=== PATIENT | male | born 1965 | race Caucasian/White ===

== ENCOUNTER 2020-12-28 08:13 | Observation (INO) | payer BC ==
--- OUTSIDE RECORDS SUMMARY | 2020-12-28 08:16 | XMS REPORT | Continuity of Care Document ---
:1965 Author Organization [facility] Address [address] [place] [address] Care Team Providers Name Role Phone Patricia Jackson MD Attending Clinician Doctor Unassigned, Name Attending Clinician Unavailable Luiz RN, P Attending Clinician Unavailable Pob1, Care Clinic Attending Clinician Unavailable Problems This patient has no known problems. Allergies, Adverse Reactions, Alerts This patient has no known allergies or adverse reactions. Medications This patient has no known medications. Procedures This patient has no known procedures. Encounters Start End Encounter Admission Attending Care Care Encounter Source Date/Time Date/Time Type Type Clinicians Facility Department ID 2020-08-18 2020-08-18 [facility] [id number] 16:47:19 23:59:00 Encounter Stephan Wagner [id number] [place] [id number] [place] [id number] 2020-08-18 2020-08-18 Orders Doctor HOUGH [id number] 00:00:00 00:00:00 Only UnassignedINDIRA [id number] [place] [id number] 2019-11-22 2019-11-22 Telephone GIANLUCA Dee [id number] 00:00:00 00:00:00 Korin JACOBSON [id number] 2019-11-20 2019-11-20 Urgent Pob1, Acute [facility] [id number] 12:17:24 13:41:18 [place] [id number] [place] [id number] [id number] [place] [address] 2019-09-10 2019-09-10 Outpatient [facility] [id number] 08:08:00 08:08:00 [facility] 2015-09-10 2015-09-10 Outpatient [facility] [id number] [facility] 11:26:13 23:59:59 Balwinder ritter Surgical Surgical [facility] Results This patient has no known results.
[2020-12-28 08:48] LABS: Absolute Lymphocytes (CBC) 1.8 K/uL (0.7-4.9); Basophils % 1.2 % (0-1.3); Hematocrit 43.1 % (39.6-49.0); Lymphocytes % 41.4 % (15.3-44.8); RBC Red Blood Cell Count 4.39 M/uL (4.33-5.43)
[2020-12-28] MEDS ORDERED: METOPROLOL TAR 50 MG TAB ONE (08:55)
[2020-12-28 09:08] LABS: BUN Blood Urea Nitrogen 7 mg/dL (7-18); Bicarbonate 30 mmol/L (21-32); Glucose Level 101 mg/dL (74-106); Magnesium 1.5 mg/dL (1.8-2.4); NT PRO-BNP 14 pg/mL (<125); Potassium 4.2 mmol/L (3.5-5.1); Sodium Level 134 mmol/L (136-145); Troponin (Emerg Dept Use Only) < 0.02 ng/mL (0.0-0.045)
--- NOTE | 2020-12-28 09:40 | RAD REPORT ---
EXAM DESCRIPTION: Sean Single View12/28/2020 8:47 am CLINICAL HISTORY: Palpitations COMPARISON: 2017 FINDINGS: The lungs appear clear of acute infiltrate. The heart is normal size IMPRESSION: No acute abnormalities displayed
--- NOTE | 2020-12-28 09:54 | EDPHYS ---
Physician Documentation [facility] Name: Jean-Paul Castillo Age: 55 yrs Sex: Male : 1965 Arrival Date: 12/28/2020 Time: 08:14 Bed 15 Private MD: ED Physician Chris Parry HPI: 12/28 09:45 This 55 yrs old Male presents to ER via Ambulatory with complaints of rn Palpitations, Shortness Of Breath. 09:45 The patient presents with a history of irregular heart beat, heart skipping beats. rn Context: The symptoms occur at rest. Onset: The symptoms/episode began/occurred this morning. Duration: The patient or guardian reports multiple episodes, that are intermittent. Modifying factors: The symptoms are aggravated by nothing. The symptoms are alleviated by nothing. Associated signs and symptoms: Pertinent positives: SOB, Pertinent negatives: chest pain. Severity of symptoms: At their worst the symptoms were moderate in the emergency department the symptoms are unchanged. The patient has experienced similar episodes in the past. Reports hx of palpitations, but no diagnosis, didn't take BP med this AM, comes in with worse palpitations, lasting longer, not going away, assoc with sob. No chest pain. Reports father had MA at 35. . Historical: - Allergies: 08:15 PENICILLINS; aa5 - PMHx: 08:15 Hypertension; aa5 - Immunization history:: Adult Immunizations unknown. - Social history:: Smoking status: Patient denies any tobacco usage or history of. - Family history:: Father has/had heart disease. - Hospitalizations: : No recent hospitalization is reported. ROS: 09:45 Constitutional: Negative for fever, chills, and weight loss, Eyes: Negative for injury, rn pain, redness, and discharge, Neck: Negative for injury, pain, and swelling, Cardiovascular: Negative for chest pain,and edema, Respiratory: Negative for cough, wheezing, and pleuritic chest pain, Abdomen/GI: Negative for abdominal pain, nausea, vomiting, diarrhea, and constipation, Back: Negative for injury and pain, MS/Extremity: Negative for injury and deformity, Skin: Negative for injury, rash, and discoloration, Neuro: Negative for headache, weakness, numbness, tingling, and seizure. Exam: 09:45 Constitutional: This is a well developed, well nourished patient who is awake, alert, rn and in no acute distress. Head/Face: Normocephalic, atraumatic. Eyes: Periorbital areas with no swelling, redness, or edema. ENT: No stridor Cardiovascular: Regular rate and rhythm. No pulse deficits. Respiratory: Clear bilateral breath sounds. No increased work of breathing, no retractions or nasal flaring. Abdomen/GI: Soft, non-tender Skin: Warm, dry MS/ Extremity: Pulses equal, no cyanosis. Neuro: Awake and alert, GCS 15 Vital Signs: 08:17 BP 154 / 104; Pulse 102; Resp 18 S; Temp 97.9(O); Pulse Ox 100% on R/A; Weight 102.06 aa5 kg (R); Height 5 ft. 11 in. (180.34 cm) (R); 08:30 BP 154 / 104; Pulse 94; Resp 20; Pulse Ox 99% on R/A; kg 09:00 BP 138 / 94; Pulse 100; Resp 20; Pulse Ox 99% ; kg 09:30 BP 127 / 86; Pulse 97; Resp 20; Pulse Ox 96% ; kg 10:00 BP 124 / 89; Pulse 101; Resp 20; Pulse Ox 98% on R/A; kg 10:30 BP 128 / 96; Pulse 100; Resp 20; Pulse Ox 97% ; kg 11:30 BP 129 / 92; Pulse 100; Resp 17; Pulse Ox 97% on R/A; kg 12:30 BP 120 / 84; Pulse 92; Resp 20; Pulse Ox 96% on R/A; kg 13:20 BP 124 / 88; Pulse 90; Resp 20; Pulse Ox 97% ; kg 08:17 Body Mass Index 31.38 (102.06 kg, 180.34 cm) aa5 MDM: 08:15 Patient medically screened. rn 09:45 Differential diagnosis: arrythmia, dehydration, electrolyte disorder. Data reviewed: rn vital signs, nurses notes, lab test result(s), EKG, radiologic studies. Counseling: I had a detailed discussion with the patient and/or guardian regarding: the historical points, exam findings, and any diagnostic results supporting the discharge/admit diagnosis, lab results, radiology results, the need for outpatient follow up, to return to the emergency department if symptoms worsen or persist or if there are any questions or concerns that arise at home. Response to treatment: There is no appreciated change of the patient's symptoms at this time, and as a result, I will admit patient. Admission orders: after a detailed discussion of the patient's condition and case, the admit orders are written by me. ED course: Pt still with palpitations and subjective sob, will admit to Dr. baptiste for further eval and cardiac consultation, vitals improving after magnesium and metoprolol. . 12/28 08:29 Order name: Basic Metabolic Panel; Complete Time: 09:12 rn 12/28 08:29 Order name: CBC with Diff; Complete Time: 09:12 rn 12/28 08:29 Order name: Magnesium; Complete Time: 09:12 rn 12/28 08:29 Order name: NT PRO-BNP; Complete Time: 09:12 rn 12/28 08:29 Order name: Troponin (emerg Dept Use Only); Complete Time: 09:12 rn 12/28 10:38 Order name: COVID-19 : Document "Date of Symptom Onset" if Symptomatic. aa5 12/28 08:29 Order name: XRAY Chest (1 view); Complete Time: 09:42 rn 12/28 08:29 Order name: EKG; Complete Time: 08:29 rn 12/28 08:29 Order name: Cardiac monitoring; Complete Time: 08:31 rn 12/28 08:29 Order name: EKG - Nurse/Tech; Complete Time: 08:31 rn 12/28 12:08 Order name: SARS-COV-2 RT PCR; Complete Time: 12:42 EDMS 12/28 12:40 Order name: Diet 2 Gm Sodium; Complete Time: 12:41 kg 12/28 08:29 Order name: IV Saline Lock; Complete Time: 08:44 rn 12/28 08:29 Order name: Labs collected and sent; Complete Time: 08:44 rn 12/28 08:29 Order name: O2 Per Protocol; Complete Time: 08:44 rn 12/28 08:29 Order name: O2 Sat Monitoring; Complete Time: 08:44 rn Administered Medications: 08:37 Drug: Metoprolol TARTRATE 50 mg Route: PO; kg 10:01 Follow up: Response: No adverse reaction kg 09:50 Drug: Magnesium Sulfate 1 grams Route: IVPB; Infused Over: 1 hrs; Site: right kg antecubital; 10:50 Follow up: Response: No adverse reaction; IV Status: Completed infusion; IV Intake: kg 100ml Disposition: 12/28/20 09:53 Hospitalization ordered by Arthur Baptiste for Observation. Preliminary diagnosis are Palpitations, Shortness of breath, Tachycardia, unspecified. - Bed requested for Telemetry/MedSurg (observation). - Status is Observation. aa5 - Condition is Stable. - Problem is new. - Symptoms have improved. Signatures: Dispatcher [employer] EDMS Rimma Martinez Roman, MD MD rn Calderon, Audri, RN RN aa5 Alycia Alexandre kg Corrections: (The following items were deleted from the chart) 12:39 09:53 Hospitalization Ordered by Arthur Baptiste DO for Observation. Preliminary bd diagnosis is Palpitations; Shortness of breath; Tachycardia, unspecified. Bed requested for Telemetry/MedSurg (observation). Status is Observation. Condition is Stable. Problem is new. Symptoms have improved. rn 13:52 12:39 12/28/2020 09:53 Hospitalization Ordered by Arthur Baptiste DO for Observation. aa5 Preliminary diagnosis is Palpitations; Shortness of breath; Tachycardia, unspecified. Bed requested for Telemetry/MedSurg (observation). Status is Observation. Condition is Stable. Problem is new. Symptoms have improved. bd
--- NOTE | 2020-12-28 09:54 | ER ---
Nurse's Notes [facility] Name: Jean-Paul Castillo Age: 55 yrs Sex: Male : 1965 Arrival Date: 12/28/2020 Time: 08:14 Bed 15 Private MD: Diagnosis: Palpitations;Shortness of breath;Tachycardia, unspecified Presentation: 12/28 08:15 Chief complaint: Patient states: chest palpitations that began today. Pt also reports aa5 SOB. Pt appears anxious during triage. Coronavirus screen: At this time, the client does not indicate any symptoms associated with coronavirus-19. Onset of symptoms was December 28, 2020. 08:15 Method Of Arrival: Ambulatory aa5 08:15 Acuity: ARNULFO 3 aa5 08:17 Ebola Screen: Patient negative for fever greater than or equal to 101.5 degrees aa5 Fahrenheit, and additional compatible Ebola Virus Disease symptoms. Initial Sepsis Screen: Does the patient meet any 2 criteria? HR > 90 bpm. Does the patient have a suspected source of infection? No. Patient's initial sepsis screen is negative. Risk Assessment: Do you want to hurt yourself or someone else? Patient reports no desire to harm self or others. Triage Assessment: 08:52 Respiratory: Onset: The symptoms/episode began/occurred this morning, the patient has kg mild shortness of breath. Historical: - Allergies: 08:15 PENICILLINS; aa5 - PMHx: 08:15 Hypertension; aa5 - Immunization history:: Adult Immunizations unknown. - Social history:: Smoking status: Patient denies any tobacco usage or history of. - Family history:: Father has/had heart disease. - Hospitalizations: : No recent hospitalization is reported. Screenin:51 Abuse screen: Denies threats or abuse. Abuse screen: Denies threats or abuse. kg Nutritional screening: No deficits noted. Tuberculosis screening: No symptoms or risk factors identified. Fall Risk None identified. No fall in past 12 months (0 pts). No secondary diagnosis (0 pts). IV access (20 points). Ambulatory Aid- None/Bed Rest/Nurse Assist (0 pts). Gait- Normal/Bed Rest/Wheelchair (0 pts) Mental Status- Oriented to own ability (0 pts). Total Greco Fall Scale indicates No Risk (0-24 pts). Assessment: 08:45 General: Appears in no apparent distress. Behavior is calm, cooperative, appropriate kg for age, quiet. Pain: Denies pain. Neuro: No deficits noted. Neuro: No deficits noted. Level of Consciousness is awake, alert, obeys commands, Oriented to person, place, time, situation, pt has notable tremor. Cardiovascular: Reports palpitations, shortness of breath, Heart tones S1 S2 Capillary refill < 3 seconds Rhythm is irregular. Respiratory: Reports shortness of breath During heart palpations Airway is patent Respiratory effort is even, Breath sounds are clear bilaterally. GI: No deficits noted. : No deficits noted. EENT: No deficits noted. Derm: No deficits noted. Musculoskeletal: No deficits noted. 13:28 Reassessment: report called to Armani QUIROZsurgical endoscopist. kg Vital Signs: 08:17 BP 154 / 104; Pulse 102; Resp 18 S; Temp 97.9(O); Pulse Ox 100% on R/A; Weight 102.06 aa5 kg (R); Height 5 ft. 11 in. (180.34 cm) (R); 08:30 BP 154 / 104; Pulse 94; Resp 20; Pulse Ox 99% on R/A; kg 09:00 BP 138 / 94; Pulse 100; Resp 20; Pulse Ox 99% ; kg 09:30 BP 127 / 86; Pulse 97; Resp 20; Pulse Ox 96% ; kg 10:00 BP 124 / 89; Pulse 101; Resp 20; Pulse Ox 98% on R/A; kg 10:30 BP 128 / 96; Pulse 100; Resp 20; Pulse Ox 97% ; kg 11:30 BP 129 / 92; Pulse 100; Resp 17; Pulse Ox 97% on R/A; kg 12:30 BP 120 / 84; Pulse 92; Resp 20; Pulse Ox 96% on R/A; kg 13:20 BP 124 / 88; Pulse 90; Resp 20; Pulse Ox 97% ; kg 08:17 Body Mass Index 31.38 (102.06 kg, 180.34 cm) aa5 ED Course: 08:14 Patient arrived in ED. as 08:15 Chris Parry MD is Attending Physician. rn 08:15 Arm band placed on Patient placed in an exam room, on a stretcher. aa5 08:17 pvc monitor on. Pulse ox on. NIBP on. aa5 08:24 EKG completed in triage. Results shown to MD. aa5 08:30 Inserted saline lock: 20 gauge in right antecubital area, using aseptic technique. kg 08:32 Triage completed. aa5 08:32 Patient has correct armband on for positive identification. Placed in gown. Bed in low mh5 position. Call light in reach. Side rails up X 1. Adult w/ patient. Warm blanket given. pvc monitor on. Pulse ox on. NIBP on. 08:32 EKG done, by ED staff, reviewed by Chris Parry MD. 5 08:33 Alycia Alexandre is Primary Nurse. kg 08:47 XRAY Chest (1 view) In Process Unspecified. EDMS 09:53 Arthur Haas DO is Hospitalizing Provider. rn Administered Medications: 08:37 Drug: Metoprolol TARTRATE 50 mg Route: PO; kg 10:01 Follow up: Response: No adverse reaction kg 09:50 Drug: Magnesium Sulfate 1 grams Route: IVPB; Infused Over: 1 hrs; Site: right kg antecubital; 10:50 Follow up: Response: No adverse reaction; IV Status: Completed infusion; IV Intake: kg 100ml Intake: 10:50 IV: 100ml; Total: 100ml. kg Outcome: 09:53 Decision to Hospitalize by Provider. rn 13:52 Patient left the ED. aa5 Signatures: Dispatcher [employer] Abena Bobo Roman, MD MD rn Calderon, Audri, RN RN aa5 Martinez, [facility] Alycia Alexandre kg
[2020-12-28] MEDS ORDERED: MAGNESIUM SULFATE 1 gm IVPB 1 GM/100 ML BAG IV ONE (10:11)
--- NOTE | 2020-12-28 10:39 | P.HP ---
Certification for Inpatient Patient admitted to: Observation With expected LOS: <2 Midnights Patient will require the following post-hospital care: None Practitioner: I am a practitioner with admitting privileges, knowledge of patient current condition, hospital course, and medical plan of care. Services: Services provided to patient in accordance with Admission requirements found in Title 42 Section 412.3 of the Code of Federal Regulations Patient History Date of Service: 12/28/20 Primary Care Provider: Dr. Aguayo; Cardiology-Dr. Sung Reason for admission: Palpitations History of Present Illness: 55-year-old male with history of hypertension and hyperlipidemia Patient presented to the ER with palpitations. Palpitations have been more prominent. He reports some palpitations from time to time. This morning palpitations were persistent. He denied any chest pain, shortness of breath with this. It would last for several min. He denied any nausea, vomiting, diarrhea or constipation. Patient has hypertension and hyperlipidemia. He takes medication for both. He came to the ER for further evaluation. In the ER patient evaluated. No significant EKG changes noted. Chest x-ray unremarkable. CBC unremarkable. BMP unremarkable. Troponin unremarkable. Magnesium level was low at 1.5. Patient blood pressure was elevated. Patient given metoprolol with improvement. Patient admitted for observation. When I saw the patient ER, heart rate and blood pressure improved. Patient reports seen Cardiology as an outpatient. Last cardiac stress test done about 1 year ago was unremarkable. Patient admits to heavy alcohol use. He drinks about 4 beers and 2 glasses of wine per day. Family history of cardiac disease noted. Allergies Penicillins Allergy (Verified 06/13/16 11:23) Hives Home medications list reviewed: Yes Home Medications: Anastrozole [Arimidex] 0.25 mg PO EVERY 7TH DAY 06/13/16 Ascorbic Acid [Vitamin C] 500 mg PO DAILY 06/13/16 Aspirin [Aspirin EC 325 MG] 325 mg PO DAILY 06/13/16 Cholecalciferol (Vitamin D3) [Vitamin D3] 1,000 unit PO DAILY 06/13/16 Docosahexanoic AC/Epa [Fish Oil 1,000 MG CAP] 2,000 mg PO DAILY 06/13/16 Fenofibrate,Micronized [Fenofibrate] 134 mg PO DAILY 06/13/16 Fluoxetine HCl [Prozac] 40 mg PO DAILY 06/13/16 L.acidoph,Paracasei, B.lactis [Probiotic] 1 each PO DAILY 06/13/16 Lutein 20 mg PO DAILY 06/13/16 Magnesium [Magnesium Gluconate] 400 mg PO DAILY 06/13/16 Melatonin 10 mg PO DAILY 06/13/16 Multivitamin [Multivitamins] 1 each PO DAILY 06/13/16 Phenylalanine [l-Phenylalanine] 500 mg PO DAILY 06/13/16 Temazepam 30 mg PO BEDTIME 06/13/16 Ubidecarenone/Vitamin E Mixed [Qtc11-Cyx E 100 mg-10 Unit Sfg] 1 each PO DAILY 06/13/16 Zinc Gluconate [Zinc] 50 mg PO DAILY 06/13/16 lisinopriL [Prinivil] 20 mg PO DAILY WITH BREAKFAST 06/13/16 - Past Medical/Surgical History Diabetic: No -: Hypertension -: Hyperlipidemia -: Alcohol abuse -: Back surgery -: Right ACL repair Psychosocial/ Personal History: Patient is . 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 - Family History Father -: Heart disease - Social History Smoking Status: Never smoker Alcohol use: Yes CD- Drugs: No Caffeine use: Yes Place of Residence: Home Review of Systems General: As per HPI Eyes: Unremarkable ENT: Unremarkable Respiratory: Unremarkable Cardiovascular: Palpitations, As per HPI Gastrointestinal: Unremarkable Genitourinary: Unremarkable Musculoskeletal: Unremarkable Integumentary: Unremarkable Neurological: Unremarkable Lymphatics: Unremarkable Physical Examination - Physical Exam General: Alert, In no apparent distress, Oriented x3, Cooperative HEENT: Atraumatic, Normocephalic, Mucous membr. moist/pink Neck: Supple Respiratory: Clear to auscultation bilaterally, Normal air movement Cardiovascular: Normal pulses, Regular rate/rhythm Gastrointestinal: Normal bowel sounds, Soft and benign, Non-distended, No tenderness, No masses, No rebound, No guarding Musculoskeletal: No erythema, No tenderness, No warmth Integumentary: No tenderness/swelling, No erythema, No warmth, No cyanosis Neurological: Normal speech, Normal strength at 5/5 x4 extr, Normal tone, Normal affect - Studies Laboratory Data (last 24 hrs) 12/28/20 08:41: WBC 4.30, Hgb 15.2, Hct 43.1, Plt Count 216 12/28/20 08:41: Sodium 134 L, Potassium 4.2, BUN 7, Creatinine 1.02, Glucose 101, Magnesium 1.5 L Assessment and Plan - Plan Impression: Palpitations Hypertension, uncontrolled Hyperlipidemia Alcohol abuse Hypomagnesia Plan: Palpitations: Patient will be admitted for further evaluation and treatment. Will monitor cardiac enzymes and telemetry. DVT prophylaxis in place. Magnesium to be replaced. Will monitor and adjust appropriately. Protocol in place. Blood pressure needs to be better controlled. Will continue with metoprolol. Hold valsartan. Will order echocardiogram to further evaluate. Cardiology consulted to further evaluate. Await recommendation. Will discuss with cardiology. Alcohol cessation addressed in detail. Importance of cessation addressed. Anticipate improvement over the next 24 hr with likely discharge. Hypertension, uncontrolled: Blood pressure uncontrolled. Now better controlled with beta-manuel therapy. Will continue with metoprolol 50 mg 1 pill twice daily. Hold valsartan. Hyperlipidemia: Will check fasting lipid panel. Continue fenofibrate. Alcohol abuse: Alcohol cessation education provided in detail. Patient unders tands the risks of continued use. Patient appears to want to eliminate alcohol in the future. Continue cessation education. Will start thiamine and folic acid. Hypomagnesia: Will replace magnesium. Discharge Plan: Home Plan to discharge in: 24 Hours - Advance Directives Does patient have a Living Will: No Does patient have a Durable POA for Healthcare: No - Code Status/Comfort Care Code Status Assessed: Yes (Patient is full code) Time Spent Managing Pts Care (In Minutes): 55
[2020-12-28] MEDS ORDERED: ONDANSETRON 4 MG/2 ML VIAL IV PRN (13:58)
[2020-12-28] MEDS ORDERED: ACETAMINOPHEN 500 MG TAB PO PRN (13:58)
[2020-12-28 14:19] VITALS: BMI 31.4
[2020-12-28 15:42] LABS: CKMB Creatine Kinase MB 2.3 ng/mL (0.3-3.6); Creatine Phosphokinase 188 U/L (39-308); Troponin I < 0.02 ng/mL (0.0-0.045)
--- NOTE | 2020-12-28 17:41 | EKG ---
Test Date: 2020-12-28 Test Time: 08:24:26 Ground Support Equipment Fitter: EDWRAD MEASUREMENT RESULTS: Intervals: Rate: 107 CA: 166 QRSD: 92 QT: 336 QTc: 448 [place]: P: 62 CA: 166 QRS: 37 T: 27 INTERPRETIVE STATEMENTS: Sinus tachycardia with premature supraventricular complexes Otherwise normal ECG Compared to ECG 06/13/2016 11:26:47 Atrial premature complex(es) now present Sinus rhythm no longer present Electronically Signed On 12-28-20 17:40:02 CDT by Nestor Carreon
[2020-12-28] MEDS: METOPROLOL TAR 50 MG TAB PO SCH (20:35)
[2020-12-28 20:54] LABS: CKMB Creatine Kinase MB 1.7 ng/mL (0.3-3.6); Creatine Phosphokinase 171 U/L (39-308); Troponin I < 0.02 ng/mL (0.0-0.045)
[2020-12-28] MEDS ORDERED: FENOFIBRATE 48 MG TAB PO SCH (21:00)
[2020-12-28] MEDS ORDERED: TEMAZEPAM 15 MG CAP PO SCH (21:00)
[2020-12-29 04:43] VITALS: O2SAT 97
[2020-12-29 06:16] LABS: Magnesium 1.7 mg/dL (1.8-2.4); Potassium 4.1 mmol/L (3.5-5.1); Thyroid Stimulating Hormone 2.43 uIU/mL (0.360-3.740)
--- NOTE | 2020-12-29 07:17 | P.DS ---
Admission Date: 12/28/20 Discharge Date: 12/29/20 Primary Care Provider: Dr. Aguayo; Cardiology-Dr. Sung Disposition: ROUTINE DISCHARGE Discharge Condition: GOOD Reason for Admission: Palpitations Consultations: Cardiology-Dr. Carreon Procedures: COVID: Negative CXR: CLINICAL HISTORY: Palpitations COMPARISON: 2018 FINDINGS: The lungs appear clear of acute infiltrate. The heart is normal size IMPRESSION: No acute abnormalities displayed Medical Problem List: Palpitations, resolved Hypertension, uncontrolled Hyperlipidemia Alcohol abuse Hypomagnesia Depression with anxiety Prediabetes Obesity, BMI 31.4 Brief History of Present Illness: 55-year-old male with history of hypertension and hyperlipidemia Patient presented to the ER with palpitations. Palpitations have been more prominent. He reports some palpitations from time to time. This morning palpitations were persistent. He denied any chest pain, shortness of breath with this. It would last for several min. He denied any nausea, vomiting, diarrhea or constipation. Patient has hypertension and hyperlipidemia. He takes medication for both. He came to the ER for further evaluation. In the ER patient evaluated. No significant EKG changes noted. Chest x-ray unremarkable. CBC unremarkable. BMP unremarkable. Troponin unremarkable. Magnesium level was low at 1.5. Patient blood pressure was elevated. Patient given metoprolol with improvement. Patient admitted for observation. When I saw the patient ER, heart rate and blood pressure improved. Patient reports seen Cardiology as an outpatient. Last cardiac stress test done about 1 year ago was unremarkable. Patient admits to heavy alcohol use. He drinks about 4 beers and 2 glasses of wine per day. Family history of cardiac disease noted. Hospital Course: Patient presented with palpitations. EKG showed no significant ST changes. Magnesium was also low. His alcohol use may be related to this. Patient also has uncontrolled hypertension, hyperlipidemia, and prediabetes. The patient was admitted for further evaluation. Patient seen and evaluated by cardiology. No cardiac intervention was required. His medication valsartan/hydrochlorothiazide was discontinued. This was replaced with metoprolol. Blood pressure now well controlled. Magnesium was also replaced. Patient will continue with magnesium at discharge. Education on alcohol cessation addressed in detail. Patient plans to quit. At discharge no further palpitations identified. At discharge the patient will continue with metoprolol 50 mg 1 pill twice daily. Recommend to monitor blood pressure daily. Recommend to maintain blood pressure less than 130/80. Further adjustment can be done by his PCP or cardiology. Due to his risk factors patient will have outpatient echocardiogram and cardiac stress test to further evaluate with cardiology. He will make arrangements with cardiology to address. Patient will follow up with cardiology in 1 to 2 weeks to follow-up hospitalization. Patient with hypertension. This was uncontrolled. As mentioned above valsartan hydrochlorothiazide was discontinued. This was replaced with metoprolol with better control. At discharge patient will continue with metoprolol 50 mg 1 pill twice daily. Recommend to monitor blood pressure daily. Recommend to maintain blood pressure less than 130/80. Further adjustment can be done by his PCP or cardiology. Education on hypertension provided. Patient will follow up with his PCP and cardiology to further monitor and address. Patient with hyperlipidemia. Patient takes multiple medications already. Triglyceride level 183, LDL 114, HDL 29. Recommend to continue with his current medications of Zetia 10 mg daily and fenofibrate 135 mg daily. Recommend to recheck fasting lipid panel in 4 to 6 weeks to monitor his progress. Further adjustment in medication may be required. This can be done with the help of his PCP or reimbursement spec. Patient with alcohol abuse. Alcohol cessation addressed in detail. Patient plans to quit. Patient understands the continued risk of continued use. This can be further monitored as an outpatient. Due to his alcohol abuse will recommend to continue thiamine 100 mg daily. Patient with low magnesium level. This was replaced. At discharge patient will continue with mag oxide 200 mg daily. Recommend to recheck labBMP and magnesium level in 1 week to monitor his progress and resolution. Once well controlled then medication can be weaned off. Patient with depression and anxiety. At discharge patient will continue with his current medications of Prozac 20 mg daily and temazepam 30 mg at bedtime. Recommend follow-up with his PCP to further monitor and address. Recommend to wean off temazepam. This can be done with the help of his PCP. Patient with prediabetes. Hemoglobin A1c to be obtained. This can be followed up as an outpatient. Patient takes Metformin. Patient will continue with Metformin 500 mg 1 pill twice daily. If A1c well controlled consider discontinuing medication or weaning off medication. This can be done with the help of his PCP. Patient with obesity, BMI 31.5. Lifestyle modification education provided. Vital Signs/Physical Exam: Temp Pulse Resp BP Pulse Ox 98.1 F 70 16 123/82 97 12/29/20 04:00 12/29/20 04:00 12/29/20 04:00 12/29/20 04:00 12/29/20 04:00 General: Alert, In no apparent distress, Oriented x3, Cooperative HEENT: Atraumatic Neck: Supple Respiratory: Clear to auscultation bilaterally, Normal air movement Cardiovascular: Normal pulses, Regular rate/rhythm Gastrointestinal: Normal bowel sounds, Soft and benign, Non-distended, No tenderness, No masses, No rebound, No guarding Musculoskeletal: No erythema, No tenderness, No warmth Integumentary: No tenderness/swelling Neurological: Normal speech, Normal strength at 5/5 x4 extr, Normal tone, Normal affect Laboratory Data at Discharge: WBC 4.30 K/uL (4.3-10.9) 12/28/20 08:41 Hgb 15.2 g/dL (13.6-17.9) 12/28/20 08:41 Hct 43.1 % (39.6-49.0) 12/28/20 08:41 Plt Count 216 K/uL (152-406) 12/28/20 08:41 Sodium 137 mmol/L (136-145) 12/29/20 05:22 Potassium 4.1 mmol/L (3.5-5.1) 12/29/20 05:22 BUN 13 mg/dL (7-18) 12/29/20 05:22 Creatinine 1.20 mg/dL (0.55-1.3) 12/29/20 05:22 Glucose 109 mg/dL (74-106) H 12/29/20 05:22 Magnesium 1.7 mg/dL (1.8-2.4) L 12/29/20 05:22 Troponin I < 0.02 ng/mL (0.0-0.045) 12/28/20 19:47 Triglycerides 183 mg/dL (<150) H 12/29/20 05:22 Cholesterol 180 mg/dL (<200) 12/29/20 05:22 HDL Cholesterol 29 mg/dL (40-60) L 12/29/20 05:22 Cholesterol/HDL Ratio 6.21 12/29/20 05:22 Home Medications: Fenofibrate,Micronized [Fenofibrate] 135 mg PO DAILY 06/13/16 Fluoxetine HCl [Prozac] 20 mg PO DAILY 06/13/16 Temazepam 30 mg PO BEDTIME 06/13/16 Aspirin [Aspirin EC 325 MG] 1 tab PO DAILY 12/28/20 Ezetimibe [Zetia*] 10 mg PO DAILY 12/28/20 Metformin ER [Glucophage ER*] 500 mg PO BID 12/28/20 Magnesium Oxide [Mag-Oxide] 200 mg PO DAILY #30 tablet 12/29/20 Metoprolol Tartrate [Lopressor*] 50 mg PO BID #60 tab 12/29/20 Thiamine HCl [Vitamin B-1*] 100 mg PO DAILY #30 tablet 12/29/20 New Medications: Metoprolol Tartrate [Lopressor*] 50 mg PO BID #60 tab Magnesium Oxide [Mag-Oxide] 200 mg PO DAILY #30 tablet Thiamine HCl [Vitamin B-1*] 100 mg PO DAILY #30 tablet Physician Discharge Instructions: Patient presented with palpitations. EKG showed no significant ST changes. Magnesium was also low. His alcohol use may be related to this. Patient also has uncontrolled hypertension, hyperlipidemia, and prediabetes. The patient was admitted for further evaluation. Patient seen and evaluated by cardiology. No cardiac intervention was required. His medication valsartan/hydrochlorothiazide was discontinued. This was replaced with metoprolol. Blood pressure now well controlled. Magnesium was also replaced. Patient will continue with magnesium at discharge. Education on alcohol cessation addressed in detail. Patient plans to quit. At discharge no further palpitations identified. At discharge the patient will continue with metoprolol 50 mg 1 pill twice daily. Recommend to monitor blood pressure daily. Recommend to maintain blood pressure less than 130/80. Further adjustment can be done by his PCP or cardiology. Due to his risk factors patient will have outpatient echocardiogram and cardiac stress test to further evaluate with cardiology. He will make arrangements with cardiology to address. Patient will follow up with cardiology in 1 to 2 weeks to follow-up hospitalization. Patient with hypertension. This was uncontrolled. As mentioned above valsartan hydrochlorothiazide was discontinued. This was replaced with metoprolol with better control. At discharge patient will continue with metoprolol 50 mg 1 pill twice daily. Recommend to monitor blood pressure daily. Recommend to maintain blood pressure less than 130/80. Further adjustment can be done by his PCP or cardiology. Education on hypertension provided. Patient will follow up with his PCP and cardiology to further monitor and address. Patient with hyperlipidemia. Patient takes multiple medications already. Triglyceride level 183, LDL 114, HDL 29. Recommend to continue with his current medications of Zetia 10 mg daily and fenofibrate 135 mg daily. Recommend to recheck fasting lipid panel in 4 to 6 weeks to monitor his progress. Further adjustment in medication may be required. This can be done with the help of his PCP or reimbursement spec. Patient with alcohol abuse. Alcohol cessation addressed in detail. Patient plans to quit. Patient understands the continued risk of continued use. This can be further monitored as an outpatient. Due to his alcohol abuse will recommend to continue thiamine 100 mg daily. Patient with low magnesium level. This was replaced. At discharge patient will continue with mag oxide 200 mg daily. Recommend to recheck labBMP and magnesium level in 1 week to monitor his progress and resolution. Once well controlled then medication can be weaned off. Patient with depression and anxiety. At discharge patient will continue with his current medications of Prozac 20 mg daily and temazepam 30 mg at bedtime. Recommend follow-up with his PCP to further monitor and address. Recommend to wean off temazepam. This can be done with the help of his PCP. Patient with prediabetes. Hemoglobin A1c to be obtained. This can be followed up as an outpatient. Patient takes Metformin. Patient will continue with Metformin 500 mg 1 pill twice daily. If A1c well controlled consider discontinuing medication or weaning off medication. This can be done with the help of his PCP. Patient with obesity, BMI 31.5. Lifestyle modification education provided. Diet: ADA Activity: Ad franco Followup: CONNIE SUNG [Primary Care Provider] - Time spent managing pt's care (in minutes): 55
[2020-12-29] MEDS: METOPROLOL TAR 50 MG TAB PO SCH (08:20)
[2020-12-29 08:21] VITALS: BP 137/87
[2020-12-29] MEDS ORDERED: EZETIMIBE 10 MG TAB PO SCH (09:00)
[2020-12-29] MEDS ORDERED: ENOXAPARIN 40 MG/0.4 ML SQ SCH (09:00)
[2020-12-29] MEDS ORDERED: MAGNESIUM SULFATE 1 gm IVPB 1 GM/100 ML BAG IV ONE (09:00)
[2020-12-29] MEDS ORDERED: FOLIC ACID 1 MG TABLET PO SCH (09:00)
[2020-12-29] MEDS ORDERED: THIAMINE HCL 100 MG TABLET PO SCH (09:00)
[2020-12-29] MEDS ORDERED: ASPIRIN EC 81 MG TAB PO SCH (09:00)
[2020-12-29] MEDS ORDERED: FLUOXETINE 20 MG CAP PO SCH (09:00)
[2020-12-29 09:19] VITALS: TEMP 97.4
--- NOTE | 2021-01-03 17:04 | CON ---
Date of Consultation: 12/28/2020 Reason For Consultation: Palpitation and shortness of breath. History Of Present Illness: Mr. Castillo is a 55-year-old male without any significant past cardiac hist ory. He does have a history of hypertension. He came in complaining of palpitation and shortness of breath. He felt like his heart was skipping beats. Denied any chest pain, nausea, vomiting, PND, o rthopnea, pedal edema, or syncope. Has been feeling shortness of breath. Apparently has kept his bl ood pressure medicine that morning. He has a strong family history of heart disease. His dad o f heart problem at age 35. Allergies: INCLUDE PENICILLIN. Review of Systems: Negative. Social History: Negative. Family History: Positive for heart disease. Medications: At home include aspirin, Zetia, fenofibrate, Prozac, magnesium, metformin, metoprolol, temazepam, and thiamine. Physical Examination: Vital Signs: Stable. He was afebrile. HEENT: Negative. Neck: Supple with no bruit. Chest: Clear. Cardiac: Revealed a regular rhythm and rate. No murmurs, gallops, or rubs. Abdomen: Benign. Extremities: Revealed no clubbing, cyanosis, or edema. Diagnostic Data: All normal. Impression And Plan: 1.Hypertension. 2.Palpitation and shortness of breath secondary to not taking his beta-manuel. He needs to resume that. 3.Dyslipidemia. 4.Diabetes. 5.Depression. His chest x-ray is unremarkable. His EKG is unremarkable. I am comfortable with Mr. Castillo going home. Resume his medication, take an extra beta-manuel as needed, and I will make arran gements for him to have an outpatient echocardiogram and stress test. DONTE/ALLEY Voice ID: [id number] Report ID: [id number]
== END 2020-12-29 09:29 | disposition home or self-care (01) ==
LOC: ER 08:13 → ERHOLD 10:26 → 2ND 13:22
PROVIDERS: ADMIT Family Medicine; ATTEND Family Medicine
DX: R00.2 Palpitations (principal); I10 Essential (primary) hypertension; E78.5 Hyperlipidemia, unspecified; E83.42 Hypomagnesemia; F41.8 Other specified anxiety disorders; Z20.822 Contact with and (suspected) exposure to COVID-19; R73.03 Prediabetes; F10.10 Alcohol abuse, uncomplicated; E66.9 Obesity, unspecified; Z68.31 Body mass index [BMI] 31.0-31.9, adult
CPT/HCPCS: 96365; 93005; 85025; 80048 ×2; 36415; 83735 ×2; 82550 ×2; 80061; 84443; 83036; 84484 ×3; 82553 ×2; 84439; 83880; 71045; 99284; U0003; J1650; J3475 ×2; G0378

== ENCOUNTER 2021-03-16 06:59 | Emergency (ER) | payer BC ==
--- OUTSIDE RECORDS SUMMARY | 2021-03-16 07:01 | XMS REPORT | Continuity of Care Document ---
:1965 Author Organization [facility] t Address [address] [place] [address] Care Team Providers Name Role Phone Patricia [...] Type Clinicians Facility Department ID 2020-08-18 2020-08-18 [facility] [id number] 16:47:19 23:59:00 Encounter Stephan Wagner [id number] [employer] [id number] [place] [id number] 2020-08-18 2020-08-18 Orders Doctor HOUGH [id number] 00:00:00 00:00:00 Only UnassINDIRA novoa [id number] [place] [id number] [id number] 2019-11-22 2019-11-22 Telephone GIANLUCA Dee [id number] 00:00:00 00:00:00 Korin JACOBSON [id number] 2019-11-20 2019-11-20 Urgent Pob1, Acute [facility] [id number] 12:17:24 13:41:18 [place] [id number] [place] [id number] [facility] [id number] [place] [address] 2019-09-10 2019-09-10 Outpatient [facility] [id number] 08:08:00 08:08:00 [facility] 2015-09-10 2015-09-10 Outpatient [facility] [address] [facility] 11:26:13 23:59:59 Balwinder ritter [facility] Results This patient has no known results.
[2021-03-16 07:32] LABS: Protime INR 1.03
[2021-03-16 07:37] LABS: Absolute Lymphocytes (CBC) 0.9 K/uL (0.7-4.9); Basophils % 0.7 % (0-1.3); Hematocrit 57.1 % (39.6-49.0); Lymphocytes % 16.6 % (15.3-44.8); MPV 8.4 fL (7.6-11.3); RBC Red Blood Cell Count 5.66 M/uL (4.33-5.43)
[2021-03-16 08:03] LABS: ALT/SGPT 49 U/L (12-78); AST/SGOT 33 U/L (15-37); Albumin 3.2 g/dL (3.4-5.0); Alkaline Phosphatase 29 U/L (45-117); BUN Blood Urea Nitrogen 14 mg/dL (7-18); Bicarbonate 29 mmol/L (21-32); Bilirubin Direct 0.5 mg/dL (0-0.2); Bilirubin Total 1.4 mg/dL (0.2-1.0); Glucose Level 167 mg/dL (74-106); Magnesium 1.7 mg/dL (1.8-2.4); NT PRO-BNP 231 pg/mL (<125); Potassium 4.5 mmol/L (3.5-5.1); Sodium Level 133 mmol/L (136-145); Troponin (Emerg Dept Use Only) < 0.02 ng/mL (0.0-0.045)
--- NOTE | 2021-03-16 08:51 | RAD REPORT ---
EXAM DESCRIPTION: RAD - Chest Single View - 03/16/2021 8:01 am CLINICAL HISTORY: CHEST PAIN Chest pain. COMPARISON: Chest Single View dated 12/28/2020; Chest Pa And Lat (2 Views) dated 05/17/2018; Chest Pa And Lat (2 Views) dated 08/22/2016; Chest Pa And Lat (2 Views) dated 03/31/2016 FINDINGS: Portable technique limits examination quality. The lungs are grossly clear. The heart is normal in size. No displaced fractures. IMPRESSION: No acute intrathoracic process suspected.
[2021-03-16] MEDS ORDERED: NA CHLORIDE 0.9% 1,000 ML ONE (09:00)
--- NOTE | 2021-03-16 09:00 | RAD REPORT ---
EXAM DESCRIPTION: CT - Angio Aorta For Dissection - 03/16/2021 8:33 am CLINICAL HISTORY: Chest pain radiating to the back. diaphoresis, abd pain COMPARISON: No comparisons TECHNIQUE: CT angiography of the aorta was performed with MIPs. All CT scans are performed using dose optimization technique as appropriate and may include automated exposure control or mA/KV adjustment according to patient size. FINDINGS: A left aortic arch is present with normal branching pattern of the great vessels.No acute aortic finding is seen such as aneurysm, penetrating ulcer or dissection. The celiac axis, SMA, JAGDEEP and renal arteries are patent. No evidence of pulmonary embolism. The lungs are mildly emphysematous without focal infiltrate. The liver demonstrates no focal mass or biliary dilatation.Diffuse fatty infiltration of the liver.Th e spleen, pancreas, adrenal glands and kidneys are within normal limits for arterial phase imaging.Be nign cortical renal cysts bilaterally. No bowel obstruction, free fluid or abscess.Normal appendix.No pathologic enlarged lymphadenopathy id entified.The rectum has an irregular mucosal appearance. No fracture or worrisome bone lesion seen. IMPRESSION: No acute aortic finding is demonstrated. Irregular mucosal appearance to the rectum. Recommend followup colonoscopy for direct visualization.
--- NOTE | 2021-03-16 10:36 | ER ---
Nurse's Notes [facility] Name: Jean-Paul Castillo Age: 56 yrs Sex: Male : 1965 Arrival Date: 03/16/2021 Time: 07:03 Bed 2 Private MD: Diagnosis: Syncope Near Presentation: 03/16 07:05 Chief complaint: EMS states: Pt complaining of chest pain that started suddenly this tr6 AM. EMS reports pt was diaphoretic and pale. 20G IV initiated to left forearm. Coronavirus screen: At this time, the client does not indicate any symptoms associated with coronavirus-19. Ebola Screen: No symptoms or risks identified at this time. Initial Sepsis Screen: Does the patient meet any 2 criteria? No. Patient's initial sepsis screen is negative. Does the patient have a suspected source of infection? No. Patient's initial sepsis screen is negative. Risk Assessment: Do you want to hurt yourself or someone else? Patient reports no desire to harm self or others. Onset of symptoms was March 16, 2021. 07:05 Method Of Arrival: EMS: [facility] tr6 07:05 Acuity: ARNULFO 3 tr6 Triage Assessment: 07:08 General: Appears in no apparent distress. Behavior is appropriate for age. Pain: Denies ea pain. Neuro: Level of Consciousness is awake, alert, obeys commands, Oriented to person, place, time. Respiratory: Airway is patent Respiratory effort is even, unlabored, Respiratory pattern is regular, symmetrical. Historical: - Allergies: 07:08 PENICILLINS; ea - PMHx: 07:08 Hypertension; ea - Immunization history:: Adult Immunizations unknown. - Social history:: Smoking status: unknown. - Family history:: not pertinent. - Hospitalizations: : No recent hospitalization is reported. Screenin:07 Abuse screen: Denies threats or abuse. Nutritional screening: No deficits noted. ea Tuberculosis screening: No symptoms or risk factors identified. Fall Risk IV access (20 points). Assessment: 07:15 General: Appears in no apparent distress. Behavior is calm, cooperative. Pain: Pain hb currently is 4 out of 10 on a pain scale. Neuro: Level of Consciousness is awake, alert, obeys commands, Oriented to person, place, time, situation. Cardiovascular: Patient's skin is warm and dry. Rhythm is regular. Respiratory: Respiratory effort is even, unlabored, Respiratory pattern is regular, symmetrical. GI: No signs and/or symptoms were reported involving the gastrointestinal system. : No signs and/or symptoms were reported regarding the genitourinary system. EENT: No signs and/or symptoms were reported regarding the EENT system. Derm: Skin is pink, warm \T\ dry. Musculoskeletal: No signs and/or symptoms reported regarding the musculoskeletal system. 08:00 Reassessment: Patient appears in no apparent distress at this time. Patient and/or hb family updated on plan of care and expected duration. Pain level reassessed. Patient is alert, oriented x 3, equal unlabored respirations, skin warm/dry/pink. 09:21 Reassessment: Patient appears in no apparent distress at this time. Patient and/or hb family updated on plan of care and expected duration. Pain level reassessed. Patient is alert, oriented x 3, equal unlabored respirations, skin warm/dry/pink. 10:14 Reassessment: Recollect trop sent. NAD. Pt denies pain/SOB. VSS. hb 11:01 Reassessment: Patient appears in no apparent distress at this time. Patient and/or hb family updated on plan of care and expected duration. Pain level reassessed. Patient is alert, oriented x 3, equal unlabored respirations, skin warm/dry/pink. Patient denies pain at this time. Patient states feeling better. Vital Signs: 07:05 BP 114 / 89; Pulse 72; Resp 18; Pulse Ox 99% ; tr6 08:45 BP 125 / 94; Pulse 61; Resp 15; Pulse Ox 99% ; Pain 0/10; hb 09:21 BP 103 / 86; Pulse 53; Resp 14; Pulse Ox 98% ; hb 10:15 BP 114 / 97; Pulse 57; Resp 17; Pulse Ox 98% on R/A; Pain 0/10; hb ED Course: 07:03 Patient arrived in ED. tr6 07:07 Triage completed. tr6 07:07 Maintain EMS IV. Dressing intact. Good blood return noted. Site clean \T\ dry. Gauge \T\ ea site: 20G LAC. 07:08 Chris Parry MD is Attending Physician. rn 07:08 Arm band placed on right wrist. Patient placed in an exam room, on a stretcher, on ea president practicing urologist, on pulse oximetry. 07:08 Patient has correct armband on for positive identification. Bed in low position. Call ea light in reach. Side rails up X2. 07:26 EKG done, by ED staff, reviewed by Chris Parry MD. em1 08:01 XRAY Chest (1 view) In Process Unspecified. EDMS 08:30 Natalia Rooney, RN is Primary Nurse. hb 08:33 CT Aorta for Dissection In Process Unspecified. EDMS 11:01 No provider procedures requiring assistance completed. IV discontinued, intact, hb bleeding controlled, No redness/swelling at site. Administered Medications: 08:34 Drug: NS 0.9% 1000 ml Route: IV; Rate: 1000 ml; Site: left antecubital; hb Outcome: 10:36 Discharge ordered by . rn 11:01 Discharged to home ambulatory, with significant other. hb 11:01 Condition: stable 11:01 Discharge instructions given to patient, Instructed on discharge instructions, follow up and referral plans. medication usage, Demonstrated understanding of instructions, follow-up care, medications. 11:05 Patient left the ED. hb Signatures: Dispatcher [employer] EDMS Chris Parry MD MD rn Martinez, Eric em1 Natalia Rooney, RN RN Chayo Spear RN Brandie Deleon ea RN RN tr6
--- NOTE | 2021-03-16 10:36 | EDPHYS ---
Physician Documentation [facility] Name: Jean-Paul Castillo Age: 56 yrs Sex: Male : 1965 Arrival Date: 03/16/2021 Time: 07:03 Bed 2 Private MD: ED Physician Chris Parry HPI: 03/16 07:19 This 56 yrs old Male presents to ER via EMS with complaints of Flushing, rn abdominal pain. 07:19 The patient presents with abdominal pain in the periumbilical area. Onset: The rn symptoms/episode began/occurred just prior to arrival. The symptoms do not radiate. Associated signs and symptoms: Pertinent positives: Diaphoresis and flushing, Pertinent negatives: blood in stools, chest pain, fever, hematuria, shortness of breath, testicular pain, vomiting, vomiting blood. The symptoms are described as crampy. Modifying factors: The symptoms are alleviated by nothing, the symptoms are aggravated by nothing. Severity of pain: At its worst the pain was mild in the emergency department the pain has improved. The patient has not experienced similar symptoms in the past. The patient has not recently seen a physician. Patient states woke up was going to work took all of his normal medication, approximately 30 minutes after felt flushing to face, abdominal cramping. Denies any chest pain or trouble breathing. [place] fine prior to taking medication. Drove to work, went to [employer], felt like he was going to pass out, sat down, 911 was called. Feels better now. States is never happened to him before.. Historical: - Allergies: 07:08 PENICILLINS; ea - PMHx: 07:08 Hypertension; ea - Immunization history:: Adult Immunizations unknown. - Social history:: Smoking status: unknown. - Family history:: not pertinent. - Hospitalizations: : No recent hospitalization is reported. ROS: 07:19 Constitutional: Negative for fever, chills, and weight loss, Eyes: Negative for injury, rn pain, redness, and discharge, Neck: Negative for injury, pain, and swelling, Cardiovascular: Negative for chest pain,and edema, Respiratory: Negative for shortness of breath, cough, wheezing, and pleuritic chest pain, Abdomen/GI: Negative for nausea, vomiting, diarrhea, and constipation, Back: Negative for injury and pain, MS/Extremity: Negative for injury and deformity, Skin: Negative for injury, rash, and discoloration, Neuro: Negative for headache, weakness, numbness, tingling, and seizure. Exam: 07:19 Constitutional: This is a well developed, well nourished patient who is awake, alert, rn and in no acute distress. Mild diaphoresis Head/Face: Normocephalic, atraumatic. Eyes: Pupils equal round and reactive to light, extra-ocular motions intact. Lids and lashes normal. Conjunctiva and sclera are non-icteric and not injected. Cornea within normal limits. Periorbital areas with no swelling, redness, or edema. ENT: No stridor Cardiovascular: Regular rate and rhythm. No pulse deficits. Respiratory: No increased work of breathing, no retractions or nasal flaring. Abdomen/GI: Soft, nontender, no masses Skin: Warm, diaphoresis on forehead MS/ Extremity: Pulses equal, no cyanosis. Neurovascular intact. Full, normal range of motion. Equal circumference. Neuro: Awake and alert, GCS 15, oriented to person, place, time, and situation. Cranial nerves II-XII grossly intact. Motor strength 5/5 in all extremities. Sensory grossly intact. Cerebellar exam normal. Vital Signs: 07:05 BP 114 / 89; Pulse 72; Resp 18; Pulse Ox 99% ; tr6 08:45 BP 125 / 94; Pulse 61; Resp 15; Pulse Ox 99% ; Pain 0/10; hb 09:21 BP 103 / 86; Pulse 53; Resp 14; Pulse Ox 98% ; hb 10:15 BP 114 / 97; Pulse 57; Resp 17; Pulse Ox 98% on R/A; Pain 0/10; hb MDM: 07:08 Patient medically screened. rn 10:33 Differential diagnosis: acute coronary syndrome, bowel obstruction, cholecystitis, rn Cholelithiasis, diverticulitis, gastritis, gastroesophageal reflux disease, non-specific abd pain, pancreatitis, Peptic Ulcer Disease, Medication side effect, flushing from niacin that patient takes, dehydration, arrhythmia. Data reviewed: vital signs, nurses notes, lab test result(s), EKG, radiologic studies, CT scan, and as a result, I will discharge patient. Counseling: I had a detailed discussion with the patient and/or guardian regarding: the historical points, exam findings, and any diagnostic results supporting the discharge/admit diagnosis, lab results, radiology results, the need for outpatient follow up, to return to the emergency department if symptoms worsen or persist or if there are any questions or concerns that arise at home. Response to treatment: the patient's symptoms have markedly improved after treatment, the patient's condition has returned to base line, the patient is now symptom free, patient is well hydrated. and as a result, I will discharge patient. Special discussion: I discussed with the patient/guardian in detail that at this point there is no indication for admission to the hospital. It is understood, however, that if the symptoms persist or worsen the patient needs to return immediately for re-evaluation. ED course: Patient feels much better, back to baseline, stable vital signs. Troponin negative x2, CT aorta no acute findings, EKG without ischemic findings. Patient states takes niacin along with multiple vitamins, may explain flushing sensation. Patient also states has anxiety could have had anxious episode precipitated by flushing and medication reaction. Explained to patient that no definitive diagnosis found instead ruled out bad etiologies, patient understands, and will follow up with PCP.. 03/16 07:05 Order name: Basic Metabolic Panel; Complete Time: 08:04 6 03/16 07:05 Order name: CBC with Diff; Complete Time: 07:59 [facility] 03/16 07:05 Order name: LFT's; Complete Time: 08:04 6 03/16 07:05 Order name: Magnesium; Complete Time: 08:04 [facility] 03/16 07:05 Order name: NT PRO-BNP; Complete Time: 08:04 [facility] 03/16 07:05 Order name: PT-INR; Complete Time: 07:59 03/16 07:05 Order name: Troponin (emerg Dept Use Only); Complete Time: 08:04 03/16 07:05 Order name: XRAY Chest (1 view); Complete Time: 09:03 6 03/16 07:05 Order name: EKG; Complete Time: 07:06 6 03/16 07:05 Order name: Cardiac monitoring; Complete Time: 07:05 [facility] 03/16 07:05 Order name: EKG - Nurse/Tech; Complete Time: 07:05 [facility] 03/16 07:08 Order name: CT Aorta for Dissection; Complete Time: 09:03 rn 03/16 09:29 Order name: Troponin (emerg Dept Use Only); Complete Time: 10:33 rn 03/16 07:05 Order name: IV Saline Lock; Complete Time: 07:05 6 03/16 07:05 Order name: Labs collected and sent; Complete Time: 07:05 6 03/16 07:05 Order name: O2 Per Protocol; Complete Time: 07:05 6 03/16 07:05 Order name: O2 Sat Monitoring; Complete Time: 07:05 6 03/16 09:55 Order name: Labs - recollect needed: recollect troped; Complete Time: 10:04 bd Administered Medications: 08:34 Drug: NS 0.9% 1000 ml Route: IV; Rate: 1000 ml; Site: left antecubital; hb Disposition Summary: 03/16/21 10:36 Discharge Ordered Location: Home rn Problem: new rn Symptoms: have improved rn Condition: Stable rn Diagnosis - Syncope Near rn Followup: rn - With: Private Physician - When: As needed - Reason: Recheck today's complaints, Re-evaluation by your physician Discharge Instructions: - Discharge Summary Sheet rn - Near-Syncope rn Forms: - Medication Reconciliation Form rn - Thank You Letter rn - Antibiotic undergraduate intern - Prescription Opioid Use rn - Work release form ss - Family Work Release ss Signatures: Dispatcher [employer] Rimma Ross Roman, MD MD rn Baxter, Heather RN Chayo Ray RN Brandie Deleon ea, RN RN tr6
--- NOTE | 2021-03-17 07:31 | EKG ---
Test Date: 2021-03-16 Test Time: 07:03:23 Therapist Radiation: MITCH MEASUREMENT RESULTS: Intervals: Rate: 68 [place]: 162 QRSD: 94 QT: 410 QTc: 435 [place]: P: 63 [place]: 162 QRS: 71 T: 19 INTERPRETIVE STATEMENTS: Normal sinus rhythm Possible Left atrial enlargement Borderline ECG Compared to ECG 12/28/2020 08:24:26 Sinus tachycardia no longer present Atrial premature complex(es) no longer present Electronically Signed On 03-17-21 07:28:41 CDT by Nestor Carreon
[2021-03-17 09:11] VITALS: O2SAT 98
[2021-03-17 09:12] VITALS: BP 114/97
== END 2021-03-16 11:05 | disposition home or self-care (01) ==
LOC: ER 06:59
DX: R55 Syncope and collapse (principal); I10 Essential (primary) hypertension; Z88.0 Allergy status to penicillin
CPT/HCPCS: 93005; 85025; 80048; 36415; 83735; 85610; 80076; 84484 ×2; 83880; 71275; 74175; 71045; 99284; Q9967; J7030

== ENCOUNTER 2023-01-16 13:17 | Emergency (ER) | payer BC ==
--- OUTSIDE RECORDS SUMMARY | 2023-01-16 13:21 | XMS REPORT | Continuity of Care Document ---
:1965 Author Organization [facility] t Address [address] [facility] [place] [address] Care Team Providers Name Role Phone Group, [facility] Primary Care Physician GIANLUCA VIRAMONTES Attending Clinician Unavailable MARQUISE QUINTEROS Attending Clinician Unavailable LAB39 Attending Clinician Unavailable Jarred Crain MD Attending Clinician ALEX DUMONT Attending Clinician Unavailable Raheem Infante MD Attending Clinician [phone] Mayur Mcfarland WATER AND FIRE TECHNICIAN, Tara Frausto Attending Clinician Marva APPLICATION SECURITY ENGINEER-CAlex Attending Clinician LAB90 Attending Clinician Unavailable MARCO A LAWRENCE Attending Clinician Unavailable Damaris Jackson MD Attending Clinician DAMARIS JACKSON Attending Clinician Unavailable Doctor Unassigned, [place] Attending Clinician Unavailable Luiz QUIROZ, Korin Ashraf Attending Clinician Unavailable P[facility] Attending Clinician Unavailable Cornelius Kline MD Attending Clinician CORNELIUS KLINE Attending Clinician Unavailable JARRED CRAIN Admitting Clinician Unavailable Payers Payer Name Policy Type Policy Number Effective Date Expiration Date S [facility] 2 [id number] 2020 00:00:00 Problems Condition Condition Condition Status Onset Resolution Last Treating Co mments Source Name Details Category Date Date Treatment Clinician Date Radiculopa Radiculopa Disease Active M ethodi thy thy 6 [facility] 00:00: Hospita 00 l Numbness Numbness Disease Active Kelse y in both in both 11-18 Seybold legs legs 00:00: - 00 Externa l Type 2 Type 2 Disease Active Brittany diabetes diabetes 330 Seybol d mellitus mellitus 00:00: - without without 00 Externa complicati complicati l on, on, without without long-term long-term current current use of use of insulin insulin Hyperlipid Hyperlipid Disease Active Romeo junior emia emia 330 Seybold 00:00: - 00 Externa l Essential Essential Disease Active Betito sey hypertensi hypertensi 30 Se ybold on on 00:00: - 00 Externa l Anxiety Anxiety Disease Active Brittany 330 Seybold 00:00: - 00 Externa l Prediabete Prediabete Disease Active Romeo junior s s 330 Seybold 00:00: - 00 Externa l No known No known Disease Unive rs active active ity of problems problems [facility] Allergies, Adverse Reactions, Alerts Allergy Allergy Status Severity Reaction(s) Onset Inactive Treating Comm ents Source Name Type Date Date Clinician Penicill Propensi Active Rash Method i ins ty to 12-28 st adverse 00:00: Hospita reaction 00 l s to drug Penicill Propensi Active Rash 0 Brittany ins ty to 11-19 Seybold adverse 00:00: reaction 00 s Penicill Propensi Active Rash 0 Brittany ins ty to 11-19 Seybold adverse 00:00: - reaction 00 Externa s l Penicill Propensi Active Hives 0 Univer s ins ty to 11-19 ity of adverse 00:00: [place] reaction 00 Medical s Branch PENICILL Drug Active Hives 2019-0 Univers INS Class 4- ity of 00:00: [place] 00 Medical Branch NO KNOWN Drug Active Univers ALLERGIE Class ity of S [facility] Social History Social Habit Start Date Stop Date Quantity Comments Source Exposure to Not sure University of SARS-CoV-2 (event) [facility] Gender identity [facility] Alcohol intake 2022-01-23 2022-01-23 Current drinker [facility] 00:00:00 00:00:00 of alcohol Hospital (finding) History of Social 2022-01-23 2022-01-[address] function 00:00:00 00:00:00 Hospital Tobacco use and 2022-01-20 2022-01-20 Smokeless Tenriism exposure 00:00:00 00:00:00 tobacco non-user Hospital Alcohol Comment 2021-12-28 2021-12-28 I'll stop long [facility] 00:00:00 00:00:00 before surgery Hospital Sex Assigned At [birth year] [facility] 00:00:00 00:00:00 Hospital Smoking Status Start Date Stop Date Source Never smoked tobacco Brittany Seyb old - External Medications Ordered Filled Start Stop Current Ordering Indication Dosage Frequency Signature Comments Components Source Medication Medication Date Date Medication? Clinician (SIG) Name Name [place]ina-3 Yes 1{capsu Take 1 Kelse y 1000 MG 4-19 le} capsule by Seybol d oral 13:33: mouth - Capsule 17 daily Externa l Tamsulosin Yes .4mg Take 1 Kelse y HCl 4-19 capsule Seybold (Flomax) 00:00: (0.4 mg - 0.4 MG oral 00 total) by Ext yumiko Capsule mouth l daily gabapentin Yes TAKE ONE Met hodi (NEURONTIN) 4-05 (1) st 300 mg 00:00: CAPSULE(S) Hospi ta capsule 00 BY MOUTH l TWICE A DAY. Ezetimibe Yes [id number] TAKE ONE Brittany 10 MG oral 3-24 (1) TABLET Sey bold Tablet 00:00: (10 MG - 00 TOTAL) BY Externa MOUTH l DAILY. Fenofibrate Yes TAKE ONE Ke lsey 134 MG oral 2-24 (1) Seybold Capsule 00:00: CAPSULE(S) - 00 BY MOUTH Externa ONCE A l DAY. Metformin 2021-08 Yes [id number] TAKE ONE Brittany HCl ER 500 2-27 (1) Seybold MG oral 00:00: TABLET(S) - TABLET SR 00 BY MOUTH [employer] a 24 HR ONCE A DAY l WITH BREAKFAST. gabapentin 2021-08- No TAKE ONE Me thodi (NEURONTIN) 09-16 04-05 (1) st 300 mg 00:00: 00:00 CAPSULE(S) Hosp jusuts capsule 00 :00 BY MOUTH l TWICE A DAY. gabapentin 2021- No TAKE ONE Me thodi (NEURONTIN) 05-17 (1) st 300 mg 00:00: 00:00 CAPSULE(S) Hosp justus capsule 00 :00 BY MOUTH l TWICE A DAY. gabapentin 2021- No TAKE ONE Me thodi (NEURONTIN) 03-16 09- (1) st 300 mg 00:00: 00:00 CAPSULE(S) Hosp justus capsule 00 :00 BY MOUTH l TWICE A DAY. Valsartan-h Yes 1{tbl} Take 1 Ke lsey ydroCHLOROt 7-15 tablet by Sarahi bold hiazide 00:00: mouth - 160-12.5 MG 00 daily Externa oral Tablet l aspirin 325 2021- No 325mg Q24H Take 325 Methodi MG tablet 6- 06-[address] 16:28: 00:00 mouth Hospita 45 :00 daily. l methocarbam Yes 500mg Q6H Take 1 Met hodi oL 6-[address] (ROBAXIN) 00:00: (500 mg Hospi ta 500 MG 00 total) by l tablet mouth every 6 (six) hours as needed for muscle spasms. acetaminoph 2021- [place] [id number] 1{tbl} Q6H Take 1 Methodi en-codeine 6-04 06-[address] (TYLENOL 00:00: 04:59 mouth Hospita WITH 00 :00 every 6 l CODEINE #4) (six) 300-60 mg hours as per tablet needed for moderate pain for up to 8 days .acute pain. Metoprolol Yes TAKE ONE Betito sey Tartrate 50 6-03 (1) Seybold MG oral 00:00: TABLET(S) - Tablet 00 BY MOUTH Externa TWICE A l DAY. gabapentin 2021- No TAKE ONE Me thodi (NEURONTIN) -24 07-28 (1) st 300 mg 00:00: 00:00 CAPSULE(S) Hosp justus capsule 00 :00 BY MOUTH l TWICE A DAY. FLUoxetine Yes 20mg QD Take 20 mg M ethodi (PROzac) 20 5-[address] MG capsule 00:00: daily. Hospi ta 00 l fenofibrate Yes 134mg QD Take 134 M ethodi micronized 5-[address] (LOFIBRA) 00:00: mouth Hospita 134 MG 00 daily. l capsule Valsartan-h Yes 1{tbl} Take 1 Ke lsey ydroCHLOROt 5-04 tablet by Sey bold hiazide 08:53: mouth 160-12.5 MG 18 daily oral Tablet Edina-3 Yes 1{capsu Take 1 Kelse y 1000 MG 5-04 le} capsule by Seybol d oral 08:53: mouth Capsule 18 daily Trazodone Yes [id number] 50mg Take 1 Brittany HCl 50 MG 5-04 02 tablet (50 Seyb old oral Tablet 00:00: mg total) 00 by mouth nightly Trazodone 0 Yes [id number] 50mg Take 1 Brittany HCl 50 MG 5-04 02 tablet (50 Seyb old oral Tablet 00:00: mg total) - 00 by mouth Externa nightly l temazepam Yes TAKE TWO Meth gustavo (RESTORIL) 4-08 (2) st 15 mg 00:00: CAPSULE(S) Hospit a capsule 00 BY MOUTH l DAILY AT BEDTIME. ezetimibe Yes 10mg QD Take 10 mg Me thodi (ZETIA) 10 4-[address] mg tablet 00:00: daily. Hospit a 00 l Ezetimibe 2021-0 Yes [id number] 10mg Take 1 Ke lsey 10 MG oral 4-05 tablet (10 Sey bold Tablet 00:00: mg total) 00 by mouth daily Metformin 2021-0 Yes [id number] 500mg Take 1 Brittany HCl ER 500 4-05 tablet Seybold MG oral 00:00: (500 mg TABLET SR 00 total) by 24 HR mouth daily (with breakfast) metFORMIN 2022-0 Yes 500mg QD Take 500 Met hodi XR 4-[address] (GLUCOPHAGE 00:00: mouth Hospi ta -XR) 500 mg 00 daily. l 24 hr tablet Edina-3 Yes 1{capsu Take 1 Kelse y 1000 MG - le} capsule by Seybol d oral 09:31: mouth Capsule 36 daily Valsartan-h 2021- Yes 1{tbl} Take 1 Ke lsey ydroCHLOROt - tablet by Sey bold hiazide 09:30: mouth 160-12.5 MG 43 daily oral Tablet Edina-3 2021- No 1{tbl} Take 1 Kelse y Fatty Acids -11-18 tablet by Se ybold (Fish Oil) 08:04: 00:00 mouth 1000 MG 16 :00 daily oral Capsule Fluoxetine 2021- No 1{capsu Take 1 K elsey HCl 20 MG -11-18 le} capsule by Sey bold oral 08:03: 00:00 mouth in Capsule 58 :00 the morning and 1 capsule in the evening. Fluoxetine Yes [id number] 20mg Take 1 K elsey HCl 20 MG 4-01 capsule Seybold oral 00:00: (20 mg Capsule 00 total) by mouth in the morning and 1 capsule (20 mg total) in the evening. Fluoxetine Yes [id number] 20mg Take 1 K elsey HCl 20 MG 4-01 capsule Seybold oral 00:00: (20 mg Capsule 00 total) by mouth in the morning and 1 capsule (20 mg total) in the evening. Fluoxetine Yes [id number] 20mg Take 1 K elsey HCl 20 MG 4-01 capsule Seybold oral 00:00: (20 mg - Capsule 00 total) by Externa mouth in l the morning and 1 capsule (20 mg total) in the evening. Valsartan-h 2021- No [id number] 1{tbl} Take 1 Brittany ydroCHLOROt -11-18 tablet by Se ybold hiazide 00:00: 00:00 mouth 160-12.5 MG 00 :00 daily oral Tablet Edina-3 2021- No 1000mg Take 1 Kelse y Fatty Acids 11-18 capsule Seyb old (Fish Oil) 00:00: 00:00 (1,000 mg 1000 MG 00 :00 total) by oral mouth Capsule daily Valsartan-h 2021- No [id number] 1{tbl} Take 1 Brittany ydroCHLOROt 3-21 11-18 tablet by Se ybold hiazide 00:00: 00:00 mouth 160-12.5 MG 00 :00 daily oral Tablet Gabapentin Yes [id number] 300mg Take 300 Brittany 300 MG oral 3-15 mg by Seybold Capsule 00:00: mouth in 00 the morning and 300 mg in the evening. Gabapentin Yes [id number] 300mg Take 300 Brittany 300 MG oral 3-15 mg by Seybold Capsule 00:00: mouth in 00 the morning and 300 mg in the evening. Gabapentin Yes [id number] 300mg Take 1 Brittany 300 MG oral 3-15 capsule Seybo ld Capsule 00:00: (300 mg - 00 total) by Externa mouth 2 l times daily metoprolol Yes 50mg Q.5D Take 50 mg M ethodi tartrate 3-[address] (LOPRESSOR) 00:00: (two) Hospi ta 50 mg 00 times a l tablet day. Fenofibrate Yes 1{capsu Take 1 K elsey 134 MG oral 3-04 le} capsule by Se ybold Capsule 00:00: mouth 00 daily Fenofibrate Yes 1{capsu Take 1 K elsey 134 MG oral 3-04 le} capsule by Se ybold Capsule 00:00: mouth 00 daily Ezetimibe Yes [id number] TAKE ONE Brittany 10 MG oral 2-25 (1) TABLET Sey bold Tablet 00:00: (10 MG 00 TOTAL) BY MOUTH DAILY. Metoprolol Yes TAKE ONE Ke lsey Tartrate 50 6-09 (1) Seybold MG oral 00:00: TABLET(S) Tablet 00 BY MOUTH TWICE A DAY. Metoprolol Yes TAKE ONE Ke lsey Tartrate 50 6-09 (1) Seybold MG oral 00:00: TABLET(S) Tablet 00 BY MOUTH TWICE A DAY. Metformin 2021- No TAKE TWO Betito sey HCl 500 MG 5-24 04-01 (2) Seybold oral Tablet 00:00: 00:00 TABLET(S) 00 :00 BY MOUTH TWICE A DAY WITH MEALS. Temazepam 1-0 Yes 30mg Take 30 mg Ke lsey 15 MG oral 4-30 by mouth Seybo ld Capsule 00:00: at bedtime 00 Temazepam 2021-0 Yes 30mg Take 30 mg Ke lsey 15 MG oral 4-30 by mouth Seybo ld Capsule 00:00: at bedtime 00 Temazepam 2021-0 Yes 30mg Take 2 Brittany 15 MG oral 4-30 capsules Seybo ld Capsule 00:00: (30 mg - 00 total) by Externa mouth at l bedtime Fluoxetine 2020-0 2022- No 40mg Take 40 mg Brittany HCl 20 MG -24 11-18 by mouth Seybo ld oral 00:00: 00:00 daily Capsule 00 :00 Fenofibric 2020-0 Yes Univers Acid 135 mg 3-27 ity of capsule 00:00: [place] [address] [facility] Branch ezetimibe 2020-0 Yes Univers 10 mg 3-27 ity of tablet 00:00: [place] [address] [facility] Fenofibric 2020-0 Yes Univers Acid 135 mg 3-27 ity of capsule 00:00: [place] [address] [facility] ezetimibe 2020-0 Yes Univers 10 mg 3-27 ity of tablet 00:00: [place] [address] [facility] Fenofibric 2020-0 Yes Univers Acid 135 mg 3-27 ity of capsule 00:00: [place] [address] [facility] ezetimibe 2020-0 Yes Univers 10 mg 3-27 ity of tablet 00:00: [place] [address] [facility] Fenofibric 2020-0 Yes Univers Acid 135 mg 3-27 ity of capsule 00:00: [place] [address] [facility] ezetimibe 2020-0 Yes Univers 10 mg 3-27 ity of tablet 00:00: [place] [address] [facility] FLUoxetine 2020-0 Yes Univers 20 mg 3-24 ity of capsule 00:00: [place] [address] [facility] temazepam 2020-0 Yes Univers 15 mg 3-24 ity of capsule 00:00: [place] [address] [facility] FLUoxetine 2020-0 Yes Univers 20 mg 3-24 ity of capsule 00:00: [place] [address] [facility] temazepam 2020-0 Yes Univers 15 mg 3-24 ity of capsule 00:00: [place] [address] [facility] FLUoxetine 2020-0 Yes Univers 20 mg 3-24 ity of capsule 00:00: [place] [facility] temazepam 2020-0 Yes Univers 15 mg 3-24 ity of capsule 00:00: [place] [facility] FLUoxetine 2020-0 Yes Univers 20 mg 3-24 ity of capsule 00:00: [place] [facility] temazepam 2020-0 Yes Univers 15 mg 3-24 ity of capsule 00:00: [place] [facility] albuterol 2020-0 Yes INHALE ONE Un june 90 3-07 (1) ity of mcg/actuati 00:00: PUFF(S) BY [place] on inhaler 00 MOUTH Medical EVERY 4 Branch HOURS NEEDED. albuterol 2020-0 Yes INHALE ONE Un june 90 3-07 (1) ity of mcg/actuati 00:00: PUFF(S) BY [place] on inhaler 00 MOUTH Medical EVERY 4 Branch HOURS NEEDED. albuterol 2020-0 Yes INHALE ONE Un june 90 3-07 (1) ity of mcg/actuati 00:00: PUFF(S) BY [place] on inhaler 00 MOUTH Medical EVERY 4 Branch HOURS NEEDED. albuterol 2020-0 Yes INHALE ONE Un june 90 3-07 (1) ity of mcg/actuati 00:00: PUFF(S) BY [place] on inhaler 00 MOUTH Medical EVERY 4 Branch HOURS NEEDED. metFORMIN 2020-0 Yes Univers 500 mg 3-06 ity of tablet 00:00: [place] [facility] metFORMIN 2020-0 Yes Univers 500 mg 3-06 ity of tablet 00:00: [place] [facility] metFORMIN 2020-0 Yes Univers 500 mg 3-06 ity of tablet 00:00: [place] [facility] metFORMIN 2020-0 Yes Univers 500 mg 3-06 ity of tablet 00:00: [place] [address] [facility] Branch valsartan-h 2020-0 Yes Univer s ydrochlorot 2-02 ity of hiazide 00:00: [place] 160-12.5 mg 00 Medical per tablet Branch valsartan-h 2020-0 Yes Univer s ydrochlorot 2-02 ity of hiazide 00:00: [place] 160-12.5 mg 00 Medical per tablet Branch valsartan-h 2020-0 Yes Univer s ydrochlorot 2-02 ity of hiazide 00:00: [place] 160-12.5 mg 00 Medical per tablet Branch valsartan-h Yes Univer s ydrochlorot 2-02 ity of hiazide 00:00: [place] 160-12.5 mg 00 Medical per tablet Branch valsartan-h Yes 1{tbl} QD Take 1 Me thodi ydrochlorot 2-[address] hiazide 00:00: mouth Hospita (DIOVAN-HCT 00 daily. l ) 160-12.5 mg per tablet Immunizations Ordered Immunization Filled Immunization Date Status Commen ts Source Name Name Covid-19 Vaccine 2020-11-29 Completed Brittany campbellboforrest (Vaprema) 00:00:00 - External Covid-19 Vaccine 2020-11-29 Completed Brittany campbellbold (Vaprema) 00:00:00 Covid-19 Vaccine 2020-11-29 Completed Brittany campbellbold (Vaprema) 00:00:00 Td- Tetanus & 2017-04-27 Completed Brittany Hernandez old Diphtheria Vaccine 00:00:00 - Exte rnal (age 7+ years) Td- Tetanus & 2017-04-27 Completed Brittany Hernandez old Diphtheria Vaccine 00:00:00 (age 7+ years) Td- Tetanus & 2017-04-27 Completed Brittany Hernandez old Diphtheria Vaccine 00:00:00 (age 7+ years) Tdap- (Boostrix, 2016-09-08 Completed Brittany campbellboforrest Adacel) 00:00:00 - External Tdap- (Boostrix, 2016-09-08 Completed Brittany chávez Adacel) 00:00:00 Tdap- (Boostrix, 2016-09-08 Completed Brittany campbellboforrest Adacel) 00:00:00 Vital Signs Vital Name Observation Time Observation Value Comments Source Systolic blood 2022-12-06 18:27:00 118 mm[Hg] Brittany Hernandezold - pressure External Diastolic blood 2022-12-06 18:27:00 80 mm[Hg] Kajal judd Seybold - pressure External Heart rate 2022-12-06 18:27:00 79 /min Brittany tolentinold - External Body temperature 2022-12-06 18:27:00 36.56 Kasia Asuncion ey Seybold - External Respiratory rate 2022-12-06 18:27:00 18 /min Asuncion ey Seybold - External Body height 2022-12-06 18:27:00 180.3 cm Brittany Sharp eybold - External Body weight 2022-12-06 18:27:00 105.688 kg Brittany S eybold - External BMI 2022-12-06 18:27:00 32.50 kg/m2 Brittany Sharp eybold - External Systolic blood 2021-12-21 13:51:00 127 mm[Hg] Brittany Seybold pressure Diastolic blood 2021-12-21 13:51:00 82 mm[Hg] Kelse y Seybold pressure Heart rate 2021-12-21 13:51:00 70 /min Brittany S eybold Body temperature 2021-12-21 13:51:00 37 Kasia Asuncion ey Seybold Respiratory rate 2021-12-21 13:51:00 15 /min Asuncion ey Seybold Body height 2021-12-21 13:51:00 180.3 cm Brittany S eybold Body weight 2021-12-21 13:51:00 110.224 kg Brittany S eybold BMI 2021-12-21 13:51:00 33.89 kg/m2 Brittany S eybold Systolic blood 2021-11-18 13:02:00 138 mm[Hg] Brittany Seybold pressure Diastolic blood 2021-11-18 13:02:00 90 mm[Hg] Kelse y Seybold pressure Heart rate 2021-11-18 13:02:00 78 /min Brittany S eybold Body temperature 2021-11-18 13:02:00 36.61 Kasia Asuncion ey Seybold Respiratory rate 2021-11-18 13:02:00 14 /min Asuncion ey Seybold Body height 2021-11-18 13:02:00 180.3 cm Brittany S eybold Body weight 2021-11-18 13:02:00 113.127 kg Brittany S eybold BMI 2021-11-18 13:02:00 34.78 kg/m2 Brittany S eybold Systolic blood 2019-11-20 17:42:00 156 mm[Hg] [facility] Diastolic blood 2019-11-20 17:42:00 110 mm[Hg] Unive rsity of pressure [facility] Heart rate 2019-11-20 17:40:00 88 /min Universi ty of [facility] Body temperature 2019-11-20 17:40:00 37.11 Kasia Univ ersity of [place] [facility] Respiratory rate 2019-11-20 17:40:00 18 /min Univ ersity of [facility] Body height 2019-11-20 17:40:00 180.3 cm Universi ty of [place] [facility] Bulan Body weight 2019-11-20 17:40:00 106.595 kg Universi ty of [place] [facility] BMI 2019-11-20 17:40:00 32.78 kg/m2 Universi ty of [facility] Oxygen saturation in 2019-11-20 17:40:00 98 /min University of Arterial blood by [facility] Pulse oximetry Branch Systolic blood 2019-11-20 17:42:00 156 mm[Hg] Univer sity of pressure [place] [facility]an Diastolic blood 2019-11-20 17:42:00 110 mm[Hg] Unive rsity of pressure [facility] Heart rate 2019-11-20 17:40:00 88 /min Universi ty of [place] [facility] Body temperature 2019-11-20 17:40:00 37.11 Kasia Univ ersity of [facility] Respiratory rate 2019-11-20 17:40:00 18 /min Univ ersity of [facility] Body height 2019-11-20 17:40:00 180.3 cm Universi ty of [place] [facility] Body weight 2019-11-20 17:40:00 106.595 kg Universi ty of [place] [facility] BMI 2019-11-20 17:40:00 32.78 kg/m2 Universi ty of [facility] Branch Oxygen saturation in 2019-11-20 17:40:00 98 /min University of Arterial blood by [facility] [place] [facility] william Pulse oximetry Branch Systolic blood 2022-01-21 16:58:35 127 mm[Hg] [facility] pressure Diastolic blood 2022-01-21 16:58:35 78 mm[Hg] Metho dist [facility] pressure Heart rate 2022-01-21 16:58:35 87 /min Methodis t [facility] Body temperature 2022-01-21 16:58:35 36.5 Kasia Meth odist [facility] Respiratory rate 2022-01-21 16:58:35 17 /min [facility] Hospital Oxygen saturation in 2022-01-21 16:58:35 97 /min [facility] Arterial blood by Pulse oximetry Body height 2022-01-20 11:40:[address] [facility] Body weight 2022-01-20 11:40:[address] [facility] BMI 2022-01-20 11:40:00 33.89 kg/m2 [facility] Procedures Procedure Date / Time Performing Clinician Source Performed XR LUMBAR SPINE 2 OR 3 2022-04-28 15:26:00 [facility] XR LUMBAR SPINE 2 OR 3 2022-02-10 18:16:14 [facility] 2022-01-20 18:24:00 [facility] REQUEST OR [place] < 1 HOUR 2022-01-20 16:07:00 [facility] [place] > 1 HOUR 2022-01-20 14:33:00 Reinier Hancock [facility] ABO AND RH CONFIRMATION 2022-01-20 13:54:00 [facility] BY PROTOCOL TYPE AND SCREEN 2022-01-20 13:41:00 [facility] HC NERVE BLOCK TAP 2022-01-20 13:39:13 Heath Leigh [facility] BLOCK BILAT INJECTION R ARTERIAL LINE 2022-01-20 13:24:02 Shannan Jeong [facility]spital Marguerite ANESTHESIA INTUBATION 2022-01-20 12:43:00 Shannan Jeong [facility] Marguerite FUSION, ANTERIOR SPINAL 2022-01-20 12:30:00 [facility] COLUMN, LUMBAR, ANTERIOR APPROACH POC GLUCOSE 2022-01-20 12:03:00 [facility] US ABDOMEN LIMITED 2020-08-18 23:01:33 Damaris Jackson [facility] ASSIGNMENT OF BENEFITS 2020-08-18 22:46:17 Doctor Unassigned, No [facility] Plan of Care Planned Activity Planned Date Details Comments Source Future Scheduled 2022-12-06 Hepatitis C screening [facility] Test 13:22:58 (procedure) [code = 423527651] Future Scheduled 2022-12-06 COLONOSCOPY SCREENING [facility] Test 13:22:58 [code = COLONOSCOPY SCREENING] Future Scheduled 2022-12-06 SHINGLES VACCINES (1 Met [facility] Test 13:22:58 of 2) [code = SHINGLES VACCINES (1 of 2)] Future Scheduled 2022-12-06 COVID-19 VACCINE (3 - [facility] Test 13:22:58 Booster for Héctor series) [code = COVID-19 VACCINE (3 - Booster for Héctor series)] Future Scheduled 2022-12-06 INFLUENZA VACCINE [facility] Test 13:22:58 [code = INFLUENZA VACCINE] Encounters Start End Encounter Admission Attending Care Care Encounter Source Date/Time Date/Time Type Type Clinicians Facility Department ID 2023-01-17 2023-01-17 Outpatient GIANLUCA VIRAMONTES [id number] Brittany 18:30:00 18:30:00 Seybol d 2023-01-07 2023-01-07 Outpatient MARQUISE QUINTEROS [id number] Brittany 00:00:00 00:00:00 Seybol d 2022-12-06 2022-12-06 Outpatient LAB39 BRITTANY KINSEY [id number] Brittany 14:15:00 14:15:00 Seybol d 2022-12-06 2022-12-06 Outpatient GIANLUCA VIRAMONTES [id number] Brittany 13:45:00 13:45:00 Seybol d 2022-11-13 2022-11-13 RefJarred Martinez 1.2.840.1 [id number] Methodi 00:00:00 00:00:[id number] 3.430.2.7 Hospit a .3.922541 l .8 2022-11-10 2022-11-10 Outpatient BRITTANY DUMONT [id number] Brittany 00:00:00 00:00:00 ALEX Seybol d 2022-10-13 2022-10-13 Outpatient MARQUISE QUINTEROS [id number] Brittany 00:00:00 00:00:00 Seybol d 2022-08-13 2022-08-13 Outpatient MARVABRITTANY BRITTANY [id number] Brittany 00:00:00 00:00:00 ALEX Hernandezroxana garcia 2022-07-13 2022-07-13 Refill Jarred Crain 1.2.840.1 [id number] Methodi 00:00:00 00:00:[id number] 3.430.2.7 Hospit a .3.293124 l .8 2022-05-17 2022-05-17 Refill Jarred Crain 1.2.840.1 [id number] Methodi 00:00:00 00:00:[id number] 3.430.2.7 Hospit a .3.887558 l .8 2022-04-28 2022-05-03 [facility] Jarred Crain 1.2.840.1 [id number] Methodi 10:45:00 00:29:45 Visit Guillermo [id number] 3.430.2.7 Hospit a .3.530609 l .8 2022-04-28 2022-04-28 [facility] Jarred Crain 1.2.840.1 [id number] Methodi 10:00:00 23:59:00 Encounter Guillermo [id number] 3.430.2.7 Hospit a .3.130465 l .8 2022-04-28 2022-04-28 Travel 1.2.840.1 [id number] Methodi 00:00:00 00:00:[id number] 3.430.2.7 0.2.7.3.698 spita .3.358703 084.8 l .8 2022-04-28 2022-04-28 Outpatient JARRED CRAIN [facility] [id number] [place] 00:00:00 00:00:[address] 2022-04-28 2022-04-28 Outpatient JARRED CRAIN [facility] [id number] [place] 00:00:00 00:00:[address] 2022-04-27 2022-04-27 Orders Jarred Crain 1.2.840.1 [id number] Methodi 00:00:00 00:00:00 Only Guillermo 89939.1.[address] 3.430.2.7 Hospit a .3.614555 l .8 2022-03-28 2022-03-28 Travel 1.2.840.1 1.2.925.625 [id number] Methodi 00:00:00 00:00:[address] 3.430.2.7 0.2.7.3.698 Ho spita .3.926069 084.8 l .8 2022-03-16 2022-03-16 Refill Jarred Crain 1.2.840.1 [id number] 21 [id number] Methodi 00:00:00 00:00:[address] 3.430.2.7 Hospit a .3.483813 l .8 2022-02-10 2022-02-10 Hospital Jarred Crain 1.2.840.1 [id number] 2 [id number] Methodi 12:45:00 23:59:00 Encounter Guillermo 73076.1.[address] 3.430.2.7 Hospit a .3.522131 l .8 2022-02-10 2022-02-10 Office Jarred Crain 1.2.840.1 [id number] 21 [id number] Methodi 14:30:00 15:13:12 Visit Guillermo 83810.1.[address] 3.430.2.7 Hospit a .3.573035 l .8 2022-02-10 2022-02-10 Travel 1.2.840.1 1.2.573.524 4456 [id number] Methodi 00:00:00 00:00:[address] 3.430.2.7 0.2.7.3.698 Ho spita .3.574390 084.8 l .8 2022-02-10 2022-02-10 Outpatient JARRED CRAIN [facility] [id number] [id number] [place] 00:00:00 00:00:[address] 2022-02-10 2022-02-10 Outpatient JARRED CRAIN [facility] 175 [id number] [place] 00:00:00 00:00:[address] 2022-02-09 2022-02-09 Orders Jarred Crain 1.2.840.1 [id number] 21 [id number] Methodi 00:00:00 00:00:00 Only Guillermo 88779.1.[address] 3.430.2.7 Hospit a .3.053069 l .8 2022-01-25 2022-01-25 Travel 1.2.840.1 1.2.448.939 1660 063933 Methodi 00:00:00 00:00:[address] 3.430.2.7 0.2.7.3.698 spita .3.939247 084.8 l .8 2022-01-20 2022-01-21 Hospital Jarred Crain 1.2.840.1 [id number] 2 [id number] Methodi 06:03:00 16:28:00 Encounter Guillermo 08090.1.[address] 3.430.2.7 Hospit a .3.387225 l .8 2022-01-20 2022-01-21 Inpatient JARRED CRAIN [facility] 021 [id number] [place] 00:00:00 00:00:[address] 2022-01-20 2022-01-20 Surgery Jarred Crain 1.2.840.1 [id number] 21 [id number] Methodi 07:30:00 12:10:[address] 3.430.2.7 Hospit a .3.126427 l .8 2022-01-20 2022-01-20 Anesthesia Raheem Infante 1.2.840 .1 [id number] Methodi 07:30:00 11:51:00 Event Tara Lewis 64972.1.[address] 3.430.2.7 Hospit a .3.294450 l .8 2022-01-20 2022-01-20 Travel 1.2.840.1 1.2.777.015 5607 033369 Methodi 00:00:00 00:00:[address] 3.430.2.7 0.2.7.3.698 Ho spita .3.802297 084.8 l .8 2021-12-28 2021-12-28 Outpatient PARASJARRED MARIE [facility] [id number] [place] 00:00:00 00:00:[address] 2021-12-21 2021-12-21 Office Yogeshriya Deshpande 1.2.840.114 [id number] [place] 09:00:00 09:30:00 Visit Alex Lizarraga 350.1.13.13 Se ybold 1.2.7.2.686 [id number] 0 2021-11-22 2021-11-22 Outpatient BRITTANY DUMONT [id number] [place] 00:00:00 00:00:00 ALEX Seybol d 2021-11-18 2021-11-18 Outpatient LAB90 BRITTANY KINSEY [id number] [place] 08:45:00 08:45:00 Seybol d 2021-11-18 2021-11-18 Office Marva Deshpande 1.2.840.114 [id number] [place] 08:00:00 08:30:00 Visit Alex Lizarraga 350.1.13.13 Se ybold 1.2.7.2.686 [id number] 2021-11-07 2021-11-07 Outpatient BRITTANY LAWRENCE [id number] [place] 00:00:00 00:00:00 MARCO A Seybol d 2021-11-05 2021-11-05 Outpatient BRITTANY LAWRENCE [id number] [place] 00:00:00 00:00:00 MARCO A Seybol d 2021-11-04 2021-11-04 Outpatient PARASJARRED [facility] [id number] [place] 00:00:00 00:00:[address] 2021-11-04 2021-11-04 Outpatient PARAS, JRARED [facility] 018 [id number] [place] 00:00:00 00:00:[address] 2021-10-20 2021-10-20 Outpatient MARQUISE QUINTEROS BRITTANY KINSEY [id number] [place] 00:00:00 00:00:00 Seybol d 2021-10-17 2021-10-17 Outpatient NELI MARQUISE KINSEY 107 [id number] [place] 00:00:00 00:00:00 Seybol d 2021-10-17 2021-10-17 Outpatient SHUBHAM QUINTEROSKAREN KINSEY [id number] [place] 00:00:00 00:00:00 Seybol d 2021-10-14 2021-10-14 Outpatient PARAS, JARRED [facility] [id number] [place] 00:00:00 00:00:[address] 2021-10-14 2021-10-14 Outpatient PARAS, JARRED [facility] [id number] [place] 00:00:00 00:00:[address] 2021-10-14 2021-10-14 Outpatient PARAS, JARRED [facility] [id number] [place] 00:00:00 00:00:[address] 2021-10-12 2021-10-12 Outpatient SHUBHAM QUINTEROSKAREN KINSEY 107 [id number] [place] 00:00:00 00:00:00 Seybol d 2021-10-02 2021-10-02 Outpatient BRITTANY LAWRENCE [id number] [place] 00:00:00 00:00:00 MARCO A Seybol d 2021-07-08 2021-07-08 Outpatient BRITTANY LAWRENCE [id number] [place] 00:00:00 00:00:00 MARCO A Seybol d 2021-07-01 2021-07-01 Outpatient PARAS, JARRED [facility] [id number] [place] 00:00:00 00:00:[address] 2021-07-01 2021-07-01 Outpatient PARAS, JARRED [facility] 005 [id number] [place] 00:00:00 00:00:[address] 2020-08-18 2020-08-18 [facility] 1.2.840.114 [id number] Univers 16:47:19 23:59:00 Encounter Damaris Wagner 350.1.13.10 [place] [id number] [facility] 806 [place] 2020-08-18 2020-08-18 [facility] 1.2.840.114 [id number] 16:47:19 23:59:00 Encounter Damaris Wagner 350.1.13.10 [place] 4[place]2.7.2.686 [place] [id number] 80 2020-08-18 2020-08-18 [facility] [id number] Univers 00:00:00 00:00:[address] [facility] 2020-08-18 2020-08-18 Orders Doctor GIANLUCA 1.2.840.114 [id number] Univers 00:00:00 00:00:00 Only Unassigned, INDIRA 350.1.13.10 ity of [place] [facility] 4.2.7.2.686 Tyron as [id number] [facility] 009 Branch 2020-08-18 2020-08-18 Orders Doctor GIANLUCA 1.2.840.114 [id number] 00:00:00 00:00:00 Only Unassigned, INDIRA 350.1.13.10 [place] 4.2.7.2.686 [id number] 009 2019-11-22 2019-11-22 Telephone GIANLUCA Dee.2.914.644 [id number] Univers 00:00:00 00:00:00 Korin P INDIRA 350.1.13.10 ity of HOSPITAL 4.2.7.2.686 [place] as [id number] [facility] 019 Branch 2019-11-22 2019-11-22 Telephone GIANLUCA [id number] 00:00:00 00:00:00 Korin P INDIRA 350.1.13.10 HOSPITAL 4.2.7.2.686 [id number] 019 2019-11-20 2019-11-20 Urgent Pob1, Acute Care Clinic [facility] 1. 2.840.114 [id number] [facility] 12:17:24 13:41:18 Care Cornelius Kline [place] [address].1.13.10 ity [facility] 4.2.7.2.686 Tyron as Professio [id number] [place] [address] [address] 2019-11-20 2019-11-20 Urgent Pob1, Acute [facility] 1.2.840.114 [id number] 12:17:24 13:41:18 [facility] 350.1.13.10 [place] 4.2.7.2.686 Professio [id number] nal [facility] Office [address] 2019-11-20 2019-11-20 Outpatient R MERLINE [facility] [id number] [facility] 12:20:00 12:20:00 [facility] 2019-09-10 2019-09-10 Outpatient MHSE MHSE [id number] 08:08:00 08:08:00 [facility] 2015-09-10 2015-09-10 Outpatient 2.16.840. 2.16.840.1. 3 2475 Memoria 11:26:13 23:59:59 1.644632. 179875.3.20 l 3.2081.20 81.2000 [place] 00 [facility] 2015-09-10 2015-09-10 Outpatient nullFlavo [facility] [id number] Memoria 11:26:13 11:26:13 wilmer Britt 2015-09-10 2015-09-10 Outpatient nullFlavo [facility] [id number] Mem[place] 11:26:13 11:26:13 wilmer Britt Results Test Description Test Time Test Comments Results Result Comments Source Surgical pathology request 2022-02-02 20:39:55 Test Item Value Reference Range Interpretation Comme nts Case number (test code = [id number]) [id number] Surgical pathology report (test code = See link below for PDF Lab R eport 5799) Result status (test code = 4091118) This is Final Report for [id number] [facility] [id number] 12:04:00 Test Item Value Reference Range Interpretation Comments POC glucose (test code 125 mg/dL 65-99 H Opera tor Name: Dileep = 89040-3) Dalila Tovar ID: [id number] able: [facility] Notified macroeconomics professor Interpretation Abnormal (test code = 59182-9) Kathleen Alfaro ABDOMEN [id number] 23:11:15 1. ?Hepatic steatosis. 2. ?Contracted gallbladder. No cholelithiasis.EXAM: US ABDOMEN LIMITED HISTORY: 55 year-old man with upper abdominal pain, hepatic steatosis,indigestion. TECHNIQUE: Limited abdominal ultrasound was performed focused on the rightupper quadrant. Main portal vein was evaluated with color Doppler imaging.Multifocal Lens Inspector images were obtained for the record. COMPARISON: None FINDINGS: LIVER: Length: 16.6 cm.Parenchyma: Mild diffuse increase in hepatic parenchymal echogenicityconsistent with steatosis. Area of focal sparing present at the gallbladdermargin.Portal vein: Hepatopetal flow present in the main portal vein. MPV diameter1.2 cm GALLBLADDER:Contracted gallbladder. No choleli thiasis. Negative Marlow's sign.. BILE DUCTS:No intra- or extrahepatic biliary dilatation..Common Duct diameter: 3 mm. PANCREAS: Limited visualization due to shadowing from bowel gas.. Imagedbody of pancreas is unremarkable. AORTA:Abdominal aorta is normal in caliber where visualized. IVC:IVC is normal in appearance where visualized. OTHER: None. [facility], Radiant Results Inft User - 08/18/2020 5:12 PM CSTEXAM: US ABDOMEN LIMITEDHISTORY: 55 year-old man with upper abdominal pain, hepatic steatosis,indigestion.TECHNIQUE: Limited abdominal ultrasound was performed focused on the rightupper quadrant. Mainportal vein was evaluated with color Doppler imaging.Multifocal Lens Inspector images were obtained for the record.COMPARISON: NoneFINDINGS: LIVER: Length: 16.6 cm.Parenchyma: Mild diffuse increase in hepatic parenchymal echogenicityconsistent with steatosis. Area of focal sparing present at the gallbladdermargin.Portal vein: Hepatopetal flow present in the main portal vein. MPV diameter1.2 cmGALLBLADDER:Contracted gallbladder. No cholelithiasis. Negative Marlow's sign..BILE DUCTS:No intra- or extrahepatic biliary dilatation..Common Duct diameter: 3 mm.PANCREAS: Limited visualization due to shadowing from bowel gas.. Imagedbody of pancreas is unremarkable.AORTA:Abdominal aorta is normal in caliber where visualized.IVC:IVC is normal in appearance where visualized. OTHER: None.IMPRESSION1. Hepatic steatosis.2. Contracted gallbladder. No cholelithiasis.[facility]
[2023-01-16] MEDS ORDERED: DERMABOND SKIN ADHESIVE TOP ONE (13:44)
--- NOTE | 2023-01-16 14:21 | RAD REPORT ---
EXAM DESCRIPTION: CT - Head C Spine Mpr Wo Con - 01/16/2023 1:49 pm CLINICAL HISTORY: Head and neck injury status post fall. Head and neck pain COMPARISON: None. TECHNIQUE: Computed axial tomography of the head and cervical spine was obtained. Sagittal and coronal reconstruction was performed. All CT scans are performed using dose optimization technique as appropriate and may include automated exposure control or mA/KV adjustment according to patient size. FINDINGS: Left parietal scalp hematoma The An intracranial bleed is not seen. The ventricles are normal in caliber. No significant hypodensity within the brain. An extra-axial fluid collection is not noted. Fluid within the visualized sinuses and mastoids is not seen A cervical fracture is not visualized. No dislocation is noted. Spondylosis cervical spine. Loss of normal lordosis may be secondary to muscle spasm IMPRESSION: No acute intracranial abnormality is seen. A cervical fracture is not visualized. If the patient continues to have symptoms to suggest intracranial /spinal cord pathology then MRI wou ld be recommended
--- NOTE | 2023-01-16 14:36 | EDPHYS ---
Physician Documentation [facility] Name: Jean-Paul Castillo Age: 58 yrs Sex: Male : 1965 Arrival Date: 01/16/2023 Time: 13:17 Bed 10 Private MD: ED Physician Marv Coronado HPI: 01/16 13:32 This 58 yrs old Male presents to ER via EMS with complaints of Fall Injury. bs3 13:32 58-year-old male history of hypertension, history of alcohol abuse patient states he bs3 drinks daily presents after fall downstairs he does not recall if he lost consciousness he denies any complaints at this time he states his last tetanus shot was within the last 5 years he notes that he thinks that he slipped and fell due to his alcohol. Historical: - Allergies: 13:29 PENICILLINS; hb - Home Meds: 13:29 hydrochlorothiazide Oral [Active]; hb - PMHx: 13:29 Hypertension; hb - Immunization history:: Adult Immunizations up to date. - Social history:: Smoking status: . ROS: 13:32 Constitutional: Negative for fever, chills bs3 13:32 All other systems are negative. Exam: 13:32 Constitutional: This is a well developed, well nourished patient who is awake, alert, bs3 and in no acute distress. Head/Face: He has a superficial laceration just above the chin the left side it is linear approximately 1.5 cm Eyes: Pupils equal round and reactive to light, extra-ocular motions intact. Lids and lashes normal. ENT: mmm, no posterior phyarngeal erythema Neck: Trachea midline, no thyromegaly, no neck stiffness Chest/axilla: Normal chest wall appearance and motion. Nontender with no deformity. No lesions are appreciated. Cardiovascular: Regular rate and rhythm with a normal S1 and S2. symmetric pulses in upper extremities Respiratory: Lungs have equal breath sounds bilaterally, clear to auscultation, no respiratory distress Abdomen/GI: Soft, non-tender, no rebound or guarding Back: No spinal tenderness. No costovertebral tenderness. Full range of motion. Skin: Warm, dry with normal turgor. Normal color with no rashes, no lesions, and no evidence of cellulitis. MS/ Extremity: Pulses equal, no cyanosis. Neurovascular intact. Full, normal range of motion. Neuro: Awake and alert, GCS 15, oriented to person, place, time, and situation. Cranial nerves II-XII grossly intact. Motor strength 5/5 in all extremities. Sensory grossly intact. Psych: Awake, alert, with orientation to person, place and time. Behavior, mood, and affect are within normal limits. Vital Signs: 13:24 BP 121 / 87; Pulse 69; Resp 18; Temp 98.3(O); Pulse Ox 99% on R/A; Weight 117.93 kg; hb Height 5 ft. 11 in. ; Pain 3/10; 13:24 Body Mass Index 36.26 (117.93 kg, 180.34 cm) hb 13:24 Pain Scale: Adult hb Laceration: 14:34 Wound Repair of 15cm ( 5.9in ) subcutaneous laceration to face. Distal bs3 neuro/vascular/tendon intact. Skin closed with 1-0 Adhesive skin closure using simple sutures and sterile technique. Patient tolerated well. MDM: 13:25 Patient medically screened. bs3 13:32 Differential diagnosis: abrasion, closed head injury, laceration. Data reviewed: vital bs3 signs, nurses notes. ED course: Patient with likely fall secondary to his alcohol use primary survey is intact secondary survey notable for a laceration just above his chin will closed with Dermabond he is up-to-date on tetanus given his alcohol use while he is AO x3 will do CT head and C-spine. 14:34 ED course: CT head negative for intracranial hemorrhage as interpreted by myself bs3 negative for C-spine fracture laceration closed tetanus already up-to-date will discharge home. 01/16 13:31 Order name: CT Head C Spine; Complete Time: 14:28 bs3 01/16 13:32 Order name: Dermabond; Complete Time: 13:37 bs3 01/16 13:34 Order name: EKG - Nurse/Tech; Complete Time: 14:00 bs3 Administered Medications: No medications were administered Disposition Summary: 01/16/23 14:35 Discharge Ordered Location: Home bs3 Problem: new bs3 Symptoms: have improved bs3 Condition: Stable bs3 Diagnosis - Unspecified injury of head, initial encounter bs3 - Facial Laceration/ Laceration without foreign body of cheek and temporomandibular bs3 area - Alcohol abuse bs3 Followup: bs3 - With: Private Physician - When: 48 Hours - Reason: Re-evaluation by your physician Discharge Instructions: - Discharge Summary Sheet bs3 - Head Injury, Adult bs3 - Alcohol Intoxication, Hunn-jx-Dizg bs3 - Laceration Care, Adult, Mxxj-xg-Lkhh bs3 Forms: - Medication Reconciliation Form bs3 - Thank You Letter bs3 - Antibiotic Education bs3 - Prescription Opioid Use bs3 Signatures: Dispatcher [employer] EDNatalia Fitch RN RN hb Stein, Brandon, MD MD bs3
--- NOTE | 2023-01-16 14:36 | ER ---
Nurse's Notes [facility] Name: Jean-Paul Castillo Age: 58 yrs Sex: Male : 1965 Arrival Date: 01/16/2023 Time: 13:17 Bed 10 Private MD: Diagnosis: Unspecified injury of head, initial encounter;Facial Laceration/ Laceration without foreign body of cheek and temporomandibular area;Alcohol abuse Presentation: 01/16 13:24 Chief complaint: EMS states: Found down on floor by yard man, pt does not recall hb falling, was confused on scene. Unknown LOC. Laceration noted to chin. C Collar in place. 18g RAC. Coronavirus screen: At this time, the client does not indicate any symptoms associated with coronavirus-19. Ebola Screen: No symptoms or risks identified at this time. Initial Sepsis Screen: Does the patient meet any 2 criteria? No. Patient's initial sepsis screen is negative. Does the patient have a suspected source of infection? No. Patient's initial sepsis screen is negative. Risk Assessment: Do you want to hurt yourself or someone else? Patient reports no desire to harm self or others. Onset of symptoms was January 16, 2023. 13:24 Method Of Arrival: EMS: [facility] hb 13:24 Acuity: ARNULFO 3 hb Historical: - Allergies: 13:29 PENICILLINS; hb - Home Meds: 13:29 hydrochlorothiazide Oral [Active]; hb - PMHx: 13:29 Hypertension; hb - Immunization history:: Adult Immunizations up to date. - Social history:: Smoking status: . Vital Signs: 13:24 BP 121 / 87; Pulse 69; Resp 18; Temp 98.3(O); Pulse Ox 99% on R/A; Weight 117.93 kg; hb Height 5 ft. 11 in. ; Pain 3/10; 13:24 Body Mass Index 36.26 (117.93 kg, 180.34 cm) hb 13:24 Pain Scale: Adult hb ED Course: 13:24 Patient arrived in ED. hb 13:25 Marv Coronado MD is Attending Physician. bs3 13:29 Triage completed. hb 13:30 Arm band placed on. hb 13:45 CT Head C Spine Sent. iw 13:50 CT Head C Spine In Process Unspecified. EDMS Administered Medications: No medications were administered Outcome: 14:35 Discharge ordered by bs3 14:52 Patient left the ED. iw Signatures: Dispatcher [employer] Edita Dunn RN RN iw Baxter, Heather, RN RN hb Stein, Brandon, MD MD bs3 Corrections: (The following items were deleted from the chart) 13:30 13:24 Acuity: ARNULFO 2 hb hb
[2023-01-16 15:19] VITALS: BP 121/87; TEMP 98.3; O2SAT 99
--- NOTE | 2023-01-17 14:38 | EKG ---
Test Date: 2023-01-16 Test Time: 14:07:58 Awning Finisher: SANDI MEASUREMENT RESULTS: Intervals: Rate: 66 SD: 198 QRSD: 104 QT: 460 QTc: 482 [place]: P: 65 SD: 198 QRS: 54 T: 0 INTERPRETIVE STATEMENTS: Normal sinus rhythm Nonspecific ST abnormality Prolonged QT Abnormal ECG Compared to ECG 03/16/2021 07:03:23 ST (T wave) deviation now present Prolonged QT interval now present Electronically Signed On 01-17-23 14:36:42 CDT by Cruz Bourgeois
== END 2023-01-16 14:52 | disposition home or self-care (01) ==
LOC: ER 13:17
PROC: 0HQ1XZZ Repair Face Skin, External Approach (ICD-10-PCS; principal; 2023-01-16)
DX: S01.419A Laceration without foreign body of unspecified cheek and temporomandibular area, initial encounter (principal); F10.10 Alcohol abuse, uncomplicated; S09.90XA Unspecified injury of head, initial encounter
CPT/HCPCS: 70450; 72125; 93005; 99283

== ENCOUNTER 2023-01-22 11:26 | Inpatient (IN) | payer BC ==
--- OUTSIDE RECORDS SUMMARY | 2023-01-22 11:43 | XMS REPORT | Continuity of Care Document ---
:1965 Author Organization [facility] t Address [address] [place] [address] Care Team Providers Name Role Phone Asked, No Pcp Primary Care Physician Unavailable ALEX DUMONT Attending Clinician Unavailable SANTI RODRIGUEZ Attending Clinician Unavailable Jarred Crain MD Attending Clinician GIANLUCA VIRAMONTES Attending Clinician Unavailable MARQUISE QUINTEROS Attending Clinician Unavailable LAB39 Attending Clinician Unavailable Raheem Infante MD Attending Clinician [phone] Mayur Mcfarland NP, Tara Frausto Attending Clinician Marva PULPWOOD DEALER-CAlex Attending Clinician LAB90 Attending Clinician Unavailable MARCO A LAWRENCE Attending Clinician Unavailable Damaris Jackson MD Attending Clinician DAMARIS JACKSON Attending Clinician Unavailable Doctor Unassigned, Offerle Attending Clinician Unavailable Luiz QUIROZ, Korin Ashraf Attending Clinician Unavailable [facility] Attending Clinician Unavailable Cornelius Kline MD Attending Clinician CORNELIUS KLINE Attending Clinician Unavailable JARRED CRAIN Admitting Clinician Unavailable Payers Payer Name Policy Type Policy Number Effective Date Expiration Date 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 6-05 Se ybold athy athy 00:00: - associated associated 00 Ex terna with type with type l 2 diabetes 2 diabetes mellitus mellitus Benign Benign Disease Active Brittany prostatic prostatic 6-05 Seyb old hyperplasi hyperplasi 00:00: - a with a with 00 Externa weak weak l urinary urinary stream stream Other Other Disease Active Brittany fatigue fatigue 6-05 Seybold 00:00: - 00 Externa l Visual Visual Disease Active Brittany disturbanc disturbanc 6-05 Se ybold e e 00:00: - 00 Externa l Unsteadine Unsteadine Disease Active Romeo junior ss ss 6-05 Seybold 00:00: - 00 Externa l 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 00:00: - without without 00 Externa complicati complicati l on on Syncope Syncope Disease Active Brittany 6-05 Seybold 00:00: - 00 Externa l Radiculopa Radiculopa Disease Active M ethodi thy [...] Hyperlipid Disease Active Romeo junior emia emia 3-30 Seybold 00:00: - 00 Externa l Essential Essential Disease Active Betito y hypertensi hypertensi 3-30 Se ybold on on 00:00: - 00 Externa l Anxiety Anxiety Disease Active Brittany 3-30 Seybold 00:00: - 00 Externa l Prediabete Prediabete Disease Active K sandi s s 3-30 Seybold 00:00: - 00 Externa l No known No known Disease Unive rs active active ity of problems problems [facility] Allergies, Adverse Reactions, Alerts Allergy Allergy Status Severity Reaction(s) Onset Inactive Treating Comm ents Source Name Type Date Date Clinician Penicill Propensi Active Rash Method i ins ty to 12-28 st adverse 00:00: Hospita reaction 00 l s to drug Penicill Propensi Active Hives 2020-0 Univer s ins ty to 4-02 ity of adverse 00:00: [place] reaction 00 Medical s Branch PENICILL Drug Active Hives 2020-0 Univers INS Class 4-02 ity of 00:00: [place] 00 Medical Branch Penicill Propensi Active Rash 2020-0 Brittany ins ty to 4-02 Seybold adverse 00:00: reaction 00 s Penicill Propensi Active Rash 2020-0 Brittany ins ty to 4-02 Seybold adverse 00:00: - reaction 00 Externa s l NO KNOWN Drug Active Univers ALLERGIE Class ity of S [facility] Social History Social Habit Start Date Stop Date Quantity Comments Source Exposure to Not sure University of SARS-CoV-2 (event) [facility] Alcohol intake 2022-01-23 2022-01-23 Current drinker [facility] 00:00:00 00:00:00 of alcohol Hospital (finding) History of Social 2022-01-23 2022-01-[address] function 00:00:00 00:00:00 Hospital Tobacco use and 2022-01-20 2022-01-20 Smokeless [facility] exposure 00:00:00 00:00:00 tobacco non-user Hospital Alcohol Comment 2021-12-28 2021-12-28 I'll stop long [facility] 00:00:00 00:00:00 before surgery Hospital Sex Assigned At [birth year] [facility] 00:[facility] Smoking Status Start Date Stop Date Source Never smoked tobacco Brittany Seyb old - External Medications Ordered Filled Start Stop Current Ordering Indication Dosage Frequency Signature Comments Components Source Medication Medication Date Date Medication? Clinician (SIG) Name Name [place]-3 Yes 1{capsu Take 1 Kelse y 1000 MG 6-05 le} capsule by Seybol d oral 10:31: mouth - Capsule 26 daily Externa l Metoprolol 2022-0 Yes 50mg Take 1 Kelse y Tartrate 5-24 tablet (50 Seybo ld (LOPRESSOR) 00:00: mg total) - 50 MG oral 00 by mouth 2 Ext yumiko Tablet times l daily [place]-3 Yes 1{capsu Take 1 Kelse y 1000 MG 4-19 le} capsule by Seybol d oral 13:33: mouth - Capsule 17 daily Externa l Tamsulosin 0 Yes .4mg Take 1 Kelse y HCl 4-19 capsule Seybold (Flomax) 00:00: (0.4 mg - 0.4 MG oral 00 total) by Ext yumiko Capsule mouth l daily Tamsulosin 2022-0 Yes .4mg Take 1 Kelse y HCl 4-19 capsule Seybold (Flomax) 00:00: (0.4 mg - 0.4 MG oral 00 total) by Ext yumiko Capsule mouth l daily gabapentin 2022- Yes TAKE ONE Met hodi (NEURONTIN) 4-05 (1) st 300 mg 00:00: CAPSULE(S) Hospi ta capsule 00 BY MOUTH l TWICE A DAY. gabapentin Yes TAKE ONE Met hodi (NEURONTIN) 4-05 (1) st 300 mg 00:00: CAPSULE(S) Hospi ta capsule 00 BY MOUTH l TWICE A DAY. Ezetimibe 2022-0 Yes [id number] TAKE ONE Brittany 10 MG oral 3-24 (1) TABLET Sey bold Tablet 00:00: (10 MG - 00 TOTAL) BY Externa MOUTH l DAILY. Ezetimibe 2022-0 Yes [id number] TAKE ONE Brittany 10 MG oral 3-24 (1) TABLET Sey bold Tablet 00:00: (10 MG - 00 TOTAL) BY Externa MOUTH l DAILY. Fenofibrate Yes TAKE ONE Ke lsey 134 MG oral 2-24 (1) Seybold Capsule 00:00: CAPSULE(S) - 00 BY MOUTH Externa ONCE A l DAY. Fenofibrate Yes TAKE ONE Ke lsey 134 MG oral 2-24 (1) Seybold Capsule 00:00: CAPSULE(S) - 00 BY MOUTH Externa ONCE A l DAY. Metformin 2021-08 Yes [id number] TAKE ONE Brittany HCl ER 500 2-27 (1) Seybold MG oral 00:00: TABLET(S) - TABLET SR 00 BY MOUTH Lab Director a 24 HR ONCE A DAY l WITH BREAKFAST. Metformin 2021-08 Yes [id number] TAKE ONE Brittany HCl ER 500 2-27 (1) Seybold MG oral 00:00: TABLET(S) - TABLET SR 00 BY MOUTH Lab Director a 24 HR ONCE A DAY l WITH BREAKFAST. gabapentin 2021-08- No TAKE ONE Me thodi (NEURONTIN) 09-16-05 (1) st 300 mg 00:00: 00:00 CAPSULE(S) Hosp [facility]us capsule 00 :00 BY MOUTH l TWICE A DAY. gabapentin 2021-08- No TAKE ONE Me thodi (NEURONTIN) 09-1605 (1) st 300 mg 00:00: 00:00 CAPSULE(S) [...] No TAKE ONE Me thodi (NEURONTIN) 03-16 (1) st 300 mg 00:00: 00:00 CAPSULE(S) Hosp justus capsule 00 :00 BY MOUTH l TWICE A DAY. gabapentin 2021- No TAKE ONE Me thodi (NEURONTIN) 03-16 (1) st 300 mg 00:00: 00:00 CAPSULE(S) Hosp [facility] capsule 00 :00 BY MOUTH l TWICE A DAY. Valsartan-h Yes 1{tbl} Take 1 Ke lsey ydroCHLOROt 7-15 tablet by Sey bold hiazide 00:00: mouth - 160-12.5 MG 00 daily Externa oral Tablet l Valsartan-h Yes 1{tbl} Take 1 Ke lsey ydroCHLOROt 7-15 tablet by Sey bold hiazide 00:00: mouth - 160-12.5 MG 00 daily Externa oral Tablet l aspirin 325 2021- No 325mg Q24H Take 325 Methodi MG tablet 6-04 06-[address] 16:28: 00:00 mouth Hospita 45 :00 daily. l methocarbam Yes 500mg Q6H Take 1 Met hodi oL 6-[address] (ROBAXIN) 00:00: (500 mg Hospi ta 500 MG 00 total) by l tablet mouth every 6 (six) hours as needed for muscle spasms. methocarbam Yes 500mg Q6H Take 1 Met hodi oL 6-[address] (ROBAXIN) 00:00: (500 mg Hospi ta 500 MG 00 total) by l tablet mouth every 6 (six) hours as needed for muscle spasms. acetaminoph 2021- [place] [id number] 1{tbl} Q6H Take 1 Methodi en-codeine - 06-[address] (TYLENOL 00:00: 04:59 mouth Hospita WITH 00 :00 every 6 l CODEINE #4) (six) 300-60 mg hours as per tablet needed for moderate pain for up to 8 days .acute pain. acetaminoph 2021- No [id number] 1{tbl} Q6H Take 1 Methodi en-codeine 6-04 [...] MOUTH Externa TWICE A l DAY. gabapentin 2021-2021- No TAKE ONE Me thodi (NEURONTIN) 01-10 (1) st 300 mg 00:00: 00:00 CAPSULE(S) Hosp justus capsule 00 :00 BY MOUTH l TWICE A DAY. gabapentin 2021-0 2021- No TAKE ONE Me thodi (NEURONTIN) 01-10 (1) st 300 mg 00:00: 00:00 CAPSULE(S) Hosp justus capsule 00 :00 BY MOUTH l TWICE A DAY. FLUoxetine Yes 20mg QD Take 20 mg M ethodi (PROzac) 20 5-[address] MG capsule 00:00: daily. Hospi ta 00 l FLUoxetine Yes 20mg QD Take 20 mg M ethodi (PROzac) 20 5-[address] MG capsule 00:00: daily. Hospi ta 00 l fenofibrate Yes 134mg QD Take 134 M ethodi micronized 5-[address] (LOFIBRA) 00:00: mouth Hospita 134 MG 00 daily. l capsule fenofibrate 0 Yes 134mg QD Take 134 M ethodi micronized 5-[address] (LOFIBRA) 00:00: mouth Hospita 134 MG 00 daily. l capsule Valsartan-h Yes 1{tbl} Take 1 Ke lsey ydroCHLOROt 5-04 tablet by Sarahi bold hiazide 08:53: mouth 160-12.5 MG 18 daily oral Tablet [place]-3 Yes 1{capsu Take 1 Kelse y 1000 MG 5-04 le} capsule by Seybol d oral 08:53: mouth Capsule 18 daily Trazodone 2021-0 Yes [id number] 50mg Take 1 Brittany HCl 50 MG 5-04 02 tablet (50 Seyb old oral Tablet 00:00: mg total) - 00 by mouth Externa nightly l Trazodone 2021-0 Yes [id number] 50mg Take 1 Brittany HCl 50 MG 5-04 02 tablet (50 Seyb old oral Tablet 00:00: mg total) 00 by mouth nightly Trazodone 2021-0 Yes [id number] 50mg Take 1 Brittany HCl 50 MG 5-04 02 tablet (50 Seyb old oral Tablet 00:00: mg total) - 00 by mouth Externa nightly l temazepam Yes TAKE TWO Meth gustavo (RESTORIL) 4-08 (2) st 15 mg 00:00: CAPSULE(S) Hospit a capsule 00 BY MOUTH l DAILY AT BEDTIME. temazepam Yes TAKE TWO Meth gustavo (RESTORIL) 4-08 (2) st 15 mg 00:00: CAPSULE(S) Hospit a capsule 00 BY MOUTH l DAILY AT BEDTIME. ezetimibe Yes 10mg QD Take 10 mg Me thodi (ZETIA) 10 4-[address] mg tablet 00:00: daily. Hospit a 00 l ezetimibe Yes 10mg QD Take 10 mg Me thodi (ZETIA) 10 4-[address] mg tablet 00:00: daily. Hospit a 00 l Ezetimibe Yes [id number] 10mg Take 1 Ke lsey 10 MG oral 4-05 tablet (10 Sey bold Tablet 00:00: mg total) 00 by mouth daily Metformin Yes [id number] 500mg Take 1 Brittany HCl ER 500 4-05 tablet Seybold MG oral 00:00: (500 mg TABLET SR 00 total) by 24 HR mouth daily (with breakfast) metFORMIN 0 Yes 500mg QD Take 500 Met hodi XR 4-[address] (GLUCOPHAGE 00:00: mouth Hospi ta -XR) 500 mg 00 daily. l 24 hr tablet metFORMIN Yes 500mg QD Take 500 Met hodi XR 4-[address] (GLUCOPHAGE 00:00: mouth Hospi ta -XR) 500 mg 00 daily. l 24 hr tablet [place]-3 Yes 1{capsu Take 1 Kelse y 1000 MG 4-01 le} capsule by Seybol d oral 09:31: mouth Capsule 36 daily Valsartan-h Yes 1{tbl} Take 1 Ke lsey ydroCHLOROt 4-01 tablet by Sey bold hiazide 09:30: mouth 160-12.5 MG 43 daily oral Tablet [place]-3 2021-2021- No 1{tbl} Take 1 Kelse y Fatty Acids 4-01 04-01 tablet by Se torresold (Fish Oil) 08:04: 00:00 mouth 1000 MG 16 :00 daily oral Capsule Fluoxetine 0 2021- No 1{capsu Take 1 K elsey HCl 20 MG -11-18 le} capsule by Sey bold oral 08:03: 00:00 mouth in Capsule 58 :00 the morning and 1 capsule in the evening. Fluoxetine Yes [id number] 20mg Take 1 K elsey HCl 20 MG 4-01 capsule Seybold oral 00:00: (20 mg - Capsule 00 total) by Externa mouth in l the morning and 1 capsule (20 mg total) in the evening. Fluoxetine Yes [id number] 20mg Take 1 K elsey HCl 20 MG 4-01 capsule Seybold oral 00:00: (20 mg Capsule 00 total) by mouth in the morning and 1 capsule (20 mg total) in the evening. Fluoxetine 0 Yes [id number] 20mg Take 1 K elsey HCl 20 MG 4-01 capsule Seybold oral 00:00: (20 mg Capsule 00 total) by mouth in the morning and 1 capsule (20 mg total) in the evening. Fluoxetine Yes [id number] 20mg Take 1 K elsey HCl 20 MG 4-01 capsule Seybold oral 00:00: (20 mg - Capsule 00 total) by Externa mouth in l the morning and 1 capsule (20 mg total) in the evening. Valsartan-h 0 2021- No [id number] 1{tbl} Take 1 Brittany ydroCHLOROt 11-18 tablet by Se ybold hiazide 00:00: 00:00 mouth 160-12.5 MG 00 :00 daily oral Tablet [place]-3 2021-0 2021- No 1000mg Take 1 Kelse y Fatty Acids 11-18- capsule Seyb old (Fish Oil) 00:00: 00:00 (1,000 mg 1000 MG 00 :00 total) by oral mouth Capsule daily Valsartan-h 0 2021- No [id number] 1{tbl} Take 1 Brittany ydroCHLOROt 3-08 12- tablet by Se ybold hiazide 00:00: 00:00 mouth 160-12.5 MG 00 :00 daily oral Tablet Gabapentin 2021-0 Yes [id number] 300mg Take 1 Brittany 300 MG oral 3-15 capsule Seybo ld Capsule 00:00: (300 mg - 00 total) by Externa mouth 2 l times daily Gabapentin 2021-0 Yes [id number] 300mg Take 300 Brittany 300 MG oral 3-15 mg by Seybold Capsule 00:00: mouth in 00 the morning and 300 mg in the evening. Gabapentin 2021-0 Yes [id number] 300mg Take 300 Brittany 300 MG oral 3-15 mg by Seybold Capsule 00:00: mouth in 00 the morning and 300 mg in the evening. Gabapentin 2021-0 Yes [id number] 300mg Take 1 Brittany 300 MG oral 3-15 capsule Seybo ld Capsule 00:00: (300 mg - 00 total) by Externa mouth 2 l times daily metoprolol 2021-0 Yes 50mg Q.5D Take 50 mg M ethodi tartrate 3-[address] (LOPRESSOR) 00:00: (two) Hospi ta 50 mg 00 times a l tablet day. metoprolol 2021-0 Yes 50mg Q.5D Take 50 mg M ethodi tartrate 3-[address] (LOPRESSOR) 00:00: (two) Hospi ta 50 mg 00 times a l tablet day. Fenofibrate 2021-0 Yes 1{capsu Take 1 K elsey 134 MG oral 3-04 le} capsule by Se ybold Capsule 00:00: mouth 00 daily Fenofibrate 2021-0 Yes 1{capsu Take 1 K elsey 134 MG oral 3-04 le} capsule by Se ybold Capsule 00:00: mouth 00 daily Ezetimibe 2021-0 Yes [id number] TAKE ONE Brittany 10 MG oral 2-25 (1) TABLET Sey bold Tablet 00:00: (10 MG 00 TOTAL) BY MOUTH DAILY. Metoprolol 2020- Yes TAKE ONE Ke lsey Tartrate 50 6-09 (1) Seybold MG oral 00:00: TABLET(S) Tablet 00 BY MOUTH TWICE A DAY. Metoprolol 2020-0 Yes TAKE ONE Ke lsey Tartrate 50 6-09 (1) Seybold MG oral 00:00: TABLET(S) Tablet 00 BY MOUTH TWICE A DAY. Metformin 2020-0 2022- No TAKE TWO Betito sey HCl 500 MG 01-10 (2) Seybold oral Tablet 00:00: 00:00 TABLET(S) 00 :00 BY MOUTH TWICE A DAY WITH MEALS. Temazepam 2020-0 Yes 30mg Take 2 Brittany 15 MG oral 4-30 capsules Seybo ld Capsule 00:00: (30 mg - 00 total) by Externa mouth at l bedtime Temazepam 1-0 Yes 30mg Take 30 mg Ke lsey 15 MG oral 4-30 by mouth Seybo ld Capsule 00:00: at bedtime 00 Temazepam 2021-0 Yes 30mg Take 30 mg Ke lsey 15 MG oral 4-30 by mouth Seybo ld Capsule 00:00: at bedtime 00 Temazepam 1-0 Yes 30mg Take 2 Brittany 15 MG oral 4-30 capsules Seybo ld Capsule 00:00: (30 mg - 00 total) by Externa mouth at l bedtime Fluoxetine 2020-0 2022- No 40mg Take 40 mg Brittany HCl 20 MG -24 - by mouth Seybo ld oral 00:00: 00:00 daily Capsule 00 :00 Fenofibric 2020-0 Yes Univers Acid 135 mg 3-27 ity of capsule 00:00: [address] ezetimibe 2020-0 Yes Univers 10 mg 3-27 ity of tablet 00:00: [address] Fenofibric 2020-0 Yes Univers Acid 135 mg 3-27 ity of capsule 00:00: [place] [address] [facility] [place] ezetimibe 2020-0 Yes Univers 10 mg 3-27 ity of tablet 00:00: [address] Fenofibric 2020-0 Yes Univers Acid 135 mg 3-27 ity of capsule 00:00: [place] [address] [facility] Branch ezetimibe 2020-0 Yes Univers 10 mg 3-27 ity of tablet 00:00: [address] Fenofibric 2020-0 Yes Univers Acid 135 mg 3-27 ity of capsule 00:00: [address] ezetimibe 2020-0 Yes Univers 10 mg 3-27 ity of tablet 00:00: [place] [address] [facility] Branch FLUoxetine 2020-0 Yes Univers 20 mg 3-24 ity of capsule 00:00: [address] temazepam 2020-0 Yes Univers 15 mg 3-24 ity of capsule 00:00: [place] [address] [facility] Branch FLUoxetine 2020-0 Yes Univers 20 mg 3-24 ity of capsule 00:00: [facility] Branch temazepam 2020-0 Yes Univers 15 mg 3-24 ity of capsule 00:00: [facility] FLUoxetine 2020-0 Yes Univers 20 mg 3-24 ity of capsule 00:00: [facility] temazepam 2020-0 Yes Univers 15 mg 3-24 ity of capsule 00:00: [facility] FLUoxetine 2020-0 Yes Univers 20 mg 3-24 ity of capsule 00:00: [place] [facility] temazepam 2020-0 Yes Univers 15 mg 3-24 ity of capsule 00:00: [place] [facility] albuterol 2020-0 Yes INHALE ONE Un june 90 3-07 (1) ity of mcg/actuati 00:00: PUFF(S) BY [place] on inhaler MOUTH Medical EVERY 4 Branch HOURS NEEDED. albuterol 2019-0 Yes INHALE ONE Un june 90 3-07 (1) ity of mcg/actuati 00:00: PUFF(S) BY [place] on inhaler MOUTH Medical EVERY 4 Branch HOURS NEEDED. albuterol 2019-0 Yes INHALE ONE Un june 90 3-07 (1) ity of mcg/actuati 00:00: PUFF(S) BY [place] on inhaler 00 MOUTH Medical EVERY 4 Branch HOURS NEEDED. albuterol 2020-0 Yes INHALE ONE Un june 90 3-07 (1) ity of mcg/actuati 00:00: PUFF(S) BY [place] on inhaler 00 MOUTH Medical EVERY 4 Branch HOURS NEEDED. metFORMIN 2019-0 Yes Univers 500 mg 3-06 ity of tablet 00:00: [place] [facility] metFORMIN 2020-0 Yes Univers 500 mg 3-06 ity of tablet 00:00: [place] [facility] metFORMIN 2020-0 Yes Univers 500 mg 3-06 ity of tablet 00:00: [place] [facility] metFORMIN 2020-0 Yes Univers 500 mg 3-06 ity of tablet 00:00: [place] [facility] valsartan-h 2019-0 Yes 1{tbl} QD Take 1 Me thodi ydrochlorot 2-[address] hiazide 00:00: mouth Hospita (DIOVAN-HCT 00 daily. l ) 160-12.5 mg per tablet valsartan-h 0 Yes Univer s ydrochlorot 2-02 ity of hiazide 00:00: [place] 160-12.5 mg 00 Medical per tablet Branch valsartan-h 0 Yes Univer s ydrochlorot 2-02 ity of hiazide 00:00: [place] 160-12.5 mg 00 Medical per tablet Branch valsartan-h 2019-0 Yes Univer s ydrochlorot 2- ity of hiazide 00:00: [place] 160-12.5 mg 00 Medical per tablet Branch valsartan-h Yes Univer s ydrochlorot 2- ity of hiazide 00:00: [place] 160-12.5 mg 00 Medical per tablet Branch valsartan-h Yes 1{tbl} QD Take 1 Me thodi ydrochlorot 2-[address] hiazide 00:00: mouth Hospita (DIOVAN-HCT 00 daily. l ) 160-12.5 mg per tablet Immunizations Ordered Immunization Filled Immunization Date Status Commen ts Source Name Name Covid-19 Vaccine 2020-11-29 Completed Brittany chávez ([employer]) 00:00:00 - External Covid-19 Vaccine 2020-11-29 Completed Brittany chávez ([employer]) 00:00:00 - External Covid-19 Vaccine 2020-11-29 Completed Brittany chávez ([employer]) 00:00:00 Covid-19 Vaccine 2020-11-29 Completed Brittany campbellboforrest ([employer]) 00:00:00 Td- Tetanus & 2017-04-27 Completed Brittany [...] 7+ years) Tdap- (Boostrix, 2016-09-08 Completed Brittany chávez Adacel) 00:00:00 - External Tdap- (Boostrix, 2016-09-08 Completed Brittany Sharp eybold Adacel) 00:00:00 - External Tdap- (Boostrix, 2016-09-08 Completed Brittany Sharp eybold Adacel) 00:00:00 Tdap- (Boostrix, 2016-09-08 Completed Brittany Sharp eybold Adacel) 00:00:00 Vital Signs Vital Name Observation Time Observation Value Comments Source Systolic blood 2023-01-22 15:31:00 122 mm[Hg] Brittany Seybold - pressure External Diastolic blood 2023-01-22 15:31:00 82 mm[Hg] Betitose y Seybold - pressure External Heart rate 2023-01-22 15:31:00 72 /min Brittany Sharp eybold - External Body temperature 2023-01-22 15:31:00 36.56 Kasia Asuncion ey Seybold - External Body height 2023-01-22 15:31:00 180.3 cm Brittany Sharp eybold - External Body weight 2023-01-22 15:31:00 105.688 kg Brittany Sharp eybold - External BMI 2023-01-22 15:31:00 32.50 kg/m2 Brittany Sharp eybold - External Oxygen saturation in 2023-01-22 15:31:00 97 /min Brittany Willis - Arterial blood by External Pulse oximetry Systolic blood 2022-12-06 18:27:00 118 mm[Hg] Brittany Seybold - pressure External Diastolic blood 2022-12-06 18:27:00 80 mm[Hg] Kajal y Seybold - pressure External Heart rate 2022-12-06 18:27:00 79 /min Brittany Sharp eybold - External Body temperature 2022-12-06 18:27:00 36.56 Kasia Asuncion ey Seybold - External Respiratory rate 2022-12-06 18:27:00 18 /min Asuncion campbell Seybold - External Body height 2022-12-06 18:27:00 180.3 cm Brittany Sharp eybold - External Body weight 2022-12-06 18:27:00 105.688 kg Brittany Sharp eybold - External BMI 2022-12-06 18:27:00 32.50 kg/m2 Brittany Sharp eybold - External Systolic blood 2021-12-21 13:51:00 127 mm[Hg] Brittany Seybold pressure Diastolic blood 2021-12-21 13:51:00 82 mm[Hg] Kelse y Seybold pressure Heart rate 2021-12-21 13:51:00 70 /min Brittany Sharp eybold Body temperature 2021-12-21 13:51:00 37 Kasia Asuncion ey Seybold Respiratory rate 2021-12-21 13:51:00 15 /min Asuncion ey Seybold Body height 2021-12-21 13:51:00 180.3 cm Brittany Sharp eybold Body weight 2021-12-21 13:51:00 110.224 kg Brittany Sharp eybold BMI 2021-12-21 13:51:00 33.89 kg/m2 Brittany S eybold Systolic blood 2021-11-18 13:02:00 138 mm[Hg] Brittany Seybold pressure Diastolic blood 2021-11-18 13:02:00 90 mm[Hg] Kelse y Seybold pressure Heart rate 2021-11-18 13:02:00 78 /min Brittany Sharp eybold Body temperature 2021-11-18 13:02:00 36.61 Kasia Asuncion ey Seybold Respiratory rate 2021-11-18 13:02:00 14 /min Asuncion ey Seybold Body height 2021-11-18 13:02:00 180.3 cm Brittany Sharp eybold Body weight 2021-11-18 13:02:00 113.127 kg Brittany Sharp eybold BMI 2021-11-18 13:02:00 34.78 kg/m2 Brittany Sharp eybold Systolic blood 2019-11-20 17:42:00 156 mm[Hg] Univer sity of [facility] Diastolic blood 2019-11-20 17:42:00 110 mm[Hg] Unive rsity of [facility] Heart rate 2019-11-20 17:40:00 88 /min [facility] Body temperature 2019-11-20 17:40:00 37.11 Kasia [facility] 2019-11-20 17:40:00 18 /min [facility] Body height 2019-11-20 17:40:00 180.3 cm [facility] [place] [facility] Body weight 2019-11-20 17:40:00 106.595 kg [facility] [place] [facility] BMI 2019-11-20 17:40:00 32.78 kg/m2 Universi ty of [facility] Oxygen saturation in 2019-11-20 17:40:00 98 /min University of Arterial blood by [facility] Pulse oximetry Branch Systolic blood 2019-11-20 17:42:00 156 mm[Hg] Univer sity of pressure [facility] Diastolic blood 2019-11-20 17:42:00 110 mm[Hg] Unive rsity of pressure [facility] Heart rate 2019-11-20 17:40:00 88 /min Universi ty of [facility] Body temperature 2019-11-20 17:40:00 37.11 K[facility] Respiratory rate 2019-11-20 17:40:00 18 /min [facility] Body height 2019-11-20 17:40:00 180.3 cm Universi ty of [facility] Body weight 2019-11-20 17:40:00 106.595 kg Universi ty of [facility] BMI 2019-11-20 17:40:00 32.78 kg/m2 Universi ty [facility] Oxygen saturation in 2019-11-20 17:40:00 98 /min University of Arterial blood by [facility] Pulse oximetry Branch Systolic blood 2022-01-21 16:58:35 127 mm[Hg] Method [facility] pressure Diastolic blood 2022-01-21 16:58:35 78 mm[Hg] [facility] pressure Heart rate 2022-01-21 16:58:35 87 /min [facility] Body temperature 2022-01-21 16:58:35 36.5 Kasia [facility] Respiratory rate 2022-01-21 16:58:35 17 /min [facility] Oxygen saturation in 2022-01-21 16:58:35 97 /min [facility] Arterial blood by Pulse oximetry Body height 2022-01-20 11:40:00 180.3 cm [facility] Body weight 2022-01-20 11:40:00 110.224 kg [facility] BMI 2022-01-20 11:40:00 33.89 kg/m2 [facility] [facility] Procedures Procedure Date / Time Performing Clinician Source Performed XR LUMBAR SPINE 2 OR 3 2022-04-28 15:26:00 [facility] VW XR LUMBAR SPINE 2 OR 3 2022-02-10 18:16:14 [facility] 2022-01-20 18:24:00 [facility] REQUEST OR [place] < 1 HOUR 2022-01-20 16:07:00 [facility] OR [place] > 1 HOUR 2022-01-20 14:33:00 Reinier [facility] ABO AND RH CONFIRMATION 2022-01-20 13:54:00 [facility] BY PROTOCOL TYPE AND SCREEN 2022-01-20 13:41:00 [facility] HC NERVE BLOCK TAP 2022-01-20 13:39:13 Heath Leigh [facility] BLOCK BILAT INJECTION R ARTERIAL LINE 2022-01-20 13:24:02 [facility] Marguerite ANESTHESIA INTUBATION 2022-01-20 12:43:00 BryonShannan [facility] Marguerite FUSION, ANTERIOR SPINAL 2022-01-20 12:30:00 [facility] COLUMN, LUMBAR, ANTERIOR APPROACH POC GLUCOSE 2022-01-20 12:03:00 [facility] US ABDOMEN LIMITED 2020-08-18 23:01:33 Damaris [facility] ASSIGNMENT OF BENEFITS 2020-08-18 22:46:17 Doctor Unassigned, No [facility] Plan of Care Planned Activity Planned Date Details Comments Source Future Scheduled 2022-12-06 Hepatitis C screening [facility] Test 13:22:58 (procedure) [code = 452857245] Future Scheduled 2022-12-06 COLONOSCOPY SCREENING [facility] Test 13:22:58 [code = COLONOSCOPY SCREENING] Future Scheduled 2022-12-06 SHINGLES VACCINES (1 [facility] Test 13:22:58 of 2) [code = SHINGLES VACCINES (1 of 2)] Future Scheduled 2022-12-06 COVID-19 VACCINE (3 - Me [facility] Test 13:22:58 Booster for Héctor series) [code = COVID-19 VACCINE (3 - Booster for Héctor series)] Future Scheduled 2022-12-06 INFLUENZA VACCINE [facility] Test 13:22:58 [code = INFLUENZA VACCINE] Future Scheduled 2022-12-06 Hepatitis C screening [facility] Test 13:22:58 (procedure) [code = 084161430] Future Scheduled 2022-12-06 Screening for [facility] Test 13:22:58 malignant neoplasm of colon (procedure) [code = 141410491] Future Scheduled 2022-12-06 SHINGLES VACCINES (1 [facility] Test 13:22:58 of 2) [code = SHINGLES VACCINES (1 of 2)] Future Scheduled 2022-12-06 COVID-19 VACCINE (3 - Me [facility] Test 13:22:58 Booster for Héctor series) [code = COVID-19 VACCINE (3 - Booster for Héctor series)] Future Scheduled 2022-12-06 INFLUENZA VACCINE Method [facility] Test 13:22:58 [code = INFLUENZA VACCINE] Encounters Start End Encounter Admission Attending Care Care Encounter Source Date/Time Date/Time Type Type Clinicians Facility Department ID 2023-02-26 2023-02-26 Outpatient BRITTANY DUMONT [id number] Brittany 10:30:00 10:30:00 ALEX garcia 2023-01-22 2023-01-22 Outpatient BRITTANY RODRIGUEZ [id number] Birttany 11:45:00 11:45:00 SANTI garcia 2023-01-18 2023-01-18 RefJarred Martinez 1.2.840.1 [id number] [facility] 00:00:00 00:00:[address] 3.430.2.7 Hospit a .3.748332 l .8 2023-01-17 2023-01-17 Outpatient GIANLUCA VIRAMONTES [id number] Brittany 18:30:00 18:30:00 Seybol jose 2023-01-07 2023-01-07 Outpatient MARQUISE QUINTEROS [id number] Brittany 00:00:00 00:00:00 Seybol d 2022-12-06 2022-12-06 Outpatient LAB39 BRITTANY KINSEY [id number] Brittany 14:15:00 14:15:00 Seybol d 2022-12-06 2022-12-06 Outpatient GIANLUCA VIRAMONTES BRITTANY KINSEY [id number] Brittany 13:45:00 13:45:00 Seybol d 2022-11-13 2022-11-13 Refill Paras, Jarred 1.2.840.1 [id number] 21 [id number] Methodi 00:00:00 00:00:[address] 3.430.2.7 Hospit a .3.269392 l .8 2022-11-13 2022-11-13 Refill Paras, Jarred 1.2.840.1 [id number] 21 [id number] Methodi 00:00:00 00:00:[address] 3.430.2.7 Hospit a .3.743054 l .8 2022-11-10 2022-11-10 Outpatient BRITTANY DUMONT [id number] Brittany 00:00:00 00:00:00 ALEX Seybol d 2022-10-13 2022-10-13 Outpatient NELI MARQUISE BRITTANY KINSEY [id number] Brittany 00:00:00 00:00:00 Seybol d 2022-08-13 2022-08-13 Outpatient BRITTANY DUMONT [id number] Brittany 00:00:00 00:00:00 ALEX Seybol d 2022-07-13 2022-07-13 Refill ParasJarred yu 1.2.840.1 [id number] Methodi 00:00:00 00:00:[address] 3.430.2.7 Hospit a .3.375248 l .8 2022-07-13 2022-07-13 Refill Paras, Jarred 1.2.840.1 [id number] 21 [id number] Methodi 00:00:00 00:00:[address] 3.430.2.7 Hospit a .3.388827 l .8 2022-05-17 2022-05-17 Refill ParasJarred yu 1.2.840.1 [id number] 21 [id number] Methodi 00:00:00 00:00:[address] 3.430.2.7 Hospit a .3.345493 l .8 2022-05-17 2022-05-17 Refill ParasJarred yu 1.2.840.1 [id number] 21 [id number] Methodi 00:00:00 00:00:[address] 3.430.2.7 Hospit a .3.932198 l .8 2022-04-28 2022-05-03 Office Jarred Crain 1.2.840.1 [id number] 21 [id number] Methodi 10:45:00 00:29:45 Visit Guillermo 72773.1.[address] 3.430.2.7 Hospit a .3.404685 l .8 2022-04-28 2022-05-03 Office Jarred Crain 1.2.840.1 [id number] 21 [id number] Methodi 10:45:00 00:29:45 Visit Guillermo 20131.1.[address] 3.430.2.7 Hospit a .3.118361 l .8 2022-04-28 2022-04-28 Hospital Jarred Crain 1.2.840.1 [id number] 2 [id number] Methodi 10:00:00 23:59:00 Encounter Guillermo 28030.1.[address] 3.430.2.7 Hospit a .3.331394 l .8 2022-04-28 2022-04-28 Hospital Jarred Crain 1.2.840.1 [id number] 2 [id number] Methodi 10:00:00 23:59:00 Encounter Guillermo 39850.1.[address] 3.430.2.7 Hospit a .3.590848 l .8 2022-04-28 2022-04-28 Travel 1.2.840.1 1.2.994.599 1418 589463 Methodi 00:00:00 00:00:[address] 3.430.2.7 0.2.7.3.698 Ho spita .3.270823 084.8 l .8 2022-04-28 2022-04-28 Travel 1.2.840.1 1.2.983.755 2556 379612 Methodi 00:00:00 00:00:[address] 3.430.2.7 0.2.7.3.698 Ho spita .3.809626 084.8 l .8 2022-04-27 2022-04-27 Jarred Castellanos 1.2.840.1 [id number] Methodi 00:00:00 00:00:00 Only Guillermo 32598.1.[address] 3.430.2.7 Hospit a .3.158521 l .8 2022-04-27 2022-04-27 Jarred Castellanos 1.2.840.1 [id number] Methodi 00:00:00 00:00:00 Only Guillermo 86520.1.[address] 3.430.2.7 Hospit a .3.353087 l .8 2022-03-28 2022-03-28 Travel 1.2.840.1 1.2.959.957 2070 140632 Methodi 00:00:00 00:00:[address] 3.430.2.7 0.2.7.3.698 Ho spita .3.644208 084.8 l .8 2022-03-28 2022-03-28 Travel 1.2.840.1 1.2.743.105 0662 639533 Methodi 00:00:00 00:00:[address] 3.430.2.7 0.2.7.3.698 Ho spita .3.219144 084.8 l .8 2022-03-16 2022-03-16 Jarred Solis 1.2.840.1 [id number] 21 [id number] Methodi 00:00:00 00:00:[address] 3.430.2.7 Hospit a .3.050276 l .8 2022-03-16 2022-03-16 Refill Jarred Crain 1.2.840.1 094121904 [id number] Methodi 00:00:00 00:00:[address] 3.430.2.7 Hospit a .3.830336 l .8 2022-02-10 2022-02-10 [facility] Jarred Crain 1.2.840.1 [id number] 2 [id number] Methodi 12:45:00 23:59:00 Encounter Guillermo 26917.1.[address] 3.430.2.7 Hospit a .3.261703 l .8 2022-02-10 2022-02-10 [facility] Jarred Crain 1.2.840.1 [id number] 2 [id number] Methodi 12:45:00 23:59:00 Encounter Guillermo [address]1705.1.[address] 3.430.2.7 Hospit a .3.884315 l .8 2022-02-10 2022-02-10 Office Jarred Crain 1.2.840.1 [id number] 21 [id number] Methodi 14:30:00 15:13:12 Visit Guillermo 13935.1.[address] 3.430.2.7 Hospit a .3.143593 l .8 2022-02-10 2022-02-10 Office Jarred Crain 1.2.840.1 [id number] Methodi 14:30:00 15:13:12 Visit Guillermo 58806.1.[address] 3.430.2.7 Hospit a .3.616823 l .8 2022-02-10 2022-02-10 Travel 1.2.840.1 1.2.126.538 3221 285569 Methodi 00:00:00 00:00:[address] 3.430.2.7 0.2.7.3.698 Ho spita .3.306140 084.8 l .8 2022-02-10 2022-02-10 Travel 1.2.840.1 1.2.135.562 8970 120633 Methodi 00:00:00 00:00:[address] 3.430.2.7 0.2.7.3.698 Ho spita .3.987771 084.8 l .8 2022-02-09 2022-02-09 Orders Jarred Crain 1.2.840.1 [id number] 21 [id number] Methodi 00:00:00 00:00:00 Only Guillermo 95163.1.[address] 3.430.2.7 Hospit a .3.297353 l .8 2022-02-09 2022-02-09 Orders Jarred Crain 1.2.840.1 [id number] 21 [id number] Methodi 00:00:00 00:00:00 Only Guillermo 19190.1.[address] 3.430.2.7 Hospit a .3.957938 l .8 2022-01-25 2022-01-25 Travel 1.2.840.1 1.2.483.355 2154 031604 Methodi 00:00:00 00:00:[address] 3.430.2.7 0.2.7.3.698 Ho spita .3.679244 084.8 l .8 2022-01-25 2022-01-25 Travel 1.2.840.1 1.2.978.541 3723 400953 Methodi 00:00:00 00:00:[address] 3.430.2.7 0.2.7.3.698 Ho spita .3.493535 084.8 l .8 2022-01-20 2022-01-21 Hospital Jarred Crain 1.2.840.1 [id number] 2 [id number] Methodi 06:03:00 16:28:00 Corey Guillermo 78541.1.[address] 3.430.2.7 Hospit a .3.129196 l .8 2022-01-20 2022-01-20 Surgery Jarred Crain 1.2.840.1 [id number] 21 [id number] Methodi 07:30:00 12:10:[address] 3.430.2.7 Hospit a .3.525725 l .8 2022-01-20 2022-01-20 Anesthesia Raheem Infante L. 1.2.840 .1 040833120 [id number] Methodi 07:30:00 11:51:00 Event StarbuckTara Mcfarland 18195.1.[address] 3.430.2.7 Hospit a .3.643741 l .8 2022-01-20 2022-01-20 Travel 1.2.840.1 1.2.436.445 6102 821688 Methodi 00:00:00 00:00:[address] 3.430.2.7 0.2.7.3.698 Ho spita .3.284215 084.8 l .8 2021-12-28 2021-12-28 Outpatient JARRED CRAIN [facility] [id number] [place] 00:00:00 00:00:[address] 2021-12-21 2021-12-21 Office Jeramy Dumont 1.2.840.114 [id number] Brittany 09:00:00 09:30:00 Visit Alex Lizarraga 350.1.13.13 Se roth 1.2.7.2.686 [id number] 0 2021-11-22 2021-11-22 Outpatient BRITTANY DUMONT [id number] Brittany 00:00:00 00:00:00 ALEX garcia 2021-11-18 2021-11-18 Outpatient LAB90 BRITTANY KINSEY [id number] Brittany 08:45:00 08:45:00 Maryol jose 2021-11-18 2021-11-18 Office Jeramy Dumont 1.2.840.114 [id number] Brittany 08:00:00 08:30:00 Visit Alex Lizarraga 350.1.13.13 gonzalez 1.2.7.2.686 [id number] 0 2021-11-07 2021-11-07 Outpatient BRITTANY LAWRENCE [id number] Brittany 00:00:00 00:00:00 MARCO A Seybol d 2021-11-05 2021-11-05 Outpatient BRITTANY LAWRENCE [id number] Brittany 00:00:00 00:00:00 MARCO A Seybol d 2021-11-04 2021-11-04 Outpatient PARAS, JARRED [facility] [id number] [place] 00:00:00 00:00:[address] 2021-11-04 2021-11-04 Outpatient PARAS, JARRED [facility] [id number] [place] 00:00:00 00:00:[address] 2021-10-20 2021-10-20 Outpatient AGAMARQUISE [id number] Brittany 00:00:00 00:00:00 Seybol d 2021-10-17 2021-10-17 Outpatient NELIMARQUISE 107 [id number] Brittany 00:00:00 00:00:00 Seybol d 2021-10-17 2021-10-17 Outpatient NELIMARQUISE [id number] Brittany 00:00:00 00:00:00 Seybol d 2021-10-14 2021-10-14 Outpatient PARAS, JARRED [facility] [id number] [place] 00:00:00 00:00:[address] 2021-10-14 2021-10-14 Outpatient PARAS, JARRED [facility] [id number] [place] 00:00:00 00:00:[address] 2021-10-14 2021-10-14 Outpatient PARAS, JARRED [facility] [id number] [place] 00:00:00 00:00:[address] 2021-10-12 2021-10-12 Outpatient AGAMARQUISE [id number] Brittany 00:00:00 00:00:00 Seybol d 2021-10-02 2021-10-02 Outpatient BRITTANY LAWRENCE [id number] Brittany 00:00:00 00:00:00 MARCO A Hernandezol jose 2021-07-08 2021-07-08 Outpatient BRITTANY LAWRENCE [id number] Brittany 00:00:00 00:00:00 MARCO A garcia 2021-07-01 2021-07-01 Outpatient PARASJARRED [facility] [id number] [place] 00:00:00 00:00:[address] 2021-07-01 2021-07-01 Outpatient PARASJARRED [facility] [id number] [place] 00:00:00 00:00:[address] 2020-08-18 2020-08-18 [facility] 1.2.840.114 [id number] [facility] 16:47:19 23:59:00 Encounter Damaris Wagner 350.1.13.10 ity [facility] 4.2.7.2.686 [facility] [id number] [address] 2020-08-18 2020-08-18 [facility] 1.2.840.114 [id number] 16:47:19 23:59:00 Encounter Damaris Wagner 350.1.13.[address] [place] [address] [place] [address] [id number] [employer] 2020-08-18 2020-08-[address] [facility] [id number] Univers 00:00:00 00:00:00 DAMARIS ity of [facility] 2020-08-18 2020-08-18 Orders Doctor GIANLUCA 1.2.840.114 [id number] Univers 00:00:00 00:00:00 Only Unassigned, INDIRA 350.1.13.10 ity of [place] [facility] 4.2.7.2.686 [facility] [id number] [address] 2020-08-18 2020-08-18 Orders Doctor GIANLUCA 1.2.840.114 [id number] 00:00:00 00:00:00 Only Unassigned, INDIRA 350.1.13.[address] [place] [address]686 [id number] 009 2019-11-22 2019-11-22 Telephone GIANLUCA Dee 1.2.198.441 [id number] Univers 00:00:00 00:00:00 Korin JACOBSON 350.1.13.10 ity of [facility] 4.2.7.2.686 Tyron as [id number] [address] 2019-11-22 2019-11-22 Telephone GIANLUCA Dee 1.2.842.344 [id number] 00:00:00 00:00:00 Korin JACOBSON 350.1.13.10 [facility] 4.2.7.2.686 [id number] 2019-11-20 2019-11-20 Urgent Pob1, Acute Care [facility] 1. 2.840.114 [id number] [facility] 12:17:24 13:41:18 [facility] 350.1.13.10 ity [facility] 4.2.7.2.686 Tyron as Professio [phone] Wi dical [address] Office [address] [employer] 2019-11-20 2019-11-20 Urgent Pob1, Acute [facility] 1.2.840.114 [id number] 12:17:24 13:41:18 [facility] 350.1.13.10 [place] 4.2.7.2.686 Professio [phone] [place] [address] [address] 2019-11-20 2019-11-20 Outpatient R [facility] [id number] [facility] 12:20:00 12:20:00 [facility] 2019-09-10 2019-09-10 Outpatient MHSE MHSE [id number] MH 08:08:00 08:08:[address] [facility] 2015-09-10 2015-09-10 Outpatient 2.16.840. 2.16.840.1. 3 2475 Memoria 11:26:13 23:59:59 1.401098. 941106.3.20 l 3.2080.20 81.2000 [place] n 00 [facility] 2015-09-10 2015-09-10 Outpatient nullFlavo [facility] [id number] Memoria 11:26:13 11:26:13 r l [place] 2015-09-10 2015-09-10 Outpatient nullFlavo [facility] [id number] Memoria 11:26:13 11:26:13 wilmer Britt Results Test Description Test Time Test Comments Results Result Comments Source Surgical pathology request 2022-02-02 20:39:55 Test Item Value Reference Range Interpretation Comme nts Case number (test code = [id number]) [id number] Surgical pathology report (test code = See link below for PDF Lab R eport 9757) Result status (test code = 4039839) This is Final Report for [id number] [facility] [id number] 12:04:00 Test Item Value Reference Range Interpretation Comments POC glucose (test code 125 mg/dL 65-99 H Opera tor Name: Dileep = 58606-7) Dalila Tovar ID: [id number] able: [facility] Notified hardware technician Interpretation Abnormal (test code = 49100-6) [facility] ABDOMEN [id number] 23:11:15 1. ?Hepatic steatosis. 2. ?Contracted gallbladder. No cholelithiasis.EXAM: US ABDOMEN LIMITED HISTORY: 55 year-old man with upper abdominal pain, hepatic steatosis,indigestion. TECHNIQUE: Limited abdominal ultrasound was performed focused on the rightupper quadrant. Main portal vein was evaluated with color Doppler imaging.Medical Chemist images were obtained for the record. COMPARISON: [...] Mainportal vein was evaluated with color Doppler imaging.Medical Chemist images were obtained for the record.COMPARISON: NoneFINDINGS: [...] OTHER: None.IMPRESSION1. Hepatic steatosis.2. Contracted gallbladder. No cholelithiasis.[facility]
--- NOTE | 2023-01-22 12:32 | RAD REPORT ---
EXAM DESCRIPTION: RAD - Chest Single View - 01/22/2023 12:16 pm CLINICAL HISTORY: COUGH Chest pain. COMPARISON: Chest Single View dated 03/16/2021; Chest Single View dated 12/28/2020; Chest Pa And Lat ( 2 Views) dated 05/17/2018; Chest Pa And Lat (2 Views) dated 08/22/2016 FINDINGS: Portable technique limits examination quality. The lungs are grossly clear. The heart is normal in size. No displaced fractures. IMPRESSION: No acute intrathoracic process suspected.
--- NOTE | 2023-01-22 12:38 | RAD REPORT ---
EXAM DESCRIPTION: CT - Head C Spine Mpr Wo Con - 01/22/2023 12:06 pm CLINICAL HISTORY: Head and neck injury status post fall. Head and neck pain COMPARISON: January 17, 2020. TECHNIQUE: Computed axial tomography of the head and cervical spine was obtained. Sagittal and coronal reconstruction was performed. All CT scans are performed using dose optimization technique as appropriate and may include automated exposure control or mA/KV adjustment according to patient size. FINDINGS: An intracranial bleed is not seen. The ventricles are normal in caliber. Post interior scalp swelling No significant hypodensity within the brain. An extra-axial fluid collection is not noted. Fluid within the visualized sinuses and mastoids is not seen A cervical fracture is not visualized. No dislocation is noted. Slight anterior subluxation C4 on C5 and mild posterior subluxation C5 on C6 unchanged. Spondylosis cervical spine IMPRESSION: No acute intracranial abnormality is seen. A cervical fracture is not visualized. If the patient continues to have symptoms to suggest intracranial /spinal cord/ligamentous pathology then MRI would be recommended
[2023-01-22 13:27] LABS: Hematocrit 42.8 % (39.6-49.0); Lymphocytes % 15.9 % (15.3-44.8); MCV 104.4 fL (80-100); MPV 8.9 fL (7.6-11.3)
[2023-01-22 13:31] LABS: Protime INR 1.07
[2023-01-22] MEDS ORDERED: MULTIVITAMINS 10 ML VIAL (INJ) IV ONE (13:33)
[2023-01-22] MEDS ORDERED: THIAMINE 200 MG/2 ML INJ ONE (13:33)
[2023-01-22] MEDS ORDERED: NA CHLORIDE 0.9% 1,000 ML ONE ×2 (13:34→14:11)
[2023-01-22] MEDS ORDERED: FOLIC ACID 5 MG/ML VIAL ONE (13:34)
[2023-01-22 13:45] LABS: ALT/SGPT 195 U/L (16-61); AST/SGOT 269 U/L (15-37); Albumin 3.3 g/dL (3.4-5.0); Alkaline Phosphatase 62 U/L (45-117); BUN Blood Urea Nitrogen 9 mg/dL (7-18); Bicarbonate 29 mEq/L (21-32); Bilirubin Direct 1.8 mg/dL (0-0.2); Bilirubin Indirect, Calculated 0.8 mg/dL (0.2-0.8); Bilirubin Total 2.6 mg/dL (0.2-1.0); Glomerular Filtration Rate 64 ml/min (=/>90); Glucose Level 157 mg/dL (74-106); Magnesium 1.2 mg/dL (1.6-2.4); NT PRO-BNP 127 pg/mL (<125); Potassium 3.7 mEq/L (3.5-5.1); Protein, Total 6.8 g/dL (6.4-8.2); Troponin High Sensitivity 15.7 pg/mL (<58.9)
[2023-01-22 13:47] LABS: Sodium Level 112 mEq/L (136-145)
--- NOTE | 2023-01-22 14:06 | EDPHYS ---
Physician Documentation [facility] Name: Jean-Paul Castillo Age: 58 yrs Sex: Male : 1965 Arrival Date: 01/22/2023 Time: 11:26 Bed 8 Private MD: ED Physician Marv Potts HPI: 01/22 13:57 This 58 yrs old Male presents to ER via Wheelchair with complaints of Vision nanda Problem, unbalanced, ear ringing, Dizziness. 13:57 The patient presents with dizziness, feeling faint, generalized weakness, nanda lightheadedness. Onset: The symptoms/episode began/occurred 3 day(s) ago. Context: occurred at an unknown location. Modifying factors: The symptoms are alleviated by lying down, the symptoms are aggravated by movement of head, standing up, changing position. Associated signs and symptoms: Pertinent positives: headache. Severity of symptoms: At their worst the symptoms were moderate in the emergency department the symptoms are unchanged. Patient's baseline: Neuro: alert and fully oriented. The patient has experienced similar episodes in the past, several times. Historical: - Allergies: 11:38 PENICILLINS; hb - Home Meds: 16:46 Hydrochlorothiazide Oral [Active]; ko1 - PMHx: 11:38 Hypertension; hb - Immunization history:: Adult Immunizations up to date. - Social history:: Smoking status: Patient denies any tobacco usage or history of. ROS: 13:59 Constitutional: Negative for fever, chills, and weight loss, Eyes: Negative for injury, nanda pain, redness, and discharge, ENT: Negative for injury, pain, and discharge, Neck: Negative for injury, pain, and swelling, Cardiovascular: Negative for chest pain, palpitations, and edema, Respiratory: Negative for shortness of breath, cough, wheezing, and pleuritic chest pain, Abdomen/GI: Negative for abdominal pain, nausea, vomiting, diarrhea, and constipation, Back: Negative for injury and pain, : Negative for injury, bleeding, discharge, and swelling, MS/Extremity: Negative for injury and deformity, Skin: Negative for injury, rash, and discoloration, Psych: Negative for depression, anxiety, suicide ideation, homicidal ideation, and hallucinations, Allergy/Immunology: Negative for hives, rash, and allergies, Endocrine: Negative for neck swelling, polydipsia, polyuria, polyphagia, and marked weight changes. 13:59 Neuro: Positive for dizziness, gait disturbance, hearing loss, tremor, weakness. Exam: 13:59 Constitutional: This is a well developed, well nourished patient who is awake, alert, nanda and in no acute distress. Head/Face: Normocephalic, atraumatic. Eyes: Pupils equal round and reactive to light, extra-ocular motions intact. Lids and lashes normal. Conjunctiva and sclera are non-icteric and not injected. Cornea within normal limits. Periorbital areas with no swelling, redness, or edema. ENT: Nares patent. No nasal discharge, no septal abnormalities noted. Tympanic membranes are normal and external auditory canals are clear. Oropharynx with no redness, swelling, or masses, exudates, or evidence of obstruction, uvula midline. Mucous membranes moist. Neck: Trachea midline, no thyromegaly or masses palpated, and no cervical lymphadenopathy. Supple, full range of motion without nuchal rigidity, or vertebral point tenderness. No Meningismus. Chest/axilla: Normal chest wall appearance and motion. Nontender with no deformity. No lesions are appreciated. Cardiovascular: Regular rate and rhythm with a normal S1 and S2. No gallops, murmurs, or rubs. Normal PMI, no JVD. No pulse deficits. Respiratory: Lungs have equal breath sounds bilaterally, clear to auscultation and percussion. No rales, rhonchi or wheezes noted. No increased work of breathing, no retractions or nasal flaring. Abdomen/GI: Soft, non-tender, with normal bowel sounds. No distension or tympany. No guarding or rebound. No evidence of tenderness throughout. Back: No spinal tenderness. No costovertebral tenderness. Full range of motion. Male : Normal genitalia with no discharge or lesions. Skin: Warm, dry with normal turgor. Normal color with no rashes, no lesions, and no evidence of cellulitis. MS/ Extremity: Pulses equal, no cyanosis. Neurovascular intact. Full, normal range of motion. Psych: Awake, alert, with orientation to person, place and time. Behavior, mood, and affect are within normal limits. 13:59 Neuro: Orientation: to person, place, time, situation, Mentation: appropriate for stated age, no acute changes, Memory: is normal, appropriate for stated age, no acute changes, Cranial nerves: grossly normal, is grossly normal based on the patient's age, no acute changes, Cerebellar function: dysmetria is noted on both sides, Motor: is normal, is grossly normal based on the patient's age, no acute changes, strength is normal, Sensation: is normal, no obvious gross deficits, appropriate no acute changes, Gait: not tested. seizure activity, is not displayed by the patient. 14:06 ECG was reviewed by the Attending Physician. nanda Vital Signs: 11:34 BP 129 / 91; Pulse 71; Resp 16; Temp 98.4; Pulse Ox 100% ; Weight 108.86 kg; Height 5 hb ft. 11 in. ; Pain 3/10; 14:00 BP 163 / 98; Pulse 57; Resp 16; Pulse Ox 98% ; ko1 15:00 BP 109 / 73; Pulse 69; Resp 18; Pulse Ox 94% ; ko1 15:30 BP 126 / 86; Pulse 70; Resp 18; Pulse Ox 100% on R/A; ko1 16:00 BP 107 / 65; Pulse 70; Resp 18; Pulse Ox 99% ; ko1 11:34 Body Mass Index 33.47 (108.86 kg, 180.34 cm) hb 11:34 Pain Scale: Adult hb NIH Stroke Scale Scores: 13:59 NIHSS Score: 0 nanda Hermila Coma Score: 13:59 Eye Response: spontaneous(4). Motor Response: obeys commands(6). Verbal Response: nanda oriented(5). Total: 15. MDM: 11:51 Patient medically screened. nanda 14:02 Differential Diagnosis altered mental status. Differential diagnosis: cardiac nanda arrhythmia, CVA, generalized weakness, GI bleed, hyperventilation, hypovolemia, idiopathic dizziness, near-syncope, TIA. Data reviewed: vital signs, nurses notes, lab test result(s), EKG, radiologic studies, CT scan, plain films. Consideration of Admission/Observation Escalation of care including admission/observation considered. I considered the following discharge prescriptions or medication management in the emergency department Medications were administered in the Emergency Department. See MAR. Test considered but Not performed: MRI: NO MRI BRAIN. Historians other than the Patient:. Care significantly affected by the following chronic conditions: Hypertension, ALCOHOL ABUSE. 01/22 11:54 Order name: Basic Metabolic Panel; Complete Time: 13:49 nanda 01/22 11:54 Order name: CBC with Diff; Complete Time: 13:49 [facility] 01/22 11:54 Order name: LFT's; Complete Time: 13:49 [facility] 01/22 11:54 Order name: Magnesium; Complete Time: 13:49 [facility] 01/22 11:54 Order name: NT PRO-BNP; Complete Time: 13:49 [facility] 01/22 11:54 Order name: PT-INR; Complete Time: 13:49 [facility] 01/22 11:54 Order name: Troponin HS; Complete Time: 13:49 [facility] 01/22 11:54 Order name: Acetaminophen; Complete Time: 13:49 [facility] 01/22 11:54 Order name: ETOH Level; Complete Time: 13:49 [facility] 01/22 11:54 Order name: Ptt, Activated; Complete Time: 13:49 [facility] 01/22 11:54 Order name: Salicylate [facility] 01/22 11:54 Order name: Urinalysis w/ reflexes 01/22 11:54 Order name: Urine Drug Screen [facility] 01/22 13:49 Order name: Urine Sodium Random 01/22 13:49 Order name: Osmolality, Serum [facility] 01/22 13:49 Order name: Urine Osmolality [facility] 01/22 14:03 Order name: AMMONIA 01/22 11:54 Order name: XRAY Chest (1 view); Complete Time: 13:49 [facility] 01/22 11:54 Order name: CT Head C Spine; Complete Time: 13:49 [facility] 01/22 11:54 Order name: EKG; Complete Time: 11:55 [facility] 01/22 11:54 Order name: Cardiac monitoring; Complete Time: 13:23 [facility] 01/22 11:54 Order name: EKG - Nurse/Tech; Complete Time: 13:43 [facility] 01/22 11:54 Order name: IV Saline Lock; Complete Time: 13:23 [facility] 01/22 11:54 Order name: Labs collected and sent; Complete Time: 13:23 [facility] 01/22 11:54 Order name: O2 Per Protocol; Complete Time: 13:23 [facility] 01/22 11:54 Order name: O2 Sat Monitoring; Complete Time: 13:23 [facility] 01/22 11:54 Order name: Suicide Screening ([place]); Complete Time: 13:43 [facility] 01/22 13:49 Order name: Seizure Precautions; Complete Time: 14:02 [facility] EC:06 Rate is 63 beats/min. Rhythm is regular. QRS [place] is Normal. IA interval is normal. QRS nanda interval is normal. QT interval is normal. No Q waves. T waves are Normal. No ST changes noted. Clinical impression: NSR w/ Non-specific ST/T Changes and No evidence of ischemia. Interpreted by me. Reviewed by me. Administered Medications: 13:30 Drug: Banana Bag - (NS 0.9% IV 1000 ml, foLIC Acid IVPB 1 mg, Thiamine IV 100 mg, ko1 Multivitamin IV 1 amp) Route: IV; Rate: 500 calculated rate; Site: right forearm; 14:48 Follow up: IV Status: Completed infusion; IV Intake: 1000ml ko1 13:31 Drug: Thiamine IV 100 mg Route: IV; Rate: per protocol; Site: right forearm; ko1 14:48 Follow up: Response: No adverse reaction ko1 14:49 Follow up: IV Status: IV converted to saline lock ko1 14:05 Drug: Famotidine IVP 20 mg Route: IVP; Site: right forearm; ko1 14:48 Follow up: Response: No adverse reaction ko1 14:10 Drug: Ativan IVP 2 mg Route: IVP; Site: right forearm; ko1 14:47 Follow up: Response: No adverse reaction; Anxiety decreased ko1 14:50 Drug: NS 0.9% IV 1000 ml Route: IV; Rate: 100 ml/hr; Site: right forearm; ko1 Disposition Summary: 01/22/23 14:06 Hospitalization Ordered Hospitalization Status: Inpatient Admission nanda Provider: Mik Hidlago cha Location: Intensive Care Unit nanda Condition: Serious nanda Problem: new nanda Symptoms: have improved nanda Bed/Room Type: Standard nanda Room Assignment: 7-(01/22/23 16:21) dw Diagnosis - Alcohol dependence with withdrawal, unspecified nanda - Hypo-osmolality and hyponatremia nanda Forms: - Medication Reconciliation Form nanda - SBAR form nanda NIH Stroke Scale - NIH Stroke Score Date: 01/22/2023 Time: 13:59 Total Score = 0 10. Dysarthria (speech clarity - read or repeat words) - 0(Normal) 11. Extinction and Inattention (visual/tactile/auditory/spatial/personal) - 0(No abnormality) 1a. Level of Consciousness (LOC) - 0(Alert) 1b. Level of Consciousness (LOC) (Month \T\ Age) - 0(Both) 1c. LOC Commands (Open \T\ Closes Eyes/Mathematician) - 0(Both) 2. Best Gaze (Lateral Gaze Paresis) - 0(Normal) 3. Visual Field Loss - 0(No visual loss) 4. Facial Palsy - 0(Normal) 5a. Left Arm: Motor (10-second hold) - 0(No drift) 5b. Right Arm: Motor (10-second hold) - 0(No drift) 6a. Left Leg: Motor (5-second hold - always test supine) - 0(No drift) 6b. Right Leg: Motor (5-second hold - always test supine) - 0(No drift) 7. Limb Ataxia (finger/nose \T\ heel/owens - test with eyes open) - 0(Absent) 8. Sensory Loss (pinprick arms/legs/face) - 0(Normal) 9. Best Language: Aphasia (description/naming/reading) - 0(No aphasia) Initials: nanda Signatures: Dispatcher [employer] Toshia Springer RN RN dw Anderson, Corey, MD MD cha Baxter, Heather, RN RN hb Oliver, Kathy, RN RN ko1 Corrections: (The following items were deleted from the chart) 16:21 14:06 nanda monaco
--- NOTE | 2023-01-22 14:06 | ER ---
Nurse's Notes [facility] Name: Jean-Paul Castillo Age: 58 yrs Sex: Male : 1965 Arrival Date: 01/22/2023 Time: 11:26 Bed 8 Private MD: Diagnosis: Alcohol dependence with withdrawal, unspecified;Hypo-osmolality and hyponatremia Presentation: 01/22 11:34 Chief complaint: Seen in ED last week after fall with LOC r/t ETOH use, today reports hb flashing lights in vision, fatigue, and unsteady gait. Last alcohol was yesterday, Pt stated "My PCP told me I need a banana bag.". 11:34 Coronavirus screen: At this time, the client does not indicate any symptoms associated hb with coronavirus-19. Ebola Screen: No symptoms or risks identified at this time. Initial Sepsis Screen: Does the patient meet any 2 criteria? No. Patient's initial sepsis screen is negative. Does the patient have a suspected source of infection? No. Patient's initial sepsis screen is negative. Risk Assessment: Do you want to hurt yourself or someone else? Patient reports no desire to harm self or others. Onset of symptoms was January 22, 2023. 11:34 Method Of Arrival: Wheelchair hb 11:34 Acuity: ARNULFO 3 hb Historical: - Allergies: 11:38 PENICILLINS; hb - Home Meds: 16:46 Hydrochlorothiazide Oral [Active]; ko1 - PMHx: 11:38 Hypertension; hb - Immunization history:: Adult Immunizations up to date. - Social history:: Smoking status: Patient denies any tobacco usage or history of. Screenin:15 [facility] ED Fall Risk Assessment (Adult) History of falling in the last 3 months, ko1 including since admission Yes- single mechanical fall (1 pt) Confusion or Disorientation No (0 pts) Intoxicated or Sedated No (0 pts) Impaired Gait No (0 pts) Mobility Assist Device Used No (0 pt) Altered Elimination No (0 pt) Score/Fall Risk Level 0 - 2 = Low Risk Oriented to surroundings, Maintained a safe environment, Educated pt \\T\\ family on fall prevention, incl call for assistance when getting out of bed, Assessed \\T\\ reinforced patient's understanding of fall precautions, Provided non-skid footwear, Hourly rounding (assess needs \\T\\ fall precautionary measures) done, Used ambulatory aids as needed (educated on \\T\\ assisted with), Used gait belt as appropriate. Abuse screen: Denies threats or abuse. Denies injuries from another. Nutritional screening: No deficits noted. Tuberculosis screening: No symptoms or risk factors identified. Assessment: 13:15 General: Appears distressed, Behavior is cooperative, appropriate for age, anxious, ko1 restless. Pain: Denies pain. Neuro: Reports blurred vision. Cardiovascular: No deficits noted. Respiratory: No deficits noted. GI: No deficits noted. : No deficits noted. EENT: Reports blurred vision ringing in left ear and right ear. Derm: No deficits noted. Musculoskeletal: No deficits noted. Vital Signs: 11:34 BP 129 / 91; Pulse 71; Resp 16; Temp 98.4; Pulse Ox 100% ; Weight 108.86 kg; Height 5 hb ft. 11 in. ; Pain 3/10; 14:00 BP 163 / 98; Pulse 57; Resp 16; Pulse Ox 98% ; ko1 15:00 BP 109 / 73; Pulse 69; Resp 18; Pulse Ox 94% ; ko1 15:30 BP 126 / 86; Pulse 70; Resp 18; Pulse Ox 100% on R/A; ko1 16:00 BP 107 / 65; Pulse 70; Resp 18; Pulse Ox 99% ; ko1 11:34 Body Mass Index 33.47 (108.86 kg, 180.34 cm) hb 11:34 Pain Scale: Adult hb [place] Coma Score: 13:59 Eye Response: spontaneous(4). Motor Response: obeys commands(6). Verbal Response: nanda oriented(5). Total: 15. NIH Stroke Scale Scores: 13:59 NIHSS Score: 0 nanda ED Course: 11:29 Patient arrived in ED. mr 11:38 Triage completed. hb 11:38 Arm band placed on. hb 11:51 Marv Potts MD is Attending Physician. nanda 12:08 CT Head C Spine In Process Unspecified. EDMS 12:17 XRAY Chest (1 view) In Process Unspecified. EDMS 13:15 Patient has correct armband on for positive identification. Bed in low position. Call ko1 light in reach. Side rails up X2. Client placed on continuous cardiac and pulse oximetry monitoring. NIBP monitoring applied. property assessment monitor on. Door closed. Noise minimized. Lights dimmed. Warm blanket given. 13:15 Inserted saline lock: 20 gauge in right forearm, using aseptic technique. Blood ko1 collected. 13:22 Jayashree Dowling, RN is Primary Nurse. ko1 13:22 Acetaminophen Sent. ko1 13:22 ETOH Level Sent. ko1 13:22 Ptt, Activated Sent. ko1 13:22 Salicylate Sent. ko1 13:23 Basic Metabolic Panel Sent. ko1 13:23 CBC with Diff Sent. ko1 13:23 LFT's Sent. ko1 13:23 Magnesium Sent. ko1 13:23 NT PRO-BNP Sent. ko1 13:23 PT-INR Sent. ko1 13:23 Troponin HS Sent. ko1 13:45 Notified ED physician of a critical lab result(s). sodium 112. aa5 14:04 Mik Hidalgo is Hospitalizing Provider. nanda 14:26 AMMONIA Sent. ko1 16:42 No provider procedures requiring assistance completed. Patient admitted, IV remains in ko1 place. Administered Medications: 13:30 Drug: Banana Bag - (NS 0.9% IV 1000 ml, foLIC Acid IVPB 1 mg, Thiamine IV 100 mg, ko1 Multivitamin IV 1 amp) Route: IV; Rate: 500 calculated rate; Site: right forearm; 14:48 Follow up: IV Status: Completed infusion; IV Intake: 1000ml ko1 13:31 Drug: Thiamine IV 100 mg Route: IV; Rate: per protocol; Site: right forearm; ko1 14:48 Follow up: Response: No adverse reaction ko1 14:49 Follow up: IV Status: IV converted to saline lock ko1 14:05 Drug: Famotidine IVP 20 mg Route: IVP; Site: right forearm; ko1 14:48 Follow up: Response: No adverse reaction ko1 14:10 Drug: Ativan IVP 2 mg Route: IVP; Site: right forearm; ko1 14:47 Follow up: Response: No adverse reaction; Anxiety decreased ko1 14:50 Drug: NS 0.9% IV 1000 ml Route: IV; Rate: 100 ml/hr; Site: right forearm; ko1 Medication: 13:15 VIS not applicable for this client. ko1 Intake: 14:48 IV: 1000ml; Total: 1000ml. ko1 Outcome: 14:06 Decision to Hospitalize by Provider. nanda 16:47 Admitted to ICU accompanied by nurse, via stretcher, room 7, on monitor, with chart. ko1 16:47 Condition: stable 16:47 Instructed on the need for admit. 17:18 Patient left the ED. ko1 NIH Stroke Scale - NIH Stroke Score Date: 01/22/2023 Time: 13:59 Total Score = 0 10. Dysarthria (speech clarity - read or repeat words) - 0(Normal) 11. Extinction and Inattention (visual/tactile/auditory/spatial/personal) - 0(No abnormality) 1a. Level of Consciousness (LOC) - 0(Alert) 1b. Level of Consciousness (LOC) (Month \\T\\ Age) - 0(Both) 1c. LOC Commands (Open \\T\\ Closes Eyes/Cashier Credit) - 0(Both) 2. Best Gaze (Lateral Gaze Paresis) - 0(Normal) 3. Visual Field Loss - 0(No visual loss) 4. Facial Palsy - 0(Normal) 5a. Left Arm: Motor (10-second hold) - 0(No drift) 5b. Right Arm: Motor (10-second hold) - 0(No drift) 6a. Left Leg: Motor (5-second hold - always test supine) - 0(No drift) 6b. Right Leg: Motor (5-second hold - always test supine) - 0(No drift) 7. Limb Ataxia (finger/nose \\T\\ heel/owens - test with eyes open) - 0(Absent) 8. Sensory Loss (pinprick arms/legs/face) - 0(Normal) 9. Best Language: Aphasia (description/naming/reading) - 0(No aphasia) Initials: nanda Signatures: Dispatcher [employer] EDMS Marv Potts MD MD cha Rivera, Mary mr Baum, Akiko, RN RN aa5 Natalia Rooney, RICHIE RN hb Jayashree Dowling, RN RN ko1 Corrections: (The following items were deleted from the chart) 11:38 11:34 Chief complaint: Seen in ED last week after fall with LOC r/t ETOH use, hb today reports flashing lights in vision, fatigue, and unsteady gait. Last alcohol was yesterday, hb
[2023-01-22] MEDS ORDERED: FAMOTIDINE 20 MG/2 ML VIAL IV ONE (14:11)
[2023-01-22] MEDS ORDERED: LORazepam 2 MG/ML VIAL ONE (14:11)
[2023-01-22] MEDS ORDERED: ACETAMINOPHEN 325 MG TABLET PO PRN (15:59)
[2023-01-22] MEDS ORDERED: TRAMADOL HCL 50 MG TAB PO PRN (16:01)
[2023-01-22] MEDS ORDERED: ONDANSETRON 4 MG/2 ML VIAL IV PRN (16:04)
[2023-01-22] MEDS ORDERED: FLUMAZENIL 0.1 MG/ML (5 mL VIAL) IV PRN (16:13)
[2023-01-22] MEDS ORDERED: LORazepam 2 MG/ML VIAL IV PRN (16:16)
--- NOTE | 2023-01-22 16:21 | P.HP ---
Certification for Inpatient Patient admitted to: Inpatient With expected LOS: >2 Midnights Patient will require the following post-hospital care: None Practitioner: I am a practitioner with admitting privileges, knowledge of patient current condition, hospital course, and medical plan of care. Services: Services provided to patient in accordance with Admission requirements found in Title 42 Section 412.3 of the Code of Federal Regulations Patient History Date of Service: 01/22/23 Reason for admission: Dizziness History of Present Illness: Patient is a 58-year-old male with a past medical history significant for hypertension who presents with complaint of dizziness onset yesterday. Patient reported associated signs and symptoms of near syncope, generalized weakness and poor gait. Patient also noted with tremors. Patient denies any other signs and symptoms. Symptoms are aggravated or relieved by nothing. Patient was brought to the hospital for medical evaluation. Allergies Penicillins Allergy (Verified 06/13/16 11:23) Hives Home Medications: Fenofibrate,Micronized [Fenofibrate] 135 mg PO DAILY 06/13/16 Fluoxetine HCl [Prozac] 20 mg PO DAILY 06/13/16 Temazepam 30 mg PO BEDTIME 06/13/16 Aspirin [Aspirin EC 325 MG] 1 tab PO DAILY 12/28/20 Ezetimibe [Zetia*] 10 mg PO DAILY 12/28/20 Metformin ER [Glucophage ER*] 500 mg PO BID 12/28/20 Magnesium Oxide [Mag-Oxide] 200 mg PO DAILY #30 tablet 12/29/20 Metoprolol Tartrate [Lopressor*] 50 mg PO BID #60 tab 12/29/20 Thiamine HCl [Vitamin B-1*] 100 mg PO DAILY #30 tablet 12/29/20 - Past Medical/Surgical History Diabetic: No -: Hypertension -: Hyperlipidemia -: Alcohol abuse -: Back surgery -: Right ACL repair -: KAVON surgery Psychosocial/ Personal History: Patient is . 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 - Family History Father -: Heart disease - Social History Smoking Status: Never smoker Alcohol use: Yes CD- Drugs: No Caffeine use: Yes Place of Residence: Home Review of Systems General: Unremarkable Eyes: Unremarkable ENT: Unremarkable Respiratory: Unremarkable Cardiovascular: Unremarkable Gastrointestinal: Unremarkable Genitourinary: Unremarkable Musculoskeletal: Unremarkable Integumentary: Unremarkable Neurological: Weakness, Other (near syncope, poor gait) Lymphatics: Unremarkable Physical Examination - Physical Exam General: Alert, In no apparent distress, Oriented x3, Cooperative HEENT: Atraumatic, PERRLA, Mucous membr. moist/pink, EOMI, Sclerae nonicteric Neck: Supple, 2+ carotid pulse no bruit, No LAD, Without JVD or thyroid abnormality Respiratory: Clear to auscultation bilaterally, Normal air movement Cardiovascular: No edema, Regular rate/rhythm, Normal S1 S2 Capillary refill: <2 Seconds Gastrointestinal: Normal bowel sounds, Soft and benign, No tenderness Musculoskeletal: No clubbing, No swelling, No tenderness Integumentary: No rashes, No breakdown Neurological: Normal speech, Normal strength at 5/5 x4 extr, Normal tone, Normal affect, Other (Tremors ), Abnormal gait Lymphatics: No axilla or inguinal lymphadenopathy - Studies Laboratory Data (last 24 hrs) 01/22/23 13:15: PT 11.8, INR 1.07, APTT 29.9 01/22/23 13:15: WBC 6.10, Hgb 15.2, Hct 42.8, Plt Count 128 L 01/22/23 13:15: Sodium 112 L*, Potassium 3.7, BUN 9, Creatinine 1.31 H, Glucose 157 H, Magnesium 1.2 L, Total Bilirubin 2.6 H, AST 269 H, ALT 195 H, Alkaline Phosphatase 62 Assessment and Plan - Plan --Hyponatremia. Likely secondary to alcohol abuse. Nephrology consulted. We will Trend BNP levels. We will await further recommendation from hockey instructor. --Alcohol abuse. Patient placed on folic acid\multivitamin\thiamine and Librium. Alcohol withdrawal assessment protocol ordered. Continue supportive care. --Hypertension. Poorly controlled. Continue home medications and hydralazine as needed. --CKD 2. Stable. Continue to monitor renal functions. --Hypomagnesemia. Replete as needed. --Thrombocytopenia. Likely secondary to liver disease. Continue supportive care --Elevated LFTs. Likely secondary to liver disease. Abdominal ultrasound pending for further evaluation. --DVT prophylaxis with SCDs. Discharge Plan: Home Plan to discharge in: Greater than 2 days - Advance Directives Does patient have a Living Will: No Does patient have a Durable POA for Healthcare: No - Code Status/Comfort Care Code Status Assessed: Yes Physician Review: Patient Assessed, Agree with Above Assessment and Plan Critical Care: No
[2023-01-22] MEDS ORDERED: Magnesium Sulfate 2gm IVPB 2 G/50 ML BAG IV ONE (17:24)
[2023-01-22] MEDS ORDERED: LORAZEPAM 1 MG TABLET PO PRN (19:19)
--- NOTE | 2023-01-22 19:25 | P.PN ---
Brief Renal note (full consult to follow) (Acute) hypotonic hyponatremia,severe. Urine studies pending. Reports of Etoh abusing raising the prospects for beer potomania and potential rapid rise in Na level off hypotonic fluids and with saline bolus. Repeat Na level still pending initial fluid bolus ordered by the ER. Avoid rapid correction of Na, target ~ 8 meq/24h. F/u other studies including thyroid function tests. Jah Quinonez MD, AYANA
[2023-01-22] MEDS: LORAZEPAM 1 MG TABLET PO SCH (19:39)
[2023-01-22 21:22] LABS: Potassium 3.8 mEq/L (3.5-5.1)
[2023-01-22 21:35] LABS: Magnesium 1.7 mg/dL (1.6-2.4); Phosphorus 2.6 mg/dL (2.5-4.9); Thyroid Stimulating Hormone 2.06 uIU/mL (0.358-3.740)
[2023-01-23] MEDS: LORAZEPAM 1 MG TABLET PO SCH ×5 (00:06→16:00)
[2023-01-23] MEDS: NS KCL 20MEQ 20 MEQ/1,000 ML BAG IV SCH ×2 (00:06→08:29)
[2023-01-23 01:10] LABS: Potassium 3.8 mEq/L (3.5-5.1)
[2023-01-23 04:57] LABS: Absolute Lymphocytes (CBC) 1.1 K/uL (0.7-4.9); Lymphocytes % 24.1 % (15.3-44.8); MCV 105.1 fL (80-100); MPV 9.2 fL (7.6-11.3); RBC Red Blood Cell Count 3.42 M/uL (4.33-5.43)
[2023-01-23 05:19] LABS: Potassium 3.8 mEq/L (3.5-5.1)
[2023-01-23 05:33] LABS: Blood Morphology Comment NOTED (NOT SEEN); Macrocytosis 1+; Platelet Estimate ADEQ; White Blood Cell Scan OK (OK)
--- NOTE | 2023-01-23 06:54 | P.PN ---
Date of Service: 01/23/23 Subjective: feeling okay today tremors remain, slightly improved no longer dizzy, vision changes (spots/patterns) worsened with lights, improving sodium remains low, slightly improved 115 -> 119 ROS: 10 point ROS as noted above, otherwise negative Physical Exam: GEN: Alert, oriented, NAD HEENT: Normal conjunctiva, sclera anicteric CV: Regular rate and rhythm, no edema Pulm: Nonlabored respirations on room air ABD: Soft, nontender, nondistended Neuro: Normal speech, normal affect, Other (Tremors), Abnormal gait vitals reviewed Problem List: Hyponatremia Alcohol abuse CKD 2 Hypertension Hypomagnesemia Thrombocytopenia Elevated LFTs Hyponatremia Likely secondary to alcohol abuse. possibly component of SIADH Nephrology consulted. on NS, slow/steady improvement continue to monitor closely ICU level of care Alcohol abuse active alcohol withdrawal continue folic acid\multivitamin\thiamine Librium added 01/23 scheduled ativan PRN Alcohol withdrawal assessment protocol ordered. Continue supportive care. CKD 2 Stable. Continue to monitor renal function Elevated LFTs. Likely secondary to liver disease. improving Abdominal u/s (01/23) Hepatomegaly with diffuse parenchymal liver heterogeneity, suggestive of medical hepatocellular disease. Gallbladder sludge without evidence of calculi. Incidentally noted 1.9 centimeter left renal cyst Hypertension. Poorly controlled. Continue home medications and hydralazine as needed. Hypomagnesemia. Replete as needed. Thrombocytopenia. Likely secondary to liver disease. Continue supportive care VTE: SCD Code: Full Dispo: home, ~2+ days
[2023-01-23 07:07] LABS: Albumin 2.6 g/dL (3.4-5.0); Bilirubin Direct 1.6 mg/dL (0-0.2); Bilirubin Indirect, Calculated 0.7 mg/dL (0.2-0.8); Bilirubin Total 2.3 mg/dL (0.2-1.0); Protein, Total 5.5 g/dL (6.4-8.2)
[2023-01-23 08:18] LABS: Hepatitis B Core IgM Nonreactive (Nonreactive); Hepatitis B surface AG Interp. Nonreactive (Nonreactive); Hepatitis C Virus Ab Nonreactive (Nonreactive)
[2023-01-23] MEDS: chlordiazePOXIDE HCl 5 MG CAP PO SCH ×3 (08:30→20:53)
[2023-01-23] MEDS: ASPIRIN 81 MG CHEWABLE TABLET PO SCH (08:30)
[2023-01-23] MEDS: THIAMINE HCL 100 MG TABLET PO SCH (08:30)
[2023-01-23] MEDS: FOLIC ACID 1 MG TABLET PO SCH (08:30)
[2023-01-23] MEDS: MULTIVITAMIN TAB PO SCH (08:31)
[2023-01-23] MEDS ORDERED: ENOXAPARIN 40 MG/0.4 ML SQ SCH (09:00)
[2023-01-23] MEDS ORDERED: POTASSIUM 25 MEQ EFFERV TAB PO ONE ×2 (10:28→22:48)
[2023-01-23] MEDS: MAGNESIUM OXIDE 400 MG TAB PO SCH (10:30)
[2023-01-23 10:52] LABS: Magnesium 1.5 mg/dL (1.6-2.4); Potassium 3.7 mEq/L (3.5-5.1)
--- NOTE | 2023-01-23 11:03 | P.CNS ---
Date of Consult: 01/23/23 Reason for Consult: Hyponatremia Requesting Physician: Gonzalez Welsh Chief Complaint: Dizziness History of Present Illness: Patient is a 58-year-old male with a past medical history significant for hypertension, pre-DM, and other who presented with complaint of several days of dizziness, near syncope, generalized weakness and other Patient denies any new medications. He reports oral intake has been poor but denies any N/V/D. Pt was found to be severely hyponatremic in the ER with Na levels only mildly increasing on isotonic IVF administration thus far. Pt feels a bit better overall, no acute complaints this AM. Allergies Penicillins Allergy (Verified 06/13/16 11:23) Hives Home Medications: Fenofibrate,Micronized [Fenofibrate] 135 mg PO DAILY 06/13/16 Fluoxetine HCl [Prozac] 20 mg PO DAILY 06/13/16 Temazepam 30 mg PO BEDTIME 06/13/16 Aspirin [Aspirin EC 325 MG] 1 tab PO DAILY 12/28/20 Ezetimibe [Zetia*] 10 mg PO DAILY 12/28/20 Metformin ER [Glucophage ER*] 500 mg PO BID 12/28/20 Magnesium Oxide [Mag-Oxide] 200 mg PO DAILY #30 tablet 12/29/20 Metoprolol Tartrate [Lopressor*] 50 mg PO BID #60 tab 12/29/20 Thiamine HCl [Vitamin B-1*] 100 mg PO DAILY #30 tablet 12/29/20 - Past Medical/Surgical History Diabetic: No -: Hypertension -: Hyperlipidemia -: Alcohol abuse -: Back surgery -: Right ACL repair -: KAVON surgery Psychosocial/ Personal History: Patient is . 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 - Family History Father Medical History: Heart disease - Social History Smoking Status: Unknown if ever smoked Alcohol use: Yes CD- Drugs: No Caffeine use: Yes Place of Residence: Home Review of Systems General: Weakness, As per HPI Eyes: Unremarkable ENT: Unremarkable Respiratory: Unremarkable Cardiovascular: Light Headedness, As per HPI Gastrointestinal: Unremarkable Genitourinary: Unremarkable Musculoskeletal: As per HPI Integumentary: Unremarkable Neurological: As per HPI Lymphatics: Unremarkable Physical Examination Temp Pulse Resp BP Pulse Ox 97 F 86 18 107/83 99 01/23/23 08:00 01/23/23 08:00 01/23/23 08:00 01/23/23 08:00 01/23/23 08:00 General: Alert, In no apparent distress, Oriented x3 HEENT: Atraumatic, Normocephalic, PERRLA Neck: Supple Respiratory: Clear to auscultation bilaterally, Normal air movement Cardiovascular: Regular rate/rhythm, Normal S1 S2 Gastrointestinal: Soft and benign, Non-distended Musculoskeletal: No contractures Integumentary: No rashes, No breakdown Neurological: Normal speech, Normal tone, Sensation intact, Normal affect Laboratory Data (last 24 hrs) 01/22/23 13:15: PT 11.8, INR 1.07, APTT 29.9 01/22/23 13:15: WBC 6.10, Hgb 15.2, Hct 42.8, Plt Count 128 L 01/22/23 13:15: Sodium 112 L*, Potassium 3.7, BUN 9, Creatinine 1.31 H, Glucose 157 H, Magnesium 1.2 L, Total Bilirubin 2.6 H, AST 269 H, ALT 195 H, Alkaline Phosphatase 62 Conclusions/Impression: A/P) 1. Acute or sub-acute symptomatic, severe hypotonic hyponatremia that is likely multifactorial but with Na levels only mildly improving from 112 to 115-117 and failing to improve further on isotonic IVF that argues against just hypovolemia and/or beer potomania contributing and there is likely ADH excess as part of possible SIADH (drug induced since pt was taking SSRI at home or idiopathic). 2. Will d/c NS + KCL IVF. . 3. Since Na level remains < 125 although fortunately pt is not confused, will use Tolvaptan 7.5 mg once. If tolvaptan is not available, will use lower rate hypertonic saline while Na remains < 120, pt currently only has peripheral IV access 4. Once Na level is > 125, may switch to use of Urea-Na +/- NaCl tabs to help with further Na improvement and maintenance. 5. Will cont to replete other lytes such as K and Mg 6. Monitoring for Etoh withdrawal, other per primary team Jah Quinonez MD, AYANA
--- NOTE | 2023-01-23 11:18 | RAD REPORT ---
EXAM DESCRIPTION: US - Abdomen Exam Complete - 01/23/2023 10:23 am CLINICAL HISTORY: Elevated LFTs COMPARISON: None. TECHNIQUE: Sonographic grayscale and color flow images of the abdomen were obtained. FINDINGS: Gallbladder size is normal. Mild layering sludge. No gallstones, wall thickening or perich olecystic fluid. Common bile duct is normal with no common duct stone identified. Liver demonstrates diffuse re- heterogeneous parenchyma. There is mildly enlarged measuring 22.9 cm i n long axis. No focal lesion is appreciated. Spleen is normal in size, measuring 10.8 centimeter in long axis. The pancreas evaluation is limited due to over shadowing bowel gas. No hydronephrosis or suspicious mass in either kidney. Incidentally noted anechoic midpole 1.9 centim eter cyst. Aorta is normal is size. No ascites or bulky lymphadenopathy. IMPRESSION: Hepatomegaly with diffuse parenchymal liver heterogeneity, suggestive of medical hepatoc ellular disease. Gallbladder sludge without evidence of calculi. Incidentally noted 1.9 centimeter left renal cyst.
[2023-01-23] MEDS ORDERED: NA CHLORIDE 3% 500 ML IV SCH (12:09)
[2023-01-23] MEDS ORDERED: Magnesium Sulfate 2gm IVPB 2 G/50 ML BAG IV ONE (12:12)
[2023-01-23] MEDS: NA CHLORIDE 3% 500 ML IV SCH ×2 (12:22→18:31)
[2023-01-23 15:03] LABS: Potassium 3.8 mEq/L (3.5-5.1)
[2023-01-23 15:48] LABS: Barbiturates NEGATIVE (NEGATIVE); Benzodiazepines NEGATIVE (NEGATIVE); Cocaine NEGATIVE (NEGATIVE); METHAMPHETAM NEGATIVE (NEGATIVE); Methadone NEGATIVE (NEGATIVE); Opiates NEGATIVE (NEGATIVE); Phencyclidine NEGATIVE (NEGATIVE); THC Cannibis NEGATIVE (NEGATIVE)
[2023-01-23 16:03] LABS: Specific Gravity 1.006 (1.005-1.030); Urine Bilirubin NEGATIVE (Negative); Urine Blood Negative (Negative); Urine Clarity Clear (Clear); Urine Color Light-Yellow (Yellow); Urine Glucose TRACE (Negative); Urine Protein NEGATIVE (Negative); Urine Urobilinogen 1+ (Normal); Urine pH 7.5 (5.0-7.0)
[2023-01-23 18:15] LABS: Magnesium 1.8 mg/dL (1.6-2.4); Potassium 3.8 mEq/L (3.5-5.1)
[2023-01-23 22:20] LABS: Magnesium 1.8 mg/dL (1.6-2.4); Phosphorus 1.9 mg/dL (2.5-4.9); Potassium 3.9 mEq/L (3.5-5.1)
[2023-01-23] MEDS ORDERED: MAGNESIUM SULFATE 1 gm IVPB 1 GM/100 ML BAG IV ONE (22:44)
[2023-01-23] MEDS: POTASS/SODIUM PHOSPHATE 1 PKT POWD.PACK PO SCH (23:03)
[2023-01-24] MEDS: POTASS/SODIUM PHOSPHATE 1 PKT POWD.PACK PO SCH ×2 (00:08→01:00)
[2023-01-24 02:53] LABS: Phosphorus 2.9 mg/dL (2.5-4.9); Potassium 4.2 mEq/L (3.5-5.1)
[2023-01-24] MEDS ORDERED: DIPHENHYDRAMINE 50 MG/ML VIAL IV ONE (03:28)
[2023-01-24 06:35] VITALS: BMI 34.4
--- NOTE | 2023-01-24 07:03 | P.PN ---
Date of Service: 01/24/23 Subjective: feeling okay today got up unsupervised yesterday, IVs pulled accidentally tremors are improving, feels theyve almost gone away sodium slowly improving appetite improving ROS: 10 point ROS as noted above, otherwise negative Physical Exam: GEN: Alert, orientedx3, NAD HEENT: Normal conjunctiva, sclera anicteric CV: Regular rate and rhythm, no edema Pulm: Nonlabored respirations on room air ABD: Soft, nontender, nondistended Neuro: Normal speech, normal affect, Other (Tremors), Abnormal gait vitals reviewed Problem List: Hyponatremia, severe Alcohol abuse CKD 2 Hypertension Hypomagnesemia Thrombocytopenia Elevated LFTs Severe Hyponatremia Likely secondary to alcohol abuse. possibly component of SIADH Nephrology consulted. improving Urea-Na improving continue to monitor closely advance diet ok to downgrade today, may need close monitoring given intermittent confusion (improving/improved) vs possible sitter, depending on how day goes Alcohol abuse active alcohol withdrawal continue folic acid\multivitamin\thiamine Librium added 01/23 scheduled ativan PRN Alcohol withdrawal assessment protocol ordered. Continue supportive care. improving CKD 2 Stable. Continue to monitor renal function Elevated LFTs Likely secondary to alcoholic liver disease. improving Abdominal u/s (01/23) Hepatomegaly with diffuse parenchymal liver heterogeneity, suggestive of medical hepatocellular disease. Gallbladder sludge without evidence of calculi. Incidentally noted 1.9 centimeter left renal cyst CXR (01/24) negative Hypertension. Continue home medications and hydralazine as needed. Hypomagnesemia. Replete as needed. Thrombocytopenia. Likely secondary to liver disease. Continue supportive care VTE: SCD Code: Full Dispo: home, ~2 days
--- NOTE | 2023-01-24 07:21 | EKG ---
Test Date: 2023-01-22 Test Time: 13:39:32 Hospitalist Program Director: KIRIT MEASUREMENT RESULTS: Intervals: Rate: 63 MN: 192 QRSD: 110 QT: 468 QTc: 478 [place]: P: 60 MN: 192 QRS: 50 T: -2 INTERPRETIVE STATEMENTS: Normal sinus rhythm Septal infarct, age undetermined Abnormal ECG Compared to ECG 01/16/2023 14:07:58 Myocardial infarct finding now present ST (T wave) deviation no longer present Prolonged QT interval no longer present Electronically Signed On 01-24-23 07:15:13 CDT by Nestor Carreon
[2023-01-24 08:08] LABS: Absolute Lymphocytes (CBC) 1.2 K/uL (0.7-4.9); Hematocrit 34.4 % (39.6-49.0); MCV 105.4 fL (80-100); MPV 8.6 fL (7.6-11.3); RBC Red Blood Cell Count 3.26 M/uL (4.33-5.43)
[2023-01-24 08:17] LABS: Magnesium 1.8 mg/dL (1.6-2.4); Phosphorus 2.2 mg/dL (2.5-4.9)
[2023-01-24 08:21] LABS: Albumin 2.7 g/dL (3.4-5.0); Bilirubin Total 1.7 mg/dL (0.2-1.0); Potassium 3.8 mEq/L (3.5-5.1); Protein, Total 5.6 g/dL (6.4-8.2)
[2023-01-24] MEDS: MAGNESIUM OXIDE 400 MG TAB PO SCH (09:00)
[2023-01-24] MEDS ORDERED: SODIUM PHOSPHATE 10 MM in NA CHLORIDE 0.9% 250 ML IV ONE (09:00)
--- NOTE | 2023-01-24 09:05 | RAD REPORT ---
EXAM DESCRIPTION: RAD - Chest Single View - 01/24/2023 6:38 am CLINICAL HISTORY: increased hypoxia, s/p IV fluids, eval pulm edema Chest pain. COMPARISON: Chest Single View dated 01/22/2023; Chest Single View dated 03/16/2021; Chest Single View d ated 12/28/2020; Chest Pa And Lat (2 Views) dated 05/17/2018 FINDINGS: Portable technique limits examination quality. The lungs are grossly clear. The heart is normal in size. No displaced fractures. IMPRESSION: No acute intrathoracic process suspected.
[2023-01-24] MEDS: ASPIRIN 81 MG CHEWABLE TABLET PO SCH (09:06)
[2023-01-24] MEDS: MULTIVITAMIN TAB PO SCH (09:07)
[2023-01-24] MEDS: FOLIC ACID 1 MG TABLET PO SCH (09:07)
[2023-01-24] MEDS: chlordiazePOXIDE HCl 5 MG CAP PO SCH ×3 (09:07→20:42)
[2023-01-24] MEDS: THIAMINE HCL 100 MG TABLET PO SCH (09:07)
[2023-01-24] MEDS: UREA 15 GM POWDER PACKET PO SCH (09:52)
--- NOTE | 2023-01-24 16:38 | P.PN ---
Renal note (S) Pt seen earlier this AM eating lunch, NAD, no acute complaints, prior reports of restlessness/agitation yesterday afternoon resolved (O) Vitals reviewed in the EMR General: Alert, In no apparent distress, Oriented x3 HEENT: Atraumatic, Normocephalic, PERRLA Neck: Supple Respiratory: Clear to auscultation bilaterally, Normal air movement Cardiovascular: Regular rate/rhythm, Normal S1 S2 Gastrointestinal: Soft and benign, Non-distended Musculoskeletal: No contractures Integumentary: No rashes, No breakdown Neurological: Normal speech, Normal tone, Sensation intact, Normal affect Laboratory Data (last 24 hrs) Reviewed in the EMR Conclusions/Impression: A/P) 1. Acute or sub-acute symptomatic, severe hypotonic hyponatremia that is likely multifactorial but with Na levels only mildly improving from 112 to 115-117 and failing to improve further on isotonic IVF that argued against just hypovolemia and/or beer potomania contributing and suspected likely ADH excess as part of possible SIADH (drug induced since pt was taking SSRI at home or idiopathic). 2. Urine studies show Uosm > 100 so pt not maximally diluting urine although not sig elevated and < 300 3. With hypertonic saline, total 500 cc, Na level now > 120. Rate of correction has been acceptable. 4. Will add Urea-Na 15 gm daily starting today to continue to help Na level rise. 5. Will cont to replete other lytes such as K and Mg Jah Quinonez MD, AYANA
[2023-01-24] MEDS ORDERED: LORAZEPAM 1 MG TABLET PO SCH (20:00)
[2023-01-25] MEDS: HYDRALAZINE HCL 20 MG/ML VIAL IV PRN (02:12)
[2023-01-25 04:59] LABS: Absolute Lymphocytes (CBC) 1.4 K/uL (0.7-4.9); Hematocrit 36.8 % (39.6-49.0); Lymphocytes % 25.9 % (15.3-44.8); MPV 7.9 fL (7.6-11.3); RBC Red Blood Cell Count 3.46 M/uL (4.33-5.43)
[2023-01-25 05:02] LABS: MCV 106.4 fL (80-100)
[2023-01-25 05:11] LABS: Bilirubin Total 1.4 mg/dL (0.2-1.0); Magnesium 1.5 mg/dL (1.6-2.4); Potassium 3.8 mEq/L (3.5-5.1); Protein, Total 6.5 g/dL (6.4-8.2)
--- NOTE | 2023-01-25 07:31 | P.PN ---
Date of Service: 01/25/23 Subjective: Feeling almost back to normal remains unsteady on his feet per PT; slowly improving sodium between ~123-124 since yesterday otherwise no new / worsening problems ROS: 10 point ROS as noted above, otherwise negative Physical Exam: GEN: Alert, orientedx3, NAD HEENT: Normal conjunctiva, sclera anicteric CV: Regular rate and rhythm, no edema Pulm: Nonlabored respirations on room air ABD: Soft, nontender, nondistended Neuro: Normal speech, normal affect, mild tremors vitals reviewed Problem List: Hyponatremia, severe Alcohol abuse with mild-moderate withdrawal CKD 2 Hypertension Hypomagnesemia Thrombocytopenia Elevated LFTs Severe Hyponatremia multifactorial - Likely secondary to alcohol abuse. possibly component of SIADH Nephrology consulted. improving s/p NS, then received small bolus of 3% saline early on continue Urea-Na fluid restrict continue to monitor closely Downgraded from ICU 01/24 Continue PT consider MRI if worsening / no improvement Alcohol abuse active alcohol withdrawal continue folic acid\multivitamin\thiamine Librium added 01/23 scheduled decreased Librium 01/25 taper off in next day or 2 ativan PRN Alcohol withdrawal assessment protocol ordered. Continue supportive care. improving CKD 2 Stable. Continue to monitor renal function Elevated LFTs secondary to alcoholic liver disease. improving Abdominal u/s (01/23) Hepatomegaly with diffuse parenchymal liver heterogeneity, suggestive of medical hepatocellular disease. Gallbladder sludge without evidence of calculi. Incidentally noted 1.9 centimeter left renal cyst CXR (01/24) negative Hypertension. Continue home medications and hydralazine as needed. Hypomagnesemia. Replete as needed. Thrombocytopenia. secondary to liver disease. Continue supportive care VTE: SCD Code: Full Dispo: home, ~1-2 days pending improved steadiness ambulating / improved strength improved Na
[2023-01-25] MEDS ORDERED: Magnesium Sulfate 2gm IVPB 2 G/50 ML BAG IV ONE (09:00)
[2023-01-25] MEDS: MAGNESIUM OXIDE 400 MG TAB PO SCH (09:00)
[2023-01-25] MEDS: POTASSIUM CL SA 10 MEQ TAB PO SCH (09:16)
[2023-01-25] MEDS: MULTIVITAMIN TAB PO SCH (09:17)
[2023-01-25] MEDS: chlordiazePOXIDE HCl 5 MG CAP PO SCH ×2 (09:17→21:05)
[2023-01-25] MEDS: THIAMINE HCL 100 MG TABLET PO SCH (09:17)
[2023-01-25] MEDS: FOLIC ACID 1 MG TABLET PO SCH (09:17)
[2023-01-25] MEDS: ASPIRIN 81 MG CHEWABLE TABLET PO SCH (09:17)
[2023-01-25 10:28] LABS: Potassium 3.9 mEq/L (3.5-5.1)
[2023-01-25] MEDS: UREA 15 GM POWDER PACKET PO SCH (10:59)
--- NOTE | 2023-01-25 15:42 | P.PN ---
Renal note (S) Pt seen earlier this AM eating lunch, NAD, no acute complaints, prior reports of restlessness/agitation yesterday afternoon resolved (O) Vitals reviewed in the EMR General: Alert, In no apparent distress, Oriented x3 HEENT: Atraumatic, Normocephalic, PERRLA Neck: Supple Respiratory: Clear to auscultation bilaterally, Normal air movement Cardiovascular: Regular rate/rhythm, Normal S1 S2 Gastrointestinal: Soft and benign, Non-distended Musculoskeletal: No contractures Integumentary: No rashes, No breakdown Neurological: Normal speech, Normal tone, Sensation intact, Normal affect Laboratory Data (last 24 hrs) Reviewed in the EMR Conclusions/Impression: A/P) 1. Acute or sub-acute symptomatic, severe hypotonic hyponatremia that is likely multifactorial but with Na levels only mildly improving from 112 to 115-117 and failing to improve further on isotonic IVF that argued against just hypovolemia and/or beer potomania contributing and suspected likely ADH excess as part of possible SIADH (drug induced since pt was taking SSRI at home or idiopathic). 2. Urine studies showed Uosm > 100 so pt not maximally diluting urine although not sig elevated and < 300 3. With hypertonic saline, total 500 cc, Na level improved to > 120. Rate of correction has been acceptable. 4. Na level now 125, will cont Urea-Na 15 gm daily to help Na level rise to > 130. Fluid restriction also discussed with pt 5. Will cont to replete other lytes such as K and Mg Jah Quinonez MD, AYANA
[2023-01-26 05:13] LABS: Albumin 2.8 g/dL (3.4-5.0); Bilirubin Total 1.1 mg/dL (0.2-1.0); Magnesium 1.6 mg/dL (1.6-2.4); Phosphorus 2.9 mg/dL (2.5-4.9); Potassium 3.9 mEq/L (3.5-5.1); Protein, Total 6.1 g/dL (6.4-8.2)
--- NOTE | 2023-01-26 07:17 | P.PN ---
Date of Service: 01/26/23 Subjective: feeling better today slight unsteadyness on feet, improving; increased endurance per PT sodium continues to improve (127) otherwise no new / worsening problems ROS: 10 point ROS as noted above, otherwise negative Physical Exam: GEN: Alert, orientedx3, NAD HEENT: Normal conjunctiva, sclera anicteric CV: Regular rate and rhythm, no edema Pulm: Nonlabored respirations on room air ABD: Soft, nontender, nondistended Neuro: Normal speech, normal affect, mild tremors vitals reviewed Problem List: Hyponatremia, severe Alcohol abuse with mild-moderate withdrawal CKD 2 Hypertension Hypomagnesemia Thrombocytopenia Elevated LFTs Severe Hyponatremia multifactorial - Likely secondary to alcohol abuse. possibly component of SIADH Nephrology consulted. improving s/p NS, then received small bolus of 3% saline early on continue Urea-Na fluid restrict Downgraded from ICU 01/24 Continue PT improving per PT 01/26 consider MRI if worsening / no improvement Alcohol abuse active alcohol withdrawal continue folic acid\multivitamin\thiamine Librium added 01/23 scheduled decreased Librium 01/25 librium DC'd 01/26 ativan DC'd Alcohol withdrawal assessment protocol ordered. Continue supportive care. improving CKD 2 Stable. Continue to monitor renal function Elevated LFTs secondary to alcoholic liver disease. improving Abdominal u/s (01/23) Hepatomegaly with diffuse parenchymal liver heterogeneity, suggestive of medical hepatocellular disease. Gallbladder sludge without evidence of calculi. Incidentally noted 1.9 centimeter left renal cyst CXR (01/24) negative Hypertension. Continue home medications and hydralazine as needed. Hypomagnesemia. Replete as needed. Thrombocytopenia. secondary to liver disease. Continue supportive care VTE: SCD Code: Full Dispo: home, ~1-2 days pending improved steadiness ambulating / improved strength improved Na
[2023-01-26] MEDS ORDERED: POTASSIUM CL SA 10 MEQ TAB PO ONE (09:00)
[2023-01-26] MEDS: MAGNESIUM OXIDE 400 MG TAB PO SCH (09:00)
[2023-01-26] MEDS ORDERED: MAGNESIUM SULFATE 1 gm IVPB 1 GM/100 ML BAG IV ONE (09:00)
[2023-01-26] MEDS: chlordiazePOXIDE HCl 5 MG CAP PO SCH (09:59)
[2023-01-26] MEDS: MULTIVITAMIN TAB PO SCH (09:59)
[2023-01-26] MEDS: UREA 15 GM POWDER PACKET PO SCH (09:59)
[2023-01-26] MEDS: ASPIRIN 81 MG CHEWABLE TABLET PO SCH (09:59)
[2023-01-26] MEDS: THIAMINE HCL 100 MG TABLET PO SCH (09:59)
[2023-01-26] MEDS: FOLIC ACID 1 MG TABLET PO SCH (10:00)
[2023-01-26] MEDS: POTASSIUM CL SA 10 MEQ TAB PO SCH (10:18)
--- NOTE | 2023-01-26 14:47 | EKG ---
Test Date: 2023-01-25 Test Time: 18:17:24 Barrel Burner: FRANCOIS MEASUREMENT RESULTS: Intervals: Rate: 96 [place]: 176 QRSD: 102 QT: 356 QTc: 449 [place]: P: [place]: 176 QRS: 178 T: 182 INTERPRETIVE STATEMENTS: Normal sinus rhythm Right axis deviation Inferior infarct, age undetermined Abnormal ECG Compared to ECG 01/22/2023 13:39:32 Right-axis deviation now present Myocardial infarct finding still present Electronically Signed On 01-26-23 14:44:30 CDT by Nestor Carreon
[2023-01-26 20:46] VITALS: O2SAT 98
[2023-01-27] MEDS: HYDRALAZINE HCL 20 MG/ML VIAL IV PRN (00:38)
[2023-01-27 05:13] LABS: Magnesium 1.5 mg/dL (1.6-2.4)
[2023-01-27 05:16] VITALS: TEMP 98.1
--- NOTE | 2023-01-27 07:21 | P.PN ---
Date of Service: 01/27/23 Subjective: feeling better today unsteadyness on feet improving; strength improving sodium same as yesterday (127) otherwise no new / worsening problems ROS: 10 point ROS as noted above, otherwise negative Physical Exam: GEN: Alert, orientedx3, NAD HEENT: Normal conjunctiva, sclera anicteric CV: Regular rate and rhythm, no edema Pulm: Nonlabored respirations on room air ABD: Soft, nontender, nondistended Neuro: Normal speech, normal affect, mild tremors vitals reviewed Problem List: Hyponatremia, severe Alcohol abuse with mild-moderate withdrawal CKD 2 Hypertension Hypomagnesemia Thrombocytopenia Elevated LFTs Severe Hyponatremia multifactorial - Likely secondary to alcohol abuse. possibly component of SIADH Nephrology consulted. improving s/p NS, then received small bolus of 3% saline early on continue Urea-Na fluid restrict Downgraded from ICU 01/24 Continue PT improving per PT 01/26 consider MRI if worsening / no improvement Alcohol abuse active alcohol withdrawal continue folic acid\multivitamin\thiamine Librium added 01/23 scheduled decreased Librium 01/25 librium DC'd 01/26 ativan DC'd Alcohol withdrawal assessment protocol ordered. Continue supportive care. improving CKD 2 Stable. Continue to monitor renal function Elevated LFTs secondary to alcoholic liver disease. improving Abdominal u/s (01/23) Hepatomegaly with diffuse parenchymal liver heterogeneity, suggestive of medical hepatocellular disease. Gallbladder sludge without evidence of calculi. Incidentally noted 1.9 centimeter left renal cyst CXR (01/24) negative Hypertension. Continue home medications and hydralazine as needed. Hypomagnesemia. Replete as needed. Thrombocytopenia. secondary to liver disease. Continue supportive care VTE: SCD Code: Full Dispo: home, ~1-2 days pending improved steadiness ambulating / improved strength improved Na
[2023-01-27] MEDS ORDERED: Magnesium Sulfate 2gm IVPB 2 G/50 ML BAG IV ONE (08:00)
[2023-01-27] MEDS: UREA 15 GM POWDER PACKET PO SCH (10:47)
[2023-01-27] MEDS: THIAMINE HCL 100 MG TABLET PO SCH (10:50)
[2023-01-27] MEDS: POTASSIUM CL SA 10 MEQ TAB PO SCH (10:50)
[2023-01-27] MEDS: ASPIRIN 81 MG CHEWABLE TABLET PO SCH (10:50)
[2023-01-27] MEDS: FOLIC ACID 1 MG TABLET PO SCH (10:50)
[2023-01-27] MEDS: MULTIVITAMIN TAB PO SCH (10:51)
[2023-01-27] MEDS: MAGNESIUM OXIDE 400 MG TAB PO SCH (10:51)
[2023-01-27 14:40] VITALS: BP 136/83
--- NOTE | 2023-01-27 14:48 | P.DS ---
Admission Date: 01/22/23 Discharge Date: 01/27/23 Disposition: ROUTINE DISCHARGE Discharge Condition: GOOD Reason for Admission: Dizziness Consultations: Nephrology - Dr. Quinonez Brief History of Present Illness: Patient is a 58-year-old male with a past medical history significant for hypertension who presents with complaint of dizziness onset yesterday. Patient reported associated signs and symptoms of near syncope, generalized weakness and poor gait. Patient also noted with tremors. Patient denies any other signs and symptoms. Symptoms are aggravated or relieved by nothing. Patient was brought to the hospital for medical evaluation. Hospital Course: Problem List: Hyponatremia, severe Alcohol abuse with mild-moderate withdrawal CKD 2 Hypertension Hypomagnesemia Thrombocytopenia Elevated LFTs Patient presented with near syncope, generalized weakness, dizziness, and poor gait secondary to severe hypontremia. (Na: 112). This was felt to be secondary to alcohol intake and HCTZ use. Improved with Na replacement. He did receive librium for mild alcohol withdrawal treatment and weaned off. He had improvement of his tremors and associated alcohol withdrawal symptoms. Nephrology was consulted and assisted with management. He had gradual improvement of his sodium levels, eventually switched to Urea-NA and fluid restriction. Sodium improved to 127. He reported being more stable on his feet and ready for discharge home. He will have close follow up with his PCP and Nephrology. Stop blood pressure medications previously on - HCTZ and ACEI/ARB Otherwise ok to resume other home medications as previously prescribed. Repeat blood work with follow up appointment. Abstain from alcohol use. New Prescriptions: Urea-NA Follow up: PCP 3-5 days Nephrology within a few weeks Physical Exam: GEN: Alert, oriented, NAD HEENT: Normal conjunctiva, sclera anicteric CV: Regular rate and rhythm, no edema Pulm: Non-labored respirations on room air, clear bilaterally ABD: Soft, nontender, nondistended Neuro: Normal speech, normal affect Vital Signs/Physical Exam: Temp Pulse Resp BP Pulse Ox 98.1 F 85 18 136/83 97 01/27/23 12:00 01/27/23 12:00 01/27/23 12:00 01/27/23 12:00 01/27/23 12:00 Laboratory Data at Discharge: WBC 5.50 thou/uL (4.3-10.9) 01/25/23 04:35 Hgb 13.0 g/dL (13.6-17.9) L 01/25/23 04:35 Hct 36.8 % (39.6-49.0) L 01/25/23 04:35 Plt Count 152 thou/uL (152-406) 01/25/23 04:35 PT 11.8 SECONDS (9.5-12.5) 01/22/23 13:15 INR 1.07 01/22/23 13:15 APTT 29.9 SECONDS (24.3-36.9) 01/22/23 13:15 Sodium 127 mEq/L (136-145) L 01/27/23 04:48 Potassium 4.0 mEq/L (3.5-5.1) 01/27/23 04:48 BUN 15 mg/dL (7-18) 01/27/23 04:48 Creatinine 0.97 mg/dL (0.70-1.30) 01/27/23 04:48 Glucose 101 mg/dL (74-106) 01/27/23 04:48 Phosphorus 2.9 mg/dL (2.5-4.9) 01/26/23 04:33 Magnesium 1.5 mg/dL (1.6-2.4) L 01/27/23 04:48 Total Bilirubin 1.1 mg/dL (0.2-1.0) H 01/26/23 04:33 AST 80 U/L (15-37) H 01/26/23 04:33 ALT 98 U/L (16-61) H 01/26/23 04:33 Alkaline Phosphatase 44 U/L (45-117) L 01/26/23 04:33 Triglycerides 273 mg/dL (<150) H 01/23/23 04:27 Cholesterol 106 mg/dL (<200) 01/23/23 04:27 HDL Cholesterol 13 mg/dL (40-60) L 01/23/23 04:27 Cholesterol/HDL Ratio 8.15 01/23/23 04:27 Home Medications: Fenofibrate,Micronized [Fenofibrate] 135 mg PO DAILY 06/13/16 Fluoxetine HCl [Prozac] 20 mg PO DAILY 06/13/16 Temazepam 30 mg PO BEDTIME 06/13/16 Aspirin [Aspirin EC 325 MG] 1 tab PO DAILY 12/28/20 Ezetimibe [Zetia*] 10 mg PO DAILY 12/28/20 Metformin ER [Glucophage ER*] 500 mg PO BID 12/28/20 Magnesium Oxide [Mag-Oxide] 200 mg PO DAILY #30 tablet 12/29/20 Metoprolol Tartrate [Lopressor*] 50 mg PO BID #60 tab 12/29/20 Thiamine HCl [Vitamin B-1*] 100 mg PO DAILY #30 tablet 12/29/20 Urea [Ure-Na] 15 gm PO DAILY 30 Days #30 packet 01/27/23 New Medications: Urea [Ure-Na] 15 gm PO DAILY 30 Days #30 packet Physician Discharge Instructions: Patient presented with near syncope, generalized weakness, dizziness, and poor gait secondary to severe hypontremia. (Na: 112). This was felt to be secondary to alcohol intake and HCTZ use. Improved with Na replacement. He did receive franco rium for mild alcohol withdrawal treatment and weaned off. He had improvement of his tremors and associated alcohol withdrawal symptoms. Nephrology was consulted and assisted with management. He had gradual improvement of his sodium levels, eventually switched to Urea-NA and fluid restriction. Sodium improved to 127. He reported being more stable on his feet and ready for discharge home. He will have close follow up with his PCP and Nephrology. Stop blood pressure medications previously on - HCTZ and ACEI/ARB Otherwise ok to resume other home medications as previously prescribed. Repeat blood work with follow up appointment. Abstain from alcohol use. New Prescriptions: Urea-NA Follow up: PCP 3-5 days Nephrology within a few weeks Diet: Regular Activity: Ad franco Followup: Jah Quinonez [ACTIVE - CAN ADMIT] - (call for an apointment for a few weeks) Arthur Haas DO [Primary Care Provider] - (call for an apointment for 3 to 5 days ) Time spent managing pt's care (in minutes): 45
--- NOTE | 2023-01-27 15:36 | P.PN ---
Renal note (S) Pt has no acute complaints, doing fair, Na level and plan of care discussed (O) Vitals reviewed in the EMR General: Alert, In no apparent distress, Oriented x3 HEENT: Atraumatic, Normocephalic, PERRLA Neck: Supple Respiratory: Clear to auscultation bilaterally, Normal air movement Cardiovascular: Regular rate/rhythm, Normal S1 S2 Gastrointestinal: Soft and benign, Non-distended Musculoskeletal: No contractures Integumentary: No rashes, No breakdown Neurological: Normal speech, Normal tone, Sensation intact, Normal affect Laboratory Data (last 24 hrs) Reviewed in the EMR Conclusions/Impression: A/P) 1. Acute or sub-acute symptomatic, severe hypotonic hyponatremia that was likely multifactorial but with Na levels only mildly improving initially from 112 to 115-117 and failing to improve further on isotonic IVF that argued against just hypovolemia and/or beer potomania contributing and suspected likely ADH excess as part of possible SIADH (drug induced since pt was taking SSRI at home or idiopathic). 2. Urine studies showed Uosm > 100 so pt not maximally diluting urine although not sig elevated and < 300 3. With hypertonic saline, total 500 cc, Na level improved to > 120. Rate of correction had been acceptable. 4. Na level now 127, will cont Urea-Na 15 gm daily to help Na level rise to > 130. Fluid restriction also discussed with pt 5. Will d/c HCTZ on discharge of course. 6. Essential HTN -pt can monitor BP for now and maintain log Jah Quinonez MD, AYANA
== END 2023-01-27 16:20 | disposition home or self-care (01) | DRG 641 ==
LOC: ER 11:26 → ERHOLD 15:57 → 3RD-ICU 17:01 → 4TH 01-25 01:09
PROVIDERS: ADMIT Internal Medicine; ATTEND Hospitalist
DX: E87.1 Hypo-osmolality and hyponatremia (principal); F10.239 Alcohol dependence with withdrawal, unspecified; E78.5 Hyperlipidemia, unspecified; I12.9 Hypertensive chronic kidney disease with stage 1 through stage 4 chronic kidney disease, or unspecified chronic kidney disease; N18.2 Chronic kidney disease, stage 2 (mild); E83.42 Hypomagnesemia; D69.59 Other secondary thrombocytopenia; K76.9 Liver disease, unspecified; R79.89 Other specified abnormal findings of blood chemistry; Z88.0 Allergy status to penicillin; Z79.84 Long term (current) use of oral hypoglycemic drugs; Z79.82 Long term (current) use of aspirin; Z79.899 Other long term (current) drug therapy; Y90.0 Blood alcohol level of less than 20 mg/100 ml
CPT/HCPCS: 36415; 70450; 71045; 72125; 76700; 80048; 80053; 80061; 80074; 80076; 80143; 80179; 80307; 81003; 82077; 82140; 83735; 83880; 83930; 83935; 84100; 84295; 84300; 84439; 84443; 84484; 85025; 85610; 85730; 93005; 94760; 96365; 96375; 97110; 97116; 97161; 99285; J0360; J1200; J3411; J3475; J3480; J7030; J7050; J7131

== ENCOUNTER 2023-12-19 18:35 | Emergency (ER) | payer BC ==
[2023-12-19 19:49] LABS: Absolute Basophils 0.1 K/uL (0-0.5); Absolute Eosinophils 0.1 K/uL (0-0.5); Absolute Lymphocytes (CBC) 1.7 K/uL (0.7-4.9); Absolute Monocytes 0.8 K/uL (0.1-1.3); Absolute Neutrophil 3.1 K/uL (1.8-8.0); Eosinophils % 1.8 % (0-4.4); Hematocrit 46.4 % (39.6-49.0); Hemoglobin 15.7 g/dL (13.6-17.9); Lymphocytes % 28.4 % (15.3-44.8); MCH 38.2 pg (27.0-35.0); MCHC 33.9 g/dL (32.0-36.0); MCV 112.7 fL (80-100); MPV 8.7 fL (7.6-11.3); Monocytes % 14.2 % (3.3-12.3); Neutrophils % 53.6 % (41.7-73.7); Nucleated Red Blood Cells % 0.1 % (0-0); Platelets 202 thou/uL (152-406); RBC Red Blood Cell Count 4.12 M/uL (4.33-5.43); Red Cell Distribution Width 15.6 % (12.1-15.2)
[2023-12-19 19:56] LABS: Albumin 2.5 g/dL (3.4-5.0); Anion Gap 8.4 mEq/L (5.0-15.0); Bilirubin Total 1.3 mg/dL (0.2-1.0); Globulin 3.6 g/dL (2.3-3.5); Potassium 3.4 mEq/L (3.5-5.1); Protein, Total 6.1 g/dL (6.4-8.2)
[2023-12-19 19:57] LABS: Albumin/Globulin Ratio 0.7 (1.1-1.8); Magnesium 1.4 mg/dL (1.6-2.4); Troponin High Sensitivity 9.8 pg/mL (<58.9)
[2023-12-19 20:31] LABS: Blood Morphology Comment NOTED (NOT SEEN); Macrocytosis 2+; Platelet Estimate ADEQ; White Blood Cell Scan OK (OK)
--- NOTE | 2023-12-19 22:04 | RAD REPORT ---
EXAM DESCRIPTION: RAD - Chest Single View - 12/19/2023 7:15 pm CLINICAL HISTORY: SOB Chest pain. COMPARISON: Chest Single View dated 01/24/2023; Chest Single View dated 01/22/2023; Chest Single View da regina 03/16/2021; Chest Single View dated 12/28/2020 FINDINGS: Portable technique limits examination quality. Moderate bilateral pulmonary opacities are seen, greater on the right, likely representing pulmonary edema or pneumonia. The heart is mildly enlarged in size. No displaced fractures.
--- NOTE | 2023-12-19 22:28 | RAD REPORT ---
EXAM DESCRIPTION: CT - Chest Abdomen Pelvis W Cont - 12/19/2023 10:15 pm CLINICAL HISTORY: Chest and abdomen pain. CHEST PAIN COMPARISON: No comparisons TECHNIQUE: Approximately 100 mL nonionic IV contrast was administered to the patient. All CT scans are performed using dose optimization technique as appropriate and may include automated exposure control or mA/KV adjustment according to patient size. FINDINGS: Bilateral airspace opacities are present, greatest on the right in the right lower lobe.Sm all bilateral pleural effusions, larger on the right.No intrathoracic adenopathy. Mild diffuse fatty liver. Mild fluid is present along the right hepatic edge. The spleen, pancreas, a drenal glands and kidneys are within normal limits. Benign bilateral renal cysts. No bowel obstruction, free air, free fluid or abscess. Normal appendix. 7.8 x 3.3 cm left rectus abdo minis sheath fluid collection. No pathologic lymphadenopathy in the abdomen or pelvis. Trace pelvic f ree fluid. Orthopedic hardware lower lumbar spine. IMPRESSION: Bilateral moderate airspace opacities are present, greater on the right.This likely repr esents pneumonia or pulmonary edema. Mild diffuse fatty liver with mild fluid along the right hepatic edge. 7.8 x 3.3 cm left rectus abdominis fluid sheath collection may be related to old hematoma.
[2023-12-19] MEDS ORDERED: ALBUTEROL 2.5 MG/3 ML NEB SOL ONE (22:58)
[2023-12-19] MEDS ORDERED: Levofloxacin 750mg IV 750 MG/150 ML BAG IV ONE (22:58)
[2023-12-19] MEDS ORDERED: IPRATROPIUM BROM 0.5MG/2.5ML ONE (22:58)
--- NOTE | 2023-12-19 23:29 | ER ---
[facility] Name: Jean-Paul Castillo Age: 58 yrs Sex: Male : 1965 Arrival Date: 12/19/2023 Time: 18:35 Bed 7 Private MD: Diagnosis: Other pneumonia, unspecified organism;Atypical bilateral pneumonia, Presentation: 12/18 18:47 Chief complaint: Patient states: he was [facility] for SOB x3 kc6 weeks with low O2 at 87%. Coronavirus screen: At this time, the client does not indicate any symptoms associated with coronavirus-19. Ebola Screen: No symptoms or risks identified at this time. Initial Sepsis Screen: Does the patient meet any 2 criteria? No. Patient's initial sepsis screen is negative. Does the patient have a suspected source of infection? No. Patient's initial sepsis screen is negative. Risk Assessment: Do you want to hurt yourself or someone else? Patient reports no desire to harm self or others. Onset of symptoms was December 19, 2023. 18:47 Method Of Arrival: Wheelchair kc6 18:47 Acuity: ARNULFO 3 kc6 Triage Assessment: 18:48 General: Appears in no apparent distress. uncomfortable, well groomed, well developed, kc6 Behavior is calm, cooperative, appropriate for age. EENT: No signs and/or symptoms were reported regarding the EENT system. Neuro: Level of Consciousness is awake, alert, obeys commands, Oriented to person, place, time, situation, Appropriate for age. Cardiovascular: Denies chest pain, Capillary refill < 3 seconds. Respiratory: Reports shortness of breath on exertion pain with respiration Airway is patent Trachea midline Respiratory effort is even, pursed lip, Respiratory pattern is regular, symmetrical, Onset: The symptoms/episode began/occurred x3 weeks, the patient has moderate shortness of breath. GI: No signs and/or symptoms were reported involving the gastrointestinal system. : No signs and/or symptoms were reported regarding the genitourinary system. Derm: No signs and/or symptoms reported regarding the dermatologic system. Skin is intact, is healthy with good turgor, Skin is pink, warm \T\ dry. Musculoskeletal: No signs and/or symptoms reported regarding the musculoskeletal system. Circulation, motion, and sensation intact. Capillary refill < 3 seconds, Range of motion: intact in all extremities. Historical: - Allergies: 18:48 PENICILLINS; kc6 - PMHx: 18:48 Hypertension; kc6 - PSHx: 18:48 back surgery (Hypertension); kc6 - Immunization history:: Adult Immunizations up to date. - Infectious Disease History:: Denies. - Social history:: Smoking status: Patient denies any tobacco usage or history of. Screenin:50 [facility] ED Fall Risk Assessment (Adult) History of falling in the last 3 months, kc6 including since admission No falls in past 3 months (0 pts) Confusion or Disorientation No (0 pts) Intoxicated or Sedated No (0 pts) Impaired Gait No (0 pts) Mobility Assist Device Used No (0 pt) Altered Elimination No (0 pt) Score/Fall Risk Level 0 - 2 = Low Risk. Abuse screen: Denies threats or abuse. Denies injuries from another. Nutritional screening: No deficits noted. Tuberculosis screening: No symptoms or risk factors identified. Assessment: 18:49 Reassessment: please see triage. [facility] 19:41 Reassessment: Patient appears in no apparent distress at this time. Patient and/or bm8 family updated on plan of care and expected duration. Pain level reassessed. Patient is alert, oriented x 3, equal unlabored respirations, skin warm/dry/pink. Patient denies pain at this time. General: Appears in no apparent distress. comfortable, Behavior is calm, cooperative. Pain: Denies pain. Neuro: No deficits noted. Level of Consciousness is awake, alert, obeys commands, Oriented to person, place, time, situation, Appropriate for age. Cardiovascular: No deficits noted. Denies chest pain, lightheadedness, Heart tones S1 S2 present Capillary refill < 3 seconds Patient's skin is warm and dry. Rhythm is regular. Respiratory: Reports shortness of breath at rest on exertion since two weeks ago Airway is patent Trachea midline Respiratory effort is even, unlabored, Respiratory pattern is regular, symmetrical, Breath sounds are clear bilaterally. the patient has moderate shortness of breath Denies cough, pain with respiration, pain with cough, pain with movement. GI: No deficits noted. No signs and/or symptoms were reported involving the gastrointestinal system. : No deficits noted. No signs and/or symptoms were reported regarding the genitourinary system. EENT: No deficits noted. No signs and/or symptoms were reported regarding the EENT system. Derm: No deficits noted. No signs and/or symptoms reported regarding the dermatologic system. Musculoskeletal: No deficits noted. No signs and/or symptoms reported regarding the musculoskeletal system. 19:51 Reassessment: Pt remains off of O2 at this time. O2 sat 96% on RA. cm10 20:54 Reassessment: Patient appears in no apparent distress at this time. No changes from bm8 previously documented assessment. Patient and/or family updated on plan of care and expected duration. Pain level reassessed. Patient is alert, oriented x 3, equal unlabored respirations, skin warm/dry/pink. pt off of NC O2 maintaining saturation of 93%-94% on RA. General: Appears in no apparent distress. comfortable, Behavior is calm, cooperative, appropriate for age. Respiratory: Airway is patent Trachea midline Respiratory effort is even, unlabored, Respiratory pattern is regular, symmetrical, Breath sounds are clear bilaterally. the patient has mild shortness of breath. 12/19 00:35 Reassessment: Patient appears in no apparent distress at this time. No changes from bm8 previously documented assessment. Patient and/or family updated on plan of care and expected duration. Pain level reassessed. Patient is alert, oriented x 3, equal unlabored respirations, skin warm/dry/pink. Patient denies pain at this time. Patient states feeling better. Vital Signs: 05 18:47 BP 128 / 85; Pulse 77; Resp 20 S; Pulse Ox 96% on 3 lpm NC; Weight 108.86 kg (R); kc6 Height 5 ft. 11 in. (R); 19:00 BP 136 / 86; Pulse 76; Resp 18; Pulse Ox 96% on R/A; cm10 19:30 BP 139 / 97; Pulse 74; Resp 16; Pulse Ox 93% on R/A; cm10 19:45 BP 138 / 90; Pulse 74; Resp 16; Pulse Ox 96% ; cm10 20:00 BP 154 / 91; Pulse 75; Resp 16; Pulse Ox 93% on R/A; cm10 20:30 BP 149 / 95; Pulse 76; Resp 16; Pulse Ox 92% on R/A; cm10 12/19 00:35 BP 130 / 87; Pulse 94; Resp 17; Temp 98.1; Pulse Ox 94% on R/A; Pain 0/10; bm8 12/18 18:47 Body Mass Index 33.47 (108.86 kg, 180.34 cm) kc6 12/19 00:35 Pain Scale: Adult bm8 [place] Coma Score: 00:35 Eye Response: spontaneous(4). Motor Response: obeys commands(6). Verbal Response: bm8 oriented(5). Total: 15. ED Course: 12/18 18:36 Patient arrived in ED. im 18:46 Maryanne Barlow MD is Attending Physician. sd2 18:47 Yoana Reagan RN is Primary Nurse. kc6 18:48 Triage completed. kc6 18:48 Arm band placed on. kc6 18:50 Patient has correct armband on for positive identification. Placed in gown. Bed in low kc6 position. Call light in reach. Side rails up X 1. Adult w/ patient. Client placed on continuous cardiac and pulse oximetry monitoring. NIBP monitoring applied. Pillow given. 18:56 Report given to RICHIE Camejo \T\ RICHIE Varma. kc 19:17 XRAY Chest (1 view) In Process Unspecified. EDMS 19:41 No provider procedures requiring assistance completed. Initial lab(s) drawn, by vasohan sent to lab. Inserted saline lock: 20 gauge in right forearm, using aseptic technique. Blood collected. 20:22 Primary Nurse role handed off by Yoana Reagan RN 20:51 Bashir Rosen, RICHIE is Primary Nurse. bm8 21:04 Attending Physician role handed off by Maryanne Barlow MD sp4 21:04 Samuel Eubanks MD is Attending Physician. sp4 22:16 CT Chest, Abdomen, Pelvis - W/Contrast In Process Unspecified. EDMS 23:27 Baljeet Blair MD is Referral Physician. sp4 23:34 Awaiting: medication to finish infusing. bm8 12/19 00:35 Provided Education on: follow up with pcp, and post er care. bm8 00:35 IV discontinued, intact, bleeding controlled, No redness/swelling at site. Pressure bm8 dressing applied. Administered Medications: 12/18 23:06 Drug: levofloxacin IVPB 750 mg 150 ml IVPB once over 90 mins Volume: 150 ml; Route: bm8 IVPB; Infused Over: 90 mins; Site: right forearm; 12/19 00:36 Follow up: Response: No adverse reaction; IV Status: Completed infusion; IV Intake: bm8 150ml 12/18 23:06 Drug: Albuterol Inhalation 2.5 mg Inhalation once Route: Inhalation; bm8 12/19 00:36 Follow up: Response: No adverse reaction bm8 12/18 23:06 Drug: Ipratropium Inhalation Aerosol 0.5 mg Inhalation once Route: Inhalation; bm8 12/19 00:36 Follow up: Response: No adverse reaction bm8 Medication: 12/18 19:41 VIS not applicable for this client. bm8 Intake: 12/19 00:36 IV: 150ml; Total: 150ml. bm8 Outcome: 12/18 23:28 Discharge ordered by . gem4 12/19 00:35 Discharged to home ambulatory, bm8 Condition: stable Discharge instructions given to patient, family, Instructed on discharge instructions, follow up and referral plans. no drinking with medication, medication usage, safety practices, Demonstrated understanding of instructions, follow-up care, medications, Prescriptions given X 2, 00:37 Patient left the ED. bm8 Signatures: Dispatcher [employer] EDMS Medina Pavon Stephanie, MD MD sd2 Yoana Reagan RN RN kc6 Samuel Eubanks MD MD sp4 Nikia Cash Clarissa, RN RN cm10 Bashir Rosen RN RN bm8
--- NOTE | 2023-12-19 23:30 | EDPHYS ---
Physician Documentation [facility] Name: Jean-Paul Castillo Age: 58 yrs Sex: Male : 1965 Arrival Date: 12/19/2023 Time: 18:35 Bed 7 Private MD: ED Physician Samuel Eubanks HPI: 12/18 19:16 This 58 yrs old Male presents to ER via Wheelchair with complaints of Shortness Of sd2 Breath. 19:16 58-year-old male presents with chief complaint of shortness of breath that has been sd2 ongoing for the past 2 weeks. He reports it has not gotten worse but just has not improved. He went to urgent care prior to coming to the ER and was sent here due to possible pneumonia on his chest x-ray and hypoxia. He is unsure how low his oxygen levels were there. He denies any fevers, cough, vomiting, diarrhea or chest pain. He reports a prior remote history of allergy induced asthma but did not have any significant improvement with trying albuterol at home. Denies any recent travel or leg edema. 21:53 Patient care assumed from Dr. Barlow. Patient reports 2 weeks of shortness of breath. sp4 He was seen at the urgent clinic and diagnosed with possible pneumonia. On evaluation today patient is slightly hypoxemic at 92 to 93% on room air. Patient reports he quit drinking alcohol 2 weeks ago but prior to that he was a heavy drinker. . Last admission 01/22/2023 patient was admitted for hyponatremia associated with alcohol abuse also alcohol withdrawal also chronic kidney disease also hypertension also hypomagnesemia also thrombocytopenia and elevated liver enzymes. Patient at that time was managed for generalized weakness dizziness and gait impairment secondary to hyponatremia. Patient has improved with sodium replacement and he received Librium for alcohol withdrawal. Patient's sodium gradually improved with fluid restriction. Patient's medications include fenofibrate, fluoxetine, temazepam, aspirin, ezetimibe, metformin, magnesium, metoprolol. Also thiamine.. Historical: - Allergies: 18:48 PENICILLINS; kc6 - PMHx: 18:48 Hypertension; kc6 - PSHx: 18:48 back surgery (Hypertension); kc6 - Immunization history:: Adult Immunizations up to date. - Infectious Disease History:: Denies. - Social history:: Smoking status: Patient denies any tobacco usage or history of. ROS: 19:16 Constitutional: Negative for fever, chills, and weight loss, Eyes: Negative for injury, sd2 pain, redness, and discharge, Cardiovascular: Negative for chest pain, palpitations, and edema, Respiratory: Positive for shortness of breath, Negative for cough, wheezing. Abdomen/GI: Negative for abdominal pain, nausea, vomiting, diarrhea. MS/Extremity: Negative for injury and deformity, Skin: Negative for injury, rash, and discoloration, Neuro: Negative for headache, numbness and tingling. Exam: 19:16 Constitutional: This is a well developed, well nourished patient who is awake, alert, sd2 and in no acute distress. Head/Face: Normocephalic, atraumatic. Eyes: EOMI, normal conjunctiva bilaterally Chest/axilla: Normal chest wall appearance and motion. Nontender with no deformity. Cardiovascular: Regular rate and rhythm with a normal S1 and S2. No gallops, murmurs, or rubs. 2+ distal pulses. Respiratory: Lungs have equal breath sounds bilaterally, clear to auscultation and percussion. No rales, rhonchi or wheezes noted. No increased work of breathing, no retractions or nasal flaring. Abdomen/GI: Soft, non-tender, with normal bowel sounds. No guarding or rebound. No evidence of tenderness throughout. Skin: Warm, dry with normal turgor. Normal color with no rashes, no lesions, and no evidence of cellulitis. MS/ Extremity: Pulses equal, no cyanosis. Neurovascular intact. Full, normal range of motion. Psych: Awake, alert, with orientation to person, place and time. Behavior, mood, and affect are within normal limits. Vital Signs: 18:47 BP 128 / 85; Pulse 77; Resp 20 S; Pulse Ox 96% on 3 lpm NC; Weight 108.86 kg (R); kc6 Height 5 ft. 11 in. (R); 19:00 BP 136 / 86; Pulse 76; Resp 18; Pulse Ox 96% on R/A; cm10 19:30 BP 139 / 97; Pulse 74; Resp 16; Pulse Ox 93% on R/A; cm10 19:45 BP 138 / 90; Pulse 74; Resp 16; Pulse Ox 96% ; cm10 20:00 BP 154 / 91; Pulse 75; Resp 16; Pulse Ox 93% on R/A; cm10 20:30 BP 149 / 95; Pulse 76; Resp 16; Pulse Ox 92% on R/A; cm10 12/19 00:35 BP 130 / 87; Pulse 94; Resp 17; Temp 98.1; Pulse Ox 94% on R/A; Pain 0/10; bm8 12/18 18:47 Body Mass Index 33.47 (108.86 kg, 180.34 cm) kc6 12/19 00:35 Pain Scale: Adult bm8 [place] Coma Score: 00:35 Eye Response: spontaneous(4). Motor Response: obeys commands(6). Verbal Response: bm8 oriented(5). Total: 15. MDM: 12/18 18:46 Patient medically screened. sd2 19:16 Differential diagnosis: Anemia asthma, CHF exacerbation, Chronic Obstructive Pulmonary sd2 Disease pneumonia, pulmonary edema, Pulmonary Embolism reactive airway disease, Unstable Angina among others. Data reviewed: vital signs, nurses notes. Historians other than the Patient: Spouse/Significant Other: at bedside. 22:26 ED course: EXAM DESCRIPTION: RAD - Chest Single View - 12/19/2023 7:15 pm CLINICAL sp4 HISTORY: SOB Chest pain. COMPARISON: Chest Single View dated 01/24/2023; Chest Single View dated 01/22/2023; Chest Single View dated 03/16/2021; Chest Single View dated 12/28/2020 FINDINGS: Portable technique limits examination quality. Moderate bilateral pulmonary opacities are seen, greater on the right, likely representing pulmonary edema or pneumonia. The heart is mildly enlarged in size. No displaced fractures. Signed By: Grayson Tay MD. 22:41 ED course: EXAM DESCRIPTION: CT - Chest Abdomen Pelvis W Cont - 12/19/2023 10:15 pm sp4 CLINICAL HISTORY: Chest and abdomen pain. CHEST PAIN COMPARISON: No comparisons TECHNIQUE: Approximately 100 mL nonionic IV contrast was administered to the patient. All CT scans are performed using dose optimization technique as appropriate and may include automated exposure control or mA/KV adjustment according to patient size. FINDINGS: Bilateral airspace opacities are present, greatest on the right in the right lower lobe.Small bilateral pleural effusions, larger on the right.No intrathoracic adenopathy. Mild diffuse fatty liver. Mild fluid is present along the right hepatic edge. The spleen, pancreas, adrenal glands and kidneys are within normal limits. Benign bilateral renal cysts. No bowel obstruction, free air, free fluid or abscess. Normal appendix. 7.8 x 3.3 cm left rectus abdominis sheath fluid collection. No pathologic lymphadenopathy in the abdomen or pelvis. Trace pelvic free fluid. Orthopedic hardware lower lumbar spine. IMPRESSION: Bilateral moderate airspace opacities are present, greater on the right.This likely represents pneumonia or pulmonary edema. Mild diffuse fatty liver with mild fluid along the right hepatic edge. 7.8 x 3.3 cm left rectus abdominis fluid sheath collection may be related to old hematoma. 23:25 Antibiotic administration: The patient is discharged and will get outpatient sp4 antibiotics, Levaquin, ED course: Patient has significant bilateral moderate airspace opacities indicative of atypical pneumonia. There is fatty liver and there is also left lower rectus abdominis fluid sheath hematoma. Patient states he has quit drinking 2 weeks ago. We suspect aspiration of sputum or vomitus that has occurred approximately 2 weeks ago. Patient states he would like to go home. Patient does not have significant hypoxemia he does have normal white count. At this time we deem appropriate for discharge with levofloxacin for the next 7 days. Also albuterol treatments every 4 hours as needed for shortness of breath. . 12/18 19:00 Order name: CBC with Diff; Complete Time: 21:38 sd2 12/18 19:00 Order name: CMP; Complete Time: 20: sd2 12/18 19:00 Order name: Magnesium; Complete Time: 20: sd2 12/18 19:00 Order name: Troponin High Sensitivity; Complete Time: 20:01 sd2 12/18 19:00 Order name: BNP; Complete Time: 20:01 sd2 12/18 20:31 Order name: CBC Smear Scan; Complete Time: 21:38 EDMS 12/18 21:42 Order name: Alcohol Level; Complete Time: 22:41 sp4 12/18 21:43 Order name: D-Dimer; Complete Time: 22:53 sp4 12/18 19:00 Order name: XRAY Chest (1 view); Complete Time: 22:41 sd2 12/18 21:43 Order name: CT Chest, Abdomen, Pelvis - W/Contrast; Complete Time: 22:41 sp4 Administered Medications: 23:06 Drug: levofloxacin IVPB 750 mg 150 ml IVPB once over 90 mins Volume: 150 ml; Route: bm8 IVPB; Infused Over: 90 mins; Site: right forearm; 12/19 00:36 Follow up: Response: No adverse reaction; IV Status: Completed infusion; IV Intake: bm8 150ml 12/18 23:06 Drug: Albuterol Inhalation 2.5 mg Inhalation once Route: Inhalation; bm8 12/19 00:36 Follow up: Response: No adverse reaction bm8 12/18 23:06 Drug: Ipratropium Inhalation Aerosol 0.5 mg Inhalation once Route: Inhalation; bm8 12/19 00:36 Follow up: Response: No adverse reaction bm8 Disposition Summary: 12/19/23 23:28 Discharge Ordered Notes: Location: Home sp4 Problem: new sp4 Symptoms: have improved sp4 Condition: Stable sp4 Diagnosis - Other pneumonia, unspecified organism sp4 - Atypical bilateral pneumonia, sp4 Followup: sp4 - With: Baljeet Blair MD - When: 5 - 6 days - Reason: Recheck today's complaints Discharge Instructions: - Discharge Summary Sheet sp4 - Community-Acquired Pneumonia, Adult, [id number] sp4 Forms: - Patient Portal Instructions sp4 Prescriptions: - Albuterol Sulfate 2.5 mg /3 mL (0.083 %) Inhalation Solution for Nebulization - inhale 1 unit NEBULIZATION route every 4 hours As needed 50 vials , Use every sp4 4 hours as needed for dyspnea or cough; 50 unit; Refills: 0, Product Selection Permitted - levofloxacin 750 mg Oral tablet - take 1 tablet ORAL route once daily for 7 days; 7 tablet; Refills: 0, Product sp4 Selection Permitted Signatures: Dispatcher [employer] Maryanne Vitale MD MD sd2 Yoana Reagan RN RN kc6 Samuel Eubanks MD MD sp4 Bashir Rosen, RN RN bm8 Corrections: (The following items were deleted from the chart) 12/18 19: 19:01 CBC+H.LAB.BRZ ordered. EDMS EDMS : 19:01 COMPREHENSIVE METABOLIC PANEL+C.LAB.BRZ ordered. EDMS EDMS 19: 19:01 MAGNESIUM+C.LAB.BRZ ordered. EDMS EDMS : 19:01 Troponin High Sensitivity+C.LAB.BRZ ordered. EDMS EDMS 19:01 19:01 PROBNP+C.LAB.BRZ ordered. EDMS EDMS 19:01 19:01 Chest Single View+RAD.RAD.BRZ ordered. EDMS EDMS 19:16 19:04 Chest Single View+RAD.RAD.BRZ ordered. EDMS EDMS 19:18 19:16 Constitutional: Negative for fever, chills, and weight loss, Eyes: Negative for sd2 injury, pain, redness, and discharge, Cardiovascular: Negative for chest pain, palpitations, and edema, Respiratory: Negative for shortness of breath, cough, wheezing. Abdomen/GI: Negative for abdominal pain, nausea, vomiting, diarrhea. MS/Extremity: Negative for injury and deformity, Skin: Negative for injury, rash, and discoloration, Neuro: Negative for headache, numbness and tingling. sd2
[2023-12-20 01:10] VITALS: BP 130/87; TEMP 98.1; O2SAT 94
== END 2023-12-20 00:37 | disposition home or self-care (01) ==
LOC: ER 18:35
DX: J18.8 Other pneumonia, unspecified organism (principal); I10 Essential (primary) hypertension; Z88.0 Allergy status to penicillin
CPT/HCPCS: 96365; 93005; 85025; 36415; 83735; 85379; 84484; 80053; 83880; 71260; 74177; 71045; 99285; 82077; Q9967; J7613; J7644

== ENCOUNTER 2024-03-12 11:50 | Inpatient (IN) | payer BC ==
[2024-03-12 12:26] LABS: Absolute Eosinophils 0.1 K/uL (0-0.5); Absolute Lymphocytes (CBC) 1.1 K/uL (0.7-4.9); Absolute Monocytes 0.9 K/uL (0.1-1.3); Absolute Neutrophil 5.9 K/uL (1.8-8.0); Basophils % 0.5 % (0-1.3); Hematocrit 38.7 % (39.6-49.0); Hemoglobin 13.1 g/dL (13.6-17.9); Lymphocytes % 13.7 % (15.3-44.8); MCH 36.2 pg (27.0-35.0); MCV 106.7 fL (80-100); MPV 8.7 fL (7.6-11.3); Monocytes % 11.7 % (3.3-12.3); Neutrophils % 73.1 % (41.7-73.7); Nucleated Red Blood Cells % 0.1 % (0-0); Platelets 154 thou/uL (152-406); RBC Red Blood Cell Count 3.63 M/uL (4.33-5.43)
[2024-03-12 12:42] LABS: PT Prothrombin Time 14.8 SECONDS (9.4-12.5); PTT, Activated Partial Thromb 30.8 SECONDS (24.3-36.9); Protime INR 1.33
[2024-03-12 12:44] LABS: Anion Gap 11.5 mEq/L (5.0-15.0); Bilirubin Total 1.4 mg/dL (0.2-1.0); Potassium 3.5 mEq/L (3.5-5.1)
--- NOTE | 2024-03-12 12:44 | RAD REPORT ---
EXAM DESCRIPTION: RAD - Chest Single View - 03/12/2024 12:30 pm CLINICAL HISTORY: Cough;Dyspnea;Fever COMPARISON: Chest Pa And Lat (2 Views) dated 01/21/2024; Chest Single View dated 12/29/2023; Chest Sing le View dated 12/28/2023; Chest Single View dated 12/26/2023; Chest For Pe Angio dated 12/31/2023 FINDINGS: Lines: None. Lungs: Bilateral interstitial and airspace disease, eccentric to the right. This has worsened from pr ior . Pleural: No significant pleural effusions or pneumothorax. Cardiac: Cardiomegaly. Mediastinum: Within normal limits. Bones: No acute fractures. Other: None IMPRESSION: Worsened airspace disease compared with 01/21/2024 concerning for pneumonia which may be superimposed upon subacute/chronic changes.
[2024-03-12] MEDS ORDERED: Levofloxacin 750mg IV 750 MG/150 ML BAG IV ONE (12:52)
--- NOTE | 2024-03-12 12:57 | ER ---
Nurse's Notes [facility] – [place], [place] Name: Jean-Paul Castillo Age: 59 yrs Sex: Male : 1965 Arrival Date: 03/12/2024 Time: 11:50 Bed 8 Private MD: Diagnosis: Pneumonia, unspecified organism;Severe sepsis without septic shock;Hypoxemia Presentation: 03/12 11:58 Acuity: ARNULFO 2 cm10 12:10 Chief complaint: Patient states: Sent to ED from urgent care due to O2 sat being in the cm10 high 60s. Pt reports shortness of breath, low grade fever and productive cough onset yesterday. Pt's O2 sat upon arrival at 80% on RA, pt placed on NC 4L when placed in room and O2 sat improved. Coronavirus screen: Client denies travel out of the [place] in the last 14 days. At this time, the client does not indicate any symptoms associated with coronavirus-19. Ebola Screen: Patient denies travel to an Ebola-affected area in the 21 days before illness onset. No symptoms or risks identified at this time. Initial Sepsis Screen: Does the patient meet any 2 criteria? RR > 20 per min. HR > 90 bpm. Does the patient have a suspected source of infection? No. Patient's initial sepsis screen is negative. Risk Assessment: Do you want to hurt yourself or someone else? Patient reports no desire to harm self or others. Onset of symptoms was March 12, 2024. 12:10 Method Of Arrival: Wheelchair 10 Triage Assessment: 12:00 Respiratory: Reports shortness of breath cough that is the patient has moderate rs5 shortness of breath. 12:12 General: Appears in no apparent distress. uncomfortable, Behavior is calm, cooperative. cm10 Historical: - Allergies: 11:57 PENICILLINS; cm10 - Home Meds: 11:57 temazepam 15 mg Oral capsule 1 cap every day at bedtime [Active]; fluoxetine 20 mg Oral cm10 capsule 1 cap daily [Active]; gabapentin 300 mg Oral capsule 1 cap daily [Active]; ezetimibe 10 mg Oral tablet 1 tab daily [Active]; valsartan 40 mg Oral tablet 1 tab daily [Active]; - PMHx: 11:57 Hypertension; Hypercholesterolemia; cm10 - PSHx: 11:57 back surgery; cm10 - Immunization history:: Adult Immunizations up to date. - Infectious Disease History:: Denies. - Social history:: Smoking status: Patient denies any tobacco usage or history of. - Family history:: not pertinent. - Hospitalizations: : The patient was recently seen at [facility]. Screenin:00 [facility] ED Fall Risk Assessment (Adult) History of falling in the last 3 months, rs5 including since admission No falls in past 3 months (0 pts) Confusion or Disorientation No (0 pts) Intoxicated or Sedated No (0 pts) Impaired Gait No (0 pts) Mobility Assist Device Used No (0 pt) Altered Elimination No (0 pt) Score/Fall Risk Level 0 - 2 = Low Risk Oriented to surroundings, Maintained a safe environment. Abuse screen: Denies threats or abuse. Nutritional screening: No deficits noted. Tuberculosis screening: No symptoms or risk factors identified. Assessment: 12:00 General: Appears distressed, uncomfortable, Behavior is cooperative, anxious. Pain: rs5 Denies pain. Neuro: Level of Consciousness is awake, alert, obeys commands, Oriented to person, place, time, situation. Cardiovascular: Patient's skin is warm and dry. Rhythm is sinus tachycardia. Respiratory: Respiratory: Reports shortness of breath cough that is Airway is patent Respiratory effort is even, labored, Respiratory pattern is symmetrical, GI: Abdomen is round non-distended, Abd is soft and non tender X 4 quads. : No signs and/or symptoms were reported regarding the genitourinary system. EENT: No signs and/or symptoms were reported regarding the EENT system. Derm: Skin is intact, Skin is pink, warm \T\ dry. Musculoskeletal: Range of motion: intact in all extremities. 12:10 General: CODE SEPSIS CALLED AT THIS TIME. cm10 13:01 Reassessment: Patient and/or family updated on plan of care and expected duration. Pain rs5 level reassessed. Patient is alert, oriented x 3, equal unlabored respirations, skin warm/dry/pink. Vital Signs: 11:58 BP 118 / 70; Pulse 99; Resp 28; Temp 98.2(O); Pulse Ox 83% on R/A; Weight 108.86 kg; cm10 Height 5 ft. 11 in. ; Pain 0/10; 12:45 BP 115 / 73; Pulse 77; Resp 17; Pulse Ox 99% on R/A; rs5 11:58 Body Mass Index 33.47 (108.86 kg, 180.34 cm) cm10 11:58 Pain Scale: Adult cm10 ED Course: 11:57 Patient arrived in ED. cm10 11:59 Triage completed. cm10 12:00 No provider procedures requiring assistance completed. rs5 12:00 Patient has correct armband on for positive identification. Placed in gown. Bed in low rs5 position. Call light in reach. Side rails up X2. 12:02 Chris Parry MD is Attending Physician. rn 12:10 Inserted saline lock: 18 gauge in right forearm, using aseptic technique. Blood cm10 collected. Flushed with 10 mL NS. 12:10 Initial lab(s) drawn, by me, held in ED. First set of blood cultures drawn by me. cm10 12:13 Arm band placed on Patient placed in an exam room, on a stretcher, on oxygen, on cm10 personnel monitor, on pulse oximetry. 12:26 Flu Sent. ld1 12:26 SARS RAPID Sent. ld1 12:26 Lactate w/ 2H reflex if indic. Sent. ld1 12:26 Blood Culture Adult (2) Sent. ld1 12:32 Chest Single View XRAY In Process Unspecified. EDMS 12:50 Rajendra Gomez, RN is Primary Nurse. rs5 12:56 Darryl Betancourt MD is Hospitalizing Provider. rn 13:01 Patient admitted, IV remains in place. rs5 19:51 Provided Education on: need for admit. tm6 Administered Medications: 12:56 Drug: levofloxacin IVPB 750 mg 150 ml IVPB once over 90 mins Volume: 150 ml; Route: rs5 IVPB; Infused Over: 90 mins; Site: right forearm; 13:20 Follow up: Response: No adverse reaction rs5 13:10 Drug: NS 0.9% IV 500 ml IV at bolus once Route: IV; Rate: bolus; Site: right forearm; rs5 13:30 Follow up: Response: No adverse reaction rs5 13:10 Drug: Levalbuterol Inhalation 1.25 mg Inhalation once Route: Inhalation; rs5 13:30 Follow up: Response: No adverse reaction rs5 Medication: 13:01 VIS not applicable for this client. rs5 Outcome: 12:56 Decision to Hospitalize by Provider. rn 13:01 Admitted to ER Hold. Please see [facility] for further documentation. rs5 13:01 Condition: stable rs5 13:01 Condition: stable 13:01 Instructed on the need for admit, Demonstrated understanding of instructions, 19:51 Patient left the ED. tm6 Signatures: Dispatcher [employer] EDMS Chris Parry MD MD rn Sims, Lauren, RN RN ld1 Rajendra Gomez RN RN rs5 Avani Baxter RN RN cm10 Alejandra Montelongo RN RN tm6 Corrections: (The following items were deleted from the chart) 13: 12:00 Respiratory: Airway is patent Respiratory effort is even, labored, Respiratory rs5 pattern is symmetrical, rs5
--- NOTE | 2024-03-12 12:57 | EDPHYS ---
Physician Documentation [facility] Name: Jean-Paul Castillo Age: 59 yrs Sex: Male : 1965 Arrival Date: 03/12/2024 Time: 11:50 Bed 8 Private MD: ED Physician Chris Parry HPI: 03/12 12:46 This 59 yrs old Male presents to ER via Wheelchair with complaints of Shortness Of rn Breath. 12:46 The patient has shortness of breath with light activity. Onset: The symptoms/episode rn began/occurred 2 day(s) ago. Duration: The symptoms are intermittent. The patient's shortness of breath is aggravated by exertion, light activity, talking, walking. Severity of symptoms: At their worst the symptoms were moderate in the emergency department the symptoms are unchanged. The patient has experienced a previous episode. Patient reports productive cough and shortness of breath for the last few days. Was admitted for pneumonia 1 month ago and feels similar. Reports dyspnea on exertion.. Historical: - Allergies: 11:57 PENICILLINS; cm10 - Home Meds: 11:57 temazepam 15 mg Oral capsule 1 cap every day at bedtime [Active]; fluoxetine 20 mg Oral cm10 capsule 1 cap daily [Active]; gabapentin 300 mg Oral capsule 1 cap daily [Active]; ezetimibe 10 mg Oral tablet 1 tab daily [Active]; valsartan 40 mg Oral tablet 1 tab daily [Active]; - PMHx: 11:57 Hypertension; Hypercholesterolemia; cm10 - PSHx: 11:57 back surgery; cm10 - Immunization history:: Adult Immunizations up to date. - Infectious Disease History:: Denies. - Social history:: Smoking status: Patient denies any tobacco usage or history of. - Family history:: not pertinent. - Hospitalizations: : The patient was recently seen at [facility]. ROS: 12:46 Constitutional: Positive for fever Eyes: Negative for injury, pain, redness, and employment attorney, ENT: Negative for injury, pain, and discharge, Neck: Negative for injury, pain, and swelling, Cardiovascular: Negative for chest pain, palpitations, and edema, Respiratory: Positive for cough and shortness of breath Abdomen/GI: Negative for abdominal pain, nausea, vomiting, diarrhea, and constipation, MS/Extremity: Negative for injury and deformity, Skin: Negative for injury, rash, and discoloration, Neuro: Negative for headache, weakness, numbness, tingling, and seizure, Exam: 12:46 Constitutional: This is a well developed, well nourished patient who is awake, alert, rn mild tachypnea Head/Face: Normocephalic, atraumatic. ENT: No stridor Cardiovascular: Regular rate and rhythm. No pulse deficits. Respiratory: Mild to moderate tachypnea noted, diminished at bases MS/ Extremity: Pulses equal, no cyanosis. Neurovascular intact. Full, normal range of motion. Equal circumference. Neuro: Awake and alert, GCS 15 mg Vital Signs: 11:58 BP 118 / 70; Pulse 99; Resp 28; Temp 98.2(O); Pulse Ox 83% on R/A; Weight 108.86 kg; cm10 Height 5 ft. 11 in. ; Pain 0/10; 12:45 BP 115 / 73; Pulse 77; Resp 17; Pulse Ox 99% on R/A; rs5 11:58 Body Mass Index 33.47 (108.86 kg, 180.34 cm) cm10 11:58 Pain Scale: Adult cm10 MDM: 12:02 Patient medically screened. rn 12:55 Differential diagnosis: Bronchitis pneumonia, Pneumothorax pulmonary edema. Data rn reviewed: vital signs, nurses notes, lab test result(s), EKG, radiologic studies, plain films, and as a result, I will admit patient. Independent interpretation of the following test(s) in the Emergency Department EKG: See my EKG interpretation above X-Ray: My interpretation is Chest x-ray images show bibasilar pneumonia per my interpretation. space systems operations manager: rate is 99 beats/min, Rhythm is normal sinus rhythm, with no ectopy, Interpretation: normal rate, normal rhythm. Counseling: I had a detailed discussion with the patient and/or guardian regarding the historical points, exam findings, and any diagnostic results supporting the discharge/admit diagnosis, lab results, radiology results, the need for further work-up and treatment in the hospital. 12:57 ED course: I personally spent 35 minutes engaged in work directly related to the rn individual patient's care. This does not include any time spent performing procedures. The patient has been deemed critically ill because of severe sepsis without septic shock, pneumonia worse than last month, elevated lactic acidosis, need for oxygen and emergent admission to the hospital.. 13:12 ED course: Patient does not meet shock criteria, has elevated lactic acid but less than rn 4. No hypotension. No indication for 30/kg sepsis bolus at this time. Will reassess.. 03/12 12:10 Order name: Blood Culture Adult (2) 03/12 12:10 Order name: CBC with Diff 03/12 12:10 Order name: CMP; Complete Time: 12:45 rn 03/12 12:10 Order name: Lactate w/ 2H reflex if indic.; Complete Time: 12:54 rn 03/12 12:10 Order name: Protime (+inr); Complete Time: 12:45 rn 03/12 12:10 Order name: Ptt, Activated; Complete Time: 12:45 03/12 12:10 Order name: SARS RAPID 03/12 12:10 Order name: Flu 03/12 13:24 Order name: CBC Smear Scan [facility] 03/12 14:09 Order name: [id number] [facility] 03/12 14:09 Order name: Gspzl-3-Tozzlhmxwwy [facility] 03/12 14:09 Order name: C-Reactive Protein [facility] 03/12 14:09 Order name: C-Reactive Protein [facility] 03/12 14:09 Order name: CBC with Automated Diff [facility] 03/12 14:09 Order name: CBC with Automated Diff [facility] 03/12 14:09 Order name: Comprehensive Metabolic Panel [facility] 03/12 14:09 Order name: Comprehensive Metabolic Panel [facility] 03/12 14:09 Order name: Procalcitonin [facility] 03/12 14:09 Order name: Procalcitonin [facility] 03/12 14:09 Order name: Troponin High Sensitivity [facility] 03/12 14:09 Order name: Troponin High Sensitivity [facility] 03/12 14:09 Order name: Troponin High Sensitivity [facility] 03/12 14:12 Order name: C-ANCA Anti-Proteinase 3 [facility] 03/12 14:12 Order name: C-ANCA Anti-Proteinase 3 [facility] 03/12 14:12 Order name: Iron [facility] 03/12 14:12 Order name: Iron [facility] 03/12 14:12 Order name: P-ANCA Anti-Myeloperoxidase Ab [facility] 03/12 14:12 Order name: P-ANCA Anti-Myeloperoxidase Ab [facility] 03/12 14:12 Order name: Vitamin B12 Level [facility] 03/12 14:12 Order name: Vitamin B12 Level [facility] 03/12 14:54 Order name: Ghost Lactate-NO COLLECT Timer [facility] 03/12 12:10 Order name: Chest Single View XRAY; Complete Time: 12:45 rn 03/12 14:09 Order name: Echo with Doppler [facility] 03/12 14:09 Order name: Echo with Doppler [facility] 03/12 14:09 Order name: CONS Physician Consult [facility] 03/12 12:10 Order name: Accucheck; Complete Time: 12:25 rn 03/12 12:10 Order name: Cardiac monitoring; Complete Time: 12:25 rn 03/12 12:10 Order name: EKG - Nurse/Tech; Complete Time: 12:25 rn 03/12 12:10 Order name: IV Saline Lock - Large Bore; Complete Time: 12:25 rn 03/12 12:10 Order name: Labs collected and sent; Complete Time: 12:26 rn 03/12 12:10 Order name: O2 Per Protocol; Complete Time: 12:25 rn 03/12 12:10 Order name: O2 Sat Monitoring; Complete Time: 12:25 rn 03/12 12:10 Order name: Vital Signs; Complete Time: 12:25 rn Administered Medications: 12:56 Drug: levofloxacin IVPB 750 mg 150 ml IVPB once over 90 mins Volume: 150 ml; Route: rs5 IVPB; Infused Over: 90 mins; Site: right forearm; 13:20 Follow up: Response: No adverse reaction rs5 13:10 Drug: NS 0.9% IV 500 ml IV at bolus once Route: IV; Rate: bolus; Site: right forearm; rs5 13:30 Follow up: Response: No adverse reaction rs5 13:10 Drug: Levalbuterol Inhalation 1.25 mg Inhalation once Route: Inhalation; rs5 13:30 Follow up: Response: No adverse reaction rs5 Disposition: 12:57 Critical Care:. rn Disposition Summary: 03/12/24 12:56 Hospitalization Ordered Notes: Hospitalization Status: Inpatient Admission rn Provider: Darryl Betancourt rn Condition: Stable rn Problem: new rn Symptoms: have improved rn Bed/Room Type: Standard rn Location: Telemetry/MedSurg (Inpatient)(03/12/24 18:10) bd Room Assignment: [facility](03/12/24 18:10) bd Diagnosis - Pneumonia, unspecified organism rn - Severe sepsis without septic shock rn - Hypoxemia rn Forms: - Medication Reconciliation Form rn - SBAR form rn - Leadership Thank You Letter yarn dumper time excluding procedures: 12:57 Critical care time: Bedside Care: 30 minutes, Consultation: 5 minutes. Total time: 35 rn minutes Signatures: Dispatcher [employer] EDMS DwightRimma lund Chris Batista MD MD rn Bradberry, Kelly, RN RN kb3 Rajendra Gomez, RN RN rs5 Avani Baxter, RN RN cm10 Corrections: (The following items were deleted from the chart) 12:11 12:11 BLOOD CULTURE*+BA.LAB.BRZ ordered. EDMS EDMS 12:11 12:11 CBC+H.LAB.BRZ ordered. EDMS EDMS 12:11 12:11 COMPREHENSIVE METABOLIC PANEL+C.LAB.BRZ ordered. EDMS EDMS 12:11 12:11 LACTATE+C.LAB.BRZ ordered. EDMS EDMS 12:11 12:11 PROTIME (+INR)+COAG.LAB.BRZ ordered. EDMS EDMS 12:11 12:11 PTT, ACTIVATED+COAG.LAB.BRZ ordered. EDMS EDMS 12:11 12:11 SARS-COV-2 Antigen Rapid+I.LAB.BRZ ordered. EDMS EDMS 12:11 12:11 Influenza Screen (A \T\ B)+BA.LAB.BRZ ordered. EDMS EDMS 12:11 12:11 Chest Single View+RAD.RAD.BRZ ordered. EDMS EDMS 16:21 12:56 Telemetry/MedSurg (Inpatient) rn kb3 16:21 12:56 rn kb3 18:10 16:21 [facility] ER HOLD kb3 bd 18:10 16:21 ERHOLD- kb3 bd
[2024-03-12 13:06] LABS: Anisocytosis 1+; Blood Morphology Comment NOTED (NOT SEEN); Macrocytosis 2+; Platelet Estimate ADEQ; Polychromasia 1+; White Blood Cell Scan OK (OK)
[2024-03-12] MEDS ORDERED: NA CHLORIDE 0.9% 500 ML ONE (13:17)
[2024-03-12] MEDS ORDERED: LEVALBUTEROL 1.25 MG/3 ML NEB ONE (13:17)
[2024-03-12 13:21] LABS: SARS-CoV-2 Antigen CONTROL BLUE LINE VIS/BG OK; SARS-CoV-2 Antigen Rapid Res Negative (Negative)
[2024-03-12] MEDS ORDERED: ACETAMINOPHEN 500 MG TAB PO PRN (14:01)
[2024-03-12] MEDS ORDERED: MORPHINE 2 MG/ML SYR IV PRN (14:01)
[2024-03-12] MEDS ORDERED: ONDANSETRON 4 MG/2 ML VIAL IV PRN (14:01)
--- NOTE | 2024-03-13 03:53 | P.HP ---
Certification for Inpatient Patient admitted to: Inpatient With expected LOS: >2 Midnights Patient will require the following post-hospital care: None Practitioner: I am a practitioner with admitting privileges, knowledge of patient current condition, hospital course, and medical plan of care. Services: Services provided to patient in accordance with Admission requirements found in Title 42 Section 412.3 of the Code of Federal Regulations Patient History Date of Service: 03/12/24 Reason for admission: Acute respiratory distress History of Present Illness: patient is a 59-year-old gentleman who is admitted for recurrent pneumonia. Patient with multiple admissions over the last few months with interstitial pneumonia. Patient with bilateral infiltrates with right middle lobe and right lower lobe infiltrates that her fairly significant on chest x-ray. Unknown etiology of patient's recurrent infection. Patient's prior cultures have been negative. Patient with a prior history of macrocytosis and with macrocytic anemia. Patient's procalcitonin levels were on the low side at 0.12. Inflammatory markers are pending. Patient appears to have an interstitial lung disease of unknown etiology. Patient apparently has been vaping over the last few years and is concerned that he may have secondary effect from the vaping. Patient also with history of alcohol abuse. Check a B12 level and will cover for Klebsiella pneumonia. Will get the repeat CT imaging and an echocardiogram. Patient may benefit from bronchoscopy with a biopsy in the future. Will also check inflammatory markers and at this time patient will be admitted to the hospital for further treatment of interstitial lung disease. Allergies Penicillins Allergy (Mild, Verified 12/26/23 18:14) Hives Home Medications: Fenofibrate,Micronized [Fenofibrate] 134 mg PO DAILY 06/13/16 Fluoxetine HCl [Prozac] 20 mg PO DAILY 06/13/16 Temazepam 15 mg PO BEDTIME 06/13/16 Aspirin [Aspirin EC 325 MG] 1 tab PO DAILY 12/28/20 Ezetimibe [Zetia*] 10 mg PO DAILY 12/28/20 Metformin ER [Glucophage ER*] 500 mg PO DAILY 12/28/20 Gabapentin 300 mg PO DAILY 12/26/23 Metoprolol Tartrate [Lopressor*] 50 mg PO DAILY 12/26/23 Valsartan 40 mg PO DAILY 12/26/23 Benzonatate [Tessalon Perle*] 100 mg PO TID PRN 5 Days #15 cap 01/02/24 - Past Medical/Surgical History Diabetic: No -: Hypertension -: Hyperlipidemia -: Alcohol abuse -: NIDDM -: Back surgery -: Right ACL repair -: KAVON surgery Psychosocial/ Personal History: Patient is . 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 moist/pink, EOMI, Sclerae nonicteric Neck: Supple, 2+ carotid pulse no bruit, No LAD, Without JVD or thyroid abnormality Respiratory: Crackles/rales Cardiovascular: Regular rate/rhythm, Normal S1 S2, No murmurs Gastrointestinal: Normal bowel sounds, Soft and benign, Non-distended, No tenderness Musculoskeletal: No clubbing, No swelling, No tenderness Integumentary: No rashes Neurological: Normal gait, Normal speech, Normal strength at 5/5 x4 extr, Normal tone, Sensation intact, Cranial nerves 3-12 intact, Normal affect Lymphatics: No axilla or inguinal lymphadenopathy - Studies Laboratory Data (last 24 hrs) 03/12/24 03/12/24 03/12/24 12:17 12:17 12:17 WBC 8.00 Hgb 13.1 L Hct 38.7 L Plt Count 154 PT 14.8 H INR 1.33 APTT 30.8 Sodium 136 Potassium 3.5 BUN 9 Creatinine 1.06 Glucose 133 H Total Bilirubin 1.4 H AST 24 ALT 20 Alkaline Phosphatase 41 L Microbiology Data (last 24 hrs): 03/12/24 12:17 Nasopharnyx Influenza Type A Antigen Screen - Final 03/12/24 12:17 Nasopharnyx Influenza Type B Antigen Screen - Final Assessment & Plan - Problems (Diagnosis) (1) Acute hypoxic respiratory failure Current Visit: Yes Status: Acute (2) Interstitial lung disease Current Visit: Yes Status: Acute (3) History of nicotine vaping Current Visit: Yes Status: Acute - Plan 1. Continue with IV antibiotics 2. Awaiting sputum and blood culture 3. Repeat chest x-ray 4. Will proceed with CT scan of the chest if pneumonia is not improved to evaluate for postobstructive pneumonia 5. Inflammatory markers 6. Continue with nebs as needed 7. O2 per protocol 8. Continue with IV steroids 9. Repeat labs including CBC and renal function in a.m. 10. GI and DVT prophylaxis Discharge Plan: Home Plan to discharge in: Greater than 2 days - Advance Directives Does patient have a Living Will: No Does patient have a Durable POA for Healthcare: No - Code Status/Comfort Care Code Status Assessed: Yes Code Status: Full Code Critical Care: No Time Spent Managing PTS Care (In Minutes): 45
[2024-03-13 05:29] LABS: Absolute Eosinophils 0.1 K/uL (0-0.5); Absolute Lymphocytes (CBC) 0.8 K/uL (0.7-4.9); Absolute Monocytes 0.8 K/uL (0.1-1.3); Absolute Neutrophil 4.4 K/uL (1.8-8.0); Basophils % 0.5 % (0-1.3); Eosinophils % 1.3 % (0-4.4); Hematocrit 37.4 % (39.6-49.0); Hemoglobin 12.5 g/dL (13.6-17.9); Lymphocytes % 12.8 % (15.3-44.8); MCH 35.6 pg (27.0-35.0); MCHC 33.3 g/dL (32.0-36.0); MPV 8.6 fL (7.6-11.3); Monocytes % 13.3 % (3.3-12.3); Neutrophils % 72.1 % (41.7-73.7); Nucleated Red Blood Cells % 0.1 % (0-0); Platelets 126 thou/uL (152-406); Red Cell Distribution Width 14.9 % (12.1-15.2)
[2024-03-13 06:15] LABS: Albumin 2.7 g/dL (3.4-5.0); Anion Gap 9.4 mEq/L (5.0-15.0); Bilirubin Total 1.2 mg/dL (0.2-1.0); C-Reactive Protein 73.7 mg/L (<3.00); Globulin 2.8 g/dL (2.3-3.5); Potassium 3.4 mEq/L (3.5-5.1); Protein, Total 5.5 g/dL (6.4-8.2)
--- NOTE | 2024-03-13 06:39 | P.PN ---
Date of Service: 03/13/24 Subjective Desats on room air, will order home home oxygen Shortness of breath with exertion Review of Systems 10-point ROS is otherwise unremarkable Physical Examination - Vital Signs reviewed - Physical Exam General: Alert, oriented x 3, HEENT: Atraumatic, PERRLA, Mucous membr. moist/pink, Neck: Supple, 2+ carotid pulse no bruit, No LAD, Without JVD or thyroid abnormality Respiratory: Crackles/rales, diminished, Cardiovascular: Regular rate/rhythm, Normal S1 S2, No murmurs Gastrointestinal: Normal bowel sounds, nontender Musculoskeletal: No clubbing, No swelling, No tenderness Integumentary: No rashes Neurological: Normal gait, Normal speech, Normal strength at 5/5 x4 extr, Lymphatics: No axilla or inguinal lymphadenopathy Assessment & Plan - Problems (Diagnosis) (1) Acute hypoxic respiratory failure Current Visit: Yes Status: Acute (2) Interstitial lung disease Current Visit: Yes Status: Acute (3) History of nicotine vaping Current Visit: Yes Status: Acute - Plan 1. Continue with IV antibiotics 2. Awaiting sputum and blood culture 3. Repeat chest x-ray 4. Will proceed with CT scan of the chest if pneumonia is not improved to evaluate for postobstructive pneumonia 5. Inflammatory markers 6. Continue with nebs as needed 7. O2 per protocol 8. Continue with IV steroids 9. Repeat labs including CBC and renal function in a.m. 10. GI and DVT prophylaxis 11. Room air sats, 79% will order home O2 prior to Discharge Plan: Home Plan to discharge in: Greater than 2 days - Advance Directives Does patient have a Living Will: No Does patient have a Durable POA for Healthcare: No - Code Status/Comfort Care Code Status Assessed: Yes Code Status: Full Code Critical Care: No Time Spent Managing PTS Care (In Minutes): 35
[2024-03-13] MEDS: METHYLPREDNISOLONE 125 MG INJ IV SCH (06:43)
[2024-03-13] MEDS: Levofloxacin 750mg IV 750 MG/150 ML BAG IV SCH (08:23)
--- NOTE | 2024-03-13 09:41 | RAD REPORT ---
EXAM DESCRIPTION: CT - Chest Angio - 03/13/2024 8:16 am CLINICAL HISTORY: INTERSTIAL LUNG DISEASE COMPARISON: Chest For Pe Angio dated 12/31/2023 TECHNIQUE: Thin axial CT images of the chest were obtained following administration of 100 mL Isovue 370 IV contrast. Multiplanar reconstructions, and maximum intensity projection reconstructions were generated and reviewed. Exam utilizes a protocol for optimal evaluation of pulmonary arterial tree. All CT scans are performed using dose optimization technique as appropriate and may include automated exposure control or mA/KV adjustment according to patient size. FINDINGS: Pulmonary arteries are normal. No emboli or other suspicious finding. No acute or signific ant aorta findings. Patchy bilateral consolidative and ground-glass opacities with air bronchograms. Small to moderate bi lateral layering pleural effusions. No pleural thickening or pleural effusion. No pneumothorax. Mildly prominent mediastinal lymph nodes, favored to be reactive. No significant hilar or axillary ad enopathy. No chest wall mass or abnormal axilliary lymphadenopathy. IMPRESSION: No evidence of acute central pulmonary emboli. Patchy bilateral airspace opacities, suggestive of an infectious or inflammatory process such as pneu monia. Small to moderate bilateral layering effusions.
--- NOTE | 2024-03-13 13:17 | EKG ---
Test Date: 2024-03-12 Test Time: 12:16:10 Basin Cleaner: SOPHIE MEASUREMENT RESULTS: Intervals: Rate: 95 CT: 176 QRSD: 100 QT: 394 QTc: 495 [place]: P: 63 CT: 176 QRS: 75 T: 4 INTERPRETIVE STATEMENTS: Normal sinus rhythm Prolonged QT Abnormal ECG Compared to ECG 12/26/2023 14:52:54 No significant changes Electronically Signed On 03-13-24 13:14:45 CDT by Cruz Bourgeois
--- NOTE | 2024-03-13 14:24 | ECHO ---
HEIGHT: 5 ft 10 in WEIGHT: 240 lb 0 oz DATE OF STUDY: 03/13/[address]: Darryl Betancourt MD 2-DIMENSIONAL: YES M.MODE: YES DOPPLER: YES COLOR FLOW: YES TDS: NO PORTABLE: YES DEFINITY: NO BUBBLE STUDY: NO DIAGNOSIS: CONGESTIVE HEART FAILURE CARDIAC HISTORY: CATHERIZATION: NO SURGERY: NO PROSTHETIC VALVE: NO PACEMAKER: NO MEASUREMENTS (cm) DIASTOLIC (NORMALS) SYSTOLIC (NORMALS) IVSd 1.2 (0.6-1.2) LA Diam 4.2 (1.9-4.0) LVEF 56% LVIDd 4.6 (3.5-5.7) LVIDs 3.3 (2.0-3.5) %FS 29% LVPWd 1.3 (0.6-1.2) Ao Diam 2.8 (2.0-3.7) 2 DIMENSIONAL ASSESSMENT: RIGHT ATRIUM: NORMAL LEFT ATRIUM: NORMAL RIGHT VENTRICLE: NORMAL LEFT VENTRICLE: NORMAL TRICUSPID VALVE: MILD TRICUSPID REGURGITATION MITRAL VALVE: MILD MITRAL REGURGITATION PULMONIC VALVE: NORMAL AORTIC VALVE: NORMAL PERICARDIAL EFFUSION: NONE AORTIC ROOT: NORMAL LEFT VENTRICULAR WALL MOTION: NORMAL. DOPPLER/COLOR FLOW: SEE BELOW. COMMENTS: 1. NORMAL LEFT VENTRICULAR EJECTION FRACTION 60-65%. 2. NORMAL WALL MOTION. 3. MILD MITRAL REGURGITATION. 4. TRACE OF TRICUSPID REGURGITATION. TECHNOLOGIST: EDY NGUYEN
[2024-03-13 19:36] VITALS: BMI 34.4
--- NOTE | 2024-03-13 20:28 | P.DS ---
Admission Date: 03/12/24 Discharge Date: 03/14/24 Disposition: DC HOME/HOME HEALTH CARE Discharge Condition: GOOD Reason for Admission: Acute respiratory distress Brief History of Present Illness: patient is a 59-year-old gentleman who is admitted for recurrent pneumonia. Patient with multiple admissions over the last few months with interstitial pneumonia. Patient with bilateral infiltrates with right middle lobe and right lower lobe infiltrates that her fairly significant on chest x-ray. Unknown etiology of patient's recurrent infection. Patient's prior cultures have been negative. Patient with a prior history of macrocytosis and with macrocytic anemia. Patient's procalcitonin levels were on the low side at 0.12. Inflammatory markers are pending. Patient appears to have an interstitial lung disease of unknown etiology. Patient apparently has been vaping over the last few years and is concerned that he may have secondary effect from the vaping. Patient also with history of alcohol abuse. Check a B12 level and will cover for Klebsiella pneumonia. Will get the repeat CT imaging and an echocardiogram. Patient may benefit from bronchoscopy with a biopsy in the future. Will also check inflammatory markers and at this time patient will be admitted to the hospital for further treatment of interstitial lung disease. - Physical Exam General: Alert, In no apparent distress, Oriented x3 HEENT: Atraumatic, PERRLA, Mucous membr. moist/pink, EOMI, Sclerae nonicteric Neck: Supple, 2+ carotid pulse no bruit, No LAD, Without JVD or thyroid abnormality Respiratory: Crackles/rales Cardiovascular: Regular rate/rhythm, Normal S1 S2, No murmurs Gastrointestinal: Normal bowel sounds, Soft and benign, Non-distended, No tenderness Musculoskeletal: No clubbing, No swelling, No tenderness Integumentary: No rashes Neurological: Normal gait, Normal speech, Normal strength at 5/5 x4 extr, Normal tone, Sensation intact, Cranial nerves 3-12 intact, Normal affect Lymphatics: No axilla or inguinal lymphadenopathy Hospital Course: 59-year-old gentleman who is admitted for recurrent pneumonia. Patient with multiple admissions over the last few months with interstitial pneumonia. Patient with bilateral infiltrates with right middle lobe and right lower lobe infiltrates that her fairly significant on chest x-ray. Unknown etiology of patient's recurrent infection. Was noted to have pneumonia, interstitial lung disease, history of vaping. Was treated with oxygen, IV antibiotics, nebs. Will discharge home with home health with home O2. Patient is tolerating diet, will need to follow-up with pulmonary after discharge. Follow-up with PCP in 1 week Assessment Acute hypoxic respiratory failure secondary to pneumonia-discharge home with nebs, antibiotics, home O2. Lactic acidosis, Interstitial lung disease History of nicotine vaping CT of the chest IMPRESSION: No evidence of acute central pulmonary emboli. Pat miranda bilateral airspace opacities, suggestive of an infectious or inflammatory process such as pneumonia. Small to moderate bilateral layering effusions. COVID, neck Continue home medicines as previously prescribed GOAL: Clear understanding of disease process INSTRUCTIONS: Physician Discharge Instructions: -Follow-up with pulmonary after discharge -Follow-up with PCP in 1 to 2 weeks -Please call Dr. Betancourt at [phone] if any questions regarding hospital stay -Please call nursing station at [phone] if any nursing or medication questions -Return to the emergency room if symptoms worsen Diet: ADA, low sodium Activity: Fall precautions Vital Signs/Physical Exam: Temp Pulse Resp BP Pulse Ox 98.7 F 92 H 16 139/87 90 L 03/13/24 16:00 03/13/24 16:00 03/13/24 16:00 03/13/24 16:00 03/13/24 16:00 Laboratory Data at Discharge: WBC 6.10 thou/uL (4.3-10.9) 03/13/24 04:47 Hgb 12.5 g/dL (13.6-17.9) L 03/13/24 04:47 Hct 37.4 % (39.6-49.0) L 03/13/24 04:47 Plt Count 126 thou/uL (152-406) L 03/13/24 04:47 PT 14.8 SECONDS (9.4-12.5) H 03/12/24 12:17 INR 1.33 03/12/24 12:17 APTT 30.8 SECONDS (24.3-36.9) 03/12/24 12:17 Sodium 137 mEq/L (136-145) 03/13/24 04:47 Potassium 3.4 mEq/L (3.5-5.1) L 03/13/24 04:47 BUN 11 mg/dL (7-18) 03/13/24 04:47 Creatinine 0.92 mg/dL (0.70-1.30) 03/13/24 04:47 Glucose 129 mg/dL (74-106) H 03/13/24 04:47 Total Bilirubin 1.2 mg/dL (0.2-1.0) H 03/13/24 04:47 AST 22 U/L (15-37) 03/13/24 04:47 ALT 18 U/L (16-61) 03/13/24 04:47 Alkaline Phosphatase 37 U/L (45-117) L 03/13/24 04:47 Home Medications: Fenofibrate,Micronized [Fenofibrate] 134 mg PO DAILY 06/13/16 Fluoxetine HCl [Prozac] 20 mg PO DAILY 06/13/16 Temazepam 15 mg PO BEDTIME 06/13/16 Aspirin [Aspirin EC 325 MG] 1 tab PO BEDTIME 12/28/20 Ezetimibe [Zetia*] 10 mg PO DAILY 12/28/20 Gabapentin 300 mg PO DAILY 12/26/23 Metoprolol Tartrate [Lopressor*] 50 mg PO BID 12/26/23 Albuterol Inhaler [Ventolin Inhaler*] 2 puff IH Q6H PRN 30 Days #1 inh 03/14/24 Albuterol Neb [Proventil 0.083% Neb Soln] 2.5 mg IH Q6H PRN 30 Days #1 box 03/14/24 Nebulizer Accessories [Sootheneb [id number] Adult Mask] 1 each MC DAILY #1 ea 03/14/24 Nebulizer and Compressor [[place] Choice Nebulizer] 1 ea DAILY PRN 30 Days #1 ea 03/14/24 Valsartan [Diovan*] 40 mg PO DAILY tab 03/14/24 levoFLOXacin [Levaquin*] 750 mg PO DAILY 5 Days #5 tab 03/14/24 predniSONE [Deltasone] 20 mg PO BID 5 Days #10 tab 03/14/24 New Medications: Nebulizer and Compressor [[place] Choice Nebulizer] 1 ea DAILY PRN 30 Days #1 ea PRN Reason: Shortness Of Breath levoFLOXacin [Levaquin*] 750 mg PO DAILY 5 Days #5 tab predniSONE [Deltasone] 20 mg PO BID 5 Days #10 tab Albuterol Neb [Proventil 0.083% Neb Soln] 2.5 mg IH Q6H PRN 30 Days #1 box PRN Reason: Shortness Of Breath Nebulizer Accessories [Sootheneb [id number] Adult Mask] 1 each MC DAILY #1 ea Albuterol Inhaler [Ventolin Inhaler*] 2 puff IH Q6H PRN 30 Days #1 inh PRN Reason: Shortness Of Breath Physician Discharge Instructions: 59-year-old gentleman who is admitted for recurrent pneumonia. Patient with multiple admissions over the last few months with interstitial pneumonia. Patient with bilateral infiltrates with right middle lobe and right lower lobe infiltrates that her fairly significant on chest x-ray. Unknown etiology of patient's recurrent infection. Was noted to have pneumonia, interstitial lung disease, history of vaping. Was treated with oxygen, IV antibiotics, nebs. Will discharge home with home health with home O2. Patient is tolerating diet, will need to follow-up with pulmonary after discharge. Follow-up with PCP in 1 week, follow-up with pulmonology in 1 week Assessment Acute hypoxic respiratory failure secondary to pneumonia-discharge home with nebs, antibiotics, home O2. Lactic acidosis, Interstitial lung disease History of nicotine vaping CT of the chest IMPRESSION: No evidence of acute central pulmonary emboli. Patchy bilateral airspace opacities, suggestive of an infectious or inflammatory process such as pneumonia. Small to moderate bilateral layering effusions. COVID, neck Continue home medicines as previously prescribed GOAL: Clear understanding of disease process INSTRUCTIONS: Physician Discharge Instructions: -Follow-up with pulmonary after discharge -Follow-up with PCP in 1 to 2 weeks -Please call Dr. Betancourt at [phone] if any questions regarding hospital stay -Please call nursing station at [phone] if any nursing or medication questions -Return to the emergency room if symptoms worsen Diet: ADA, low sodium Activity: Fall precautions Diet: AHA Activity: Fall precautions Followup: Baljeet Blair MD [ACTIVE - CAN ADMIT] - Moni Durham FNP [Primary Care Provider] - Time spent managing pt's care (in minutes): 55
--- NOTE | 2024-03-13 21:47 | P.CNS ---
Date of Consult: 03/13/24 Reason for Consult: Bilateral pneumonia Chief Complaint: Acute respiratory distress History of Present Illness: Patient is 59 years of age well-known to me admitted with sudden onset of fever chills chest congestion which started this Sunday he had his bilateral pneumonia before cleared away with IV and p.o. steroid in fact he was off oxygen and now became hypoxic denies any fever or chills currently no rash Allergies Penicillins Allergy (Mild, Verified 12/26/23 18:14) Hives Home Medications: Fenofibrate,Micronized [Fenofibrate] 134 mg PO DAILY 06/13/16 Fluoxetine HCl [Prozac] 20 mg PO DAILY 06/13/16 Temazepam 15 mg PO BEDTIME 06/13/16 Aspirin [Aspirin EC 325 MG] 1 tab PO DAILY 12/28/20 Ezetimibe [Zetia*] 10 mg PO DAILY 12/28/20 Metformin ER [Glucophage ER*] 500 mg PO DAILY 12/28/20 Gabapentin 300 mg PO DAILY 12/26/23 Metoprolol Tartrate [Lopressor*] 50 mg PO DAILY 12/26/23 Valsartan 40 mg PO DAILY 12/26/23 Benzonatate [Tessalon Perle*] 100 mg PO TID PRN 5 Days #15 cap 01/02/24 - Past Medical/Surgical History Diabetic: No -: Hypertension -: Hyperlipidemia -: Alcohol abuse -: NIDDM -: Back surgery -: Right ACL repair -: KAVON surgery Psychosocial/ Personal History: Patient is . 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 - Family History Father Medical History: Heart disease - Social History Smoking Status: Unknown if ever smoked Alcohol use: No CD- Drugs: No Caffeine use: Yes Place of Residence: Home Review of Systems 10-point ROS is otherwise unremarkable Physical Examination Temp Pulse Resp BP Pulse Ox 99.2 F 102 H 19 133/78 91 03/13/24 20:00 03/13/24 20:00 03/13/24 20:00 03/13/24 20:00 03/13/24 20:00 General: Alert, In no apparent distress, Oriented x3 Neck: Supple Respiratory: Clear to auscultation bilaterally Cardiovascular: No edema, Regular rate/rhythm, Normal S1 S2 Gastrointestinal: Normal bowel sounds, Soft and benign Integumentary: No rashes, No breakdown, No significant lesion Neurological: Normal gait, Normal speech - Problems (1) Interstitial lung disease Current Visit: Yes Status: Acute Plan: Patient is 59 years of age admitted with bilateral pneumonia appears to have bilateral interstitial lung disease has a normal white count normal echocar diogram normal renal function normal eosinophils also has a macrocytosis macrocytosis appears to be chronic changed to p.o. prednisone as he responded well and also changed to p.o. levofloxacin he will need to be scheduled for an outpatient bronchoscopy currently remains hypoxic also given him 1 dose of Lasix in December his HIV screen was negative so ordered SAMY and rheumatoid factor
[2024-03-13] MEDS: TEMAZEPAM 15 MG CAP ONE (22:11)
[2024-03-13] MEDS: FUROSEMIDE 20 MG/ 2ML VIAL IV ONE (22:15)
[2024-03-13] MEDS: TEMAZEPAM 15 MG CAP PO SCH (22:15)
[2024-03-14 07:14] LABS: Absolute Lymphocytes (CBC) 0.5 K/uL (0.7-4.9); Absolute Monocytes 0.4 K/uL (0.1-1.3); Absolute Neutrophil 7.8 K/uL (1.8-8.0); Hematocrit 41.2 % (39.6-49.0); Hemoglobin 13.7 g/dL (13.6-17.9); Lymphocytes % 5.4 % (15.3-44.8); MCH 35.8 pg (27.0-35.0); MCHC 33.2 g/dL (32.0-36.0); MCV 107.8 fL (80-100); MPV 8.7 fL (7.6-11.3); Neutrophils % 89.6 % (41.7-73.7); Nucleated Red Blood Cells % 0.1 % (0-0); Platelets 142 thou/uL (152-406); RBC Red Blood Cell Count 3.82 M/uL (4.33-5.43); Red Cell Distribution Width 15.2 % (12.1-15.2)
[2024-03-14 07:33] LABS: Potassium 4.2 mEq/L (3.5-5.1)
[2024-03-14 07:34] LABS: Anion Gap 8.2 mEq/L (5.0-15.0)
--- NOTE | 2024-03-14 08:27 | RAD REPORT ---
EXAM DESCRIPTION: RADChest Single View03/14/2024 5:55 am CLINICAL HISTORY: pneumonia COMPARISON: Chest Single View dated 03/12/2024; Chest Pa And Lat (2 Views) dated 01/21/2024; Chest Sing le View dated 12/29/2023; Chest Single View dated 12/28/2023 TECHNIQUE: Portable AP view of the chest. FINDINGS: Patchy bilateral airspace opacities more pronounced in the right midlung. The pattern is s table. Central venous congestion/edema are to be considered. multifocal pneumonia is also possible, l ess likely. No pneumothorax or effusion. The cardiomediastinal contours are unchanged with mild card iomegaly. IMPRESSION: Stable findings as above.
[2024-03-14] MEDS: FLUOXETINE 20 MG CAP PO SCH (08:46)
[2024-03-14] MEDS: VALSARTAN 40 MG TAB PO SCH (08:46)
[2024-03-14] MEDS: METOPROLOL TAR 50 MG TAB PO SCH (08:46)
[2024-03-14 09:08] VITALS: O2SAT 89
[2024-03-14 09:50] VITALS: BP 128/89; TEMP 98.1
[2024-03-14 17:38] LABS: Rheumatoid Factor NEG (NEG)
[2024-03-18 19:45] LABS: Alpha-1-Antitrypsin 178 mg/dL (83-199)
[2024-03-18 21:46] LABS: C-ANCA Anti-Proteinase 3 <1.0 AI (<1.0); P-ANCA Anti-Myeloperoxidase Ab <1.0 AI (<1.0)
[2024-03-22 13:24] LABS: Anti-Nuclear Antibody Screen Negative (Negative)
== END 2024-03-14 10:26 | disposition home or self-care (01) | DRG 871 ==
LOC: ER 11:50 → ERHOLD 14:01 → 2ND 18:36
PROVIDERS: ADMIT Hospitalist; ATTEND Hospitalist
DX: A41.89 Other specified sepsis (principal); J15.0 Pneumonia due to Klebsiella pneumoniae; J96.01 Acute respiratory failure with hypoxia; E87.20 Acidosis, unspecified; J84.9 Interstitial pulmonary disease, unspecified; R65.20 Severe sepsis without septic shock; I10 Essential (primary) hypertension; D50.9 Iron deficiency anemia, unspecified; E78.00 Pure hypercholesterolemia, unspecified; Z88.0 Allergy status to penicillin; Z11.52 Encounter for screening for COVID-19; Z79.82 Long term (current) use of aspirin; Z79.84 Long term (current) use of oral hypoglycemic drugs; Z79.899 Other long term (current) drug therapy; Z87.891 Personal history of nicotine dependence
CPT/HCPCS: 36415; 71045; 71275; 80048; 80053; 82103; 82607; 83540; 83605; 84145; 84484; 85025; 85610; 85730; 86021; 86038; 86140; 86430; 87040; 87804; 87811; 93005; 93306; 96374; 99285; J1940; J2919; J7040; J7614; Q9967

== ENCOUNTER 2024-03-15 18:24 | Inpatient (IN) | payer BC ==
[2024-03-15 18:53] LABS: Blood Gas Oxyhemoglobin 95.8 % (94-97); Blood Gas THB 14.8 g/dl (12-18); Blood O2 Saturation 99.3 % (92-98.5)
[2024-03-15 19:15] LABS: Absolute Lymphocytes (CBC) 0.6 K/uL (0.7-4.9); Absolute Monocytes 1.2 K/uL (0.1-1.3); Absolute Neutrophil 10.2 K/uL (1.8-8.0); Basophils % 0.1 % (0-1.3); Hematocrit 43.6 % (39.6-49.0); Hemoglobin 14.5 g/dL (13.6-17.9); Lymphocytes % 4.8 % (15.3-44.8); MCH 35.7 pg (27.0-35.0); MCHC 33.3 g/dL (32.0-36.0); MCV 107.3 fL (80-100); MPV 8.6 fL (7.6-11.3); Monocytes % 10.1 % (3.3-12.3); Nucleated Red Blood Cells % 0.1 % (0-0); Platelets 188 thou/uL (152-406); RBC Red Blood Cell Count 4.06 M/uL (4.33-5.43); Red Cell Distribution Width 15.6 % (12.1-15.2)
[2024-03-15 19:35] LABS: Albumin 3.1 g/dL (3.4-5.0); Albumin/Globulin Ratio 0.9 (1.1-1.8); Anion Gap 8.7 mEq/L (5.0-15.0); Bilirubin Direct 0.3 mg/dL (0-0.2); Bilirubin Indirect, Calculated 0.5 mg/dL (0.2-0.8); Bilirubin Total 0.8 mg/dL (0.2-1.0); Globulin 3.4 g/dL (2.3-3.5); Magnesium 2.3 mg/dL (1.6-2.4); Potassium 3.7 mEq/L (3.5-5.1); Protein, Total 6.5 g/dL (6.4-8.2); Troponin High Sensitivity 10.2 pg/mL (<58.9)
[2024-03-15] MEDS ORDERED: ALBUTEROL 2.5 MG/3 ML NEB SOL ONE (19:36)
[2024-03-15] MEDS ORDERED: IPRATROPIUM BROM 0.5MG/2.5ML ONE (19:36)
--- NOTE | 2024-03-15 19:56 | ER ---
Nurse's Notes [facility] Name: Jean-Paul Castillo Age: 59 yrs Sex: Male : 1965 Arrival Date: 03/15/2024 Time: 18:24 Bed 2 Private MD: Diagnosis: Pneumonia;Hypoxic respiratory failure Presentation: 03/15 18:34 Chief complaint: EMS states: they were called out for shortness of breath with patient ap3 who was on home oxygen. patient states he was discharged yesterday from the hospital and was on 5liters of home oxygen and was having a hard time breathing with increased congestion. EMS states patient was 69% SPO2 on 5 liters. EMS placed patient on a non-rebreather and was 90% SPO2 on arrival to the ED. EMS established a 20g IV to the right hand and administered 125mg solumedrol x's 1. Coronavirus screen: At this time, the client does not indicate any symptoms associated with coronavirus-19. Ebola Screen: No symptoms or risks identified at this time. Initial Sepsis Screen: Does the patient meet any 2 criteria? RR > 20 per min. Does the patient have a suspected source of infection? No. Patient's initial sepsis screen is negative. Risk Assessment: Do you want to hurt yourself or someone else? Patient reports no desire to harm self or others. Onset of symptoms was March 15, 2024. Care prior to arrival: Medication(s) given: solumedrol 125 IV initiated. 20 GA, in the right hand. 18:34 Method Of Arrival: EMS: [facility] ap3 18:34 Acuity: ARNULFO 2 ap3 Triage Assessment: 18:37 General: Appears distressed, Behavior is cooperative. Pain: Denies pain. Neuro: Level ap3 of Consciousness is awake, alert, obeys commands, Oriented to person, place, time, situation, Appropriate for age. Cardiovascular: Patient's skin is warm and dry. Respiratory: Reports shortness of breath Airway is patent Respiratory effort is labored, Respiratory pattern is regular, tachypnea. Historical: - Allergies: 18:37 PENICILLINS; ap3 - Home Meds: 22:00 ezetimibe 10 mg Oral tablet 1 tab daily [Active]; fluoxetine 20 mg Oral capsule 1 cap al5 daily [Active]; gabapentin 300 mg Oral capsule 1 cap daily [Active]; metformin 500 mg Oral tablet 1 tab daily [Active]; metoprolol tartrate 50 mg Oral tablet 2 times per day [Active]; temazepam 15 mg Oral capsule 1 cap every day at bedtime [Active]; valsartan 40 mg Oral tablet 1 tab daily [Active]; fenofibrate oral 134 mg 1 cap once [Active]; Hydrochlorothiazide Oral [Active]; - PMHx: 18:37 Hypercholesterolemia; Hypertension; ap3 - PSHx: 22:00 back surgery; al5 - Immunization history:: Adult Immunizations unknown. - Infectious Disease History:: Denies. - Social history:: Smoking status: unknown. - Family history:: not pertinent. Screenin:38 Abuse screen: Denies threats or abuse. Nutritional screening: No deficits noted. ap3 Tuberculosis screening: No symptoms or risk factors identified. 21:15 [facility] ED Fall Risk Assessment (Adult) History of falling in the last 3 months, ha1 including since admission No falls in past 3 months (0 pts) Confusion or Disorientation No (0 pts) Intoxicated or Sedated No (0 pts) Impaired Gait No (0 pts) Mobility Assist Device Used No (0 pt) Altered Elimination Score/Fall Risk Level 0 - 2 = Low Risk Oriented to surroundings, Maintained a safe environment, Educated pt \T\ family on fall prevention, incl call for assistance when getting out of bed, Hourly rounding (assess needs \T\ fall precautionary measures) done. Assessment: 19:15 General: Appears uncomfortable, Behavior is calm, cooperative. Pain: Denies pain. ha1 Neuro: Level of Consciousness is awake, alert, obeys commands, Oriented to person, place, time, situation. Cardiovascular: Reports shortness of breath, Heart tones S1 S2 present Capillary refill < 3 seconds Patient's skin is warm and dry. Respiratory: Reports shortness of breath at rest on exertion Airway is patent Respiratory effort is even, labored, Respiratory pattern is tachypnea. Respiratory: Breath sounds with wheezes bilaterally. GI: No signs and/or symptoms were reported involving the gastrointestinal system. Abdomen is round non-distended. Derm: Skin is pink, warm \T\ dry. Musculoskeletal: Circulation, motion, and sensation intact. Range of motion: intact in all extremities. 20:15 Reassessment: Patient and/or family updated on plan of care and expected duration. Pain ha1 level reassessed. Patient is alert, oriented x 3, equal unlabored respirations, skin warm/dry/pink. Patient states feeling better. Patient states symptoms have improved. 21:18 Reassessment: Patient and/or family updated on plan of care and expected duration. Pain ha1 level reassessed. Patient is alert, oriented x 3, equal unlabored respirations, skin warm/dry/pink. Patient denies pain at this time. Patient states feeling better. Patient states symptoms have improved. Vital Signs: 18:34 BP 151 / 98; Pulse 89; Resp 26; Temp 97.5; Pulse Ox 100% on BiPAP; ap3 20:15 BP 158 / 109; Pulse 89; Resp 27 S; Pulse Ox 98% on BiPAP; ha1 21:15 BP 158 / 97; Pulse 82; Resp 29 S; Pulse Ox 97% on BiPAP; ha1 22:04 BP 164 / 97; Pulse 84; Resp 18; Temp 97.5; Pulse Ox 97% on R/A; al5 ED Course: 18:33 Patient arrived in ED. ap3 18:34 Onel Cope MD is Attending Physician. rt 18:37 Triage completed. ap3 18:38 Patient has correct armband on for positive identification. Bed in low position. Call ap3 light in reach. Side rails up X2. Client placed on continuous cardiac and pulse oximetry monitoring. NIBP monitoring applied. potline monitor on. Pulse ox on. NIBP on. 18:38 O2 via bipap : 16/10, 90%o2. ap3 19:04 Arm band placed on right wrist. ap3 19:04 EKG done, by ED staff, reviewed by Onel Cope MD. O2 via bipap changed to 12/6 and ap3 70% after ABG results. 19:05 Michaela Hahn, RICHIE is Primary Nurse. ap3 19:40 XRAY Chest (1 view) In Process Unspecified. EDMS 19:54 Ben Cortez MD is Hospitalizing Provider. rt 21:21 Maintain EMS IV. Dressing intact. Good blood return noted. Site clean \T\ dry. Gauge \T\ fuentes 1 site: 20 gauge RH. Flushed. 21:59 Provided Education on: processes and procedures. al5 22:00 No provider procedures requiring assistance completed. al5 22:00 Patient admitted, IV remains in place. al5 Administered Medications: 19:44 Drug: DuoNeb Nebulize (3:1) (2.5 mg - 0.5 mg) 3 ml Nebulizer once Route: Nebulizer; ha1 22:05 Follow up: Response: No adverse reaction al5 22:59 Follow up: Response: No adverse reaction; Marked relief of symptoms ha1 20:41 Drug: LevaQUIN IVPB 750 mg IVPB once Route: IVPB; Site: right hand; ha1 22:45 Follow up: Response: No adverse reaction; IV Status: Completed infusion; IV Intake: ha1 150ml Medication: 19:04 VIS not applicable for this client. ap3 Intake: 22:45 IV: 150ml; Total: 150ml. ha1 Outcome: 19:55 Decision to Hospitalize by Provider. rt 22:10 Admitted to Med/surg Report called to karlee ramos 22:58 Condition: stable ha1 22:58 Patient left the ED. ha1 Signatures: Dispatcher [employer] EDMS Michaela Hahn RN RN ap3 Lizzie Holt RN RN ha1 Onel Cope MD MD rt Michaela Keller RN RN al5
--- NOTE | 2024-03-15 19:56 | EDPHYS ---
Physician Documentation [facility] Name: Jean-Paul Castillo Age: 59 yrs Sex: Male : 1965 Arrival Date: 03/15/2024 Time: 18:24 Bed 2 Private MD: ED Physician Onel Cope HPI: 03/15 19:19 This 59 yrs old Male presents to ER via EMS with complaints of Shortness Of Breath. rt 19:19 Patient was recently mated to the hospital for pneumonia. Was subsequently sent home on rt 5 L of oxygen chronically. Patient was discharged yesterday. Patient had worsening shortness of breath today. Oxygen saturations on the 5 L were 69%, only corrected to 80% on nonrebreather. Patient states that he did symptomatically improve but is still short of breath. Denies other acute complaints at this time, symptoms are severe in severity, no other aggravating or alleviating factors.. Historical: - Allergies: 18:37 PENICILLINS; ap3 - Home Meds: 22:00 ezetimibe 10 mg Oral tablet 1 tab daily [Active]; fluoxetine 20 mg Oral capsule 1 cap al5 daily [Active]; gabapentin 300 mg Oral capsule 1 cap daily [Active]; metformin 500 mg Oral tablet 1 tab daily [Active]; metoprolol tartrate 50 mg Oral tablet 2 times per day [Active]; temazepam 15 mg Oral capsule 1 cap every day at bedtime [Active]; valsartan 40 mg Oral tablet 1 tab daily [Active]; fenofibrate oral 134 mg 1 cap once [Active]; Hydrochlorothiazide Oral [Active]; - PMHx: 18:37 Hypercholesterolemia; Hypertension; ap3 - PSHx: 22:00 back surgery; al5 - Immunization history:: Adult Immunizations unknown. - Infectious Disease History:: Denies. - Social history:: Smoking status: unknown. - Family history:: not pertinent. ROS: 19:19 Constitutional: Negative for fever, chills, and weight loss, Cardiovascular: Negative rt for chest pain, palpitations, and edema, Abdomen/GI: Negative for abdominal pain, nausea, vomiting, diarrhea, and constipation, MS/Extremity: Negative for injury and deformity, Skin: Negative for injury, rash, and discoloration, Neuro: Negative for headache, weakness, numbness, tingling, and seizure, 19:19 Respiratory: Positive for cough, shortness of breath, Exam: 19:19 Constitutional: This is a well developed, well nourished patient who is awake, alert, rt and in no acute distress. Head/Face: Normocephalic, atraumatic. Chest/axilla: Normal chest wall appearance and motion. Nontender with no deformity. No lesions are appreciated. Cardiovascular: Regular rate and rhythm with a normal S1 and S2. No gallops, murmurs, or rubs. Normal PMI, no JVD. No pulse deficits. Abdomen/GI: Soft, non-tender, with normal bowel sounds. No distension or tympany. No guarding or rebound. No evidence of tenderness throughout. Skin: Warm, dry with normal turgor. Normal color with no rashes, no lesions, and no evidence of cellulitis. MS/ Extremity: Pulses equal, no cyanosis. Neurovascular intact. Full, normal range of motion. Neuro: Awake and alert, GCS 15, oriented to person, place, time, and situation. Cranial nerves II-XII grossly intact. Motor strength 5/5 in all extremities. Sensory grossly intact. Cerebellar exam normal. Normal gait. 19:19 ECG was reviewed by the Attending Physician. 19:19 Respiratory: Coarse breath sounds diffusely, respiratory distress noted, Vital Signs: 18:34 BP 151 / 98; Pulse 89; Resp 26; Temp 97.5; Pulse Ox 100% on BiPAP; ap3 20:15 BP 158 / 109; Pulse 89; Resp 27 S; Pulse Ox 98% on BiPAP; ha1 21:15 BP 158 / 97; Pulse 82; Resp 29 S; Pulse Ox 97% on BiPAP; ha1 22:04 BP 164 / 97; Pulse 84; Resp 18; Temp 97.5; Pulse Ox 97% on R/A; al5 MDM: 18:34 Patient medically screened. rt 19:19 Differential diagnosis: Pneumonia, hypoxia, hypoxic respiratory failure. Data reviewed: rt vital signs, nurses notes, lab test result(s), EKG, radiologic studies. Consideration of Admission/Observation Patient was admitted/placed on observation. Management of patient was discussed with the following: Hospitalist: Agrees to admit. I considered the following discharge prescriptions or medication management in the emergency department Medications were administered in the Emergency Department. See MAR. Test considered but Not performed: CT: Do not suspect PE clinically, CT angiogram not indicated. Care significantly affected by the following chronic conditions: Hypertension. Counseling: I had a detailed discussion with the patient and/or guardian regarding the historical points, exam findings, and any diagnostic results supporting the discharge/admit diagnosis, lab results, radiology results, the need for further work-up and treatment in the hospital. Response to treatment: the patient's symptoms have markedly improved after treatment. 19:55 Independent interpretation of the following test(s) in the Emergency Department X-Ray: rt My interpretation is No pneumothorax seen on my interpretation of x-ray images. 03/15 18:35 Order name: Basic Metabolic Panel; Complete Time: 19:37 rt 03/15 18:35 Order name: CBC with Diff rt 03/15 18:35 Order name: LFT's; Complete Time: 19:37 rt 03/15 18:35 Order name: Magnesium; Complete Time: 19:37 rt 03/15 18:35 Order name: NT PRO-BNP; Complete Time: 19:37 rt 03/15 18:35 Order name: Troponin HS; Complete Time: 19:37 rt 03/15 18:35 Order name: ABG; Complete Time: 19:37 rt 03/15 20:55 Order name: Urinalysis w/ reflexes [facility] 03/15 20:55 Order name: CBC with Automated Diff [facility] 03/15 20:55 Order name: CBC with Automated Diff [facility] 03/15 20:55 Order name: Comprehensive Metabolic Panel [facility] 03/15 20:55 Order name: Comprehensive Metabolic Panel [facility] 03/15 21:32 Order name: CBC Smear Scan [facility] 03/15 18:33 Order name: BiPap ([employer] Only) [facility] 03/15 18:35 Order name: XRAY Chest (1 view) 03/15 18:57 Order name: ARTERIAL PUNCTURE [facility] 03/15 18:35 Order name: Cardiac monitoring; Complete Time: 18:41 rt 03/15 18:35 Order name: EKG - Nurse/Tech; Complete Time: 19:04 rt 03/15 18:35 Order name: IV Saline Lock; Complete Time: 19:05 rt 03/15 18:35 Order name: Labs collected and sent; Complete Time: 19:08 rt 03/15 18:35 Order name: O2 Per Protocol; Complete Time: 18:41 rt 03/15 18:35 Order name: O2 Sat Monitoring; Complete Time: 18:41 rt EC:19 Rate is 87 beats/min. Rhythm is regular, Normal Sinus Rhythm with No ectopy. QT rt interval is prolonged at 498 msec. No Q waves. No ST changes noted. Administered Medications: 19:44 Drug: DuoNeb Nebulize (3:1) (2.5 mg - 0.5 mg) 3 ml Nebulizer once Route: Nebulizer; ha1 22:05 Follow up: Response: No adverse reaction al5 22:59 Follow up: Response: No adverse reaction; Marked relief of symptoms ha1 20:41 Drug: LevaQUIN IVPB 750 mg IVPB once Route: IVPB; Site: right hand; ha1 22:45 Follow up: Response: No adverse reaction; IV Status: Completed infusion; IV Intake: ha1 150ml Disposition: 19:19 Critical Care:. rt Disposition Summary: 03/15/24 19:55 Hospitalization Ordered Notes: Provider: Ben Cortez rt Condition: Critical rt Problem: an ongoing problem rt Symptoms: have improved rt Bed/Room Type: Standard rt Hospitalization Status: Inpatient Admission(03/15/24 21:01) Location: Telemetry/[facility] (Inpatient)(03/15/24 21:01) Room Assignment: [facility](03/15/24 21:01) Diagnosis - Pneumonia rt - Hypoxic respiratory failure rt Forms: - Medication Reconciliation Form rt - SBAR form rt - Leadership Thank You Letter rt Critical care time excluding procedures: 19:19 Critical care time: Bedside Care: 30 minutes, Consultation: 5 minutes. Total time: 35 rt minutes Signatures: Dispatcher [employer] EDMS Laura Wiley RN RN kl Prokisch, Amanda, RN RN ap3 Lizzie Holt RN RN ha1 Onel Cope MD MD rt Michaela Keller RN RN al5 Corrections: (The following items were deleted from the chart) 18:36 18:36 BASIC METABOLIC PANEL+C.LAB.BRZ ordered. EDMS EDMS 18:36 18:36 CBC+H.LAB.BRZ ordered. EDMS EDMS 18:36 18:36 HEPATIC FUNCTION+C.LAB.BRZ ordered. EDMS EDMS 18:36 18:36 MAGNESIUM+C.LAB.BRZ ordered. EDMS EDMS 18:36 18:36 PROBNP+C.LAB.BRZ ordered. EDMS EDMS 18:36 18:36 Troponin High Sensitivity+C.LAB.BRZ ordered. EDMS EDMS 18:36 18:36 Arterial Blood Gas+RC.LAB.BRZ ordered. EDMS EDMS 21:01 19:55 Inpatient Admission rt kl 21:01 19:55 Intensive Care Unit rt kl 21:01 19:55 rt kl
--- NOTE | 2024-03-15 19:59 | P.HP ---
Certification for Inpatient Patient admitted to: Inpatient With expected LOS: >2 Midnights Practitioner: I am a practitioner with admitting privileges, knowledge of patient current condition, hospital course, and medical plan of care. Services: Services provided to patient in accordance with Admission requirements found in Title 42 Section 412.3 of the Code of Federal Regulations Patient History Date of Service: 03/15/24 Reason for admission: Resp Distress History of Present Illness: 59 yrs old Male with past medical history of hypertension, hyperlipidemia, diabetes, alcohol abuse, back surgery, sleep apnea was recently been admitted and was discharged home with recurrent pneumonia brought to ER with shortness of breath . He was diagnosed with pneumonia and was subsequently sent home on 5 L of oxygen . Patient was discharged yesterday. Patient had worsening shortness of breath today. Oxygen saturations on the 5 L were 69%, only corrected to 80% on nonrebreather. Patient was assessed in the ER and was admitted for further management and was placed on BiPAP . On BiPAP patient was responding well , saturation of 95 at the time of admission. Patient denies any fever or chills. No nausea vomiting or diarrhea. Complains of cough with mucoid expectoration. Patient had a recent echo which was showing normal ejection fraction and no diastolic dysfunction . Allergies Penicillins Allergy (Mild, Verified 12/26/23 18:14) Hives Home medications list reviewed: Yes Home Medications: Fenofibrate,Micronized [Fenofibrate] 134 mg PO DAILY 06/13/16 Fluoxetine HCl [Prozac] 20 mg PO DAILY 06/13/16 Temazepam 15 mg PO BEDTIME 06/13/16 Aspirin [Aspirin EC 325 MG] 1 tab PO DAILY 12/28/20 Ezetimibe [Zetia*] 10 mg PO DAILY 12/28/20 Metformin ER [Glucophage ER*] 500 mg PO DAILY 12/28/20 Gabapentin 300 mg PO DAILY 12/26/23 Metoprolol Tartrate [Lopressor*] 50 mg PO DAILY 12/26/23 Valsartan 40 mg PO DAILY 12/26/23 Albuterol Inhaler [Ventolin Inhaler*] 2 puff IH Q6H PRN 30 Days #1 inh 03/14/24 Albuterol Neb [Proventil 0.083% Neb Soln] 2.5 mg IH Q6H PRN 30 Days #1 box 07/26/24 Benzonatate [Tessalon Perle*] 100 mg PO TID PRN 5 Days #15 cap 03/14/24 Nebulizer Accessories [Sootheneb [id number] Adult Mask] 1 each MC DAILY #1 ea 03/14/24 Nebulizer and Compressor [[place] Choice Nebulizer] 1 ea MC DAILY PRN 30 Days #1 ea 03/14/24 Valsartan [Diovan*] 40 mg PO DAILY tab 03/14/24 levoFLOXacin [Levaquin*] 750 mg PO DAILY 5 Days #5 tab 03/14/24 predniSONE [Deltasone] 20 mg PO BID 5 Days #10 tab 03/14/24 - Past Medical/Surgical History Diabetic: No Past Medical History: Reviewed- Non-Contributory -: Hypertension -: Hyperlipidemia -: Alcohol abuse -: NIDDM Past Surgical History: Reviewed- Non-Contributory -: Back surgery -: Right ACL repair -: KAVON surgery Psychosocial/ Personal History: Patient is . 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 - Family History Father -: Heart disease - Social History Smoking Status: Former smoker Alcohol use: Yes CD- Drugs: No Caffeine use: Yes Review of Systems 10-point ROS is otherwise unremarkable Physical Examination - Vital Signs Temperature: 98.2 F Blood Pressure: 128/70 Pulse: 87 Respirations: 20 Pulse Ox (%): 94 - Physical Exam General: Alert, Oriented x3, Moderate distress HEENT: Atraumatic, Normocephalic Neck: Supple Respiratory: Diminished, Crackles/rales, Expiratory wheezes Cardiovascular: Regular rate/rhythm, Normal S1 S2 Capillary refill: <2 Seconds Gastrointestinal: Soft and benign, W/out hepatosplenomegaly Musculoskeletal: No clubbing Integumentary: No rashes Neurological: Normal speech, Normal strength at 5/5 x4 extr, Cranial nerves 3-12 intact, Normal reflexes 2+ Lymphatics: No axilla or inguinal lymphadenopathy - Studies Laboratory Data (last 24 hrs) 03/15/24 03/15/24 19:05 19:05 WBC 12.00 H Hgb 14.5 Hct 43.6 Plt Count 188 Sodium 137 Potassium 3.7 BUN 20 H Creatinine 1.19 Glucose 230 H Magnesium 2.3 Total Bilirubin 0.8 AST 31 ALT 23 Alkaline Phosphatase 55 Assessment and Plan - Problems (Diagnosis) (1) Acute hypoxic respiratory failure Current Visit: No Status: Acute (2) Pneumonia Current Visit: No Status: Acute Plan: Respiratory distress Acute hypoxic respiratory failure On BiPAP Monitor under telemetry Will try to wean off oxygen requirement Pneumonia Started on Zosyn Will add on azithromycin for atypicals Monitor closely on telemetry Will obtain cultures ? Bronchospasm Asthma exacerbation Bronchodilators Will add on steroids Hypertension Antihypertensives titrated Continue home medications and titrate as needed Hyperlipidemia Continue statin Diabetes Insulin sliding scale Accu-Chek before every meal and at bedtime GI/DVT prophylaxis Advanced directive full code Qualifiers: Pneumonia type: due to unspecified organism Discharge Plan: Home Plan to discharge in: 48 Hours - Advance Directives Does patient have a Living Will: No Does patient have a Durable POA for Healthcare: No - Code Status/Comfort Care Code Status: Full Code Time Spent Managing Pts Care (In Minutes): 48
--- NOTE | 2024-03-15 20:10 | RAD REPORT ---
[facility]39 pm CLINICAL HISTORY: DYSPNEA COMPARISON: Chest Single View dated 03/14/2024; Chest Single View dated 03/12/2024; Chest Pa And Lat ( 2 Views) dated 01/21/2024; Chest Single View dated 12/29/2023 TECHNIQUE: Portable AP view of the chest. FINDINGS: Pattern of patchy bilateral airspace opacification is mildly progressive since the prior e xam. This may reflect worsening pulmonary edema or multifocal pneumonia. No pneumothorax or effusion . The cardiomediastinal contours are unremarkable. IMPRESSION: Worsened findings as above.
[2024-03-15] MEDS ORDERED: Levofloxacin 750mg IV 750 MG/150 ML BAG IV ONE (20:27)
[2024-03-15] MEDS ORDERED: ONDANSETRON 4 MG/2 ML VIAL IV PRN (20:46)
[2024-03-15] MEDS ORDERED: ACETAMINOPHEN 325 MG TABLET PO PRN (20:46)
[2024-03-15] MEDS: PIPER TAZO 3.375 GM in NA CHLORIDE 0.9% 100 ML IV ONE (21:30)
[2024-03-15 21:32] LABS: Anisocytosis 1+; Blood Morphology Comment NOTED (NOT SEEN); Platelet Estimate ADEQ; White Blood Cell Scan OK (OK)
[2024-03-15] MEDS ORDERED: D50W 25 GM/50 ML SYRINGE IV PRN (22:13)
[2024-03-15] MEDS ORDERED: GLUCAGON 1 MG/VIAL IM PRN (22:13)
[2024-03-15] MEDS ORDERED: D10W 125 ML IV PRN (22:46)
[2024-03-15] MEDS: FUROSEMIDE 20 MG/ 2ML VIAL IV SCH (23:09)
[2024-03-15] MEDS: AZITHROMYCIN IV 500 MG in NA CHLORIDE 0.9% 250 ML IVPB SCH (23:55)
[2024-03-16] MEDS: METHYLPREDNISOLONE 40 MG INJ IV SCH (00:18)
[2024-03-16 00:19] LABS: Sqamous Epithelial None Seen /HPF (None Seen); Urine Bacteria None Seen /HPF (<20); Urine Bilirubin NEGATIVE (Negative); Urine Blood Negative (Negative); Urine Clarity Clear (Clear); Urine Color Light-Yellow (Yellow); Urine Culture Reflex Order NOT NEEDED; Urine Glucose 2+ (Negative); Urine Ketones NEGATIVE (Negative); Urine Microscopic Reflex YN ORDER UMIC; Urine Mucus Slight /HPF (None Seen); Urine Nitrite NEGATIVE (Negative); Urine Protein NEGATIVE (Negative); Urine RBC None Seen /HPF (None Seen); Urine Urobilinogen Normal (Normal); Urine WBC <5 /HPF (<5); Urine pH 6.5 (5.0-7.0)
[2024-03-16] MEDS ORDERED: AZTREONAM 1 GM in NA CHLORIDE 0.9% 100 ML IV SCH (01:00)
[2024-03-16] MEDS: AZTREONAM ONE ×2 (01:12→02:56)
[2024-03-16] MEDS: IPRATROPIUM BROM 0.5MG/2.5ML NEB SCH (01:15)
[2024-03-16] MEDS: ALBUTEROL 2.5 MG/3 ML NEB SOL NEB SCH (01:15)
[2024-03-16] MEDS: AZTREONAM 2 GM in NA CHLORIDE 0.9% 100 ML IV SCH (02:00)
[2024-03-16] MEDS: NA CHLORIDE 0.9% 100 ML ONE (02:56)
[2024-03-16] MEDS ORDERED: PIPER TAZO 3.375 GM in NA CHLORIDE 0.9% 100 ML IV SCH (03:00)
[2024-03-16 06:58] LABS: Absolute Lymphocytes (CBC) 0.3 K/uL (0.7-4.9); Absolute Monocytes 0.4 K/uL (0.1-1.3); Absolute Neutrophil 6.8 K/uL (1.8-8.0); Basophils % 0.1 % (0-1.3); Hematocrit 40.1 % (39.6-49.0); Hemoglobin 13.5 g/dL (13.6-17.9); Lymphocytes % 3.5 % (15.3-44.8); MCH 35.9 pg (27.0-35.0); MCHC 33.7 g/dL (32.0-36.0); MCV 106.5 fL (80-100); MPV 8.4 fL (7.6-11.3); Monocytes % 4.7 % (3.3-12.3); Neutrophils % 91.7 % (41.7-73.7); Nucleated Red Blood Cells % 0.2 % (0-0); Platelets 152 thou/uL (152-406); RBC Red Blood Cell Count 3.77 M/uL (4.33-5.43); Red Cell Distribution Width 15.2 % (12.1-15.2)
--- NOTE | 2024-03-16 07:08 | P.PN ---
Date of Service: 03/16/24 Subjective shortness of breath on exertion, BiPAP overnight on 12L HF, CT negative PE Review of Systems 10-point ROS is otherwise unremarkable Physical Examination - Vital Signs Temperature: 98.2 F Blood Pressure: 128/70 Pulse: 87 Respirations: 20 Pulse Ox (%): 94 - Physical Exam General: Alert, Oriented x3, Moderate distress HEENT: Atraumatic, Normocephalic Neck: Supple Respiratory: Diminished, Crackles/rales, hypoxic Cardiovascular: Regular rate/rhythm, Normal S1 S2 Capillary refill: <2 Seconds Gastrointestinal: Soft and benign, W/out hepatosplenomegaly Musculoskeletal: No clubbing, generalized weakness, Integumentary: No rashes Neurological: Normal speech, Normal strength at 5/5 x4 extr, Lymphatics: No axilla or inguinal lymphadenopathy Assessment and Plan - Problems (Diagnosis) Respiratory distress Acute hypoxic respiratory failure Bilateral interstitial pneumonia. overnight On BiPAP, 03/16 HF 12L 92% Monitor under telemetry Will try to wean off oxygen requirement Started on Zosyn Bronchodilators Will add on steroids Will add on azithromycin for atypicals Monitor closely on telemetry Will obtain cultures CXR FINDINGS: Pattern of patchy bilateral airspace opacification is mildly progressive since the prior exam. This may reflect worsening pulmonary edema or multifocal pneumonia. No pneumothorax or effusion. The cardiomediastinal contours are unremarkable. IMPRESSION: Worsened findings as above. Pulmonary consulted CT chest IMPRESSION: Partial improvement of bilateral central and basilar predominant consolidative airspace opacities and small effusions suggesting improving pneumonia. There is however a progressive pattern of diffuse ground-glass opacification in the bilateral upper lobes and left lower lobe, which may reflect an element of fluid overload. Elevated BNP Lasix twice daily Trend BNP 03/13 ECHO 1. NORMAL LEFT VENTRICULAR EJECTION FRACTION 60-65%. 2. NORMAL WALL MOTION. 3. MILD MITRAL REGURGITATION. 4. TRACE OF TRICUSPID REGURGITATION Hypertension Antihypertensives titrated Continue home medications and titrate as needed Hyperlipidemia Continue statin Diabetes Insulin sliding scale Accu-Chek before every meal and at bedtime GI/DVT prophylaxis Advanced directive full code Qualifiers: Pneumonia type: due to unspecified organism Discharge Plan: Home Plan to discharge in: 48 Hours - Advance Directives Does patient have a Living Will: No Does patient have a Durable POA for Healthcare: No - Code Status/Comfort Care Code Status: Full Code Time Spent Managing Pts Care (In Minutes): 35 <Moosa,Daly - Last Filed: 03/16/24 14:36> Patient was seen and examined. Events of the last 24 hours have been noted. Spoke with with SEBASTIAN regarding patient's clinical picture after evaluating and examining the patient independently. I performed a substantial part of the MDM during this patient's care today. I personally made or approved the documented management plan and acknowledge its risk of complications. I agree with the findings and documentation provided in the SEBASTIAN's notes. Patient with bilateral interstitial lung disease. Planning on outpatient bronchoscopy. Continue with antibiotics and steroids at this time. Appreciate Pulmonary recommendations. <Darryl Betancourt - Last Filed: 03/16/24 22:45>
[2024-03-16 07:19] LABS: Albumin 2.7 g/dL (3.4-5.0); Albumin/Globulin Ratio 0.8 (1.1-1.8); Anion Gap 7.9 mEq/L (5.0-15.0); Bilirubin Total 0.8 mg/dL (0.2-1.0); Globulin 3.3 g/dL (2.3-3.5); Potassium 3.9 mEq/L (3.5-5.1)
[2024-03-16] MEDS ORDERED: METOPROLOL TAR 50 MG TAB PO SCH (09:00)
[2024-03-16] MEDS ORDERED: HOME MED 1 EA UNK (Fluoxetine Hcl [Prozac] 40 MG Capsule) PO SCH (09:00)
[2024-03-16] MEDS ORDERED: FENOFIBRATE MICRONIZED 134 MG PO SCH (09:00)
[2024-03-16] MEDS: ENOXAPARIN 40 MG/0.4 ML SQ SCH (09:23)
[2024-03-16] MEDS: FLUOXETINE 20 MG CAP PO SCH (09:25)
[2024-03-16] MEDS: METOPROLOL TAR 50 MG TAB PO SCH (09:25)
[2024-03-16] MEDS: GABAPENTIN 300 MG CAP PO SCH (09:25)
[2024-03-16] MEDS: EZETIMIBE 10 MG TAB PO SCH (09:25)
[2024-03-16] MEDS: VALSARTAN 40 MG TAB PO SCH (09:25)
[2024-03-16] MEDS: FENOFIBRATE 160 MG TAB PO SCH (09:26)
[2024-03-16] MEDS: FUROSEMIDE 40 MG/4 ML VIAL IV SCH (09:26)
[2024-03-16] MEDS: INSULIN REGULAR (HUMAN) 100 UNIT/ML SQ SCH (09:27)
--- NOTE | 2024-03-16 13:28 | RAD REPORT ---
EXAM DESCRIPTION: CT - Thorax W/ Con - 03/16/2024 12:15 pm CLINICAL HISTORY: hypoxia COMPARISON: Chest Angio dated 03/13/2024; Chest For Pe Angio dated 12/31/2023; Chest Single View dated 03/15/2024 TECHNIQUE: Axial thin cut images of the chest were obtained following IV administration of iodinated contrast. Multiplanar reformats were generated and reviewed. All CT scans are performed using dose optimization technique as appropriate and may include automated exposure control or mA/KV adjustment according to patient size. FINDINGS: Progressive nearly diffuse ground-glass opacities in the bilateral upper lobes and left lo wer lobe. Patchy consolidative opacification in a central and bibasilar distribution is otherwise par tially improved. Partially improving bilateral small effusions larger on the right. No pleural thicke roberta. No pneumothorax. No abnormal mediastinal or hilar masses or lymphadenopathy seen. No significant aortic or pulmonary a rtery findings. Assessment is limited in the absence of IV contrast. No chest wall mass or abnormal axillary lymphadenopathy. Evaluation of the solid abdominal structures reveals no suspicious findings. IMPRESSION: Partial improvement of bilateral central and basilar predominant consolidative airspace opacities and small effusions suggesting improving pneumonia. There is however a progressive pattern of diffuse ground-glass opacification in the bilateral upper l obes and left lower lobe, which may reflect an element of fluid overload.
[2024-03-16] MEDS: Levofloxacin 750mg IV 750 MG/150 ML BAG IV SCH (14:44)
[2024-03-16] MEDS: METHYLPREDNISOLONE 125 MG INJ IV SCH (17:11)
[2024-03-16] MEDS: TEMAZEPAM 15 MG CAP PO SCH (19:51)
[2024-03-16] MEDS: ASPIRIN EC 325 MG TABLET PO SCH (19:51)
[2024-03-17 07:13] LABS: Absolute Lymphocytes (CBC) 0.4 K/uL (0.7-4.9); Absolute Monocytes 0.7 K/uL (0.1-1.3); Absolute Neutrophil 9.1 K/uL (1.8-8.0); Hemoglobin 14.2 g/dL (13.6-17.9); Lymphocytes % 3.5 % (15.3-44.8); MCH 35.1 pg (27.0-35.0); MCV 106.4 fL (80-100); MPV 9.1 fL (7.6-11.3); Monocytes % 6.8 % (3.3-12.3); Neutrophils % 89.7 % (41.7-73.7); Nucleated Red Blood Cells % 0.1 % (0-0); Platelets 169 thou/uL (152-406); RBC Red Blood Cell Count 4.04 M/uL (4.33-5.43); Red Cell Distribution Width 14.9 % (12.1-15.2)
[2024-03-17 07:32] LABS: Anion Gap 5.7 mEq/L (5.0-15.0); C-Reactive Protein 30.3 mg/L (<3.00); Potassium 3.7 mEq/L (3.5-5.1)
--- NOTE | 2024-03-17 10:08 | P.PN ---
Subjective Date of Service: 03/17/24 Chief Complaint: Resp Distress Subjective: No new changes (continued resp distress, O2 at 15L - SpO2 84-85%, pt appears anxious, still, sitting 90 degrees, will increase to Vapotherm at 20L and re-assess) <Magi Burtonlen - Last Filed: 03/17/24 10:08> Date of Service: 03/17/24 <Darryl Betancourtzal - Last Filed: 03/18/24 01:31> Review of Systems 10-point ROS is otherwise unremarkable General: As per HPI Respiratory: Shortness of Breath, As per HPI <Jeanne Burtonbinta Cancino - Last Filed: 03/17/24 10:08> Physical Examination - Vital Signs Temperature: 99.1 F Blood Pressure: 159/81 Pulse: 87 Respirations: 18 Pulse Ox (%): 86 - Physical Exam General: Alert, In no apparent distress HEENT: Atraumatic, Normocephalic, Other (subconjunctival hemorrhages bilat) Neck: Supple Respiratory: Diminished Cardiovascular: No edema, Normal pulses, Regular rate/rhythm Capillary refill: <2 Seconds Gastrointestinal: Soft and benign Musculoskeletal: No clubbing, No swelling Integumentary: No rashes Neurological: Normal speech, Normal tone, Abnormal affect Lymphatics: No axilla or inguinal lymphadenopathy External genitalia: Deferred Rectal: Deferred <Jeanne Burtonbinta Cancino - Last Filed: 03/17/24 10:08> Assessment And Plan - Plan Assessment and Plan - Problems (Diagnosis) (1) Acute hypoxic respiratory failure Current Visit: No Status: Acute (2) Pneumonia Current Visit: No Status: Acute Plan: Respiratory distress Acute hypoxic respiratory failure On BiPAP, to 15L, 03/17/24 not sufficient to keep Sats >90. Upgrade to Vapotherm at 20L Monitor under telemetry Will try to wean off oxygen requirement Anxiety 2nd to Resp failure Ativan 1mg SL TID prn Pneumonia Started on Zosyn Will add on azithromycin for atypicals Monitor closely on telemetry Will obtain cultures ? Bronchospasm Asthma exacerbation Bronchodilators Will add on steroids Hypertension Antihypertensives titrated Continue home medications and titrate as needed Hyperlipidemia Continue statin Diabetes Insulin sliding scale Accu-Chek before every meal and at bedtime GI/DVT prophylaxis Advanced directive full code Qualifiers: Pneumonia type: due to unspecified organism Discharge Plan: Home Plan to discharge in: 48 Hours - Advance Directives Does patient have a Living Will: No Does patient have a Durable POA for Healthcare: No <Magi Burton Barak - Last Filed: 03/17/24 10:08> Date of Service: 03/17/24 Patient was seen and examined. Events of the last 24 hours have been noted. Spoke with with SEBASTIAN regarding patient's clinical picture after evaluating and examining the patient independently. I performed a substantial part of the MDM during this patient's care today. I personally made or approved the documented management plan and acknowledge its risk of complications. I agree with the findings and documentation provided in the SEBASTIAN's notes. Patient with bilateral interstitial lung disease. Patient was little more hypoxic than baseline. Increase IV steroids. Chest x-ray shows improvement however. Pulmonary may need to proceed with bronc once patient stabilizes. Continue with antibiotics and steroids at this time. <Darryl Betancourt - Last Filed: 03/18/24 01:31>
[2024-03-17] MEDS: CYANOCOBALAMIN 1000MCG/ML INJ SQ ONE (10:22)
--- NOTE | 2024-03-17 12:21 | P.CNS ---
Date of Consult: 03/17/24 Reason for Consult: Respiratory distress Chief Complaint: Resp Distress History of Present Illness: And is 59 years of age admitted with recurrent interstitial pneumonia he was just recently discharged went home became very hypoxic dyspneic cyanotic ended up back in the hospital is currently on BiPAP x-ray CT scan shows diffuse bilateral infiltrates denies any fever or chills Allergies Penicillins Allergy (Mild, Verified 12/26/23 18:14) Hives Home Medications: Fenofibrate,Micronized [Fenofibrate] 134 mg PO DAILY 06/13/16 Fluoxetine HCl [Prozac] 20 mg PO DAILY 06/13/16 Temazepam 15 mg PO BEDTIME 06/13/16 Aspirin [Aspirin EC 325 MG] 1 tab PO BEDTIME 12/28/20 Ezetimibe [Zetia*] 10 mg PO DAILY 12/28/20 Gabapentin 300 mg PO DAILY 12/26/23 Metoprolol Tartrate [Lopressor*] 50 mg PO BID 12/26/23 Albuterol Inhaler [Ventolin Inhaler*] 2 puff IH Q6H PRN 30 Days #1 inh 03/14/24 Albuterol Neb [Proventil 0.083% Neb Soln] 2.5 mg IH Q6H PRN 30 Days #1 box 03/14/24 Nebulizer Accessories [Sootheneb [id number] Adult Mask] 1 each MC DAILY #1 ea 03/14/24 Nebulizer and Compressor [[place] Choice Nebulizer] 1 ea MC DAILY PRN 30 Days #1 ea 03/14/24 Valsartan [Diovan*] 40 mg PO DAILY tab 03/14/24 levoFLOXacin [Levaquin*] 750 mg PO DAILY 5 Days #5 tab 03/14/24 predniSONE [Deltasone] 20 mg PO BID 5 Days #10 tab 03/14/24 - Past Medical/Surgical History Diabetic: No -: Hypertension -: Hyperlipidemia -: Alcohol abuse -: NIDDM -: Interstitial pneumonia -: Back surgery -: Right ACL repair -: KAVON surgery Psychosocial/ Personal History: Patient is . 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 - Family History Father Medical History: Heart disease - Social History Smoking Status: Unknown if ever smoked Alcohol use: No CD- Drugs: No Caffeine use: Yes Place of Residence: Home Review of Systems 10-point ROS is otherwise unremarkable General: Weakness Respiratory: Shortness of Breath Physical Examination Temp Pulse Resp BP Pulse Ox 99.2 F 90 18 125/67 90 L 03/17/24 12:00 03/17/24 12:00 03/17/24 12:00 03/17/24 12:00 03/17/24 12:00 General: Alert, Oriented x3 Neck: Supple Respiratory: Clear to auscultation bilaterally Cardiovascular: No edema, Regular rate/rhythm, Normal S1 S2 Gastrointestinal: Normal bowel sounds, Soft and benign, Non-distended - Problems (1) Pneumonia Current Visit: No Status: Acute Plan: Patient is 59 years of age readmitted with interstitial pneumonia he has got bilateral groundglass changes patient did have a similar appearance in male this year which cleared up with steroids continue with high doses of steroids and bronchoscopy once he is more stable he is currently on 80% FiO2 alternate with the high flow and BiPAP I adjusted his BiPAP and increase the EPAP labs chemistries reviewed doubt infection he was previously treated with levofloxacin echocardiogram ordered patient is echocardiogram was normal this month rheumatoid factor HIV screen is negative Qualifiers: Pneumonia type: due to unspecified organism
--- NOTE | 2024-03-17 12:32 | EKG ---
Test Date: 2024-03-15 Test Time: 19:02:12 Carton Filler: ALP MEASUREMENT RESULTS: Intervals: Rate: 87 HI: 172 QRSD: 90 QT: 414 QTc: 498 [place]: P: 57 HI: 172 QRS: 73 T: -4 INTERPRETIVE STATEMENTS: Normal sinus rhythm Possible Left atrial enlargement Abnormal QRS-T angle, consider primary T wave abnormality Prolonged QT Abnormal ECG Compared to ECG 03/12/2024 12:16:10 T-wave abnormality now present Electronically Signed On 03-17-24 12:30:20 CDT by Cruz Bourgeois
--- NOTE | 2024-03-17 12:38 | RAD REPORT ---
EXAM DESCRIPTION: RADChest Single View03/17/2024 11:15 am CLINICAL HISTORY: pneumonia COMPARISON: Chest Single View dated 03/15/2024; Chest Single View dated 03/14/2024; Chest Single View dated 03/12/2024; Chest Pa And Lat (2 Views) dated 01/21/2024 TECHNIQUE: Portable AP view of the chest. FINDINGS: Partial improvement of central interstitial prominence and bilateral patchy opacities. No pneumothorax or effusion. The cardiomediastinal contours are otherwise unchanged with stable cardiom egaly. IMPRESSION: Partial improvement of prior findings as above.
[2024-03-18 05:38] LABS: Anion Gap 5.6 mEq/L (5.0-15.0); Magnesium 2.3 mg/dL (1.6-2.4); Phosphorus 3.8 mg/dL (2.5-4.9); Potassium 3.6 mEq/L (3.5-5.1)
[2024-03-18] MEDS: POTASSIUM CL SA 10 MEQ TAB PO ONE (06:32)
--- NOTE | 2024-03-18 09:02 | RAD REPORT ---
EXAM DESCRIPTION: RAD - Chest Single View - 03/18/2024 8:54 am CLINICAL HISTORY: pneumonia, respiratory distress Chest pain. COMPARISON: Chest Single View dated 03/17/2024; Chest Single View dated 03/15/2024; Chest Single View dated 03/14/2024; Chest Single View dated 03/12/2024 FINDINGS: Portable technique limits examination quality. Extensive bilateral pulmonary opacities are present, appearing slightly progressive since the 024 prior study. This may represent pulmonary edema or pneumonia. The heart is mildly enlarged in siz e. No displaced fractures. IMPRESSION: Mild worsening in lung aeration seen since comparative study.
[2024-03-18 09:54] LABS: Arterial Blood Carboxyhemoglob 1.7 % (0-1.5); Blood Gas THB 15.2 g/dl (12-18)
[2024-03-18 09:55] LABS: Blood O2 Saturation 93.1 % (92-98.5)
[2024-03-18 09:57] LABS: Blood Gas Oxyhemoglobin 90.6 % (94-97)
[2024-03-18] MEDS: FUROSEMIDE 40 MG/4 ML VIAL IV SCH (10:11)
--- NOTE | 2024-03-18 11:08 | P.PN ---
Subjective Date of Service: 03/18/24 Chief Complaint: Resp Distress Pt is resting comfortably in bed. Pt is using HFNC 40 L with Fio2 100%. He is getting iv abx. He used BIPAP over night. No other complaints. Review of Systems General: Unremarkable Eyes: Unremarkable ENT: Unremarkable Respiratory: SOB with Excertion Cardiovascular: Unremarkable Gastrointestinal: Unremarkable Genitourinary: Unremarkable Musculoskeletal: Unremarkable Integumentary: Unremarkable Neurological: Unremarkable Lymphatics: Unremarkable Physical Examination - Vital Signs Temperature: 98.2 F Blood Pressure: 137/81 Pulse: 84 Respirations: 20 Pulse Ox (%): 92 - Physical Exam General: Alert, In no apparent distress, Oriented x3 HEENT: Atraumatic, Normocephalic, PERRLA Neck: Supple, 2+ carotid pulse no bruit, JVD not distended Respiratory: Normal air movement, Diminished Cardiovascular: No edema, Normal pulses, Regular rate/rhythm, Normal S1 S2 Capillary refill: <2 Seconds Gastrointestinal: Normal bowel sounds, Soft and benign, Non-distended Musculoskeletal: No clubbing, No swelling, No contractures Integumentary: No rashes, No breakdown, No significant lesion, No tenderness/swelling Neurological: Normal gait, Normal speech, Normal strength at 5/5 x4 extr Lymphatics: No axilla or inguinal lymphadenopathy Assessment And Plan - Plan Pneumonia: Continue iv zosyn and azithro. F/u blood cx Acute Respiratory failure with hypoxia: Due to pneumonia. Will continue abx, steroid, HFNC ( 40L with Fio2 100%) and prn BIPAP. Pulm is following. Anxiety 2nd to Resp failure: Will continue Ativan 1mg SL TID prn and monitor respiratory status. Questionable Bronchospasm due to Asthma exacerbation: will continue steroid and prn albuterol. Hypertension: Will continue home med. Hyperlipidemia: Statin Diabetes: Continue accuchek, SSI and ADA diet GI ppx: protonix DVT ppx: SCD Code: full
[2024-03-18] MEDS: LORAZEPAM 1 MG TABLET PO PRN (11:13)
--- NOTE | 2024-03-18 12:10 | P.PN ---
Subjective Date of Service: 03/18/24 Chief Complaint: Resp Distress Subjective: Worsening (Patient's condition deteriorated and was transferred to the ICU he is currently on BiPAP 100% FiO2) Review of Systems General: Weakness Respiratory: Shortness of Breath Physical Examination - Vital Signs Temperature: 98.2 F Blood Pressure: 137/81 Pulse: 84 Respirations: 20 Pulse Ox (%): 92 - Physical Exam General: Alert, Moderate distress Respiratory: Crackles/rales Cardiovascular: No edema, Regular rate/rhythm, Normal S1 S2 Assessment And Plan - Current Problems (Diagnosis) (1) Pneumonia Current Visit: No Status: Acute Plan: Patient has interstitial pneumonia white count is normal doubt any infectious been treated with levofloxacin at home continue with steroids reduced dose at some insulin vital signs are stable. Blood gases show significant hypoxemia with interstitial disease on chest x-ray at bedtime HIV screen reordered changed to p.o. levofloxacin Qualifiers: Pneumonia type: due to unspecified organism Laterality: bilateral
[2024-03-18] MEDS: INSULIN GLARGINE 100 UNIT/ML SQ SCH (13:00)
[2024-03-18] MEDS: levoFLOXacin 750 MG TAB PO SCH (13:01)
[2024-03-18] MEDS: METHYLPREDNISOLONE 125 MG INJ IV SCH (16:49)
[2024-03-19 05:46] LABS: Absolute Lymphocytes (CBC) 0.3 K/uL (0.7-4.9); Absolute Monocytes 1.1 K/uL (0.1-1.3); Absolute Neutrophil 9.1 K/uL (1.8-8.0); Basophils % 0.1 % (0-1.3); Hematocrit 41.2 % (39.6-49.0); Hemoglobin 14.1 g/dL (13.6-17.9); Lymphocytes % 3.1 % (15.3-44.8); MCH 35.5 pg (27.0-35.0); MCHC 34.1 g/dL (32.0-36.0); MCV 104.1 fL (80-100); MPV 8.5 fL (7.6-11.3); Monocytes % 10.3 % (3.3-12.3); Neutrophils % 86.5 % (41.7-73.7); Nucleated Red Blood Cells % 0.1 % (0-0); Platelets 177 thou/uL (152-406); RBC Red Blood Cell Count 3.96 M/uL (4.33-5.43); Red Cell Distribution Width 14.4 % (12.1-15.2)
[2024-03-19 05:54] LABS: Anion Gap 2.6 mEq/L (5.0-15.0); Magnesium 2.1 mg/dL (1.6-2.4); Phosphorus 3.5 mg/dL (2.5-4.9); Potassium 3.6 mEq/L (3.5-5.1)
[2024-03-19] MEDS: POTASSIUM CL SA 10 MEQ TAB PO ONE (08:12)
[2024-03-19 09:04] LABS: Blood Morphology Comment NOT SEEN (NOT SEEN); Platelet Estimate ADEQ; White Blood Cell Scan OK (OK)
--- NOTE | 2024-03-19 09:58 | P.PN ---
Subjective Date of Service: 03/19/24 Chief Complaint: Resp Distress Pt is resting comfortably in bed. Pt is still using HFNC 40 L with Fio2 100%. He is getting iv abx. He used BIPAP over night. No other complaints. Review of Systems General: Unremarkable Eyes: Unremarkable ENT: Unremarkable Respiratory: SOB with Excertion Cardiovascular: Unremarkable Gastrointestinal: Unremarkable Genitourinary: Unremarkable Musculoskeletal: Unremarkable Integumentary: Unremarkable Neurological: Unremarkable Lymphatics: Unremarkable Physical Examination - Vital Signs Temperature: 97.5 F Blood Pressure: 125/79 Pulse: 86 Respirations: 25 Pulse Ox (%): 96 - Physical Exam General: Alert, In no apparent distress, Oriented x3 HEENT: Atraumatic, Normocephalic, PERRLA Neck: Supple, 2+ carotid pulse no bruit, JVD not distended Respiratory: Clear to auscultation bilaterally, Normal air movement Cardiovascular: No edema, Normal pulses, Regular rate/rhythm, Normal S1 S2 Capillary refill: <2 Seconds Gastrointestinal: Normal bowel sounds, Soft and benign, Non-distended Musculoskeletal: No clubbing, No swelling, No contractures Integumentary: No rashes, No breakdown, No significant lesion Neurological: Normal gait, Normal speech, Normal strength at 5/5 x4 extr Lymphatics: No axilla or inguinal lymphadenopathy Assessment And Plan - Plan Pneumonia: Continue iv zosyn and azithro. F/u blood cx Acute Respiratory failure with hypoxia: Due to pneumonia. Will continue abx, steroid, HFNC ( 40L with Fio2 100%) and prn BIPAP. Pulm is following. Anxiety 2nd to Resp failure: Will continue Ativan 1mg SL TID prn and monitor respiratory status. Questionable Bronchospasm due to Asthma exacerbation: will continue steroid and prn albuterol. Hypertension: Will continue home med. Hyperlipidemia: Statin Diabetes: Continue accuchek, SSI and ADA diet GI ppx: protonix DVT ppx: SCD Code: full
--- NOTE | 2024-03-19 12:02 | P.PN ---
Subjective Date of Service: 03/19/24 Chief Complaint: Resp failure Subjective: Improving (No significant change in patient's condition may be a little better) Review of Systems General: Weakness Respiratory: Shortness of Breath Physical Examination - Vital Signs Temperature: 97.5 F Blood Pressure: 124/83 Pulse: 70 Respirations: 22 Pulse Ox (%): 94 - Physical Exam General: Alert, Mild distress Respiratory: Clear to auscultation bilaterally Cardiovascular: No edema, Regular rate/rhythm, Normal S1 S2 Gastrointestinal: Normal bowel sounds, Soft and benign Assessment And Plan - Current Problems (Diagnosis) (1) Interstitial pneumonia of both lungs Current Visit: Yes Status: Acute Plan: Patient has respiratory failure acute interstitial pneumonia I doubt that this is bacterial infection this is recurrent requiring a lot of oxygen is up to 70 to 80% new with BiPAP steroids changed to spironolactone DC IV Lasix increase insulin labs reviewed serial chest x-rays ordered HIV screen repeated is nonreactive again hopefully we can titrate his oxygen down to less than 50% may do a diagnostic bronchoscopy vital signs are stable blood sugars elevated increase insulin
[2024-03-19] MEDS: INSULIN GLARGINE 100 UNIT/ML SQ SCH (12:36)
--- NOTE | 2024-03-19 14:12 | RAD REPORT ---
EXAM DESCRIPTION: RAD - Chest Single View - 03/19/2024 2:06 pm CLINICAL HISTORY: resp failure Chest pain. COMPARISON: Chest Single View dated 03/18/2024; Chest Single View dated 03/17/2024; Chest Single View dated 03/15/2024; Chest Single View dated 03/14/2024; Thorax W/ Con dated 03/16/2024 FINDINGS: Portable technique limits examination quality. No real change is seen in moderate bilateral pulmonary opacities since yesterday's examination. The h eart is mildly prominent in size. No displaced fractures. IMPRESSION: Stable chest since 03/18/2024.
[2024-03-20 05:13] LABS: Absolute Lymphocytes (CBC) 0.3 K/uL (0.7-4.9); Absolute Monocytes 0.9 K/uL (0.1-1.3); Absolute Neutrophil 9.1 K/uL (1.8-8.0); Basophils % 0.1 % (0-1.3); Hematocrit 43.2 % (39.6-49.0); Hemoglobin 14.5 g/dL (13.6-17.9); MCH 35.2 pg (27.0-35.0); MCHC 33.7 g/dL (32.0-36.0); MCV 104.5 fL (80-100); MPV 8.8 fL (7.6-11.3); Monocytes % 8.8 % (3.3-12.3); Platelets 169 thou/uL (152-406); RBC Red Blood Cell Count 4.13 M/uL (4.33-5.43); Red Cell Distribution Width 14.5 % (12.1-15.2)
[2024-03-20 05:20] LABS: Neutrophils % 88.1 % (41.7-73.7)
[2024-03-20 05:22] LABS: Magnesium 2.1 mg/dL (1.6-2.4); Phosphorus 3.7 mg/dL (2.5-4.9)
--- NOTE | 2024-03-20 08:05 | RAD REPORT ---
EXAM DESCRIPTION: [facility] 7:47 am CLINICAL HISTORY: resp failure COMPARISON: Chest Single View dated 03/19/2024; Chest Single View dated 03/18/2024; Chest Single View dated 03/17/2024; Chest Single View dated 03/15/2024 TECHNIQUE: Portable AP view of the chest. FINDINGS: Stable central interstitial prominence and patchy bilateral airspace opacities which are f avored to represent central congestive changes or edema. No pneumothorax or effusion. The cardiomedi astinal contours are unremarkable. IMPRESSION: Stable findings as above.
[2024-03-20] MEDS: SPIRONOLACTONE 25 MG TABLET PO SCH (08:29)
--- NOTE | 2024-03-20 10:21 | P.PN ---
Subjective Date of Service: 03/20/24 Chief Complaint: Resp failure Pt is resting comfortably in bed. Pt is still using HFNC 40 L with Fio2 100%. He is getting levaquin and solumderol. Pulm is following. Off lasix. No other complaints. Review of Systems General: Unremarkable Eyes: Unremarkable ENT: Unremarkable Respiratory: SOB with Excertion Cardiovascular: Unremarkable Gastrointestinal: Unremarkable Genitourinary: Unremarkable Musculoskeletal: Unremarkable Integumentary: Unremarkable Neurological: Unremarkable Lymphatics: Unremarkable Physical Examination - Vital Signs Temperature: 98.5 F Blood Pressure: 143/89 Pulse: 78 Respirations: 22 Pulse Ox (%): 92 - Physical Exam General: Alert, In no apparent distress, Oriented x3 HEENT: Atraumatic, Normocephalic, PERRLA Neck: Supple, 2+ carotid pulse no bruit Respiratory: Normal air movement, Diminished Cardiovascular: No edema, Normal pulses, Regular rate/rhythm, Normal S1 S2 Capillary refill: <2 Seconds Gastrointestinal: Normal bowel sounds, Soft and benign, Non-distended Musculoskeletal: No clubbing, No swelling, No contractures Integumentary: No rashes, No breakdown, No significant lesion Neurological: Normal gait, Normal speech, Normal strength at 5/5 x4 extr, Normal tone Lymphatics: No axilla or inguinal lymphadenopathy Assessment And Plan - Plan Pneumonia: Continue iv zosyn and azithro. F/u blood cx Acute Respiratory failure with hypoxia: Due to pneumonia. Will continue levaquin, steroid, HFNC ( 40L with Fio2 100%) and prn BIPAP. Pulm is following. Will likely do bronch when respiratory status is better. Anxiety 2nd to Resp failure: Will continue Ativan 1mg SL TID prn and monitor respiratory status. Questionable Bronchospasm due to Asthma exacerbation: will continue steroid and prn albuterol. Hypertension: Will continue home med. Hyperlipidemia: Statin Diabetes: Continue accuchek, SSI and ADA diet GI ppx: protonix DVT ppx: SCD Code: full
--- NOTE | 2024-03-20 12:34 | P.PN ---
Subjective Date of Service: 03/20/24 Chief Complaint: Resp failure Subjective: Improving (Patient is improving oxygen requirements declining no other complaint) Review of Systems General: Weakness Respiratory: Shortness of Breath Physical Examination - Vital Signs Temperature: 98.4 F Blood Pressure: 133/83 Pulse: 79 Respirations: 25 Pulse Ox (%): 90 - Physical Exam General: Alert, Oriented x3, Moderate distress Respiratory: Clear to auscultation bilaterally, Diminished, Crackles/rales Cardiovascular: No edema, Regular rate/rhythm Assessment And Plan - Current Problems (Diagnosis) (1) Interstitial pneumonia of both lungs Current Visit: Yes Status: Acute Plan: Patient's oxygen requirements are declining is feeling better labs reviewed x- ray no significant changes bilateral pulmonary infiltrate FiO2 is below 50% will consider a bronchoalveolar lavage labs reviewed titrate O2 to a sat of 90% vital signs stable
[2024-03-20] MEDS: DIPHENHYDRAMINE 25 MG TAB/CAP PO ONE (21:57)
[2024-03-21 05:10] LABS: Absolute Lymphocytes (CBC) 0.3 K/uL (0.7-4.9); Absolute Neutrophil 9.4 K/uL (1.8-8.0); Basophils % 0.1 % (0-1.3); Hematocrit 45.7 % (39.6-49.0); Hemoglobin 15.3 g/dL (13.6-17.9); MCHC 33.6 g/dL (32.0-36.0); MCV 104.2 fL (80-100); MPV 9.1 fL (7.6-11.3); Platelets 152 thou/uL (152-406); RBC Red Blood Cell Count 4.38 M/uL (4.33-5.43); Red Cell Distribution Width 14.3 % (12.1-15.2)
[2024-03-21 05:21] LABS: Neutrophils % 87.9 % (41.7-73.7)
--- NOTE | 2024-03-21 07:36 | RAD REPORT ---
EXAM DESCRIPTION: RAD - Chest Single View - 03/21/2024 6:11 am CLINICAL HISTORY: resp failure Chest pain. COMPARISON: Chest Single View dated 03/20/2024; Chest Single View dated 03/19/2024; Chest Single View d ated 03/18/2024; Chest Single View dated 03/17/2024 FINDINGS: Portable technique limits examination quality. Extensive bilateral pulmonary opacities are again seen, mildly progressive since yesterday's study. T he heart is mildly enlarged in size. No displaced fractures. IMPRESSION: Slight worsening in bilateral pulmonary opacities noted since 03/20/2024 prior study
--- NOTE | 2024-03-21 09:27 | P.PN ---
Subjective Date of Service: 03/21/24 Chief Complaint: Resp failure Pt is resting comfortably in bed. Pt is using HFNC 35 L with Fio2 90%. He is getting levaquin and solumderol. Pulm is following. Off lasix. No other complaints. Review of Systems General: Unremarkable Eyes: Unremarkable ENT: Unremarkable Respiratory: SOB with Excertion Cardiovascular: Unremarkable Gastrointestinal: Unremarkable Genitourinary: Unremarkable Musculoskeletal: Unremarkable Integumentary: Unremarkable Neurological: Unremarkable Lymphatics: Unremarkable Physical Examination - Vital Signs Temperature: 98.6 F Blood Pressure: 130/93 Pulse: 79 Respirations: 18 Pulse Ox (%): 90 - Physical Exam General: Alert, In no apparent distress, Oriented x3 HEENT: Atraumatic, Normocephalic, PERRLA Neck: Supple, 2+ carotid pulse no bruit, JVD not distended Respiratory: Clear to auscultation bilaterally, Normal air movement Cardiovascular: No edema, Normal pulses, Regular rate/rhythm, Normal S1 S2 Capillary refill: <2 Seconds Gastrointestinal: Normal bowel sounds, Soft and benign, Non-distended Musculoskeletal: No clubbing, No swelling, No contractures Integumentary: No rashes, No breakdown, No significant lesion, No tenderness/swelling Neurological: Normal gait, Normal speech, Normal strength at 5/5 x4 extr Lymphatics: No axilla or inguinal lymphadenopathy Assessment And Plan - Plan Pneumonia: Continue iv zosyn and azithro. F/u blood cx Acute Respiratory failure with hypoxia: Due to pneumonia. Will continue levaquin, steroid, HFNC ( 35L with Fio2 90%) and prn BIPAP. Pulm is following. Will likely do bronch when respiratory status is better. Anxiety 2nd to Resp failure: Will continue Ativan 1mg SL TID prn and monitor respiratory status. Questionable Bronchospasm due to Asthma exacerbation: will continue steroid and prn albuterol. Hypertension: Will continue home med. Hyperlipidemia: Statin Diabetes: Continue accuchek, SSI, lantus 35u daily, and ADA diet GI ppx: protonix DVT ppx: SCD Code: full
[2024-03-21] MEDS: HEPARIN/D5W 0 UNIT/0 ML BAG IV ONE (09:40)
[2024-03-21] MEDS: EZETIMIBE 10 MG TAB PO SCH (09:50)
--- NOTE | 2024-03-21 20:27 | P.PN ---
Subjective Date of Service: 03/21/24 Chief Complaint: Resp failure Subjective: Improving (Patient is subjectively improving he still requiring high concentrations of oxygen difficult desaturation on mild exertion) Review of Systems General: Weakness Respiratory: Shortness of Breath Physical Examination - Vital Signs Temperature: 98.8 F Blood Pressure: 140/95 Pulse: 78 Respirations: 26 Pulse Ox (%): 91 - Physical Exam General: Alert, Oriented x3, Moderate distress Respiratory: Clear to auscultation bilaterally Cardiovascular: No edema, Regular rate/rhythm Assessment And Plan - Current Problems (Diagnosis) (1) Interstitial pneumonia of both lungs Current Visit: Yes Status: Acute Plan: Patient has respiratory failure from interstitial pneumonia etiology unknown he seems to be improving oxygen requirements declining reduce the dose of Solu- Medrol to twice a day increase insulin level so far his white count is normal and his vital signs are all stable will DC antibiotics for now I advised the patient to increase the use of BiPAP rather than high flow titrate sat to 90% labs reviewed
[2024-03-22 05:26] LABS: Absolute Eosinophils 0.3 K/uL (0-0.5); Absolute Lymphocytes (CBC) 1.3 K/uL (0.7-4.9); Absolute Neutrophil 9.5 K/uL (1.8-8.0); Basophils % 0.2 % (0-1.3); Eosinophils % 2.1 % (0-4.4); Hematocrit 47.4 % (39.6-49.0); Hemoglobin 15.7 g/dL (13.6-17.9); Lymphocytes % 11.1 % (15.3-44.8); MCH 34.6 pg (27.0-35.0); MCHC 33.2 g/dL (32.0-36.0); MCV 104.2 fL (80-100); MPV 8.6 fL (7.6-11.3); Monocytes % 8.3 % (3.3-12.3); Neutrophils % 78.3 % (41.7-73.7); Platelets 165 thou/uL (152-406); RBC Red Blood Cell Count 4.55 M/uL (4.33-5.43); Red Cell Distribution Width 14.8 % (12.1-15.2)
[2024-03-22] MEDS: METHYLPREDNISOLONE 40 MG INJ IV SCH (08:17)
[2024-03-22] MEDS: INSULIN GLARGINE 100 UNIT/ML SQ SCH (08:17)
--- NOTE | 2024-03-22 08:35 | RAD REPORT ---
EXAM DESCRIPTION: RAD - Chest Single View - 03/22/2024 6:06 am CLINICAL HISTORY: resp failure Chest pain. COMPARISON: Chest Single View dated 03/21/2024; Chest Single View dated 03/20/2024; Chest Single View da regina 03/19/2024; Chest Single View dated 03/18/2024 FINDINGS: Portable technique limits examination quality. Extensive bilateral pulmonary opacities are noted without significant change since 03/21/2024 prior jhon bernard. The heart is mildly prominent in size. No displaced fractures. IMPRESSION: Stable chest since 03/21/2024 prior study.
--- NOTE | 2024-03-22 10:18 | P.PN ---
Subjective Date of Service: 03/22/24 Chief Complaint: Resp failure Pt is resting comfortably in bed. Pt is using HFNC 40 L with Fio2 100%. He is getting solumderol. Off levaquin. Pulm is following. Off lasix. No other complaints. Review of Systems General: Unremarkable Eyes: Unremarkable ENT: Unremarkable Respiratory: SOB with Excertion Cardiovascular: Light Headedness Gastrointestinal: Unremarkable Genitourinary: Unremarkable Musculoskeletal: Unremarkable Integumentary: Unremarkable Neurological: Unremarkable Lymphatics: Unremarkable Physical Examination - Vital Signs Temperature: 97.9 F Blood Pressure: 112/68 Pulse: 73 Respirations: 24 Pulse Ox (%): 90 - Physical Exam General: Alert, In no apparent distress, Oriented x3 HEENT: Atraumatic, Normocephalic, PERRLA Neck: Supple, 2+ carotid pulse no bruit, JVD not distended Respiratory: Clear to auscultation bilaterally, Normal air movement Cardiovascular: No edema, Normal pulses, Regular rate/rhythm, Normal S1 S2 Capillary refill: <2 Seconds Gastrointestinal: Normal bowel sounds, Soft and benign, Non-distended Musculoskeletal: No clubbing, No swelling, No contractures, No erythema Integumentary: No rashes, No breakdown, No significant lesion Neurological: Normal speech, Normal strength at 5/5 x4 extr, Normal tone Lymphatics: No axilla or inguinal lymphadenopathy Assessment And Plan - Plan Pneumonia: Continue iv zosyn and azithro. F/u blood cx Acute Respiratory failure with hypoxia: Due to pneumonia. Will continue levaquin, steroid, HFNC ( 40L with Fio2 100%) and prn BIPAP. Pulm is following. Will likely do bronch when respiratory status is better. Pt was encouraged to use the BIPAp more often. Anxiety 2nd to Resp failure: Will continue Ativan 1mg SL TID prn and monitor respiratory status. Questionable Bronchospasm due to Asthma exacerbation: will continue steroid and prn albuterol. Hypertension: Will continue home med. Hyperlipidemia: Statin Diabetes: Continue accuchek, SSI, lantus 35u daily, and ADA diet GI ppx: protonix DVT ppx: SCD Code: full
[2024-03-22] MEDS ORDERED: PROMETHAZINE INJ 25 MG/ML AMP IV PRN (12:18)
--- NOTE | 2024-03-22 21:58 | P.PN ---
Subjective Date of Service: 03/22/24 Chief Complaint: Resp failure Subjective: Improving (Patient seems to be improving oxygen requirements declining) Review of Systems General: Weakness Respiratory: Shortness of Breath Physical Examination - Vital Signs Temperature: 97.7 F Blood Pressure: 121/75 Pulse: 69 Respirations: 22 Pulse Ox (%): 93 - Physical Exam General: Alert, Oriented x3 Respiratory: Clear to auscultation bilaterally Cardiovascular: No edema, Regular rate/rhythm Assessment And Plan - Current Problems (Diagnosis) (1) Interstitial pneumonia of both lungs Current Visit: Yes Status: Acute Plan: Patient seems to be improving oxygen requirements declining chest x-ray stable his blood sugars are still elevated will increase insulin also will order labs for tomorrow signs stable continue with present treatment
[2024-03-23 06:15] LABS: Albumin 2.6 g/dL (3.4-5.0); Albumin/Globulin Ratio 0.9 (1.1-1.8); Anion Gap 6.1 mEq/L (5.0-15.0); Bilirubin Total 1.6 mg/dL (0.2-1.0); Globulin 2.9 g/dL (2.3-3.5); Magnesium 1.8 mg/dL (1.6-2.4); Phosphorus 3.9 mg/dL (2.5-4.9); Potassium 5.1 mEq/L (3.5-5.1); Protein, Total 5.5 g/dL (6.4-8.2)
[2024-03-23 06:45] LABS: Hemoglobin 15.8 g/dL (13.6-17.9); MCH 34.4 pg (27.0-35.0); MCHC 32.9 g/dL (32.0-36.0); MCV 104.3 fL (80-100); MPV 9.4 fL (7.6-11.3); Platelets 144 thou/uL (152-406)
[2024-03-23] MEDS: MAGNESIUM SULFATE 1 gm IVPB 1 GM/100 ML BAG IV ONE (08:02)
[2024-03-23] MEDS: INSULIN GLARGINE 100 UNIT/ML SQ SCH (08:04)
--- NOTE | 2024-03-23 08:19 | P.PN ---
Subjective Date of Service: 03/23/24 Chief Complaint: Resp failure Pt is resting comfortably in bed. Pt is using BIPAP. He is getting solumderol. Off levaquin and lasix. Pulm is following. No other complaints. Review of Systems General: Unremarkable Eyes: Unremarkable ENT: Unremarkable Respiratory: SOB with Excertion Cardiovascular: Unremarkable Gastrointestinal: Unremarkable Genitourinary: Unremarkable Musculoskeletal: Unremarkable Integumentary: Unremarkable Neurological: Unremarkable Lymphatics: Unremarkable Physical Examination - Vital Signs Temperature: 98.1 F Blood Pressure: 116/82 Pulse: 73 Respirations: 12 Pulse Ox (%): 91 - Physical Exam General: Alert, In no apparent distress, Oriented x3 HEENT: Atraumatic, Normocephalic, PERRLA Neck: Supple, 2+ carotid pulse no bruit Respiratory: Clear to auscultation bilaterally, Normal air movement Cardiovascular: No edema, Normal pulses, Regular rate/rhythm, Normal S1 S2 Capillary refill: <2 Seconds Gastrointestinal: Normal bowel sounds, Soft and benign, Non-distended Musculoskeletal: No clubbing, No swelling, No contractures Integumentary: No rashes, No breakdown, No significant lesion Neurological: Normal gait, Normal speech, Normal strength at 5/5 x4 extr, Normal tone, Sensation intact Lymphatics: No axilla or inguinal lymphadenopathy Assessment And Plan - Plan Pneumonia: Completed abx. Acute Respiratory failure with hypoxia: Due to pneumonia. Will continue steroid, and BIPAP. Pulm is following. Will likely do bronch when respiratory status is better. Pt was encouraged to use the BIPAP more often. Anxiety 2nd to Resp failure: Will continue Ativan 1mg SL TID prn and monitor respiratory status. Questionable Bronchospasm due to Asthma exacerbation: will continue steroid and prn albuterol. Hypertension: Will continue home med. Hyperlipidemia: Statin Pruritus: Will continue prn benadryl. Diabetes: Continue accuchek, SSI, lantus 35u daily, and ADA diet GI ppx: protonix DVT ppx: SCD Code: full
[2024-03-23] MEDS: DIPHENHYDRAMINE 50 MG/ML VIAL IV PRN (21:22)
[2024-03-24 06:22] LABS: Hematocrit 47.9 % (39.6-49.0); Hemoglobin 15.8 g/dL (13.6-17.9); MCH 34.5 pg (27.0-35.0); MCHC 33.1 g/dL (32.0-36.0); MCV 104.3 fL (80-100); MPV 9.3 fL (7.6-11.3); Platelets 162 thou/uL (152-406); RBC Red Blood Cell Count 4.59 M/uL (4.33-5.43); Red Cell Distribution Width 14.8 % (12.1-15.2)
[2024-03-24 06:56] LABS: Magnesium 1.8 mg/dL (1.6-2.4)
[2024-03-24] MEDS: SMZ./TMP. 800/160 MG TABLET PO SCH (09:00)
--- NOTE | 2024-03-24 09:04 | P.PN ---
Subjective Date of Service: 03/24/24 Chief Complaint: Resp failure Pt is resting comfortably in bed. Pt is using HFNC 40L 95%. He used BIPAP overnight. He is getting solumderol. Off levaquin and lasix. Pulm is following. No other complaints. Review of Systems General: Unremarkable Eyes: Unremarkable ENT: Unremarkable Respiratory: SOB with Excertion Cardiovascular: Unremarkable Gastrointestinal: Unremarkable Genitourinary: Unremarkable Musculoskeletal: Unremarkable Integumentary: Unremarkable Neurological: Unremarkable Lymphatics: Unremarkable Physical Examination - Vital Signs Temperature: 97.8 F Blood Pressure: 118/70 Pulse: 69 Respirations: 20 Pulse Ox (%): 91 - Physical Exam General: Alert, In no apparent distress, Oriented x3 HEENT: Atraumatic, Normocephalic, PERRLA Neck: Supple, 2+ carotid pulse no bruit, JVD not distended Respiratory: Normal air movement, Diminished Cardiovascular: No edema, Normal pulses, Regular rate/rhythm, Normal S1 S2 Capillary refill: <2 Seconds Gastrointestinal: Normal bowel sounds, Soft and benign, Non-distended Musculoskeletal: No clubbing, No swelling, No contractures Integumentary: No rashes, No breakdown, No significant lesion Neurological: Normal gait, Normal speech, Normal strength at 5/5 x4 extr Lymphatics: No axilla or inguinal lymphadenopathy Assessment And Plan - Plan Pneumonia: Completed abx. Acute Respiratory failure with hypoxia: Due to pneumonia. Will continue steroid, and prn BIPAP. Currently using 40L with 90% fio2. Pulm is following. Will likely do bronch when respiratory status is better. Pt was encouraged to use the BIPAP more often. Anxiety 2nd to Resp failure: Will continue Ativan 1mg SL TID prn and monitor respiratory status. Questionable Bronchospasm due to Asthma exacerbation: will continue steroid and prn albuterol. Hypertension: Will continue home med. Hyperlipidemia: Statin Pruritus: Will continue prn benadryl. Diabetes: Continue accuchek, SSI, lantus 35u daily, and ADA diet GI ppx: protonix DVT ppx: SCD Code: full
--- NOTE | 2024-03-24 12:50 | P.PN ---
Subjective Date of Service: 03/24/24 Chief Complaint: Resp failure No change in patient's condition he still continues to be very hypoxic on mild exertion adding BiPAP and Vapotherm Review of Systems 10-point ROS is otherwise unremarkable Respiratory: Cough, Shortness of Breath Physical Examination - Vital Signs Temperature: 97.7 F Blood Pressure: 119/77 Pulse: 79 Respirations: 17 Pulse Ox (%): 88 - Physical Exam General: Alert, Oriented x3 Respiratory: Crackles/rales Cardiovascular: No edema, Regular rate/rhythm, Normal S1 S2 Assessment And Plan - Current Problems (Diagnosis) (1) Interstitial pneumonia of both lungs Current Visit: Yes Status: Acute Plan: Patient has diffuse interstitial pneumonia is not really responding very well to steroid therapy is very diffuse significant bilateral infiltrates normal white count doubt infection patient's blood sugars are elevated I have increased the insulin he on Solu-Medrol 40 IV every 12 I started him on Bactrim 1 tablet DS daily for PCP prophylaxis and transfer to a tertiary care center evaluation for possible lung transplant able to do a bronchoscopy as he is high risk HIV test have been repeatedly negative patient's rheumatoid factor and SAMY are also negative p-ANCA c-ANCA negative normal renal function
[2024-03-24 18:12] LABS: SARS-CoV-2 Antigen CONTROL BLUE LINE VIS/BG OK; SARS-CoV-2 Antigen Rapid Res Negative (Negative)
[2024-03-25 05:56] LABS: Hematocrit 48.7 % (39.6-49.0); Hemoglobin 16.2 g/dL (13.6-17.9); MCH 34.9 pg (27.0-35.0); MCHC 33.3 g/dL (32.0-36.0); MCV 104.7 fL (80-100); MPV 9.5 fL (7.6-11.3); Platelets 158 thou/uL (152-406); RBC Red Blood Cell Count 4.65 M/uL (4.33-5.43); Red Cell Distribution Width 15.6 % (12.1-15.2)
[2024-03-25 05:57] LABS: Potassium 4.9 mEq/L (3.5-5.1)
[2024-03-25 06:05] LABS: Anion Gap 5.9 mEq/L (5.0-15.0)
[2024-03-25 08:05] LABS: Magnesium 1.8 mg/dL (1.6-2.4); Phosphorus 3.7 mg/dL (2.5-4.9)
[2024-03-25] MEDS: INSULIN GLARGINE 100 UNIT/ML SQ SCH (08:05)
[2024-03-25] MEDS: SMZ./TMP. 800/160 MG TABLET PO SCH (08:06)
[2024-03-25] MEDS: FUROSEMIDE 20 MG TABLET PO SCH (08:06)
[2024-03-25] MEDS: LORAZEPAM 1 MG TABLET PO PRN (11:16)
--- NOTE | 2024-03-25 12:09 | P.PN ---
Subjective Date of Service: 03/25/24 Chief Complaint: Resp failure No change in patient's condition is still continues to be very hypoxic Review of Systems General: Weakness Respiratory: Shortness of Breath Physical Examination - Vital Signs Temperature: 97.6 F Blood Pressure: 102/64 Pulse: 79 Respirations: 21 Pulse Ox (%): 89 - Physical Exam General: Alert, Oriented x3, Moderate distress Respiratory: Crackles/rales Cardiovascular: No edema, Regular rate/rhythm, Normal S1 S2 Assessment And Plan - Current Problems (Diagnosis) (1) Interstitial pneumonia of both lungs Current Visit: Yes Status: Acute Plan: Patient admitted with bilateral interstitial pneumonia x-rays pending white cell white cell count is gradually increases will add cefepime sugars are still very high requiring 100% FiO2 request transfer to [place] patient for possible lung transplant further evaluation
--- NOTE | 2024-03-25 13:44 | RAD REPORT ---
EXAM DESCRIPTION: RAD - Chest Single View - 03/25/2024 1:08 pm CLINICAL HISTORY: Pneumonia COMPARISON: Chest Single View dated 03/22/2024; Chest Single View dated 03/21/2024; Chest Single View da regina 03/20/2024; Chest Single View dated 03/19/2024; Thorax W/ Con dated 03/16/2024 FINDINGS: Lines: None. Lungs: Widespread bilateral interstitial and airspace disease. Pleural: No significant pleural effusions or pneumothorax. Cardiac: Similar cardiomegaly. Mediastinum: Within normal limits. Bones: No acute fractures. Other: None IMPRESSION: No significant change in aeration of the lungs with moderate to severe bilateral interst itial and airspace disease that presumably reflects pneumonia given the clinical concern. Coexisting pulmonary edema may also be present.
[2024-03-25] MEDS: CEFEPIME 2 GM in NA CHLORIDE 0.9% 100 ML IV SCH (14:24)
--- NOTE | 2024-03-26 02:55 | P.PN ---
Date of Service: 03/25/24 Subjective Patient still in respiratory distress but he is maintaining his oxygen saturations in the low 90s on high flow of 90% FiO2. Yet awaiting for transfer to transplant. Physical Examination - Vital Signs Reviewed - Physical Exam General: Alert, Oriented x3, Moderate distress; high flow nasal cannula in place Respiratory: Diminished, Crackles/rales, hypoxic Cardiovascular: Regular rate/rhythm, Normal S1 S2 Gastrointestinal: Soft and benign, W/out hepatosplenomegaly Musculoskeletal: No clubbing, generalized weakness, Integumentary: No rashes Neurological: Normal speech, Normal strength at 5/5 x4 extr, Assessment and Plan -Assessment/Plans 1. Respiratory distress 2. Acute hypoxic respiratory failure 3. Bilateral interstitial pneumonia. 4. Hypertension 5. Hyperlipidemia 6. Diabetes Plan: 1. Continue with high flow oxygen at this time. Patient has oxygen saturations are staying in the high 80s and low 90s. Patient's pulmonary status is not making a lot of headway although x-rays show improvement. Prognosis remains very poor unless patient is able to get more advanced care including possible transplant intervention. 2. Metabolic syndrome; continue with strict blood pressure and blood sugar control. Continue with statin therapy 3. GI DVT prophylaxis Qualifiers: Pneumonia type: due to unspecified organism Discharge Plan: Home Plan to discharge in: 48 Hours - Advance Directives Does patient have a Living Will: No Does patient have a Durable POA for Healthcare: No - Code Status/Comfort Care Code Status: Full Code Critical care: Yes Time Spent Managing Pts Care (In Minutes): 35
[2024-03-26 05:21] LABS: Absolute Lymphocytes (CBC) 0.5 K/uL (0.7-4.9); Absolute Monocytes 1.4 K/uL (0.1-1.3); Absolute Neutrophil 18.7 K/uL (1.8-8.0); Basophils % 0.1 % (0-1.3); Eosinophils % 0.1 % (0-4.4); Hemoglobin 16.4 g/dL (13.6-17.9); Lymphocytes % 2.5 % (15.3-44.8); MCH 34.5 pg (27.0-35.0); MCHC 32.9 g/dL (32.0-36.0); MCV 105.1 fL (80-100); MPV 9.4 fL (7.6-11.3); Monocytes % 6.6 % (3.3-12.3); Neutrophils % 90.7 % (41.7-73.7); Nucleated Red Blood Cells % 0.1 % (0-0); Platelets 165 thou/uL (152-406); RBC Red Blood Cell Count 4.76 M/uL (4.33-5.43); Red Cell Distribution Width 15.3 % (12.1-15.2)
[2024-03-26 05:44] LABS: Magnesium 1.8 mg/dL (1.6-2.4); Phosphorus 3.7 mg/dL (2.5-4.9)
[2024-03-26 06:53] LABS: Differential Total Cells Count 100; Lymphocytes 4 % (15-42); Monocytes 10 % (0-10); Segmented Neutrophils 86 % (40-80)
[2024-03-26 06:54] LABS: Blood Morphology Comment NOTED (NOT SEEN); Hypochromasia 1+; Platelet Estimate ADEQ
--- NOTE | 2024-03-26 08:04 | RAD REPORT ---
EXAM DESCRIPTION: RAD - Chest Single View - 03/26/2024 5:52 am CLINICAL HISTORY: Pneumonia Chest pain. COMPARISON: Chest Single View dated 03/25/2024; Chest Single View dated 03/22/2024; Chest Single View da regina 03/21/2024; Chest Single View dated 03/20/2024 FINDINGS: Portable technique limits examination quality. Extensive bilateral pulmonary opacities are again seen, unchanged since yesterday's examination. The heart is mildly enlarged in size. No displaced fractures. IMPRESSION: Stable chest since 03/25/2024 study.
--- NOTE | 2024-03-27 03:34 | P.PN ---
Date of Service: 03/26/24 Subjective I was notified by nursing staff that patient did not qualify to be transferred per [facility]'s transplant team for lung transplant. but they did notify us that patient could be transferred for higher level of care. I called for transfer for higher level of care, and I spoke to drafting technician. Clock Repair Technician stated that there was no higher level of care to be transferred the patient for as they were not going to do anything differently except possibly intubate patient and wait for transplant. Patient may benefit from ECMO, but if transplant team is not willing to do a transplant then prognosis is very poor even while on ECMO. Patient was denied by [facility]. Physical Examination - Vital Signs Reviewed - Physical Exam General: Alert, Oriented x3, Moderate distress; high flow nasal cannula in place; more lethargic Respiratory: Diminished, Crackles/rales, hypoxic Cardiovascular: Regular rate/rhythm, Normal S1 S2 Gastrointestinal: Soft and benign, W/out hepatosplenomegaly Musculoskeletal: No clubbing, generalized weakness, Integumentary: No rashes Neurological: Generalized weakness with no focal deficits Assessment and Plan -Assessment/Plans 1. Respiratory distress 2. Acute hypoxic respiratory failure 3. Bilateral interstitial lung disease secondary to unknown etiology. 4. Hypertension 5. Hyperlipidemia 6. Diabetes Plan: 1. Continue with high flow oxygen at this time. Patient has oxygen saturations are staying in the high 80s and low 90s. Patient's pulmonary status is not making a lot of headway although x-rays show minimal improvement. Prognosis remains very poor unless patient is able to get more advanced care including possible transplant intervention. Check NICOLLE level, along w/ ANCAs. and i nflammatory markers; 2. Metabolic syndrome; continue with strict blood pressure and blood sugar control. Continue with statin therapy 3. GI DVT prophylaxis Qualifiers: Pneumonia type: due to unspecified organism Discharge Plan: Home Plan to discharge in: 48 Hours - Advance Directives Does patient have a Living Will: No Does patient have a Durable POA for Healthcare: No - Code Status/Comfort Care Code Status: Full Code Critical care: Yes Time Spent Managing Pts Care (In Minutes): 35
[2024-03-27 05:48] LABS: Absolute Lymphocytes (CBC) 0.6 K/uL (0.7-4.9); Absolute Monocytes 0.7 K/uL (0.1-1.3); Absolute Neutrophil 14.4 K/uL (1.8-8.0); Basophils % 0.1 % (0-1.3); Eosinophils % 0.1 % (0-4.4); Hematocrit 49.4 % (39.6-49.0); Hemoglobin 16.1 g/dL (13.6-17.9); Lymphocytes % 3.7 % (15.3-44.8); MCH 34.1 pg (27.0-35.0); MCHC 32.7 g/dL (32.0-36.0); MCV 104.5 fL (80-100); MPV 9.5 fL (7.6-11.3); Monocytes % 4.5 % (3.3-12.3); Neutrophils % 91.6 % (41.7-73.7); Platelets 139 thou/uL (152-406); RBC Red Blood Cell Count 4.72 M/uL (4.33-5.43); Red Cell Distribution Width 15.2 % (12.1-15.2)
[2024-03-27 06:03] LABS: Magnesium 1.7 mg/dL (1.6-2.4); Phosphorus 3.6 mg/dL (2.5-4.9)
[2024-03-27] MEDS: MAGNESIUM SULFATE 1 gm IVPB 1 GM/100 ML BAG IV ONE (06:28)
--- NOTE | 2024-03-27 08:45 | RAD REPORT ---
EXAM DESCRIPTION: RADChest Single View03/27/2024 6:58 am CLINICAL HISTORY: Pneumonia COMPARISON: Chest Single View dated 03/26/2024; Chest Single View dated 03/25/2024; Chest Single View da regina 03/22/2024; Chest Single View dated 03/21/2024 TECHNIQUE: Portable AP view of the chest. FINDINGS: Patchy alveolar and interstitial opacities more pronounced on the right since the prior ex am. No pneumothorax or effusion. The cardiomediastinal contours are unchanged with stable cardiomega ly. IMPRESSION: Mildly progressive opacities particularly on the right, may reflect worsening pneumonia or edema.
[2024-03-27] MEDS: DEXMEDETOMIDINE HCL 200 MCG in NA CHLORIDE 0.9% 98 ML IV SCH (17:59)
[2024-03-28 06:04] LABS: Absolute Lymphocytes (CBC) 0.3 K/uL (0.7-4.9); Absolute Monocytes 0.7 K/uL (0.1-1.3); Absolute Neutrophil 11.2 K/uL (1.8-8.0); Basophils % 0.1 % (0-1.3); Eosinophils % 0.1 % (0-4.4); Hematocrit 46.6 % (39.6-49.0); Hemoglobin 15.4 g/dL (13.6-17.9); Lymphocytes % 2.7 % (15.3-44.8); MCH 34.8 pg (27.0-35.0); MCHC 33.1 g/dL (32.0-36.0); MPV 9.3 fL (7.6-11.3); Monocytes % 5.9 % (3.3-12.3); Neutrophils % 91.2 % (41.7-73.7); Platelets 110 thou/uL (152-406); RBC Red Blood Cell Count 4.44 M/uL (4.33-5.43); Red Cell Distribution Width 15.2 % (12.1-15.2)
[2024-03-28 06:24] LABS: Albumin 2.5 g/dL (3.4-5.0); Albumin/Globulin Ratio 0.9 (1.1-1.8); Anion Gap 8.1 mEq/L (5.0-15.0); Bilirubin Total 1.8 mg/dL (0.2-1.0); C-Reactive Protein 3.28 mg/L (<3.00); Globulin 2.8 g/dL (2.3-3.5); Magnesium 2.2 mg/dL (1.6-2.4); Potassium 5.1 mEq/L (3.5-5.1); Protein, Total 5.3 g/dL (6.4-8.2)
--- NOTE | 2024-03-28 06:52 | RAD REPORT ---
EXAM DESCRIPTION: RAD - Chest Single View - 03/28/2024 5:57 am CLINICAL HISTORY: Pneumonia COMPARISON: Chest Single View dated 03/27/2024; Chest Single View dated 03/26/2024; Chest Single View da regina 03/25/2024; Chest Single View dated 03/22/2024 FINDINGS: Lines: None. Lungs: Lung volumes are slightly improved. Patchy bilateral interstitial airspace disease again noted . Pleural: No significant pleural effusions or pneumothorax. Cardiac: Similar size and configuration Mediastinum: Within normal limits. Bones: No acute fractures. Other: None IMPRESSION: No significant change from yesterday. Widespread airspace disease likely reflecting nga a and/or pneumonia.
[2024-03-28] MEDS: ASPIRIN EC 81 MG TAB PO SCH (08:41)
[2024-03-28] MEDS: HEPARIN 5000 UNIT/ML 1 ML VIAL SQ SCH (08:44)
[2024-03-28] MEDS: INSULIN GLARGINE 100 UNIT/ML SQ SCH (08:44)
[2024-03-28] MEDS: METHYLPREDNISOLONE 40 MG INJ IV SCH ×2 (08:44→16:49)
[2024-03-28] MEDS: ALBUMIN HUMAN 25% 100 ML IV ONE (08:45)
--- NOTE | 2024-03-28 10:33 | P.PN ---
Subjective Date of Service: 03/28/24 Chief Complaint: Resp failure Patient is not doing well still continues to be very hypoxic diffuse pulmonary infiltrate on 100% FiO2 tolerating prone position on Precedex right now blood pressure has declined a little Review of Systems General: Weakness Respiratory: Shortness of Breath Physical Examination - Vital Signs Temperature: 97.8 F Blood Pressure: 115/70 Pulse: 73 Respirations: 24 Pulse Ox (%): 87 - Physical Exam General: Alert, Oriented x3, Moderate distress Respiratory: Diminished, Crackles/rales Cardiovascular: No edema, Regular rate/rhythm Assessment And Plan - Current Problems (Diagnosis) (1) Interstitial pneumonia of both lungs Current Visit: Yes Status: Acute Plan: Patient has diffuse interstitial pneumonia with ARDS on 100% FiO2 Precedex drip not responding to steroids we will increase it to 40 mg IV Q8 looks like his chest x-ray had worsened after we decreased we will hold off on the Lasix marita Nash labs reviewed his creatinine has increased a little may be due to excessive diuresis patient's creatinine is elevated start on IV fluids
[2024-03-28] MEDS: NA CHLORIDE 0.9% 1,000 ML IV SCH (12:17)
[2024-03-28] MEDS: DEXMEDETOMIDINE HCL 1,000 MCG in NA CHLORIDE 0.9% 490 ML IV SCH (16:49)
--- NOTE | 2024-03-29 05:14 | P.PN ---
Date of Service: 03/27/24 Subjective Patient is clinically stable; Patient remains hypoxic. Attempt to transfer [facility] well as [facility]. However, patient not accepted for transfer. Patient unable to do ambulance transport and likely does need to be intubated prior to transfer by [facility]. Will continue with current treatment plan and will try to continue with medical management Physical Examination - Vital Signs Reviewed - Physical Exam General: Alert, Oriented x3, Moderate distress; BIPAP suuport; more lethargic Respiratory: Diminished, Crackles/rales, hypoxic Cardiovascular: Regular rate/rhythm, Normal S1 S2 Gastrointestinal: Soft and benign, W/out hepatosplenomegaly Musculoskeletal: No clubbing, generalized weakness, Integumentary: No rashes Neurological: Generalized weakness with no focal deficits Assessment and Plan -Assessment/Plans 1. Respiratory distress 2. Acute hypoxic respiratory failure 3. Bilateral interstitial lung disease secondary to unknown etiology. 4. Hypertension 5. Hyperlipidemia 6. Diabetes Plan: 1. Continue with BIPAP and alternate with high flow oxygen at this time. Patient has oxygen saturations are staying in the high 80s and low 90s. Patient's x-rays show minimal improvement. Additional lab testing; nebs and steroids 2. Metabolic syndrome; continue with strict blood pressure and blood sugar control. Continue with statin therapy 3. GI DVT prophylaxis Qualifiers: Pneumonia type: due to unspecified organism Discharge Plan: Home Plan to discharge in: 48 Hours - Advance Directives Does patient have a Living Will: No Does patient have a Durable POA for Healthcare: No - Code Status/Comfort Care Code Status: Full Code Critical care: Yes Time Spent Managing Pts Care (In Minutes): 35
--- NOTE | 2024-03-29 05:16 | P.PN ---
Date of Service: 03/28/24 Subjective Patient with no significant changes. However, patient clinically feels better. Continue with increasing dose of IV steroids. Physical Examination - Vital Signs Reviewed - Physical Exam General: Alert, Oriented x3, Moderate distress; BIPAP suuport; more lethargic Respiratory: Diminished, Crackles/rales, hypoxic Cardiovascular: Regular rate/rhythm, Normal S1 S2 Gastrointestinal: Soft and benign, W/out hepatosplenomegaly Musculoskeletal: No clubbing, generalized weakness, Neurological: Generalized weakness with no focal deficits Assessment and Plan -Assessment/Plans 1. Respiratory distress 2. Acute hypoxic respiratory failure 3. Bilateral interstitial lung disease secondary to unknown etiology. 4. Hypertension 5. Hyperlipidemia 6. Diabetes Plan: Continue with current plan of care as mentioned below: 1. Continue with BIPAP and alternate with high flow oxygen at this time. Patient oxygen saturations are staying in the high 80s and low 90s. Additional lab testing; nebs and increased steroids 2. Metabolic syndrome; continue with strict blood pressure and blood sugar control. Continue with statin therapy 3. GI DVT prophylaxis Qualifiers: Pneumonia type: due to unspecified organism Discharge Plan: Home Plan to discharge in: 48 Hours - Advance Directives Does patient have a Living Will: No Does patient have a Durable POA for Healthcare: No - Code Status/Comfort Care Code Status: Full Code Critical care: Yes Time Spent Managing Pts Care (In Minutes): 35
--- NOTE | 2024-03-29 05:17 | P.PN ---
Date of Service: 03/29/24 Subjective Patient had worsening oxygenation. Patient on high flow and nonrebreather. Will discuss with pulmonary regarding intubation. In order to transfer the patient patient possibly needs to be intubated as EMS services were not able to transport as such high oxygen concentration. Will discuss the case with pulmonary this morning. Physical Examination - Vital Signs Reviewed - Physical Exam General: Alert, Oriented x3, Moderate distress; BIPAP suuport; more lethargic Respiratory: Diminished, Crackles/rales, hypoxic Cardiovascular: Regular rate/rhythm, Normal S1 S2 Gastrointestinal: Soft and benign, W/out hepatosplenomegaly Musculoskeletal: No clubbing, generalized weakness, Neurological: Generalized weakness with no focal deficits Assessment and Plan -Assessment/Plans 1. Respiratory distress 2. Acute hypoxic respiratory failure 3. Bilateral interstitial lung disease secondary to unknown etiology. 4. Hypertension 5. Hyperlipidemia 6. Diabetes Plan: Continue with current plan of care as mentioned below: 1. Continue with BIPAP and alternate with high flow oxygen at this time. Patient is also using nonrebreather with high flow oxygen. Patient had an episode where he became really hypoxic last night. Patient oxygen saturations are staying in the high 80s and low 90s. Additional lab testing; nebs and increased steroids yesterday. Patient may need transfer to a tertiary care facility. 2. Metabolic syndrome; continue with strict blood pressure and blood sugar control. Continue with statin therapy 3. GI DVT prophylaxis - Advance Directives Does patient have a Living Will: No Does patient have a Durable POA for Healthcare: No - Code Status/Comfort Care Code Status: Full Code Critical care: Yes Time Spent Managing Pts Care (In Minutes): 35
[2024-03-29 06:00] LABS: Absolute Lymphocytes (CBC) 0.2 K/uL (0.7-4.9); Absolute Monocytes 0.6 K/uL (0.1-1.3); Absolute Neutrophil 9.9 K/uL (1.8-8.0); Basophils % 0.1 % (0-1.3); Hematocrit 46.8 % (39.6-49.0); Hemoglobin 15.6 g/dL (13.6-17.9); Lymphocytes % 1.7 % (15.3-44.8); MCH 34.8 pg (27.0-35.0); MCHC 33.3 g/dL (32.0-36.0); MCV 104.5 fL (80-100); MPV 9.6 fL (7.6-11.3); Monocytes % 5.4 % (3.3-12.3); Neutrophils % 92.8 % (41.7-73.7); Platelets 99 thou/uL (152-406); RBC Red Blood Cell Count 4.48 M/uL (4.33-5.43)
[2024-03-29 06:14] LABS: Anion Gap 7.4 mEq/L (5.0-15.0); Magnesium 1.8 mg/dL (1.6-2.4); Potassium 5.4 mEq/L (3.5-5.1)
[2024-03-29 10:14] LABS: White Blood Cell Scan OK (OK)
[2024-03-29 10:15] LABS: Blood Morphology Comment NOT SEEN (NOT SEEN); Platelet Estimate DECR
--- NOTE | 2024-03-29 10:49 | RAD REPORT ---
EXAM DESCRIPTION: Sean Single View03/29/2024 10:29 am CLINICAL HISTORY: Chest pain COMPARISON: March 28, 2024 FINDINGS: No significant change the diffuse bilateral pulmonary opacities Heart is mildly enlarged IMPRESSION: No significant change in the diffuse bilateral pulmonary opacities
[2024-03-30 05:36] LABS: Absolute Lymphocytes (CBC) 0.2 K/uL (0.7-4.9); Absolute Monocytes 0.7 K/uL (0.1-1.3); Absolute Neutrophil 9.8 K/uL (1.8-8.0); Basophils % 0.1 % (0-1.3); Eosinophils % 0.1 % (0-4.4); Hematocrit 46.2 % (39.6-49.0); Hemoglobin 15.5 g/dL (13.6-17.9); Lymphocytes % 1.4 % (15.3-44.8); MCHC 33.6 g/dL (32.0-36.0); MCV 104.1 fL (80-100); MPV 9.7 fL (7.6-11.3); Monocytes % 6.8 % (3.3-12.3); Neutrophils % 91.6 % (41.7-73.7); Platelets 88 thou/uL (152-406); RBC Red Blood Cell Count 4.44 M/uL (4.33-5.43); Red Cell Distribution Width 14.5 % (12.1-15.2)
[2024-03-30 05:57] LABS: Anion Gap 10.9 mEq/L (5.0-15.0); Magnesium 1.9 mg/dL (1.6-2.4); Potassium 4.9 mEq/L (3.5-5.1)
--- NOTE | 2024-03-30 06:43 | RAD REPORT ---
EXAM DESCRIPTION: RAD - Chest Single View - 03/30/2024 6:21 am CLINICAL HISTORY: Pneumonia COMPARISON: Chest Single View dated 03/29/2024; Chest Single View dated 03/28/2024; Chest Single View d ated 03/27/2024; Chest Single View dated 03/26/2024; Thorax W/ Con dated 03/16/2024 FINDINGS: Lines: None. Lungs: Widespread interstitial airspace disease bilaterally. This is unchanged. Pleural: No significant pleural effusions or pneumothorax. Cardiac: Similar size and configuration. Mediastinum: Within normal limits. Bones: No acute fractures. Other: None IMPRESSION: Unchanged diffuse airspace disease bilaterally which could represent edema, pneumonia, a nd/or ARDS.
--- NOTE | 2024-03-30 10:02 | P.PN ---
Subjective Date of Service: 03/30/24 Chief Complaint: Resp failure Patient states that he is improving his oxygenation has improved is still on 100% FiO2 tolerating prone position Review of Systems Unremarkable General: Weakness Eyes: Redness Respiratory: Shortness of Breath Physical Examination - Vital Signs Temperature: 97.8 F Blood Pressure: 115/82 Pulse: 61 Respirations: 22 Pulse Ox (%): 90 - Physical Exam General: Alert, Oriented x3 Neck: Supple Respiratory: Crackles/rales Cardiovascular: No edema, Regular rate/rhythm, Normal S1 S2 Assessment And Plan - Current Problems (Diagnosis) (1) Interstitial pneumonia of both lungs Current Visit: Yes Status: Acute Plan: Patient has ARDS from interstitial pneumonia etiology unknown patient is subjectively improving chest x-ray seems to have stabilized with bilateral interstitial changes reduce the dose of Solu-Medrol to every 12 add Pepcid changed to p.o. Xarelto for DVT prophylaxis labs chemistries reviewed vital signs stable patient is still on Precedex continue with conservative treatment patient seems to be stabilizing
[2024-03-30] MEDS: FAMOTIDINE 20 MG TAB PO SCH (22:01)
[2024-03-30] MEDS: METHYLPREDNISOLONE 40 MG INJ IV SCH (22:02)
--- NOTE | 2024-03-31 01:49 | P.PN ---
Date of Service: 03/30/24 Subjective Patient states he is feeling much better. His O2 sats are remaining in the low 90s. Patient is laying down prone for a few hours daily. Patient's steroids were increased once again by Pulmonary. Patient's oxygen requirements are very high at this time and unable to transport for transfer unless patient on the ventilator. However, he continues to remain fairly stable. Physical Examination - Vital Signs Reviewed - Physical Exam General: Alert, Oriented x3, Moderate distress; BIPAP suuport; more lethargic Respiratory: Diminished, Crackles/rales, hypoxic Cardiovascular: Regular rate/rhythm, Normal S1 S2 Gastrointestinal: Soft and benign, W/out hepatosplenomegaly Musculoskeletal: No clubbing, generalized weakness, Neurological: Generalized weakness with no focal deficits Assessment and Plan -Assessment/Plans 1. Respiratory distress 2. Acute hypoxic respiratory failure 3. Bilateral interstitial lung disease secondary to unknown etiology. 4. Hypertension 5. Hyperlipidemia 6. Diabetes Plan: Continue with current plan of care as mentioned below: 1. Continue with BIPAP and alternate with high flow oxygen at this time. Patient is also using nonrebreather with high flow oxygen while he is resting. Patient had an episode where he became really hypoxic last night. Patient oxygen saturations are staying in the high 80s and low 90s. Additional lab testing; nebs and increased steroids yesterday. Patient may need transfer to a tertiary care facility but because the patient's oxygen requirements EMS is unable to transfer. 2. Metabolic syndrome; continue with strict blood pressure and blood sugar control. Continue with statin therapy 3. GI DVT prophylaxis - Advance Directives Does patient have a Living Will: No Does patient have a Durable POA for Healthcare: No - Code Status/Comfort Care Code Status: Full Code Critical care: Yes Time Spent Managing Pts Care (In Minutes): 35
[2024-03-31 05:17] LABS: Absolute Lymphocytes (CBC) 0.1 K/uL (0.7-4.9); Absolute Monocytes 0.6 K/uL (0.1-1.3); Basophils % 0.1 % (0-1.3); Eosinophils % 0.1 % (0-4.4); Hematocrit 46.9 % (39.6-49.0); Hemoglobin 15.5 g/dL (13.6-17.9); Lymphocytes % 1.4 % (15.3-44.8); MCH 34.5 pg (27.0-35.0); MCHC 33.1 g/dL (32.0-36.0); MPV 9.3 fL (7.6-11.3); Monocytes % 5.2 % (3.3-12.3); Platelets 80 thou/uL (152-406); RBC Red Blood Cell Count 4.51 M/uL (4.33-5.43); Red Cell Distribution Width 14.8 % (12.1-15.2)
[2024-03-31 05:26] LABS: Neutrophils % 93.2 % (41.7-73.7)
[2024-03-31 05:29] LABS: Albumin 2.6 g/dL (3.4-5.0); Albumin/Globulin Ratio 0.9 (1.1-1.8); Anion Gap 5.7 mEq/L (5.0-15.0); Bilirubin Total 1.5 mg/dL (0.2-1.0); Globulin 2.8 g/dL (2.3-3.5); Magnesium 1.6 mg/dL (1.6-2.4); Phosphorus 2.6 mg/dL (2.5-4.9); Potassium 4.7 mEq/L (3.5-5.1); Protein, Total 5.4 g/dL (6.4-8.2)
--- NOTE | 2024-03-31 06:53 | RAD REPORT ---
EXAM DESCRIPTION: RAD - Chest Single View - 03/31/2024 6:28 am CLINICAL HISTORY: Pneumonia COMPARISON: Chest Single View dated 03/30/2024; Chest Single View dated 03/29/2024; Chest Single View dated 03/28/2024; Chest Single View dated 03/27/2024 FINDINGS: Lines: None. Lungs: Widespread bilateral interstitial airspace disease is unchanged. Pleural: No significant pleural effusions or pneumothorax. Cardiac: Similar size and configuration. Mediastinum: Within normal limits. Bones: No acute fractures. Other: None IMPRESSION: Unchanged widespread airspace disease which could reflect edema, pneumonia, and/or ARDS.
[2024-03-31] MEDS: MAGNESIUM SULFATE 1 gm IVPB 1 GM/100 ML BAG IV ONE ×2 (07:41→08:08)
[2024-03-31] MEDS: GUAIFENESIN/CODEINE 5ML UCUP PO PRN (07:43)
[2024-03-31] MEDS: ALBUTEROL 2.5 MG/3 ML NEB SOL NEB PRN (07:55)
[2024-03-31] MEDS: RIVAROXABAN 10 MG TABLET PO SCH (08:00)
[2024-03-31] MEDS ORDERED: ENOXAPARIN 40 MG/0.4 ML SQ SCH (09:00)
--- NOTE | 2024-03-31 09:55 | P.PN ---
Subjective Date of Service: 03/31/24 Chief Complaint: Resp failure Pt is resting comfortably in bed. Pt is using HFNC 40L 100%. He is feeling better today. He is getting high dose steroid. Pulm is following. He could not transfer to another facility due to high oxygen requirement. No other complaints. Review of Systems General: Unremarkable Eyes: Unremarkable ENT: Unremarkable Respiratory: SOB with Excertion Cardiovascular: Unremarkable Gastrointestinal: Unremarkable Genitourinary: Unremarkable Musculoskeletal: Unremarkable Integumentary: Unremarkable Neurological: Unremarkable Lymphatics: Unremarkable Physical Examination - Vital Signs Temperature: 97.8 F Blood Pressure: 124/78 Pulse: 88 Respirations: 28 Pulse Ox (%): 90 - Physical Exam General: Alert, In no apparent distress, Oriented x3 HEENT: Atraumatic, Normocephalic, PERRLA Neck: Supple, 2+ carotid pulse no bruit, JVD not distended Respiratory: Normal air movement, Diminished (decreased basilar breath sound.) Cardiovascular: No edema, Normal pulses, Regular rate/rhythm, Normal S1 S2 Capillary refill: <2 Seconds Gastrointestinal: Normal bowel sounds, Soft and benign, Non-distended Musculoskeletal: No clubbing, No swelling, No contractures Integumentary: No rashes, No breakdown, No significant lesion Neurological: Normal gait, Normal speech, Normal strength at 5/5 x4 extr Lymphatics: No axilla or inguinal lymphadenopathy Assessment And Plan - Plan Acute Respiratory failure with hypoxia: Due to ARDS/pneumonia. Will continue cefepime, steroid, and prn BIPAP. Currently using 40L with 100% fio2. Pulm is following. Unable to transfer to a tertiary facility due to increased oxygen requirement. Hypertension: Will continue home med. Hyperlipidemia: Statin Pruritus: Will continue prn benadryl. Hyponatremia: Na is 130. Will monitor Na level. Hypomagnesemia: : Mag is 1.6. Will replete and monitor. Diabetes: Continue accuchek, SSI, lantus 35u daily, and ADA diet Thrombocytopenia: Plt is 80. Will avoid antiplatelet and monitor. Will check for HIT ab GI ppx: protonix DVT ppx: xarelto Code: full
[2024-03-31] MEDS: LORAZEPAM 0.5 MG TABLET PO ONE (12:19)
[2024-03-31] MEDS: LORazepam 2 MG/ML VIAL IV ONE (12:46)
[2024-03-31] MEDS: MIDAZOLAM HCL 2 MG/2 ML INJ IV ONE (13:00)
[2024-03-31] MEDS: propofoL 200 MG/20 ML VIAL IV ONE (14:50)
[2024-03-31] MEDS: propofoL 1,000 MG/100 ML VIAL IV SCH ×2 (15:09→17:00)
[2024-03-31] MEDS: MIDAZOLAM HCL 2 MG/2 ML INJ ONE (15:09)
[2024-03-31] MEDS: CISATRACURIUM INJECTION 2 MG/ML (10 ML Vial) IV ONE (15:10)
[2024-03-31] MEDS ORDERED: MIDAZOLAM HCL 2 MG/2 ML INJ IV PRN (15:16)
[2024-03-31] MEDS ORDERED: CISATRACURIUM INJECTION 2 MG/ML (10 ML Vial) IV PRN (15:17)
[2024-03-31] MEDS: FENTANYL CITR 100 MCG/2 ML IV PRN ×3 (15:35→19:05)
[2024-03-31] MEDS: LORazepam 2 MG/ML VIAL IV PRN ×3 (15:46→19:36)
[2024-03-31 15:53] LABS: Arterial Blood Carboxyhemoglob 1.4 % (0-1.5); Blood Gas Oxyhemoglobin 82.7 % (94-97); Blood Gas THB 17.1 g/dl (12-18); Blood O2 Saturation 84.6 % (92-98.5)
--- NOTE | 2024-03-31 16:09 | RAD REPORT ---
EXAM DESCRIPTION: RAD - Abdomen 1 View (KUB) - 03/31/2024 4:03 pm CLINICAL HISTORY: Device placement nasogastric tube placement FINDINGS: The tip of a nasogastric tube lies within the first portion of duodenum
[2024-03-31] MEDS ORDERED: SODIUM CHLORIDE 0.9% 10ML INJ IV PRN (16:30)
[2024-03-31] MEDS: CISATRACURIUM INJECTION 2 MG/ML (10 ML Vial) IV PRN (16:30)
--- NOTE | 2024-03-31 16:36 | P.PN ---
Subjective Date of Service: 04/01/24 Chief Complaint: Resp failure Patient's condition deteriorated unable to oxygenate patient was then intubated placed on a ventilator Review of Systems is unable to be obtained Physical Examination - Vital Signs Temperature: 98.6 F Blood Pressure: 103/69 Pulse: 78 Respirations: 35 Pulse Ox (%): 90 - Physical Exam General: Unresponsive Respiratory: Expiratory wheezes Cardiovascular: No edema, Regular rate/rhythm Gastrointestinal: Normal bowel sounds, Non-distended Musculoskeletal: No clubbing, No contractures Integumentary: No rashes Assessment And Plan - Current Problems (Diagnosis) (1) Interstitial pneumonia of both lungs Current Visit: Yes Status: Acute Plan: Patient has ARDS his condition worsened had to be intubated currently on a ventilator trying to adjust the ventilator to patient's demands he is also gagging will try Versed propofol will also need some paralytic agents prognosis poor family members at the bedside we have problems oxygenating the patient is on 100% FiO2 with a PEEP of 15 spent over 60 minutes yesterday stabilizing the patient on the ventilator extensive discussions with the nursing staff respiratory therapist reviewed chest x-ray discussion with the relative Critical Care: Yes (1 hour) Time Spent Managing PTS Care (In Minutes): 60
[2024-03-31] MEDS: METOPROLOL TARTRATE 5 MG/5 ML INJ IV STA (16:55)
[2024-03-31] MEDS: METOPROLOL TARTRATE 5 MG/5 ML INJ IV ONE (16:59)
[2024-03-31] MEDS ORDERED: DEXMEDETOMIDINE HCL 200 MCG in NA CHLORIDE 0.9% 98 ML IV SCH (17:00)
[2024-03-31] MEDS: ENOXAPARIN 40 MG/0.4 ML SQ SCH (17:00)
[2024-03-31] MEDS ORDERED: ROCURONIUM 50 MG/5 ML VIAL IV ONE (17:06)
[2024-03-31] MEDS ORDERED: SUCCINYLCHOLINE 20 MG/ML (10 ML) IV ONE (17:06)
[2024-03-31 17:15] LABS: Arterial Blood Carboxyhemoglob 1.2 % (0-1.5); Blood Gas Oxyhemoglobin 80.3 % (94-97); Blood Gas THB 16.5 g/dl (12-18); Blood O2 Saturation 82.2 % (92-98.5)
[2024-03-31] MEDS: MIDAZOLAM HCL IN 0.9 % NACL/PF 100 MG/100 ML BAG IVPB SCH (17:30)
[2024-03-31] MEDS: PANTOPRAZOLE 40 MG INJ IVP SCH (17:32)
[2024-03-31] MEDS: INSULIN REGULAR (HUMAN) 100 UNIT/ML SQ SCH (17:58)
[2024-03-31 18:01] LABS: Arterial Blood Carboxyhemoglob 1.3 % (0-1.5); Blood Gas THB 16.3 g/dl (12-18); Blood O2 Saturation 80.9 % (92-98.5)
[2024-03-31] MEDS: NOREPINEPHRINE 4 MG in D5W 250 ML IV SCH (18:10)
[2024-04-01 05:54] LABS: Absolute Lymphocytes (CBC) 0.3 K/uL (0.7-4.9); Absolute Monocytes 1.3 K/uL (0.1-1.3); Absolute Neutrophil 18.5 K/uL (1.8-8.0); Basophils % 0.1 % (0-1.3); Hematocrit 45.3 % (39.6-49.0); Hemoglobin 15.1 g/dL (13.6-17.9); Lymphocytes % 1.6 % (15.3-44.8); MCH 34.5 pg (27.0-35.0); MCHC 33.3 g/dL (32.0-36.0); MCV 103.7 fL (80-100); MPV 10.2 fL (7.6-11.3); Monocytes % 6.3 % (3.3-12.3); Nucleated Red Blood Cells % 0.1 % (0-0); Platelets 134 thou/uL (152-406); RBC Red Blood Cell Count 4.37 M/uL (4.33-5.43); Red Cell Distribution Width 14.7 % (12.1-15.2)
[2024-04-01 05:58] LABS: Anion Gap 9.1 mEq/L (5.0-15.0); Magnesium 2.3 mg/dL (1.6-2.4); Phosphorus 3.6 mg/dL (2.5-4.9); Potassium 5.1 mEq/L (3.5-5.1)
--- NOTE | 2024-04-01 07:16 | RAD REPORT ---
EXAM DESCRIPTION: RAD - Chest Single View - 04/01/2024 6:55 am CLINICAL HISTORY: intubated pt COMPARISON: Chest Single View dated 03/31/2024; Chest Single View dated 03/30/2024; Chest Single View dated 03/29/2024; Chest Single View dated 03/29/2024bdomen 1 View (KUB) dated 03/31/2024; Chest Single View dated 03/31/2024; Chest Single View dated 03/30/2024; Chest Single View dated 03/29/2024 FINDINGS: Lines: Endotracheal tube at the lower margin of the clavicular heads. Enteric tube below t he diaphragm. Lungs: Irregular bilateral airspace opacities without significant change. Pleural: No significant pleural effusions or pneumothorax. Cardiac: The heart size is within normal limits. Mediastinum: Within normal limits. Bones: No acute fractures. Other: None IMPRESSION: No significant change in aeration of the lungs compared with 03/31/2024. Support apparat us stable.
[2024-04-01 09:05] LABS: Differential Total Cells Count 100; Lymphocytes 3 % (15-42); Monocytes 3 % (0-10); Platelet Estimate ADEQ; Segmented Neutrophils 94 % (40-80); Toxic Granulation 1+
[2024-04-01 09:06] LABS: Blood Morphology Comment NOT SEEN (NOT SEEN)
[2024-04-01 09:27] LABS: Arterial Blood Carboxyhemoglob 1.4 % (0-1.5); Blood Gas THB 16.5 g/dl (12-18)
--- NOTE | 2024-04-01 10:30 | P.PN ---
Subjective Date of Service: 04/01/24 Chief Complaint: Resp failure Pt is resting comfortably in bed. Pt had respiratory distress on 03/31/24 and he was intubated. Pt is currently sedated. PEEP is 15 and FiO2 of 100%. He desats to mid 80s when moved. Pulm is managing vent. Will start OG tube feeding and place a PICC line. No other complaints. Review of Systems is unable to be obtained Physical Examination - Vital Signs Temperature: 98.5 F Blood Pressure: 87/59 Pulse: 100 Respirations: 14 Pulse Ox (%): 84 - Physical Exam General: In no apparent distress, Unresponsive HEENT: Atraumatic, Normocephalic Neck: Supple, 2+ carotid pulse no bruit Respiratory: Normal air movement Cardiovascular: No edema, Normal pulses, Regular rate/rhythm, Normal S1 S2 Capillary refill: <2 Seconds Gastrointestinal: Normal bowel sounds, Soft and benign, Non-distended Musculoskeletal: No clubbing, No swelling, No contractures Integumentary: No rashes, No breakdown, No significant lesion Neurological: Other (sedated) Lymphatics: No axilla or inguinal lymphadenopathy Assessment And Plan - Plan Acute Respiratory failure with hypoxia: Due to ARDS/pneumonia. Will continue cefepime, steroid, propofol and versed. Pt is intubated and sedated. PEEP is 15 and FiO2 is 100%. Pulm is following. Unable to transfer to a tertiary facility due to increased oxygen requirement. Hypertension: Will continue home med. Hyperlipidemia: Statin Pruritus: Will continue prn benadryl. Hyponatremia: Na is 131. Will monitor Na level. Hypomagnesemia: : Mag is 1.6. Will replete and monitor. Diabetes: Continue accuchek, SSI, lantus 35u daily, and ADA diet Thrombocytopenia: Plt is 80. Will avoid antiplatelet and monitor. Will check for HIT ab Nutrition: Will start OG tube feeding. GI ppx: protonix DVT ppx: xarelto Code: full
[2024-04-01] MEDS ORDERED: VITAL AF 1,000 ML BOT RTH SCH (12:00)
--- NOTE | 2024-04-01 12:27 | P.PN ---
Subjective Date of Service: 04/01/24 Chief Complaint: Resp failure Patient's condition remained stable he is on propofol Versed paralytic agents intermittently including narcotics saturation remains above 85% patient resting comfortably Review of Systems is unable to be obtained Physical Examination - Vital Signs Temperature: 98.6 F Blood Pressure: 103/69 Pulse: 78 Respirations: 35 Pulse Ox (%): 90 - Physical Exam General: Unresponsive Respiratory: Clear to auscultation bilaterally Cardiovascular: No edema, Regular rate/rhythm, Normal S1 S2 Gastrointestinal: Normal bowel sounds, Soft and benign Assessment And Plan - Current Problems (Diagnosis) (1) Acute hypoxic respiratory failure Current Visit: No Status: Acute Plan: Patient has acute hypoxic respiratory failure was intubated yesterday his condition remained stable on multiple sedative medications include including as needed paralytics narcotics Vent has been adjusted again today to assist-control mode 500 tidal volume chest x-ray shows some pulmonary fibrosis no obvious other inflammatory changes CO2 is around 58 on 100% FiO2 labs reviewed patient is tolerating tube feeds white count is little elevated today continue with supportive measures discussed with the high risk for transfer advance endotracheal tube by 2 cm
[2024-04-01] MEDS: CEFEPIME 2 GM in NA CHLORIDE 0.9% 100 ML IV SCH (16:22)
[2024-04-01 18:26] LABS: Arterial Blood Carboxyhemoglob 1.3 % (0-1.5); Blood Gas Oxyhemoglobin 88.3 % (94-97); Blood O2 Saturation 90.4 % (92-98.5)
[2024-04-01 18:27] LABS: Blood Gas THB 17.3 g/dl (12-18)
--- NOTE | 2024-04-01 18:27 | RAD REPORT ---
EXAM DESCRIPTION: RADChest Single View04/01/2024 5:33 pm CLINICAL HISTORY: PICC line placement and ETT position change COMPARISON: Chest Single View dated 04/01/2024; Abdomen 1 View (KUB) dated 03/31/2024; Chest Single Vi ew dated 03/31/2024; Chest Single View dated 03/30/2024 TECHNIQUE: Portable AP view of the chest. FINDINGS: Left arm PICC has been placed with catheter tip projecting somewhat lateral to the SVC mar gin. Persistent patchy bilateral airspace opacities with interstitial thickening, more pronounced on the right. Small left apical pneumothorax. This also delineates the left heart border, with a small b alejo component. No sizable effusion. The cardiomediastinal contours are unremarkable. IMPRESSION: Small left apical and basal pneumothorax. Left arm PICC has been placed, with tip projecting somewhat lateral to the SVC margin. This could rel ate to patient rotation. Persistent patchy bilateral airspace opacities. The findings were communicated to Dr. Murray on 04/01/2024 at 18:16 hours.
--- NOTE | 2024-04-01 22:25 | P.BOP ---
Preoperative diagnosis: left pneumothorax Postoperative diagnosis: SAME Primary procedure: LEft chest tube placement Estimated blood loss: <5cc Findings: as above Complications: None Transferred to: ICU Condition: Serious
--- NOTE | 2024-04-01 22:37 | RAD REPORT ---
EXAM DESCRIPTION: RADChest Single View04/01/2024 10:22 pm CLINICAL HISTORY: chest tube COMPARISON: Chest Single View dated 04/01/2024; Chest Single View dated 04/01/2024; Abdomen 1 View ([facility] B) dated 03/31/2024; Chest Single View dated 03/31/2024 TECHNIQUE: Portable AP view of the chest. FINDINGS: A left chest tube has been placed. Interval decrease in size of the left apical pneumothor ax, now with 8-9 mm of pleural separation at the apex. Endotracheal tube, left arm PICC, and enteric tube are unchanged in position. Bilateral patchy airspace opacities, stable in extent. No other pneu mothorax or effusion. The cardiomediastinal contours are unremarkable. IMPRESSION: Interval placement of left thoracostomy tube with interval decrease in size of left apic al pneumothorax. Other stable findings as above.
[2024-04-01] MEDS: Mupirocin NASAL 2 APPL/1 GM TUBE NAS SCH (23:15)
[2024-04-02] MEDS: METOPROLOL TARTRATE 5 MG/5 ML INJ IV STA (00:15)
--- NOTE | 2024-04-02 01:39 | CON ---
Date of Consultation: 04/01/2024 Reason For Service: This is for an emergent chest tube placement. History Of Present Illness: Mr. Jean-Paul Castillo is a 59-year-old patient, admitted to the hospital with multiple medical problems, currently on a ventilator, sedated with pulmonary fibrosis. During the [facility] x-ray early this evening, the patient was found to be having a left apical pneumothorax. Since t he patient is on PEEP and a ventilator dependent, Dr. Blair and Dr. Murray called me to put an jose m rgent chest tube placement since we believe with the ventilator in place, this may get exacerbated. Most of the information is obtained from the patient's primary doctors and a technical marketing consultant and also from the patient's . Apparently, he came here with hypertension, hyperlipidemia, diabetes, and sleep apnea with also pneumonia. Allergies: PENICILLIN. Medications: Reviewed including aspirin, Prozac, Proventil, Ventolin, Lopressor, the patient is on m echanical ventilation. Past Medical History: Include as above. Past Surgical History: Unknown. Social History: He is a former smoker. He drinks alcohol, although unable to say the quantity at th is moment. Family History: Heart disease. Review of Systems: Unable to be obtained. The patient is on the ventilator. Physical Examination: Vital Signs: Reviewed. The patient is on the ventilator, sedated. HEENT: Pupils anicteric. Neck: Supple. Chest: Diminished breath sounds on the left side. Abdomen: Soft and depressible. Extremities: Good capillary refill. There is a PICC line on the left side. Laboratory Data: Blood work shows WBC count of 20 with hemoglobin of 15.1 and platelets of 134, pota ssium is 5.1, creatinine is 34, glucose 92. A chest x-ray tonight too shows left apical pneumothorax . The benefits, alternatives, and risks of a chest tube placement were discussed with the patient's and the parents are also present, which include, but not limited to infection, bleeding, damage to adjacent structures, recurrence, empyema, recurrent pneumothorax, hemothorax, DC, and even . They also understand this may not relieve any symptoms. He might need more than one surgical interv ention. Procedure: Placement of a chest tube. Once again, benefits, alternatives, and risks fully explained . The patient was placed in supine position. Time-out was done. Left chest was prepped and draped in a sterile fashion. Local anesthesia was applied. After that, we proceeded to go in the area arou nd the fifth intercostal space, made an incision in that region, found the rib and then just went abo ve the rib, and entered the pleural cavity and placed the chest tube point into the apex. Ward of ai r heard during the placement. No adhesions found. So, the chest tube was placed in that place, secu red with silk, and then connected to Pleur-evac. The patient tolerated the procedure well. A chest x-ray was done after and review with chest tube in place. Still small tiny apical pneumothorax. The Pleur-evac was connected to suction. The patient tolerated the procedure well. The patient was cov ered with sterile dressings. ELLIE/ALLEY Voice ID: [id number] Report ID: [id number]
[2024-04-02 04:14] LABS: Immunoglobulin E 814 kU/L (<=114)
[2024-04-02 06:17] LABS: Absolute Basophils 0.1 K/uL (0-0.5); Absolute Lymphocytes (CBC) 0.1 K/uL (0.7-4.9); Absolute Monocytes 1.5 K/uL (0.1-1.3); Absolute Neutrophil 21.5 K/uL (1.8-8.0); Basophils % 0.4 % (0-1.3); Hematocrit 49.9 % (39.6-49.0); Hemoglobin 16.2 g/dL (13.6-17.9); Lymphocytes % 0.6 % (15.3-44.8); MCH 34.2 pg (27.0-35.0); MCHC 32.5 g/dL (32.0-36.0); MCV 105.2 fL (80-100); MPV 10.2 fL (7.6-11.3); Monocytes % 6.4 % (3.3-12.3); Neutrophils % 92.6 % (41.7-73.7); Platelets 161 thou/uL (152-406); RBC Red Blood Cell Count 4.74 M/uL (4.33-5.43); Red Cell Distribution Width 15.4 % (12.1-15.2)
[2024-04-02 06:34] LABS: Anion Gap 14.2 mEq/L (5.0-15.0); Phosphorus 4.6 mg/dL (2.5-4.9)
[2024-04-02 06:35] LABS: Potassium 6.2 mEq/L (3.5-5.1)
[2024-04-02] MEDS: CALCIUM GLUCONATE 1 GM IVPB 1 GM/50 ML BAG IV ONE (08:03)
[2024-04-02] MEDS: SODIUM ZIRCONIUM CYCLOSILICATE 10 GM/PKT FT ONE (08:04)
--- NOTE | 2024-04-02 08:19 | RAD REPORT ---
EXAM DESCRIPTION: RADChest Single View04/02/2024 8:01 am CLINICAL HISTORY: Intubated COMPARISON: Chest Single View dated 04/01/2024; Chest Single View dated 04/01/2024; Chest Single View dated 04/01/2024; Abdomen 1 View (KUB) dated 03/31/2024 TECHNIQUE: Portable AP view of the chest. FINDINGS: Stable residual small left apical pneumothorax. Left thoracostomy tube, endotracheal tube, enteric tube, and left arm PICC are unchanged in position. Stable patchy alveolar and interstitial o pacities more pronounced on the right. No sizable effusion. The cardiomediastinal contours are unrem arkable. IMPRESSION: Stable findings as above.
[2024-04-02] MEDS ORDERED: METOPROLOL TARTRATE 5 MG/5 ML INJ IV PRN (08:39)
[2024-04-02 08:47] LABS: Arterial Blood Carboxyhemoglob 1.2 % (0-1.5); Blood Gas Oxyhemoglobin 90.3 % (94-97); Blood Gas THB 17.1 g/dl (12-18); Blood O2 Saturation 92.5 % (92-98.5)
[2024-04-02] MEDS: METOPROLOL TARTRATE 5 MG/5 ML INJ IV PRN (09:58)
--- NOTE | 2024-04-02 10:03 | P.PN ---
Subjective Date of Service: 04/02/24 Chief Complaint: Resp failure Pt is resting comfortably in bed. Still intubated and sedated. PEEP is 15 and FiO2 of 100%. Sao2 87%. He had left apical pneumothorax yesterday and Gen surgeon placed a left chest tube. Pt had respiratory distress on 03/31/24 and he was intubated. Pulm is managing vent. Will continue OG tube feeding and place a PICC line. No other complaints. Review of Systems is unable to be obtained Physical Examination - Vital Signs Temperature: 98.7 F Blood Pressure: 107/71 Pulse: 122 Respirations: 18 Pulse Ox (%): 87 - Physical Exam General: Unresponsive HEENT: Atraumatic, Normocephalic, PERRLA Neck: Supple, 2+ carotid pulse no bruit, JVD not distended Respiratory: Clear to auscultation bilaterally, Normal air movement Cardiovascular: No edema, Normal pulses, Regular rate/rhythm, Normal S1 S2 Capillary refill: <2 Seconds Gastrointestinal: Normal bowel sounds, Soft and benign, Non-distended Musculoskeletal: No clubbing, No swelling Integumentary: No rashes, No breakdown, No significant lesion Neurological: Other (unresponsive) Lymphatics: No axilla or inguinal lymphadenopathy Assessment And Plan - Plan Acute Respiratory failure with hypoxia: Due to ARDS/pneumonia. Will continue cefepime, steroid, propofol and versed. Pt is intubated and sedated. PEEP is 15 and FiO2 is 100%. Pulm is following. He desats with movement. Will try to transfer pt to a tertiary facility for ECMO. We were initially unable to transfer to a tertiary facility due to increased oxygen requirement. Left apical pneumothorax: Gen surgeon placed left chest tube yesterday. 04/01/24. Will monitor chest tube. Repeat CXR is stable. Hyperkalemia: K is 6.9. Will give lokelma 10mg via OG tube. Monitor K. AI: cr is 1.44. Will avoid nephrotoxins and monitor renal function. Hypertension: Will continue home med. Hyperlipidemia: Statin Pruritus: Will continue prn benadryl. Hyponatremia: Na is 134. Will monitor Na level. Hypomagnesemia: : Mag is 1.6. Will replete and monitor. Diabetes: Continue accuchek, SSI, lantus 35u daily, and ADA diet Thrombocytopenia: Plt is 80. Will avoid antiplatelet and monitor. Will check for HIT ab Nutrition: Will start OG tube feeding. GI ppx: protonix DVT ppx: xarelto Code: full Dispo: pending hospital course. Pt has poor prognosis. Will try to transfer pt to a tertiary facility for ECMO. [facility] and [facility] are at bed capacity. Will try again tomorrow.
[2024-04-02] MEDS: LANO/MINERAL OIL/PETRO 3.5 GM EACH EYE SCH (11:14)
[2024-04-02] MEDS: Meropenem 1,000 MG in NA CHLORIDE 0.9% 100 ML IV SCH (14:14)
[2024-04-02] MEDS: SODIUM ZIRCONIUM CYCLOSILICATE 10 GM/PKT ONE (14:14)
[2024-04-02] MEDS: VANCOMYCIN 2 GM in NA CHLORIDE 0.9% 500 ML IVPB ONE (14:14)
[2024-04-02] MEDS: SODIUM ZIRCONIUM CYCLOSILICATE 10 GM/PKT PO SCH (14:16)
[2024-04-02 14:36] LABS: Blood O2 Saturation 84.5 % (92-98.5)
[2024-04-02 14:37] LABS: Arterial Blood Carboxyhemoglob 1.2 % (0-1.5)
[2024-04-02 14:40] LABS: Blood Gas Oxyhemoglobin 82.6 % (94-97)
[2024-04-02] MEDS: NA CHLORIDE 0.9% 100 ML ONE (20:30)
[2024-04-02] MEDS ORDERED: D50W 25 GM/50 ML SYRINGE IV ONE (21:15)
[2024-04-02] MEDS: SODIUM BICARB 50 MEQ/50ML VIAL IV ONE (21:34)
[2024-04-02] MEDS: INSULIN REGULAR (HUMAN) 100 UNIT/ML IV ONE (21:34)
[2024-04-02] MEDS: D10W 250 ML IV ONE (21:35)
[2024-04-02] MEDS: ALBUTEROL 2.5 MG/3 ML NEB SOL NEB ONE (23:17)
[2024-04-02] MEDS: NA CHLORIDE 0.9% 1,000 ML IV ONE (23:24)
[2024-04-02] MEDS: NA CHLORIDE 0.9% 1,000 ML IV SCH (23:24)
[2024-04-03 00:46] LABS: UR SODIUM < 15 mmol/L (27-287)
[2024-04-03 01:32] VITALS: TEMP 98
[2024-04-03 04:26] VITALS: BMI 30.5
[2024-04-03 04:52] LABS: UR PROTEIN 17.4 mg/dL (<11.9); Urine Protein/Creatinine Ratio 0.29 ratio (<0.15)
[2024-04-03] MEDS: INSULIN GLARGINE 100 UNIT/ML SQ SCH (05:30)
[2024-04-03 06:04] LABS: Absolute Basophils 0.1 K/uL (0-0.5); Absolute Lymphocytes (CBC) 0.1 K/uL (0.7-4.9); Absolute Monocytes 1.4 K/uL (0.1-1.3); Absolute Neutrophil 15.3 K/uL (1.8-8.0); Basophils % 0.3 % (0-1.3); Hematocrit 44.8 % (39.6-49.0); Hemoglobin 14.4 g/dL (13.6-17.9); Lymphocytes % 0.7 % (15.3-44.8); MCH 34.2 pg (27.0-35.0); MCHC 32.1 g/dL (32.0-36.0); MCV 106.6 fL (80-100); MPV 9.8 fL (7.6-11.3); Monocytes % 8.3 % (3.3-12.3); Neutrophils % 90.7 % (41.7-73.7); Nucleated Red Blood Cells % 0.1 % (0-0); Platelets 98 thou/uL (152-406); Red Cell Distribution Width 15.4 % (12.1-15.2)
[2024-04-03 06:14] LABS: Blood Gas Oxyhemoglobin 87.6 % (94-97); Blood O2 Saturation 89.5 % (92-98.5)
[2024-04-03 06:15] LABS: Arterial Blood Carboxyhemoglob 2.3 % (0-1.5)
[2024-04-03 06:16] LABS: Blood Gas THB 15.7 g/dl (12-18)
[2024-04-03 06:34] LABS: Albumin 2.2 g/dL (3.4-5.0); Anion Gap 7.1 mEq/L (5.0-15.0); Phosphorus 2.8 mg/dL (2.5-4.9); Thyroid Stimulating Hormone 0.068 uIU/mL (0.358-3.740); Uric Acid 6.3 mg/dL (3.5-7.2)
[2024-04-03 06:36] LABS: Potassium 6.1 mEq/L (3.5-5.1)
--- NOTE | 2024-04-03 07:25 | RAD REPORT ---
EXAM DESCRIPTION: Sean Single View04/03/2024 5:55 am CLINICAL HISTORY: Intubation COMPARISON: April 02, 2024 FINDINGS: Endotracheal tube with its tip 2 centimeters above aortic arch. Left chest tube in place with minimal left pneumothorax. NG tube stomach. PICC line present. No significant change in bilateral pulmonary opacities IMPRESSION: No significant change since prior exam
[2024-04-03] MEDS: NA CHLORIDE 0.9% 1,000 ML IV SCH ×2 (08:00→08:40)
--- NOTE | 2024-04-03 08:06 | RAD REPORT ---
EXAM DESCRIPTION: US - Renal Ultrasound-Complete - 04/02/2024 11:58 pm CLINICAL HISTORY: Acute renal insufficiency COMPARISON: 2022 FINDINGS: The right kidney measures 13 cm with a normal echotexture. 1.4 centimeter right renal cyst. The left kidney measures 13 cm with a normal echotexture. 2.3 centimeter left renal cyst Hydronephrosis is not seen. Guevara catheter is present within a collapsed bladder IMPRESSION: No hydronephrosis
[2024-04-03] MEDS: METOPROLOL TARTRATE 5 MG/5 ML INJ IV PRN ×2 (08:10→13:34)
[2024-04-03] MEDS: SODIUM ZIRCONIUM CYCLOSILICATE 10 GM/PKT FT ONE (08:13)
[2024-04-03] MEDS: CALCIUM GLUCONATE 1 GM IVPB 1 GM/50 ML BAG IV ONE (08:15)
[2024-04-03] MEDS: ACETYLCYST 20% 4 ML VIAL IH SCH (08:30)
[2024-04-03] MEDS: NA CHLORIDE 0.9% 1,000 ML IV ONE ×2 (08:39→12:48)
[2024-04-03 08:51] VITALS: O2SAT 91
[2024-04-03] MEDS: INSULIN REGULAR (HUMAN) 100 UNIT/ML IV ONE ×2 (09:29→12:48)
[2024-04-03] MEDS: FUROSEMIDE 40 MG/4 ML VIAL IV ONE ×2 (09:30→12:49)
[2024-04-03] MEDS: METOPROLOL TARTRATE 5 MG/5 ML INJ IV ONE (09:50)
[2024-04-03] MEDS: HYDROMORPHONE HCL 2 MG/ML inj IV PRN (10:50)
[2024-04-03] MEDS: INSULIN REGULAR (HUMAN) 100 UNIT/ML SQ ONE (11:00)
--- NOTE | 2024-04-03 11:09 | P.PN ---
Subjective Date of Service: 04/03/24 Chief Complaint: Resp failure Pt is resting comfortably in bed. Still intubated and sedated. PEEP is 15 and FiO2 of 90%. Sao2 91%. He had left apical pneumothorax on 04/01/24 and Gen surgeon placed a left chest tube. Pt had respiratory distress on 03/31/24 and he was intubated. Pulm is managing vent. Will continue OG tube feeding and place a PICC line. We initiated transfer to another facility where he can do ECMO. CXR is stable. No other complaints. Physical Examination - Vital Signs Temperature: 98 F Blood Pressure: 118/72 Pulse: 135 Respirations: 18 Pulse Ox (%): 91 - Physical Exam General: Unresponsive HEENT: Atraumatic, Normocephalic, PERRLA Neck: Supple, 2+ carotid pulse no bruit, JVD not distended Respiratory: Clear to auscultation bilaterally, Normal air movement Cardiovascular: No edema, Normal pulses, Regular rate/rhythm, Normal S1 S2 Capillary refill: <2 Seconds Gastrointestinal: Normal bowel sounds, Soft and benign, Non-distended Musculoskeletal: No clubbing, No swelling, No contractures Integumentary: No rashes, No breakdown, No significant lesion Neurological: Other (unresponsive) Lymphatics: No axilla or inguinal lymphadenopathy Assessment And Plan - Plan Acute Respiratory failure with hypoxia: Due to ARDS/pneumonia. Will continue iv vanc and merrem, steroid, propofol and versed. Pt is intubated and sedated. PEEP is 15 and FiO2 is 90%. Pulm is following. He desats with movement. Will try to transfer pt to a tertiary facility for ECMO. We were initially unable to transfer to a tertiary facility due to increased oxygen requirement. Left apical pneumothorax: Gen surgeon placed left chest tube on 04/01/24. Will monitor chest tube. Repeat CXR is stable. Hyperkalemia: K is 6.1<- 6.9. Will give calcium gluconate and lokelma 10mg via OG tube. Monitor K. AI: cr is 1.56<- 1.44. Will avoid nephrotoxins and monitor renal function. Hypertension: Will continue home med. Tachycardia; Persistent despite giving fentanyl. Will try dilaudis. Continue prn iv metoprol. HR is around 130. Hypergllycemia: Will continue accuchek, SSI, lantus and ADA diet. Likely due to steroid. Hyperlipidemia: Statin Pruritus: Will continue prn benadryl. Hyponatremia: Na is 135. Will monitor Na level. Hypomagnesemia: : Mag is 1.6. Will replete and monitor. Diabetes: Continue accuchek, SSI, lantus 35u daily, and ADA diet Thrombocytopenia: Plt is 80. Will avoid antiplatelet and monitor. Will check for HIT ab Nutrition: Will start OG tube feeding. GI ppx: protonix DVT ppx: xarelto Code: full Dispo: pending hospital course. Pt has poor prognosis. Will try to transfer pt to a tertiary facility for ECMO.
[2024-04-03 12:14] LABS: Albumin 2.1 g/dL (3.4-5.0); Albumin/Globulin Ratio 0.8 (1.1-1.8); Anion Gap 6.8 mEq/L (5.0-15.0); Globulin 2.6 g/dL (2.3-3.5); Potassium 5.8 mEq/L (3.5-5.1); Protein, Total 4.7 g/dL (6.4-8.2)
--- NOTE | 2024-04-03 12:22 | P.PN ---
Subjective Date of Service: 04/03/24 Chief Complaint: Resp failure No change in patient's condition is a 90% FiO2 significant air leak on IV sedation renal function is worse Review of Systems is unable to be obtained Physical Examination - Vital Signs Temperature: 98 F Blood Pressure: 118/72 Pulse: 135 Respirations: 24 Pulse Ox (%): 90 - Physical Exam General: Unresponsive Respiratory: Clear to auscultation bilaterally, Diminished Cardiovascular: No edema, Regular rate/rhythm, Normal S1 S2 Assessment And Plan - Current Problems (Diagnosis) (1) Acute hypoxic respiratory failure Current Visit: No Status: Acute Plan: Respiratory failure with permissive hypercapnia x-ray reviewed endotracheal tube satisfactory chest tube no significant air leak the gastric tube satisfactory position renal function was worse most likely prerenal urinary sodium is less than 15 patient was started on IV fluids aggressive control of blood sugar is now about 400 dose of Solu-Medrol crease insulin dose 2.5 to 1 mg/kg patient's pO2 is 60 on 90% FiO2 PEEP of 15 and able to reduce patient is on assist-control volume 500 patient has intermittent tachycardia use Lopressor narcotics orders to sputum culture transferred to a tertiary care facility his condition is precarious
[2024-04-03] MEDS: ALBUTEROL 2.5 MG/3 ML NEB SOL NEB ONE (12:45)
[2024-04-03] MEDS: VANCOMYCIN 1.5 GM in NA CHLORIDE 0.9% 500 ML IVPB SCH (12:48)
[2024-04-03] MEDS: CYANOCOBALAMIN 1000MCG/ML INJ IM ONE (12:49)
[2024-04-03 13:35] VITALS: BP 97/65
[2024-04-03] MEDS ORDERED: CISATRACURIUM BESYLATE 40 MG in NA CHLORIDE 0.9% 80 ML IV PRN (14:49)
[2024-04-03] MEDS: CISATRACURIUM BESYLATE IV PRN (15:35)
[2024-04-03] MEDS: SODIUM BICARB 50 MEQ/50ML VIAL IV ONE (15:35)
[2024-04-03] MEDS: NA CHLORIDE 0.9% IV PRN (15:35)
--- NOTE | 2024-04-03 15:59 | P.DS ---
Admission Date: 03/15/24 Discharge Date: 04/05/24 Disposition: [facility] Discharge Condition: CRITICAL Reason for Admission: Resp failure Brief History of Present Illness: 59 yrs old Male with past medical history of hypertension, hyperlipidemia, diabetes, alcohol abuse, back surgery, sleep apnea was recently been admitted and was discharged home with recurrent pneumonia brought to ER with shortness of breath . He was diagnosed with pneumonia and was subsequently sent home on 5 L of oxygen . Patient was discharged yesterday. Patient had worsening shortness of breath today. Oxygen saturations on the 5 L were 69%, only corrected to 80% on nonrebreather. Patient was assessed in the ER and was admitted for further management and was placed on BiPAP . On BiPAP patient was responding well , saturation of 95 at the time of admission. Patient denies any fever or chills. No nausea vomiting or diarrhea. Complains of cough with mucoid expectoration. Patient had a recent echo which was showing normal ejection fraction and no diastolic dysfunction. Hospital Course: Pt is a 59 yo male with past medical history of hypertension, hyperlipidemia, diabetes, alcohol abuse, back surgery, sleep apnea who presented with shortness breath after he was recently treated and discharged home with recurrent pneumonia. On admission, pt was hypoxic while using 5L BNC. We admitted pt and gave BIPAp and broad spectrum abx. His oxygen saturation remains in the low 90s while using BIPAP and HFNC ( 40L fio2 100%). We could not transfer pt to tertiary facility due to increased oxygen requirement and the Tag Marker was trying to avoid intubation. He later developed ARDS and we intubated him due to respiratory distress. Pt developed left apical pneumothorax on 04/01/24 and the Gen surgeon placed a left chest tube. Repeat CXR is stable. We treated hyperkalemia with calcium gluconate, lokelma, insulin and sodium bicarb. We monitored renal function. We continued accuchek, SSI, lantus and OG feeding. We also monitored platelet count and other electrolytes. Pt was later accepted to [facility] for ECMO. He paralyzed with nimbex prior to the transfer to [facility]. Vital Signs/Physical Exam: Temp Pulse Resp BP Pulse Ox 98 F 123 H 18 97/65 92 04/03/24 12:27 04/03/24 14:00 04/03/24 14:00 04/03/24 14:00 04/03/24 14:00 Laboratory Data at Discharge: WBC 16.80 thou/uL (4.3-10.9) H 04/03/24 05:20 Hgb 14.4 g/dL (13.6-17.9) D 04/03/24 05:20 Hct 44.8 % (39.6-49.0) 04/03/24 05:20 Plt Count 98 thou/uL (152-406) L D 04/03/24 05:20 Sodium 138 mEq/L (136-145) 04/03/24 11:45 Potassium 5.8 mEq/L (3.5-5.1) H 04/03/24 11:45 BUN 78 mg/dL (7-18) H 04/03/24 11:45 Creatinine 1.33 mg/dL (0.70-1.30) H 04/03/24 11:45 Glucose 399 mg/dL (74-106) H 04/03/24 11:45 Uric Acid 6.3 mg/dL (3.5-7.2) 04/03/24 05:20 Phosphorus 2.8 mg/dL (2.5-4.9) 04/03/24 05:20 Magnesium 3.0 mg/dL (1.6-2.4) H 04/02/24 05:00 Total Bilirubin 1.0 mg/dL (0.2-1.0) 04/03/24 11:45 AST 52 U/L (15-37) H 04/03/24 11:45 ALT 78 U/L (16-61) H 04/03/24 11:45 Alkaline Phosphatase 76 U/L (45-117) 04/03/24 11:45 Home Medications: Fenofibrate,Micronized [Fenofibrate] 134 mg PO DAILY 06/13/16 Fluoxetine HCl [Prozac] 20 mg PO DAILY 06/13/16 Temazepam 15 mg PO BEDTIME 06/13/16 Aspirin [Aspirin EC 325 MG] 1 tab PO BEDTIME 12/28/20 Ezetimibe [Zetia*] 10 mg PO DAILY 12/28/20 Gabapentin 300 mg PO DAILY 12/26/23 Metoprolol Tartrate [Lopressor*] 50 mg PO BID 12/26/23 Albuterol Inhaler [Ventolin Inhaler*] 2 puff IH Q6H PRN 30 Days #1 inh 03/14/24 Albuterol Neb [Proventil 0.083% Neb Soln] 2.5 mg IH Q6H PRN 30 Days #1 box 03/14/24 Nebulizer Accessories [Sootheneb Ken679 Adult Mask] 1 each MC DAILY #1 ea 03/14/24 Nebulizer and Compressor [[place] Choice Nebulizer] 1 ea MC DAILY PRN 30 Days #1 ea 03/14/24 Valsartan [Diovan*] 40 mg PO DAILY tab 03/14/24 levoFLOXacin [Levaquin*] 750 mg PO DAILY 5 Days #5 tab 03/14/24 predniSONE [Deltasone] 20 mg PO BID 5 Days #10 tab 03/14/24 Followup: Moni Durham FNP [Primary Care Provider] -
[2024-04-03 16:59] LABS: Arterial Blood Carboxyhemoglob 1.2 % (0-1.5); Blood Gas Oxyhemoglobin 87.4 % (94-97); Blood Gas THB 15.9 g/dl (12-18); Blood O2 Saturation 89.5 % (92-98.5)
[2024-04-03 17:02] LABS: Blood Gas Inspired Oxygen 0.9 %
--- NOTE | 2024-04-03 17:14 | CON ---
Date of Consultation: 04/03/2024 Reason For Consultation: Hyperkalemia, electrolyte imbalance, elevation in BUN and creatinine. History Of Present Illness: All the information has been obtained from the record as the patient has been intubated. This is a 59-year-old gentleman with significant past medical history of hypertensi on, hyperlipidemia, diabetes complicated with neuropathy, alcohol abuse, back surgery, obstructive sl eep apnea. The patient was recently admitted to the hospital on March 15 for pneumonia. The patient required high FiO2. The patient was intubated after he failed on BiPAP. The patient's gradually kid adela function started deteriorating starting in April 02 and started developing hyperkalemia. For th at reason, we have been consulted. Reviewing the record for the patient, the patient was not on any nonsteroid. The patient had hyperglycemia, has marginal low blood pressure. Otherwise, no other fin ding. The patient over the night was hydrated and we gave them diuresis to establish better potassiu m diuresis. Potassium dropped from 6.4 down to 5.8. The patient still has good urine output, but ag ain blood sugar is still elevated. Past Medical History: Includes: 1.Hypertension. 2.Respiratory failure. 3.Diabetes complicated with neuropathy. 4.Obstructive new sleep apnea. 5.Pneumonia. Allergies: PENICILLIN. Home Medications: Include fenofibrate, aspirin, metformin, metoprolol, valsartan, inhalers. Levoflo xacin, and prednisone. Past Surgical History: Include back surgery, right ACLS repair, obstructive sleep apnea surgery. Family History: Positive for CAD and hypertension. Social History: Ex-smoker. Active alcohol. Denied drugs abuse. Review of Systems: None obtainable. Physical Examination: Vital Signs: When I saw the patient, blood pressure 118/72, pulse of 135. The patient is on vent. Chest: Wheezing bilateral. The patient had chest tube on the left side. Heart: S1, S2. Systolic murmur. Tachycardic. Abdomen: Soft, nontender. No guarding or rebound. Extremities: No edema. Neuro: The patient is sedated on vent. Laboratory Data: Sodium 138, potassium 5.8, bicarb 30, BUN 78, creatinine 1.3. GFR of 62. Glucose 399, calcium 7.2. Albumin 2.1. Corrected calcium is 9. ABG 7.27, CO2 of 71, O2 of 60. Urinalysis: PC ratio 0.2. Sodium less than 15, potassium 34, chloride 12. Current Medications: The patient is on include vancomycin, meropenem, breathing treatment, metoprolo l, gabapentin, IV fluid. Assessment And Plan: 1.Acute kidney injury secondary to poor perfusion acute tubular necrosis secondary to toxic acute tu bular necrosis. Continue to recover. Nonoliguric. Looked to me still on the dry side. I am going to continue hydration, and we will monitor the patient. 2.Hyperkalemia. Transtubular potassium gradient is appropriate. The patient has significant hyperg lycemia and acidosis. I am going to go ahead and give the patient another liter of normal saline to facilitate more sodium loading and we will diurese the patient after. We will give albuterol and ins ulin IV to establish more shift and we will repeat lab. The patient is nonoliguric. I do not see th e need to do renal replacement therapy for this hyperkalemia as this is going to be reversible. 3.Hypercapnic respiratory acidosis as by primary and Pulmonary. 4.Respiratory failure as above. 5.Diabetes, uncontrolled. We will continue utilizing IV insulin for the shift and for a potassium d iuresis and we will follow up. MA/MODL Voice ID: [id number] Report ID: [id number]
[2024-04-03] MEDS ORDERED: SODIUM ZIRCONIUM CYCLOSILICATE 10 GM/PKT PO SCH (21:00)
[2024-04-03] MEDS ORDERED: METHYLPREDNISOLONE 40 MG INJ IV SCH (21:00)
--- NOTE | 2024-04-11 13:40 | EKG ---
Test Date: 2024-03-31 Test Time: 17:06:41 [employer]: LOBO MEASUREMENT RESULTS: Intervals: Rate: 112 AL: 172 QRSD: 114 QT: 346 QTc: 472 [place]: P: 47 AL: 172 QRS: -4 T: -11 INTERPRETIVE STATEMENTS: Sinus tachycardia Possible Left atrial enlargement Inferior infarct, age undetermined Abnormal ECG Compared to ECG 03/15/2024 19:02:12 Myocardial infarct finding now present Sinus rhythm no longer present T-wave abnormality no longer present Prolonged QT interval no longer present Electronically Signed On 04-11-24 13:32:28 CDT by Stephen Ricks
== END 2024-04-03 16:10 | disposition short-term general hospital (02) | DRG 871 ==
LOC: ER 18:24 → ERHOLD 20:46 → 2ND 22:35 → 3RD-ICU 03-17 14:47
PROVIDERS: ADMIT Family Medicine; ATTEND Hospitalist
PROC: 4A033R1 Measurement of Arterial Saturation, Peripheral, Percutaneous Approach (ICD-10-PCS; principal; 2024-03-15)
PROC: 5A09557 Assistance with Respiratory Ventilation, Greater than 96 Consecutive Hours, Continuous Positive Airway Pressure (ICD-10-PCS; 2024-03-15)
PROC: 5A0945A Assistance with Respiratory Ventilation, 24-96 Consecutive Hours, High Flow/Velocity Cannula (ICD-10-PCS; 2024-03-29)
PROC: 0T9B70Z Drainage of Bladder with Drainage Device, Via Natural or Artificial Opening (ICD-10-PCS; 2024-03-29)
PROC: 0DH67UZ Insertion of Feeding Device into Stomach, Via Natural or Artificial Opening (ICD-10-PCS; 2024-03-31)
PROC: 0W9B30Z Drainage of Left Pleural Cavity with Drainage Device, Percutaneous Approach (ICD-10-PCS; 2024-04-01)
PROC: 02HV33Z Insertion of Infusion Device into Superior Vena Cava, Percutaneous Approach (ICD-10-PCS; 2024-04-01)
DX: A41.9 Sepsis, unspecified organism (principal); J18.9 Pneumonia, unspecified organism; J80 Acute respiratory distress syndrome; N17.0 Acute kidney failure with tubular necrosis; J45.901 Unspecified asthma with (acute) exacerbation; E87.1 Hypo-osmolality and hyponatremia; J93.9 Pneumothorax, unspecified; E87.20 Acidosis, unspecified; I10 Essential (primary) hypertension; L29.9 Pruritus, unspecified; D69.6 Thrombocytopenia, unspecified; J84.10 Pulmonary fibrosis, unspecified; E83.42 Hypomagnesemia; G47.33 Obstructive sleep apnea (adult) (pediatric); E88.810 Metabolic syndrome; F41.9 Anxiety disorder, unspecified; E78.00 Pure hypercholesterolemia, unspecified; Z78.1 Physical restraint status; R73.9 Hyperglycemia, unspecified; Z88.0 Allergy status to penicillin; Z79.82 Long term (current) use of aspirin; Z11.52 Encounter for screening for COVID-19; Z99.81 Dependence on supplemental oxygen; Z79.52 Long term (current) use of systemic steroids; Z79.84 Long term (current) use of oral hypoglycemic drugs; Z79.899 Other long term (current) drug therapy; Z87.891 Personal history of nicotine dependence
CPT/HCPCS: 36415; 36600; 71045; 71260; 74018; 76770; 80048; 80053; 80069; 80076; 81001; 82435; 82533; 82550; 82570; 82785; 82805; 82947; 83735; 83880; 83930; 84100; 84132; 84145; 84156; 84300; 84443; 84484; 84550; 85025; 85027; 86140; 86235; 86850; 87389; 87811; 93005; 94002; 94003; 94010; 94640; 94660; 94760; 96365; 96366; 97161; 99285; J0612; J0692; J1170; J1200; J1644; J1650; J1940; J2185; J2250; J2470; J2543; J2704; J2919; J3010; J3420; J3475; J7030; J7040; J7050; J7060; J7608; J7613; J7644; P9047; Q9967